=== PATIENT | female | born 1960 | race Caucasian/White ===

== ENCOUNTER → 2016-09-16 | Outpatient (CLI) | payer BC, OTHER ==
[~2016-09-16] MED LIST: ALPR0.5T7 PO; ALPR1TAB2 PO; ALPR1TAB7 PO; ASP325TEC PO; ASPI-587 PO; ASPI-875 PO; ASPI-983 PO; BUDE10.22 IH; BUDE6HFA IH; CETI10TA17 PO; CHLO500T4 PO; CLCX100C PO; CLOP75TA28 PO; CYCL10TA9 PO; CYCL5TAB PO; DICL50TA4 PO; ENAL2.5T PO; FLUO40CA PO; FLUT16SP22 NSEACH; GABA-488 PO; GABA600T2 PO; GABA800T2 PO; HYDR-3454 PO; HYDR-3729 PO; LISI-556 PO; LISI10TA2 PO; LISI5TAB PO; LORA10TA7 PO; METO-333 PO; METO25TA PO; METO25TA2 PO; MGX400T PO; MIRT15TA6 PO; MIRT45TA5 PO; MONT10TA24 PO; NITR1OIN TP; POTA10CA43 PO; POTA10TA36 PO; RT-ALBUINH IH; SILV20CR14 EXT; SIMV10TA3 PO; SIMV40TA4 PO; SMV10T PO; TIOT4MIS2 INH; TRAZ150T42 PO
--- NOTE | 2016-09-17 08:40 | ECHOCARDIOGRAPHY REPORT ---
PROCEDURE PHYSICIAN: RUDI PINEDA DATE OF PROCEDURE: 09/16/2016 TWO DIMENSIONAL ECHOCARDIOGRAM REPORT PRIMARY PHYSICIAN: BENNETT Bender OTHER PHYSICIAN: REFERRING PHYSICIAN: ORDERING PHYSICIAN: Armida Rosas APRN INDICATION FOR THE PROCEDURE: History of ischemic cardiomyopathy. MEASUREMENTS DERIVED VALUES LV DIAMETER (LAX) NORMALS NORMALS Diastolic 5.2 (3.6-5.2) Eject. Fract. (60%+/-6%) Systolic (2.3-3.9) Diastolic Vol. % Shortening (0.22-0.42) Systolic Vol. Aortic Root 2.7 IVS THICKNESS Diastolic 1 (0.6-1.1) LVPW THICKNESS Diastolic 1.1 (0.6-1.1) LA DIAMETER Systolic 3.8 (2.1-3.7) DESCRIPTION: Global left ventricular systolic function appears mildly impaired. There appears to be distal, septal and apical hypokinesis. Aortic, mitral and tricuspid valve leaflets show good leaflet excursion. Left ventricular ejection fraction is 45 to 50%. There is no significant pericardial effusion. Doppler imaging shows mild tricuspid regurgitation. There is trivial pulmonic regurgitation. Aortic valve appears to be trileaflet. There is mild to moderate sclerosis and calcification of the aortic valve leaflets. Doppler imaging shows moderate mitral regurgitation. Pulmonary artery systolic pressure is estimated to be approximately 50 mmHg. CONCLUSION: 1. Mild impairment of global left ventricular systolic function with an ejection fraction of approximately 45 to 50%. 2. Moderate mitral regurgitation. 3. Mild tricuspid regurgitation. 4. Aortic valve sclerosis with a peak pressure gradient across the aortic valve of approximately 24 mmHg and valve area of approximately 1.5 cm sq, indicating mild aortic stenosis. Job ID: [id number] Dictated Date: 09/16/2016 15:41:58 Publication Manager Date: 09/17/2016 08:33:51 / lyndsey
== END ==
LOC: CARD 10:39
PROVIDERS: ATTEND Nurse Practitioner Family
DX: I65.23 Occlusion and stenosis of bilateral carotid arteries (principal); E78.4 Other hyperlipidemia; I25.10 Atherosclerotic heart disease of native coronary artery without angina pectoris; R06.09 Other forms of dyspnea; Z86.79 Personal history of other diseases of the circulatory system
CPT/HCPCS: 93306

== ENCOUNTER 2016-11-25 18:27 | Observation (INO) | payer BC, MEDICARE ==
[~2016-11-25] VITALS: Ht 152.4 cm; Wt 76.7 kg
[~2016-11-25 18:27] MED LIST changes: -ALPR0.5T7 PO; -ASPI-983 PO; -CETI10TA17 PO; -CHLO500T4 PO; -CLOP75TA28 PO; -CYCL5TAB PO; -DICL50TA4 PO; -FLUT16SP22 NSEACH; -GABA800T2 PO; -MIRT45TA5 PO; -MONT10TA24 PO; -RT-ALBUINH IH; -SILV20CR14 EXT; -SIMV40TA4 PO
[2016-11-25] MEDS ORDERED: methylPREDNISolone 125 MG (Solu-MEDROL) VIAL IVP ONE (18:45)
[2016-11-25 18:58] LABS: BASOPHILS % (AUTO) 1 % (0-10); EOSINOPHILS # (AUTO) 0.2 10^3/uL (0.0-0.3); EOSINOPHILS % (AUTO) 2 % (0-10); LYMPHOCYTES # (AUTO) 1.8 X 10^3 (1.0-4.0); LYMPHOCYTES % (AUTO) 23 % (12-44); MEAN CORPUSCULAR HEMOGLOBIN 32 PG (25-34); MEAN CORPUSCULAR HGB CONC 34 G/DL (32-36); MEAN CORPUSCULAR VOLUME 96 FL (80-99); MEAN PLATELET VOLUME 9.5 FL (7.4-10.4); MONOCYTES # (AUTO) 0.6 X 10^3 (0.0-1.0); MONOCYTES % (AUTO) 8 % (0-12); NEUTROPHILS # (AUTO) 5.1 X 10^3 (1.8-7.8); NEUTROPHILS % (AUTO) 66 % (42-75); PLATELET COUNT 220 10^3/uL (130-400); RED BLOOD COUNT 4.05 10^6/uL (4.35-5.85); RED CELL DISTRIBUTION WIDTH 13.3 % (10.0-14.5); WHITE BLOOD COUNT 7.7 10^3/uL (4.3-11.0)
[2016-11-25] MEDS ORDERED: fentaNYL INJECTION 100 MCG/2 ML AMP IVP STA (19:01)
[2016-11-25 19:08] LABS: INR 1.1 (0.8-1.4); PROTHROMBIN TIME PATIENT 14.3 SEC (12.2-14.7)
[2016-11-25 19:18] LABS: ALANINE AMINOTRANSFERASE 8 U/L (0-55); ALBUMIN 3.9 G/DL (3.2-4.5); ANION GAP 9 MMOL/L (5-14); ASPARTATE AMINO TRANSFERASE 13 U/L (5-34); BILIRUBIN,TOTAL 0.5 MG/DL (0.1-1.0); BLOOD UREA NITROGEN 3 MG/DL (7-18); BUN/CREATININE RATIO 4; CALCIUM 8.8 MG/DL (8.5-10.1); CARBON DIOXIDE 31 MMOL/L (21-32); CHLORIDE 97 MMOL/L (98-107); CREATININE SERUM 0.84 MG/DL (0.60-1.30); GFR ESTIMATED > 60; GLUCOSE 141 MG/DL (70-105); SODIUM 137 MMOL/L (135-145); TOTAL PROTEIN 6.6 G/DL (6.4-8.2)
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
[2016-11-25] MEDS: SILVER SULFADIAZINE 50 GM CREAM TOP SCH ×2 (20:03→21:15)
[2016-11-25 20:24] VITALS: BP 145/72
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
[2016-11-25 21:00] VITALS: BP 145/89
[2016-11-25] MEDS ORDERED: ALPR1TAB2 PO (21:11)
[2016-11-25] MEDS ORDERED: MIRT45TA5 PO (21:11)
[2016-11-25] MEDS ORDERED: traZODone 150 MG (DESYREL) TABLET PO PRN (21:15)
[2016-11-25] MEDS ORDERED: CYCLOBENZAPRINE 10 MG (FLEXERIL) TAB PO PRN (21:15)
[2016-11-25 22:00] VITALS: BP 152/87
[2016-11-25] MEDS ORDERED: RT-ALBUTEROL/IPRATROPIUM 3 ML (DUONEB) VIAL INH PRN (22:00)
[2016-11-25] MEDS ORDERED: TRIM/SULFAMETH 160/800 (SEPTRA DS) TAB PO ONE (22:25)
[2016-11-25] MEDS: RT-ALBUTEROL/IPRATROPIUM 3 ML (DUONEB) VIAL INH SCH (22:37)
[2016-11-25] MEDS: fentaNYL INJECTION 100 MCG/2 ML AMP IV PRN (22:40)
[2016-11-25 23:00] VITALS: BP 130/69
[2016-11-26] VITALS (12 sets, daily range): BP systolic 109–147; BP diastolic 59–89
[2016-11-26] MEDS ORDERED: KCL 20 MEQ TAB (K-DUR) PO ONE (00:09)
[2016-11-26] MEDS: methylPREDNISolone 125 MG (Solu-MEDROL) VIAL IV SCH ×3 (00:14→11:06)
[2016-11-26] MEDS ORDERED: KCL 20 MEQ POWDER FOR ORAL SOLUTION PO ONE (00:30)
[2016-11-26 00:32] LABS: ABG BASE EXCESS 5.5 MMOL/L (-2.5-2.5); ABG HCO3 31 MMOL/L (23-27); ABG OXYGEN SATURATION 100 % (94-100); ABG PCO2 60 MMHG (35-45); ABG PO2 188 MMHG (79-93); ALLENS TEST YES-POS; PATIENT TEMP 98.7
[2016-11-26 00:34] LABS: ABG PH 7.33 (7.37-7.43)
[2016-11-26] MEDS: RT-ALBUTEROL/IPRATROPIUM 3 ML (DUONEB) VIAL INH SCH ×6 (02:15→22:32)
[2016-11-26] MEDS: fentaNYL INJECTION 100 MCG/2 ML AMP IV PRN ×3 (03:42→20:00)
[2016-11-26 04:07] LABS: BASOPHILS % (AUTO) 0 % (0-10); EOSINOPHILS % (AUTO) 0 % (0-10); LYMPHOCYTES # (AUTO) 0.4 X 10^3 (1.0-4.0); LYMPHOCYTES % (AUTO) 7 % (12-44); MEAN CORPUSCULAR HEMOGLOBIN 32 PG (25-34); MEAN CORPUSCULAR HGB CONC 33 G/DL (32-36); MEAN CORPUSCULAR VOLUME 95 FL (80-99); MEAN PLATELET VOLUME 9.9 FL (7.4-10.4); MONOCYTES # (AUTO) 0.1 X 10^3 (0.0-1.0); MONOCYTES % (AUTO) 1 % (0-12); NEUTROPHILS # (AUTO) 5.6 X 10^3 (1.8-7.8); NEUTROPHILS % (AUTO) 91 % (42-75); PLATELET COUNT 198 10^3/uL (130-400); RED BLOOD COUNT 4.31 10^6/uL (4.35-5.85); RED CELL DISTRIBUTION WIDTH 13.3 % (10.0-14.5); WHITE BLOOD COUNT 6.2 10^3/uL (4.3-11.0)
[2016-11-26 04:29] LABS: ABG BASE EXCESS 5.3 MMOL/L (-2.5-2.5); ABG HCO3 31 MMOL/L (23-27); ABG OXYGEN SATURATION 94 % (94-100); ABG PCO2 57 MMHG (35-45); ABG PH 7.35 (7.37-7.43); ABG PO2 73 MMHG (79-93); ABG TCO2 32.4 MMOL/L (21.0-31.0)
[2016-11-26 04:30] LABS: ALLENS TEST YES-POS; PATIENT TEMP 98.4
[2016-11-26 04:41] LABS: ANION GAP 13 MMOL/L (5-14); BLOOD UREA NITROGEN 5 MG/DL (7-18); BUN/CREATININE RATIO 6; CALCIUM 8.8 MG/DL (8.5-10.1); CARBON DIOXIDE 27 MMOL/L (21-32); CHLORIDE 101 MMOL/L (98-107); CREATININE SERUM 0.81 MG/DL (0.60-1.30); GFR ESTIMATED > 60; GLUCOSE 243 MG/DL (70-105); MAGNESIUM 1.9 MG/DL (1.8-2.4); PHOSPHORUS 3.4 MG/DL (2.3-4.7); SODIUM 141 MMOL/L (135-145)
[2016-11-26 05:06] LABS: BAND NEUTROPHILS 0 %; EOSINOPHILS % (MANUAL) 0 %; LYMPHOCYTES % (MANUAL) 15 %; NEUTROPHILS % (MANUAL) 85 %
[2016-11-26] MEDS ORDERED: MAGNESIUM 1 GM/100 ML IVPB 100 ML IV SCH (06:00)
[2016-11-26] MEDS ORDERED: POTASSIUM CL 10MEQ/50ML IVPB 50 ML IV SCH (06:00)
[2016-11-26] MEDS ORDERED: KCL 20 MEQ TAB (K-DUR) PO SCH (06:00)
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
[2016-11-26] MEDS: TRIM/SULFAMETH 160/800 (SEPTRA DS) TAB PO SCH ×2 (07:36→16:51)
[2016-11-26] MEDS: lisINopril 10 MG (PRINIVIL) TAB PO SCH (07:36)
[2016-11-26] MEDS: GABAPENTIN 600 MG (NEURONTIN) TAB PO SCH ×4 (07:36→20:00)
[2016-11-26] MEDS: SILVER SULFADIAZINE 50 GM CREAM EXT SCH ×2 (07:36→20:01)
[2016-11-26] MEDS: ASPIRIN E.C. 325 MG (ECOTRIN) TABLET PO SCH (07:36)
[2016-11-26] MEDS: ALPRAZolam 1 MG (XANAX) TAB PO SCH ×2 (07:36→20:01)
[2016-11-26] MEDS ORDERED: RT-ADVAIR HFA 115/21 MCG PER PUFF IH SCH (08:00)
--- NOTE | 2016-11-26 08:02 | Diagnostic Imaging Report ---
Portable erect AP chest at 457 hours. INDICATION: COPD. FINDINGS: The heart size is within normal limits and stable when compared to 11/25/16. The lungs are clear. There is still no evidence for failure, pneumonia or pleural effusion. The mediastinum is not widened. The osseous structures are intact. As noted on the prior exam, the distal tip of the left clavicle has been surgically resected. The vascular mesh stent overlying the left supraclavicular region seen previously is also again evident and no different. IMPRESSION: Stable chest. There has been no adverse change since the prior exam. Dictated by: Dictated on workstation # [id number]
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
[2016-11-26] MEDS ORDERED: RT-SYMBICORT 160/4.5 MCG INHALER PER PUFF IH SCH (09:00)
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
[2016-11-26] MEDS ORDERED: CYCL5TAB PO (10:49)
[2016-11-26] MEDS ORDERED: CHLO500T4 PO (10:49)
[2016-11-26] MEDS ORDERED: GABA800T2 PO (10:49)
[2016-11-26] MEDS ORDERED: CETI10TA17 PO (10:49)
[2016-11-26] MEDS ORDERED: SIMV40TA4 PO (10:49)
[2016-11-26] MEDS ORDERED: CLOP75TA28 PO (10:49)
[2016-11-26] MEDS ORDERED: ASPI-983 PO (10:49)
[2016-11-26] MEDS ORDERED: DICL50TA4 PO (10:49)
[2016-11-26] MEDS ORDERED: MONT10TA24 PO (10:49)
[2016-11-26] MEDS ORDERED: FLUT16SP22 NSEACH (10:49)
[2016-11-26] MEDS ORDERED: ALPR0.5T7 PO (10:49)
[2016-11-26] MEDS ORDERED: METO-333 PO (10:49)
[2016-11-26] MEDS ORDERED: RT-ALBUINH IH (10:49)
[2016-11-26] MEDS: CELECOXIB 100 MG (CeleBREX) CAP PO SCH ×2 (11:06→20:00)
[2016-11-26] MEDS: RT-ADVAIR HFA 115/21 MCG PER PUFF IH SCH ×2 (11:13→19:07)
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
[2016-11-26] MEDS ORDERED: LORATADINE (CLARITIN) 10 MG TAB PO SCH (21:00)
[2016-11-26] MEDS ORDERED: NON-FORMULARY MEDICATION 1 EA EA (Mirtazapine 45 MG) PO SCH (21:00)
[2016-11-26] MEDS ORDERED: MIRTAZAPINE 15 MG (REMERON) TAB PO SCH (21:00)
[2016-11-26] MEDS ORDERED: SIMvastatin 10 MG (ZOCOR) TAB PO SCH (21:00)
[2016-11-27 00:05] VITALS: BP 107/59
[2016-11-27] MEDS: RT-ALBUTEROL/IPRATROPIUM 3 ML (DUONEB) VIAL INH SCH ×3 (02:10→10:30)
[2016-11-27 05:02] LABS: BASOPHILS % (AUTO) 0 % (0-10); EOSINOPHILS % (AUTO) 0 % (0-10); LYMPHOCYTES # (AUTO) 0.8 X 10^3 (1.0-4.0); LYMPHOCYTES % (AUTO) 5 % (12-44); MEAN CORPUSCULAR HEMOGLOBIN 32 PG (25-34); MEAN CORPUSCULAR HGB CONC 33 G/DL (32-36); MEAN CORPUSCULAR VOLUME 96 FL (80-99); MEAN PLATELET VOLUME 9.8 FL (7.4-10.4); MONOCYTES # (AUTO) 0.7 X 10^3 (0.0-1.0); MONOCYTES % (AUTO) 4 % (0-12); NEUTROPHILS # (AUTO) 13.9 X 10^3 (1.8-7.8); NEUTROPHILS % (AUTO) 90 % (42-75); PLATELET COUNT 223 10^3/uL (130-400); RED BLOOD COUNT 4.14 10^6/uL (4.35-5.85); RED CELL DISTRIBUTION WIDTH 13.6 % (10.0-14.5); WHITE BLOOD COUNT 15.4 10^3/uL (4.3-11.0)
[2016-11-27 05:24] LABS: ANION GAP 9 MMOL/L (5-14); BLOOD UREA NITROGEN 7 MG/DL (7-18); BUN/CREATININE RATIO 9; CALCIUM 9.1 MG/DL (8.5-10.1); CARBON DIOXIDE 31 MMOL/L (21-32); CHLORIDE 104 MMOL/L (98-107); CREATININE SERUM 0.79 MG/DL (0.60-1.30); GFR ESTIMATED > 60; GLUCOSE 182 MG/DL (70-105); PHOSPHORUS 3.3 MG/DL (2.3-4.7); POTASSIUM 4.6 MMOL/L (3.6-5.0); SODIUM 144 MMOL/L (135-145)
[2016-11-27] MEDS: TRIM/SULFAMETH 160/800 (SEPTRA DS) TAB PO SCH (06:10)
[2016-11-27] MEDS: RT-ADVAIR HFA 115/21 MCG PER PUFF IH SCH (06:12)
[2016-11-27 07:30] VITALS: BP 122/61
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
[2016-11-27] MEDS: lisINopril 10 MG (PRINIVIL) TAB PO SCH (08:07)
[2016-11-27] MEDS: ASPIRIN E.C. 325 MG (ECOTRIN) TABLET PO SCH (08:07)
[2016-11-27] MEDS: CELECOXIB 100 MG (CeleBREX) CAP PO SCH (08:07)
[2016-11-27] MEDS: GABAPENTIN 600 MG (NEURONTIN) TAB PO SCH (08:07)
[2016-11-27] MEDS: ALPRAZolam 1 MG (XANAX) TAB PO SCH (08:09)
[2016-11-27] MEDS: SILVER SULFADIAZINE 50 GM CREAM EXT SCH (08:11)
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
[2016-11-27] MEDS ORDERED: SILV20CR14 EXT (10:23)
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
[2016-11-27 11:06] VITALS: BP 122/61
--- OUTSIDE RECORDS SUMMARY | 2016-12-28 15:11 | XMS REPORT ---
Author Author EN LOPEZ [employer] Address Unknown Phone Unavailable Care Team Providers Care Circular Head Saw Operator Name Role Phone EN LOPEZ CP Unavailable Allergies, Adverse Reactions, Alerts Substance Reaction Event Type Hydrocodone-acetaminophen 7.5-325 Mg Tablet Smokes THC, & discharged from past provider for violating narcotic contract. Non Drug Allergy Benzodiazepines Smokes THC, & discharged from past provider for violating narcotic contract. Non Drug Allergy Hydrocodone Smokes THC, & discharged from past provider for violating narcotic contract. Non Drug Allergy Morphine 15 Mg Tablet Smokes THC, & discharged from past provider for violating narcotic contract. Non Drug Allergy Xanax 1 Mg Tablet Failed UDS for THC Non Drug Allergy Problems Problem Type Condition ICD-9 Code Onset Dates Condition Status Problem Insomnia, unspecified 780.52 Active Problem Unspecified myalgia and myositis 729.1 Active Problem Rheumatoid arthritis 714.0 Active Problem Diabetes mellitus without mention of complication, type II or unspecified type, not stated as uncontrolled 250.00 Active Problem Allergic rhinitis, cause unspecified 477.9 Active Problem Coronary atherosclerosis of unspecified type of vessel, [place] or graft 414.00 Active Problem Encounter for long-term (current) use of other medications V58.69 Active Problem Routine general medical examination at health care facility V70.0 Active Problem Essential hypertension, benign 401.1 Active Problem Nondependent cannabis abuse, 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.20 Active Assessment Nicotine dependence 305.1 Active Assessment Muscle spasm 728.85 Active Problem Cough 786.2 Active Problem Hypopotassemia 276.8 Active Medications Medication Code System Code Instructions Start Date End Date Status Dosage Baclofen [facility] [address]-33 5 mg Orally Three times a day Apr 27, 2015 Jul 26, 2015 1 tablet with food or milk Aspirin EC [facility] [address]-28 325 MG Orally Once a day 1 tablet Loratadine [facility] [address]-00 10 mg May 05, 2014 take 1 tablet by Oral route 1 time per day take at hs Enalapril Maleate [facility] [address]-66 2.5 mg May 05, 2014 take 1 tablet (2.5 mg) by oral route 2 times per day Metoprolol Tartrate [facility] [address]-40 25 mg February 23, 2014 take 0.5 tablet by Oral route 2 times per day Mirtazapine [facility] [address]-77 15 MG Orally Once a day 1 tablet before bedtime in the evening Simvastatin [facility] [address]-75 10 mg February 23, 2014 1 tablet by Oral route 1 time per day Celebrex [facility] [address]-26 200 MG Orally Once a day December 27, 2014 1 capsule Nicoderm CQ [facility] [address]-86 14 MG/24HR Transdermal Once a day Apr 27, 2015 Jun 26, 2015 1 patch to skin trazodone [facility] [address]-55 150 mg May 05, 2014 take 1 tablet by Oral route 1 time per day after meals Symbicort [facility] [address]-96 160-4.5 mcg/actuation Oct 05, 2014 inhale 2 puffs by inhalation route 2 times per day in the morning and evening Gabapentin [facility] [address]-92 600 mg May 05, 2014 1 Tablet by Oral route 4 times per day PRN for back/hip/leg pain Lisinopril [facility] [address]-39 5 mg February 23, 2014 1 tablet by Oral route 1 time per day Spiriva HandiHaler [facility] [address]-83 18 MCG Inhalation Once a day 1 capsule Alprazolam [facility] [address]-01 0.25 mg May 05, 2014 take 1 tablet ( 0.25 mg) by oral route 3 times per day Ultram [facility] [address]-20 50 MG Orally every 6 hrs January 01, 2015 1 tablet as needed Procedures Procedure Coding System Code Date Office Visit, Est Pt., Level 3 CPT-4 88189 Apr 27, 2015 Vital Signs Date/Time: Apr 27, 2015 Temperature 97.4 F Weight 182.0 lbs Height 60 in BMI 35.54 Index Blood Pressure Diastolic 70 mmHg Blood Pressure Systolic 130 mmHg Cardiac Monitoring Heart Rate 96 bpm Results No Known Results Summary Purpose eClinicalWorks Submission
--- OUTSIDE RECORDS SUMMARY | 2016-12-28 15:11 | XMS REPORT ---
Author Author EN LOPEZ [facility] e[employer] Address Unknown Phone Unavailable Care Team Providers Care Accounting Specialist Name Role Phone EN LOPEZ CP Unavailable Allergies No Known Allergies Problems Problem Type Condition ICD-9 Code Onset Dates Condition Status Problem Insomnia, unspecified 780.52 Active Problem Unspecified myalgia and myositis 729.1 Active Problem Rheumatoid arthritis 714.0 Active Problem Cough 786.2 Active Problem Hypopotassemia 276.8 Active Problem Diabetes mellitus without mention of complication, type II or unspecified type, not stated as uncontrolled 250.00 Active Problem Allergic rhinitis, cause unspecified 477.9 Active Problem Coronary atherosclerosis of unspecified type of vessel, [place] or graft 414.00 Active Problem Encounter for long-term (current) use of other medications V58.69 Active Problem Routine general medical examination at health care facility V70.0 Active Problem Essential hypertension, benign 401.1 Active Problem Nondependent cannabis abuse, 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.20 Active Medications No Known Medications Results No Known Results Summary Purpose eClinicalWorks Submission
--- OUTSIDE RECORDS SUMMARY | 2016-12-28 15:11 | XMS REPORT ---
Author Author EN LOPEZ [employer] Address Unknown Phone Unavailable Care Team Providers Care Ssis Architect Name Role Phone EN LOPEZ CP Unavailable Allergies, Adverse Reactions, Alerts Substance Reaction Event Type Benzodiazepines Smokes THC, & discharged from past provider for violating narcotic contract. Non Drug Allergy Hydrocodone Smokes THC, & discharged from past provider for violating narcotic contract. Non Drug Allergy Hydrocodone-acetaminophen 7.5-325 Mg Tablet Smokes THC, & discharged from past provider for violating narcotic contract. Non Drug Allergy Morphine 15 Mg Tablet Smokes THC, & discharged from past provider for violating narcotic contract. Non Drug Allergy Xanax 1 Mg Tablet Failed UDS for THC Non Drug Allergy Problems Problem Type Condition Code Onset Dates Condition Status Problem Insomnia, unspecified 780.52 Active Problem Unspecified myalgia and myositis 729.1 Active Problem Rheumatoid arthritis 714.0 Active Problem Diabetes mellitus without mention of complication, type II or unspecified type, not stated as uncontrolled 250.00 Active Problem Allergic rhinitis, cause unspecified 477.9 Active Problem Coronary atherosclerosis of unspecified type of vessel, [place] or graft 414.00 Active Problem Encounter for long-term (current) use of other medications V58.69 Active Problem Routine general medical examination at health care facility V70.0 Active Problem Essential hypertension, benign 401.1 Active Problem Nondependent cannabis abuse, 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.20 Active Assessment Muscle spasms of both lower extremities M62.838 Active Problem Cough 786.2 Active Problem Hypopotassemia 276.8 Active Medications Medication Code System Code Instructions Start Date End Date Status Dosage Enalapril Maleate [facility] [address]-36 2.5 mg May 05, 2014 take 1 tablet (2.5 mg) by oral route 2 times per day Aspirin EC [facility] [address]-92 325 MG Orally Once a day 1 tablet Lisinopril [facility] [address]-55 5 mg February 23, 2014 1 tablet by Oral route 1 time per day trazodone [facility] [address]-19 150 mg May 05, 2014 take 1 tablet by Oral route 1 time per day after meals Celebrex [facility] [address]-24 200 MG Orally Once a day December 27, 2014 1 capsule Spiriva HandiHaler [facility] [address]-33 18 MCG Inhalation Once a day 1 capsule Mirtazapine [facility] [address]-08 15 MG Orally Once a day 1 tablet before bedtime in the evening Loratadine [facility] [address]-05 10 mg May 05, 2014 take 1 tablet by Oral route 1 time per day take at hs Symbicort [facility] [address]-39 160-4.5 mcg/actuation Oct 05, 2014 inhale 2 puffs by inhalation route 2 times per day in the morning and evening Simvastatin [facility] [address]-14 10 mg February 23, 2014 1 tablet by Oral route 1 time per day Gabapentin [facility] [address]-94 600 mg May 05, 2014 1 Tablet by Oral route 4 times per day PRN for back/hip/leg pain Ultram [facility] [address]-89 50 MG Orally every 6 hrs January 01, 2015 1 tablet as needed Metoprolol Tartrate [facility] [address]-90 25 mg February 23, 2014 take 0.5 tablet by Oral route 2 times per day Procedures Procedure Coding System Code Date Office Visit, Est Pt., Level 3 CPT-4 78090 Jun 27, 2015 Vital Signs Date/Time: Jun 27, 2015 Temperature 98.0 F Weight 179.0 lbs Height 60 in BMI 34.95 Index Blood Pressure Diastolic 76 mmHg Blood Pressure Systolic 122 mmHg Cardiac Monitoring Heart Rate 96 bpm Results No Known Results Summary Purpose eClinicalWorks Submission
--- OUTSIDE RECORDS SUMMARY | 2016-12-28 15:11 | XMS REPORT ---
Author Author EN LOPEZ [facility] eClinicalWorks Address Unknown Phone Unavailable Care Team Providers Care Deputy Sheriff Custody Name Role Phone EN LOPEZ CP Unavailable Allergies No Known Allergies Problems Problem Type Condition Code Onset Dates [...] Coronary atherosclerosis of unspecified type of vessel, [place] or graft 414.00 Active Problem Encounter for long-term (current) use of other medications V58.69 Active Problem Routine general medical examination at health care facility V70.0 Active Problem Essential hypertension, benign 401.1 Active Problem Nondependent cannabis abuse, 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.20 Active Medications Medication Code System Code Instructions Start Date End Date Status Dosage Permethrin [facility] [address]-98 5 % Externally Once a day Aug 02, 2015 as directed Results No Known Results Summary Purpose eClinicalWorks Submission
--- OUTSIDE RECORDS SUMMARY | 2016-12-28 15:11 | XMS REPORT ---
Author Author DANIEL CONNOLLY [facility] eClinicalWorks Address Unknown Phone Unavailable Care Team Providers Care Lap Hand Tool Name Role Phone DANIEL CONNOLLY CP Unavailable Allergies, Adverse Reactions, Alerts Substance [...] for violating narcotic contract. Non Drug Allergy Problems Problem Type Condition Code Onset Dates Condition Status Problem Nondependent cannabis abuse, 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.20 Active Problem Allergic rhinitis, cause unspecified 477.9 Active Problem Essential hypertension, benign 401.1 Active Problem Essential hypertension, hypertension with unspecified goal I10 Active Problem Arthritis M19.90 Active Problem Coronary artery disease involving [place] coronary artery of [place] heart without angina pectoris I25.10 Active Problem Coronary atherosclerosis of unspecified type of vessel, [place] or graft 414.00 Active Problem Diabetes mellitus without mention of complication, type II or unspecified type, not stated as uncontrolled 250.00 Active Problem Chronic obstructive pulmonary disease, unspecified COPD type J44.9 Active Problem Diet-controlled diabetes mellitus E11.9 Active Assessment Chronic obstructive pulmonary disease, unspecified COPD type J44.9 Active Problem Cough 786.2 Active Assessment Essential hypertension, hypertension with unspecified goal I10 Active Assessment Arthritis M19.90 Active Problem Rheumatoid arthritis 714.0 Active Problem Unspecified myalgia and myositis 729.1 Active Problem Hypopotassemia 276.8 Active Problem Routine general medical examination at health care facility V70.0 Active Problem Insomnia, unspecified 780.52 Active Problem Encounter for long-term (current) use of other medications V58.69 Active Medications Medication Code System Code Instructions Start Date End Date Status Dosage Spiriva HandiHaler [facility] [address]-38 18 MCG Inhalation Once a day 1 capsule Albuterol Sulfate HFA [facility] [address]-69 108 (90 Base) MCG/ACT Inhalation 4 times a day December 26, 2015 2 puffs as needed ProAir HFA [facility] [id number] 108 (90 Base) MCG/ACT INHALE TWO (2) PUFFS BY MOUTH FOUR (4) TIMES DAILY NEEDED. Celecoxib [facility] [address]-40 200 MG Orally Once a day [address] [facility] [address]-38 10 MG Orally Once a day 1 tablet in the evening Parafon Forte DSC [facility] [address]-22 500 MG Orally Three times a day Mar [address] [facility] [address]-66 160-4.5 mcg/actuation Oct 05, 2014 inhale 2 puffs by inhalation route 2 times per day in the morning and evening Aspirin EC [facility] [address]-48 325 MG Orally Once a day [address] [facility] [address]-49 75 MG Orally Once a day 1 tablet Flonase Allergy Relief [facility] [address]-12 50 MCG/ACT Nasally Once a day 1 spray in each nostril Gabapentin [facility] [address]-39 800 MG Orally 4 times a day May 05, 2014 1 Tablet by Oral route 4 times per day PRN for back/hip/leg pain Xanax [facility] [address]-31 1 MG Orally Twice a day 1 tablet Metoprolol Tartrate [facility] 92407712184 25 MG 1 tablet with food Twice a day Orally Oxygen ND 0 ... 3L Simvastatin [facility] [address]-71 40 MG Orally Once a day February 23, 2014 1 tablet by Oral route 1 time per day Celebrex [facility] [address]-42 200 mg Orally Once a day Apr 02, 2016 1 capsule Procedures Procedure Coding System Code Date Office Visit, Est Pt., Level 3 CPT-4 30936 Apr 02, 2016 Vital Signs Date/Time: Apr 02, 2016 Cardiac Monitoring Heart Rate 92 bpm Weight 176.4 lbs Height 60 in BMI 34.45 Index Blood Pressure Diastolic 64 mmHg Blood Pressure Systolic 118 mmHg Results No Known Results Summary Purpose eClinicalWorks Submission
--- OUTSIDE RECORDS SUMMARY | 2016-12-28 15:12 | XMS REPORT ---
Author Author DANIEL CONNOLLY [facility] eClinicalWorks Address Unknown Phone Unavailable Care Team Providers Care Hide Selector Name Role Phone DANIEL CONNOLLY CP Unavailable [...] Condition Code Onset Dates Condition Status Problem Essential hypertension, benign 401.1 Active Problem Diabetes mellitus without mention of complication, type II or unspecified type, not stated as uncontrolled 250.00 Active Problem Allergic rhinitis, cause unspecified 477.9 Active Problem Coronary artery disease involving [place] coronary artery of [place] heart without angina pectoris I25.10 Active Assessment Coronary artery disease involving [place] coronary artery of [place] heart without angina pectoris I25.10 Active Problem Essential hypertension, hypertension with unspecified goal I10 Active Assessment Low back pain M54.5 Active Assessment Encounter for immunization Z23 Active Problem Low back pain M54.5 Active Problem Diet-controlled diabetes mellitus E11.9 Active Problem Coronary atherosclerosis of unspecified type of vessel, [place] or graft 414.00 Active Problem Arthritis M19.90 Active Problem Chronic obstructive pulmonary disease, unspecified COPD type J44.9 Active Problem Cough 786.2 Active Problem Hypopotassemia 276.8 Active Assessment Ganglion cyst of foot M67.479 Active Assessment Toe infection L08.9 Active Problem Unspecified myalgia and myositis 729.1 Active Problem Routine general medical examination at health care facility V70.0 Active Problem Insomnia, unspecified 780.52 Active Problem Encounter for long-term (current) use of other medications V58.69 Active Problem Rheumatoid arthritis 714.0 Active Problem Nondependent cannabis abuse, 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.20 Active Medications Medication Code System Code Instructions Start Date End Date Status Dosage Aspirin EC [facility] [address]-70 325 MG Orally Once a day 1 tablet Metoprolol Tartrate [facility] 56233348241 25 MG 1 tablet with food Twice a day Orally Loratadine [facility] [address]-29 10 mg May 05, 2014 take 1 tablet by Oral route 1 time per day take at hs Xanax [facility] [address]-72 1 MG Orally Twice a day 1 tablet Mirtazapine [facility] [address]-60 15 MG Orally Once a day 1 tablet before bedtime in the evening HydrOXYzine HCl [facility] [address]-91 25 MG Orally 2 times a day 1 tablet as needed Singulair [facility] [address]-13 10 MG Orally Once a day 1 tablet in the evening Simvastatin [facility] [address]-44 40 MG Orally Once a day February 23, 2014 1 tablet by Oral route 1 time per day Plavix [facility] [address]-79 75 MG Orally Once a day 1 tablet Symbicort [facility] [address]-69 160-4.5 mcg/actuation Oct 05, 2014 inhale 2 puffs by inhalation route 2 times per day in the morning and evening Nystatin [facility] [address]-23 667640 UNIT/GM Externally 3 times a day December 26, 2015 1 application to affected area Albuterol Sulfate HFA [facility] [address]-54 108 (90 Base) MCG/ACT Inhalation 4 times a day December 26, 2015 2 puffs as needed Oxygen ND 0 ... 3L Diclofenac Potassium [facility] [address]-75 50 mg Orally Twice a day May 27, 2016 1 tablet Flonase Allergy Relief [facility] [address]-29 50 MCG/ACT Nasally Once a day 1 spray in each nostril Cephalexin [facility] [address]-43 500 MG Orally Twice a day May 27, 2016May 1 capsule Spiriva HandiHaler [facility] [address]-99 18 MCG Inhalation Once a day 1 capsule trazodone [facility] [address]-13 150 mg May 05, 2014 take 1 tablet by Oral route 1 time per day after meals Gabapentin [facility] [address]-49 800 MG Orally 4 times a day May 05, 2014 1 Tablet by Oral route 4 times per day PRN for back/hip/leg pain Carmeloexta [facility] [address]-00 20-10 MG Orally every 12 hrs 1 capsule Procedures Procedure Coding System Code Date FLUARIX QUAD P-FREE 3 AND UP .50 2015 CPT-4 97302 May 27, 2016 [id number] (PNEUMOVAX) CPT-4 52318 May 27, 2016 Office Visit, Est Pt., Level 3 CPT-4 43172 May 27, 2016 IMMUNIZATION ADMIN, EACH ADD (please include units) CPT-4 42104 May 27, 2016 SINGLE IMMUNIZATION ADMIN CPT-4 90671 May 27, 2016 Vital Signs Date/Time: May 27, 2016 Cardiac Monitoring Heart Rate 81 bpm Weight 179 lbs Height 60 in BMI 34.95 Index Blood Pressure Diastolic 78 mmHg Blood Pressure Systolic 120 mmHg Results No Known Results Immunizations Vaccine Administration Date FLUARIX QUAD P-FREE 3 AND UP .50 2015May 27, 2016 [email or web address] (PNEUMOVAX) May 27, 2016 Summary Purpose eClinicalWorks Submission
--- OUTSIDE RECORDS SUMMARY | 2016-12-28 15:13 | XMS REPORT | Continuity of Care Document ---
Author Author [facility] Address Unknown Phone Unavailable Allergies Active Description Code Type Severity Reaction Onset Reported/Identified Relationship to Patient Clinical Status Yes hydrocodone-acetaminophen 7.5-325 mg tablet Drug Allergy N/A N/A 12/27/2012 Yes morphine 15 mg tablet Drug Allergy N/A N/A 12/27/2012 Yes Benzodiazepines Drug Allergy N/A N/A 12/27/2012 Yes Hydrocodone Drug Allergy N/A N/A 12/27/2012 Yes No Known Drug Allergies [id number] Drug Allergy Unknown N/ A 02/08/2014 Yes Xanax 1 mg tablet Drug Allergy N/A N/A 05/05/2014 Medications Problems Date Dx Coded Attending Type Code Diagnosis Diagnosed By 05/18/2008 300.00 ANXIETY 05/18/2008 414.01 CAD 05/18/2008 796.2 ELEVATED BLOOD PRESSURE READING WITHOUT DIAGNOSIS OF HYPERTENSION 05/18/2008 ARNIE YOO MD 300.00 ANXIETY 05/18/2008 ARNIE YOO MD 414.01 CAD 05/18/2008 ARNIE YOO MD 796.2 ELEVATED BLOOD PRESSURE READING WITHOUT DIAGNOSIS OF HYPERTENSION 05/18/2008 RUBY BRENNAN KATIE K 300.00 ANXIETY 05/18/2008 LYLA BELTRAN DOA K 414.01 CAD 05/18/2008 LYLA BELTRAN DOA K 796.2 ELEVATED BLOOD PRESSURE READING WITHOUT DIAGNOSIS OF HYPERTENSION 05/18/2008 RUBY BRENNAN KATIE K 300.00 ANXIETY 05/18/2008 BELTRAN DO AKTIE K 414.01 CAD 05/18/2008 RUBY BRENNAN KATIE K 796.2 ELEVATED BLOOD PRESSURE READING WITHOUT DIAGNOSIS OF HYPERTENSION 05/18/2008 RUBY BRENNAN KATIE K 300.00 ANXIETY 05/18/2008 RUBY BRENNAN KATIE K 414.01 CAD 05/18/2008 BELTRAN DO KATIE K 796.2 ELEVATED BLOOD PRESSURE READING WITHOUT DIAGNOSIS OF HYPERTENSION 12/27/2012 250.00 DIABETES MELLITUS WITHOUT MENTION OF COMPLICATION TYPE II OR UNSPECIFIED TYPE NOT STATED UNCONTROLLED 12/27/2012 305.20 NONDEPENDENT CANNABIS ABUSE UNSPECIFIED USE 12/27/2012 401.1 HYPERTENSION, BENIGN ESSENTIAL 12/27/2012 414.00 CORONARY ATHEROSCLEROSIS OF UNSPECIFIED TYPE OF VESSEL [place] OR GRAFT 12/27/2012 477.9 RHINITIS 12/27/2012 714.0 RHEUMATOID ARTHRITIS 12/27/2012 729.1 MYALGIA AND MYOSITIS UNSPECIFIED 12/27/2012 780.52 INSOMNIA UNSPECIFIED 12/27/2012 V58.69 LONG-TERM (CURRENT) USE OF OTHER MEDICATIONS 12/27/2012 V70.0 ROUTINE GENERAL MEDICAL EXAMINATION AT A HEALTH CARE FACILITY 12/27/2012 ARNIE YOO MD 250.00 DIABETES MELLITUS WITHOUT MENTION OF COMPLICATION TYPE II OR UNSPECIFIED TYPE NOT STATED UNCONTROLLED 12/27/2012 ARNIE YOO MD 305.20 NONDEPENDENT CANNABIS ABUSE UNSPECIFIED USE 12/27/2012 ARNIE YOO MD 401.1 HYPERTENSION, BENIGN ESSENTIAL 12/27/2012 ARNIE YOO MD 414.00 CORONARY ATHEROSCLEROSIS OF UNSPECIFIED TYPE OF VESSEL [place] OR GRAFT 12/27/2012 ARNIE YOO MD 477.9 RHINITIS 12/27/2012 ARNIE YOO MD 714.0 RHEUMATOID ARTHRITIS 12/27/2012 ARNIE YOO MD 729.1 MYALGIA AND MYOSITIS UNSPECIFIED 12/27/2012 ARNIE YOO MD 780.52 INSOMNIA UNSPECIFIED 12/27/2012 ARNIE YOO MD V58.69 LONG-TERM (CURRENT) USE OF OTHER MEDICATIONS 12/27/2012 ARNIE YOO MD V70.0 ROUTINE GENERAL MEDICAL EXAMINATION AT A HEALTH CARE FACILITY 12/27/2012 KATIE BELTRAN DO 250.00 DIABETES MELLITUS WITHOUT MENTION OF COMPLICATION TYPE II OR UNSPECIFIED TYPE NOT STATED UNCONTROLLED 12/27/2012 KATIE BELTRAN DO 305.20 NONDEPENDENT CANNABIS ABUSE UNSPECIFIED USE 12/27/2012 KATIE BELTRAN DO 401.1 HYPERTENSION, BENIGN ESSENTIAL 12/27/2012 LYLA BELTRAN DOA K 414.00 CORONARY ATHEROSCLEROSIS OF UNSPECIFIED TYPE OF VESSEL [place] OR GRAFT 12/27/2012 KATIE BELTRAN DO K 477.9 RHINITIS 12/27/2012 LYLA BELTRAN DOA Vaishali 714.0 RHEUMATOID ARTHRITIS 12/27/2012 KATIE BELTRAN DO 729.1 MYALGIA AND MYOSITIS UNSPECIFIED 12/27/2012 BELTRAN DO, KATIE K 780.52 INSOMNIA UNSPECIFIED 12/27/2012 BELTRAN DO, KATIE K V58.69 LONG-TERM (CURRENT) USE OF OTHER MEDICATIONS 12/27/2012 BELTRAN DO, KATIE K V70.0 ROUTINE GENERAL MEDICAL EXAMINATION AT A HEALTH CARE FACILITY 12/27/2012 BELTRAN DO, KATIE K 250.00 DIABETES MELLITUS WITHOUT MENTION OF COMPLICATION TYPE II OR UNSPECIFIED TYPE NOT STATED UNCONTROLLED 12/27/2012 BELTRAN DO KATIE K 305.20 NONDEPENDENT CANNABIS ABUSE UNSPECIFIED USE 12/27/2012 BELTRAN DO KATIE K 401.1 HYPERTENSION, BENIGN ESSENTIAL 12/27/2012 BELTRAN DO, KATIE K 414.00 CORONARY ATHEROSCLEROSIS OF UNSPECIFIED TYPE OF VESSEL [place] OR GRAFT 12/27/2012 BELTRAN DO KATIE K 477.9 RHINITIS 12/27/2012 BELTRAN DO KATIE K 714.0 RHEUMATOID ARTHRITIS 12/27/2012 BELTRAN DO KATIE K 729.1 MYALGIA AND MYOSITIS UNSPECIFIED 12/27/2012 BELTRAN DO KATIE K 780.52 INSOMNIA UNSPECIFIED 12/27/2012 BELTRAN DO, KATIE K V58.69 LONG-TERM (CURRENT) USE OF OTHER MEDICATIONS 12/27/2012 BELTRAN DO KATIE K V70.0 ROUTINE GENERAL MEDICAL EXAMINATION AT A HEALTH CARE FACILITY 12/27/2012 BELTRAN DO KATIE K 250.00 DIABETES MELLITUS WITHOUT MENTION OF COMPLICATION TYPE II OR UNSPECIFIED TYPE NOT STATED UNCONTROLLED 12/27/2012 BELTRAN DO KATIE K 305.20 NONDEPENDENT CANNABIS ABUSE UNSPECIFIED USE 12/27/2012 RUBY DO KATIE K 401.1 HYPERTENSION, BENIGN ESSENTIAL 12/27/2012 BELTRAN DO, KATIE K 414.00 CORONARY ATHEROSCLEROSIS OF UNSPECIFIED TYPE OF VESSEL [place] OR GRAFT 12/27/2012 BELTRAN DO KATIE K 477.9 RHINITIS 12/27/2012 BELTRAN DO, KATIE K 714.0 RHEUMATOID ARTHRITIS 12/27/2012 BELTRAN DO KATIE K 729.1 MYALGIA AND MYOSITIS UNSPECIFIED 12/27/2012 BELTRAN DO, KATIE K 780.52 INSOMNIA UNSPECIFIED 12/27/2012 BELTRAN DO, KATIE K V58.69 LONG-TERM (CURRENT) USE OF OTHER MEDICATIONS 12/27/2012 BELTRAN DO KATIE K V70.0 ROUTINE GENERAL MEDICAL EXAMINATION AT A HEALTH CARE FACILITY 02/10/2014 MIRIAM WILSON FACC, RUDI GATESP CCDS Ot 250.00 DIAB KYLE WO COMPL, TYPE II OR UNSPEC TY 02/10/2014 MIRIAM WILSON FACC, RUDI FACP CCDS Ot 300.00 ANXIETY STATE NOS 02/10/2014 MIRIAM WILSON FACC, RUDI FACP CCDS Ot 305.1 TOBACCO USE DISORDER 02/10/2014 MIRIAM WILSON FACC, RUDI FACP CCDS Ot 414.01 CORONARY ATHEROSCLEROSIS OF [place] CORON 02/10/2014 MIRIAM WILSON FACC, RUDI FACP CCDS Ot 414.4 CORONARY ATHEROSCLEROSIS DUE TO CALCIFIE 02/10/2014 MIRIAM WILSON FACC, RUDI FACP CCDS Ot 414.8 CHR ISCHEMIC HRT DIS NEC 02/10/2014 MIRIAM WILSON FACC, RUDI FACP CCDS Ot 724.5 BACKACHE NOS 02/10/2014 MIRIAM WILSON FACC, RUDI FACP CCDS Ot V15.81 HX OF PAST NONCOMPLIANCE 02/10/2014 MIRIAM WILSON FACC, RUDI FACP CCDS Ot V45.82 PERCUTANEOUS TRANSLUM CORON ANGIOPLASTY 02/10/2014 MIRIAM WILSON FACC, RUDI FACP CCDS Ot V58.69 OTH MED,LT,CURRENT USE 04/21/2014 RUBY BRENNAN KATIE K Ot 250.00 DIAB KYLE WO COMPL, TYPE II OR UNSPEC TY 04/21/2014 RUBY BRENNAN KATIE K Ot 272.4 HYPERLIPIDEMIA NEC/NOS 04/21/2014 LYLA BELTRAN DOA K Ot 275.2 DIS MAGNESIUM METABOLISM 04/21/2014 LYLA BELTRAN DOA K Ot 276.8 HYPOPOTASSEMIA 04/21/2014 LYLA BELTRAN DOA K Ot 300.00 ANXIETY STATE NOS 04/21/2014 RUBY BRENNAN KATIE K Ot 300.4 DYSTHYMIC DISORDER 04/21/2014 RUBY BRENNAN KATIE K Ot 305.1 TOBACCO USE DISORDER 04/21/2014 RUBY BRENNAN KATIE K Ot 305.20 CANNABIS ABUSE-UNSPEC 04/21/2014 RUBY BRENNAN KATIE K Ot 401.9 HYPERTENSION NOS 04/21/2014 RUBY BRENNAN KATIE K Ot 414.01 CORONARY ATHEROSCLEROSIS OF [place] CORON 04/21/2014 RUBY BRENNAN KATIE K Ot 414.8 CHR ISCHEMIC HRT DIS NEC 04/21/2014 LYLA BELTRAN DOA K Ot 428.0 CONGESTIVE HEART FAILURE NOS 04/21/2014 LYLA BELTRAN DOA K Ot 458.9 HYPOTENSION NOS 04/21/2014 LYLA BELTRAN DOA K Ot 780.2 SYNCOPE AND COLLAPSE 04/21/2014 LYLA BELTRAN DOA K Ot V15.81 HX OF PAST NONCOMPLIANCE 05/05/2014 LYLA BELTRAN DOA K 276.8 HYPOPOTASSEMIA 05/05/2014 BELTRAN LYLA BRENNANA K 786.2 COUGH 05/05/2014 BELTRAN LYLA BRENNANA K 276.8 HYPOPOTASSEMIA 05/05/2014 BELTRAN LYLA BRENNANA K 786.2 COUGH 05/05/2014 BELTRAN LYLA BRENNANA K 276.8 HYPOPOTASSEMIA 05/05/2014 BELTRAN LYLA BRENNANA K 786.2 COUGH 05/25/2014 MIRIAM WILSON FACC, ALI FACP CCDS Ot 250.00 DIAB KYLE WO COMPL, TYPE II OR UNSPEC TY 05/25/2014 MIRIAM WILSON FACC, RUDI FACP CCDS Ot 272.4 HYPERLIPIDEMIA NEC/NOS 05/25/2014 MIRIAM WILSON FACC, RUDI FACP CCDS Ot 300.00 ANXIETY STATE NOS 05/25/2014 MIRIAM WILSON FACC, ALI FACP CCDS Ot 305.1 TOBACCO USE DISORDER 05/25/2014 MIRIAM WILSON FACC, ALI FACP CCDS Ot 305.20 CANNABIS ABUSE-UNSPEC 05/25/2014 MIRIAM WILSON FACC, ALI FACP CCDS Ot 414.01 CORONARY ATHEROSCLEROSIS OF [place] CORON 05/25/2014 MIRIAM WILSON FACC, RUDI FACP CCDS Ot 433.10 CAROTID ARTERY OCCLUSION W O CEREBRAL IN 05/25/2014 MIRIAM WILSON FACC, RUDI FACP CCDS Ot 433.30 MULT BILTRAL ARTERY OCCLUSION WO CEREBRA 05/25/2014 MIRIAM WILSON FACC, ALI FACP CCDS Ot 458.9 HYPOTENSION NOS 05/25/2014 MIRIAM WILSON FACC, ALI FACP CCDS Ot 799.02 HYPOXEMIA 05/25/2014 MIRIAM WILSON FACC, ALI FACP CCDS Ot V45.82 PERCUTANEOUS TRANSLUM CORON ANGIOPLASTY 06/02/2014 LIDIA DAILY MD Ot 250.00 DIAB KYLE WO COMPL, TYPE II OR UNSPEC TY 06/02/2014 LIDIA DAILY MD Ot 272.4 HYPERLIPIDEMIA NEC/NOS 06/02/2014 LIDIA DAILY MD Ot 278.00 OBESITY, NOS 06/02/2014 KILLIAN WILSON, LIDIA Cohen Ot 296.80 BIPOLAR DISORDER, UNSPECIFIED 06/02/2014 KILLIAN WILSON, LIDIA Cohen Ot 305.1 TOBACCO USE DISORDER 06/02/2014 KILLIAN WILSON, LIDIA Cohen Ot 414.01 CORONARY ATHEROSCLEROSIS OF [place] CORON 06/02/2014 LIDIA DAILY MD Ot 428.0 CONGESTIVE HEART FAILURE NOS 06/02/2014 KILLIAN WILSON, LIDIA Cohen Ot 428.41 ACUTE SYSTOLIC/DIASTOLIC HRT FAILURE 06/02/2014 LIDIA DAILY MD Ot 433.10 CAROTID ARTERY OCCLUSION W O CEREBRAL IN 06/02/2014 LIDIA DAILY MD Ot 443.9 PERIPH VASCULAR DIS NOS 06/02/2014 KILLIAN WILSON, LIDIA Cohen Ot 496 CHR AIRWAY OBSTRUCT NEC 06/02/2014 LIDIA DAILY MD Ot 785.6 ENLARGEMENT LYMPH NODES 06/02/2014 LIDIA DAILY MD Ot 799.02 HYPOXEMIA 06/02/2014 KILLIAN WILSON, LIDIA Cohen Ot V85.32 BODY MASS INDEX 32.0-32.9, ADULT 08/14/2014 KANE OLIVERA DO Ot 305.1 08/14/2014 KANE OLIVERA DO Ot 496 08/14/2014 KANE OLIVERA DO Ot 785.6 09/12/2014 KAREN LEON LICENSING OFFICER Ot 275.2 09/12/2014 KAREN LEON LICENSING OFFICER Ot 276.8 09/12/2014 KILLIAN WILSON, LIDIA S Ot 433.10 09/12/2014 KILLIAN WILSON, LIDIA S Ot V72.63 09/12/2014 KILLIAN WILSON, LIDIA S Ot V74.8 09/12/2014 KILLIAN WILSON, LIDIA S Ot 433.10 09/12/2014 KILLIAN WILSON, LIDIA S Ot 780.4 09/12/2014 MIRIAM WILSON FACC, RUDI [place] CCDS Ot 414.9 09/12/2014 KANE OLIVERA DO Ot 305.1 09/12/2014 KANE OLIVERA DO Ot 496 09/12/2014 KANE OLIVERA DO Ot 785.6 10/03/2014 KANE OLIVERA DO Ot 305.1 10/03/2014 KANE OLIVERA DO Ot 496 10/03/2014 KANE OLIVERA DO M Ot 553.3 10/03/2014 JOSELIN BRENNAN KANE Jakob Ot 785.6 11/02/2014 Ot 250.00 DIAB KYLE WO COMPL, TYPE II OR UNSPEC TY 11/02/2014 Ot 272.4 HYPERLIPIDEMIA NEC/NOS 11/02/2014 Ot 300.00 ANXIETY STATE NOS 11/02/2014 Ot 305.1 TOBACCO USE DISORDER 11/02/2014 Ot 401.9 HYPERTENSION NOS 11/02/2014 Ot 414.01 CORONARY ATHEROSCLEROSIS OF [place] CORON 11/02/2014 Ot 433.10 CAROTID ARTERY OCCLUSION W O CEREBRAL IN 11/02/2014 Ot 496 CHR AIRWAY OBSTRUCT NEC 11/02/2014 Ot V45.82 PERCUTANEOUS TRANSLUM CORON ANGIOPLASTY 11/16/2014 Ot 433.10 11/16/2014 Ot V72.63 11/16/2014 Ot V74.8 04/02/2015 KAREN LEON LICENSING OFFICER Ot 275.2 04/02/2015 KAREN LEON LICENSING OFFICER Ot 276.8 04/02/2015 KILLIAN WILSON, LIDIA S Ot 433.10 04/02/2015 KILLIAN WILSON, LIDIA S Ot V72.63 04/02/2015 KILLIAN WILSON, LIDIA S Ot V74.8 04/02/2015 KILLIAN WILSON, LIDIA S Ot 433.10 04/02/2015 KILLIAN WILSON, LIDIA S Ot 780.4 04/02/2015 MIRIAM WILSON FAC, RUDI [facility] CCDS Ot 414.9 04/02/2015 KANE OLIVERA DO Ot 305.1 04/02/2015 KANE OLIVERA DO Ot 496 04/02/2015 KANE OLIVERA DO Ot 785.6 04/02/2015 JOSELIN BRENNAN KANE M Ot 305.1 04/02/2015 KANE OLIVERA DO M Ot 496 04/02/2015 KANE OLIVERA DO Ot 553.3 04/02/2015 KANE OLIVERA DO Ot 785.6 04/02/2015 Ot 433.10 04/02/2015 Ot V72.63 04/02/2015 Ot V74.8 04/06/2015 KANE OLIVERA DO Ot 278.00 04/06/2015 KANE OLIVERA DO Ot 300.01 04/06/2015 KANE OLIVERA DO Ot 305.1 04/06/2015 JOSELIN KANE BRENNAN Ot 496 04/06/2015 JOSELIN KANE BRENNAN Ot 785.6 04/06/2015 JOSELIN KANE BRENNAN Ot V85.34 04/20/2015 JOSELIN KANE BRENNAN Ot 278.00 04/20/2015 JOSELIN KANE BRENNAN Ot 300.01 04/20/2015 JOSELIN KNAE Robert Ot 305.1 04/20/2015 JOSELIN BRENNAN KANE Robert Ot 496 04/20/2015 JOSELIN KANE BRENNAN Ot 785.6 04/20/2015 JOSELIN KANE BRENNAN Ot V85.34 04/22/2015 JEROME WILSON, DHAVAL Cohen Ot 724.8 OTHER BACK SYMPTOMS 12/10/2015 KAREN LEON LICENSING OFFICER Ot 275.2 DIS MAGNESIUM METABOLISM 12/10/2015 KAREN LEON LICENSING OFFICER Ot 276.8 HYPOPOTASSEMIA 12/10/2015 KILLIAN WILSON, LIDIA Cohen Ot 433.10 CAROTID ARTERY OCCLUSION W O CEREBRAL IN 12/10/2015 LIDIA DAILY MD Ot V72.63 PRE-PROCEDURAL LABORATORY EXAMINATION 12/10/2015 LIDIA DAILY MD Ot V74.8 SCREEN-BACTERIAL DIS NEC 12/10/2015 LIDIA DAILY MD Ot 433.10 CAROTID ARTERY OCCLUSION W O CEREBRAL IN 12/10/2015 LIDIA DAILY MD Ot 780.4 DIZZINESS AND GIDDINESS 12/10/2015 MIRIAM WILSON FACC, RUDI [place] CCDS Ot 414.9 CHR ISCHEMIC HRT DIS NOS 12/10/2015 KANE OLIVERA DO Ot 305.1 TOBACCO USE DISORDER 12/10/2015 KANE OLIVERA DO Ot 496 CHR AIRWAY OBSTRUCT NEC 12/10/2015 KANE OLIVERA DO Ot 785.6 ENLARGEMENT LYMPH NODES 12/10/2015 KANE OLIVERA DO Ot 305.1 TOBACCO USE DISORDER 12/10/2015 KANE OLIVERA DO Ot 496 CHR AIRWAY OBSTRUCT NEC 12/10/2015 KANE OLIVERA DO Ot 553.3 DIAPHRAGMATIC HERNIA 12/10/2015 KANE OLIVERA DO Ot 785.6 ENLARGEMENT LYMPH NODES 12/10/2015 KANE OLIVERA DO Ot 278.00 OBESITY, NOS 12/10/2015 KANE OLIVERA DO Ot 300.01 PANIC DISORDER WITHOUT AGORAPHOBIA 12/10/2015 KANE OLIVERA DO Ot 305.1 TOBACCO USE DISORDER 12/10/2015 KANE OLIVERA DO Ot 496 CHR AIRWAY OBSTRUCT NEC 12/10/2015 KANE OLIVERA DO Ot 785.6 ENLARGEMENT LYMPH NODES 12/10/2015 KANE OLIVERA DO Ot V85.34 BODY MASS INDEX 34.0-34.9, ADULT 12/10/2015 Ot 433.10 CAROTID ARTERY OCCLUSION W O CEREBRAL IN 12/10/2015 Ot V72.63 PRE-PROCEDURAL LABORATORY EXAMINATION 12/10/2015 Ot V74.8 SCREEN-BACTERIAL DIS NEC 12/11/2015 MIRIAM WILSON FACC, RUDI FACP CCDS Ot E78.4 OTHER HYPERLIPIDEMIA 12/11/2015 MIRIAM WILSON FACC, ALI FACP CCDS Ot I10 ESSENTIAL (PRIMARY) HYPERTENSION 12/11/2015 MIRIAM WILSON FACC, ALI FACP CCDS Ot I25.10 ATHSCL HEART DISEASE OF [place] CORONARY 12/11/2015 MIRIAM WILSON FACC, ALI FACP CCDS Ot I65.23 OCCLUSION AND STENOSIS OF BILATERAL [place] 12/11/2015 MIRIAM WILSON FACC, RUDI FACP CCDS Ot Z72.0 TOBACCO USE 12/26/2015 MIRIAM WILSON FACC, ALI FACP CCDS Ot E78.4 OTHER HYPERLIPIDEMIA 12/26/2015 MIRIAM WILSON FACC, ALI FACP CCDS Ot I10 ESSENTIAL (PRIMARY) HYPERTENSION 12/26/2015 MIRIAM WILSON FACC, RUDI FACP CCDS Ot I25.10 ATHSCL HEART DISEASE OF [place] CORONARY 12/26/2015 MIRIAM WILSON FACC, ALI FACP CCDS Ot I65.23 OCCLUSION AND STENOSIS OF BILATERAL [place] 12/26/2015 MIRIAM WILSON FACC, RUDI FACP CCDS Ot Z72.0 TOBACCO USE 01/28/2016 KAREN LEON LICENSING OFFICER Ot 275.2 DIS MAGNESIUM METABOLISM 01/28/2016 KAREN LEON LICENSING OFFICER Ot 276.8 HYPOPOTASSEMIA 01/28/2016 LIDIA DAILY MD Ot 433.10 CAROTID ARTERY OCCLUSION W O CEREBRAL IN 01/28/2016 LIDIA DAILY MD Ot V72.63 PRE-PROCEDURAL LABORATORY EXAMINATION 01/28/2016 KILLIAN WILSON, LIDIA Cohen Ot V74.8 SCREEN-BACTERIAL DIS NEC 01/28/2016 LIDIA DAILY MD Ot 433.10 CAROTID ARTERY OCCLUSION W O CEREBRAL IN 01/28/2016 LIDIA DAILY MD Ot 780.4 DIZZINESS AND GIDDINESS 01/28/2016 MIRIAM WILSON FACC, RUDI FACP CCDS Ot 414.9 CHR ISCHEMIC HRT DIS NOS 01/28/2016 KANE OLIVERA DO Ot 305.1 TOBACCO USE DISORDER 01/28/2016 KANE OLIVERA DO Ot 496 CHR AIRWAY OBSTRUCT NEC 01/28/2016 KANE OLIVERA DO Ot 785.6 ENLARGEMENT LYMPH NODES 01/28/2016 KANE OLIVERA DO Ot 305.1 TOBACCO USE DISORDER 01/28/2016 KANE OLIVERA DO Ot 496 CHR AIRWAY OBSTRUCT NEC 01/28/2016 KANE OLIVERA DO Ot 553.3 DIAPHRAGMATIC HERNIA 01/28/2016 KANE OLIVERA DO Ot 785.6 ENLARGEMENT LYMPH NODES 01/28/2016 KANE OLIVERA DO Ot 278.00 OBESITY, NOS 01/28/2016 KANE OLIVERA DO Ot 300.01 PANIC DISORDER WITHOUT AGORAPHOBIA 01/28/2016 KANE OLIVERA DO Ot 305.1 TOBACCO USE DISORDER 01/28/2016 KANE OLIVERA DO Ot 496 CHR AIRWAY OBSTRUCT NEC 01/28/2016 KANE OLIVERA DO Ot 785.6 ENLARGEMENT LYMPH NODES 01/28/2016 KANE OLIVERA DO Ot V85.34 BODY MASS INDEX 34.0-34.9, ADULT 01/28/2016 Ot 433.10 CAROTID ARTERY OCCLUSION W O CEREBRAL IN 01/28/2016 Ot V72.63 PRE-PROCEDURAL LABORATORY EXAMINATION 01/28/2016 Ot V74.8 SCREEN-BACTERIAL DIS NEC 01/28/2016 MIRIAM WILSON FACC, RUDI FACP CCDS Ot E78.4 OTHER HYPERLIPIDEMIA 01/28/2016 MIRIAM WILSON FACC, RUDI FACP CCDS Ot I10 ESSENTIAL (PRIMARY) HYPERTENSION 01/28/2016 MIRIAM WILSON FACC, RUDI FACP CCDS Ot I25.10 ATHSCL HEART DISEASE OF [place] CORONARY 01/28/2016 MIRIAM WILSON FACC, RUDI FACP CCDS Ot I65.23 OCCLUSION AND STENOSIS OF [place] 01/28/2016 MIRIAM WILSON FAC, ALI FACP CCDS Ot Z72.0 TOBACCO USE 01/31/2016 MIRIAM WILSON FAC, ALI FACP CCDS Ot E78.4 OTHER HYPERLIPIDEMIA 01/31/2016 MIRIAM WILSON FAC, ALI FACP CCDS Ot I10 ESSENTIAL (PRIMARY) HYPERTENSION 01/31/2016 MIRIAM WILSON FAC, ALI FACP CCDS Ot I25.10 ATHSCL HEART DISEASE OF [place] CORONARY 01/31/2016 MIRIAM WILSON [facility], ALI FACP CCDS Ot I65.23 OCCLUSION AND STENOSIS OF [place] 01/31/2016 MIRIAM WILSON [facility], ALI FACP CCDS Ot J43.8 OTHER EMPHYSEMA 01/31/2016 MIRIAM WILSON [facility], ALI FACP CCDS Ot Z72.0 TOBACCO USE 02/15/2016 MIRIAM WILSON [facility], ALI FACP CCDS Ot E78.4 OTHER HYPERLIPIDEMIA 02/15/2016 [facility]I FACP CCDS Ot I10 ESSENTIAL (PRIMARY) HYPERTENSION 02/15/2016 MIRIAM WILSON [facility], ALI FACP CCDS Ot I25.10 ATHSCL HEART DISEASE OF [place] CORONARY 02/15/2016 MIRIAM WILSON [facility], ALI FACP CCDS Ot I65.23 OCCLUSION AND STENOSIS OF [place] 02/15/2016 MIRIAM WILSON [facility], ALI FACP CCDS Ot J43.8 OTHER EMPHYSEMA 02/15/2016 MIRIAM WILSON [facility], ALI FACP CCDS Ot Z72.0 TOBACCO USE 04/25/2016 KAREN LEON LICENSING OFFICER Ot 275.2 DIS MAGNESIUM METABOLISM 04/25/2016 KAREN LEON LICENSING OFFICER Ot 276.8 HYPOPOTASSEMIA 04/25/2016 LIDIA DAILY MD Ot 433.10 CAROTID ARTERY OCCLUSION W O CEREBRAL IN 04/25/2016 LIDIA DAILY MD Ot V72.63 PRE-PROCEDURAL LABORATORY EXAMINATION 04/25/2016 LIDIA DAILY MD Ot V74.8 SCREEN-BACTERIAL DIS NEC 04/25/2016 LIDIA DAILY MD Ot 433.10 CAROTID ARTERY OCCLUSION W O CEREBRAL IN 04/25/2016 LIDIA DAILY MD Ot 780.4 DIZZINESS AND GIDDINESS 04/25/2016 MIRIAM WILSON FACC, ALI FACP CCDS Ot 414.9 CHR ISCHEMIC HRT DIS NOS 04/25/2016 JOSELIN BRENNAN KANE M Ot 305.1 TOBACCO USE DISORDER 04/25/2016 KANE OLIVERA DO Ot 496 CHR AIRWAY OBSTRUCT NEC 04/25/2016 JOSELIN BRENNAN KANE Jakob Ot 785.6 ENLARGEMENT LYMPH NODES 04/25/2016 KANE OLIVERA DO Ot 305.1 TOBACCO USE DISORDER 04/25/2016 KANE OLIVERA DO Ot 496 CHR AIRWAY OBSTRUCT NEC 04/25/2016 KANE OLIVERA DO Ot 553.3 DIAPHRAGMATIC HERNIA 04/25/2016 KANE OLIVERA DO Ot 785.6 ENLARGEMENT LYMPH NODES 04/25/2016 KANE OLIVERA DO Ot 278.00 OBESITY, NOS 04/25/2016 KANE OLIVERA DO Ot 300.01 PANIC DISORDER WITHOUT AGORAPHOBIA 04/25/2016 KANE OLIVERA DO Ot 305.1 TOBACCO USE DISORDER 04/25/2016 KANE OLIVERA DO Ot 496 CHR AIRWAY OBSTRUCT NEC 04/25/2016 KANE OLIVERA DO Ot 785.6 ENLARGEMENT LYMPH NODES 04/25/2016 KANE OLIVERA DO Ot V85.34 BODY MASS INDEX 34.0-34.9, ADULT 04/25/2016 Ot 433.10 CAROTID ARTERY OCCLUSION W O CEREBRAL IN 04/25/2016 Ot V72.63 PRE-PROCEDURAL LABORATORY EXAMINATION 04/25/2016 Ot V74.8 SCREEN-BACTERIAL DIS NEC 04/25/2016 MIRIAM WILSON FACC, RUDI FACP CCDS Ot E78.4 OTHER HYPERLIPIDEMIA 04/25/2016 MIRIAM WILSON FACC, RUDI FACP CCDS Ot I10 ESSENTIAL (PRIMARY) HYPERTENSION 04/25/2016 MIRIAM WILSON FACC, RUDI FACP CCDS Ot I25.10 ATHSCL HEART DISEASE OF [place] CORONARY 04/25/2016 MIRIAM WILSON FACC, RUDI FACP CCDS Ot I65.23 OCCLUSION AND STENOSIS OF BILATERAL [place] 04/25/2016 MIRIAM WILSON FACC, RUDI FACP CCDS Ot Z72.0 TOBACCO USE 04/25/2016 MIRIAM WILSON FACC, RUDI FACP CCDS Ot E78.4 OTHER HYPERLIPIDEMIA 04/25/2016 MIRIAM WILSON FACC, RUDI FACP CCDS Ot I10 ESSENTIAL (PRIMARY) HYPERTENSION 04/25/2016 MIRIAM WILSON FACC, [facility] CCDS Ot I25.10 ATHSCL HEART DISEASE OF [place] CORONARY 04/25/2016 MIRIAM WILSON FACC, [facility] CCDS Ot I65.23 OCCLUSION AND STENOSIS OF [place] 04/25/2016 MIRIAM WILSON FACC, [facility] CCDS Ot J43.8 OTHER EMPHYSEMA 04/25/2016 MIRIAM GATES, [facility] CCDS Ot Z72.0 TOBACCO USE 05/01/2016 VIVEKISABELA ANN GROUP CONTROLLER Ot J30.9 ALLERGIC RHINITIS, UNSPECIFIED 05/01/2016 VIVEKAPRILISABELA Meseret GROUP CONTROLLER Ot J44.9 CHRONIC OBSTRUCTIVE PULMONARY DISEASE , U 05/01/2016 VIVEKISABELA GROUP CONTROLLER Ot Z72.0 TOBACCO USE 05/08/2016 VIVEKISABELA GROUP CONTROLLER Ot J30.9 ALLERGIC RHINITIS, UNSPECIFIED 05/08/2016 VIVEKISABELA GROUP CONTROLLER Ot J44.9 CHRONIC OBSTRUCTIVE PULMONARY DISEASE , U 05/08/2016 VIVEKISABELA ANN GROUP CONTROLLER Ot Z72.0 TOBACCO USE 09/11/2016 KAREN LEON LICENSING OFFICER Ot 275.2 DIS MAGNESIUM METABOLISM 09/11/2016 KAREN LEON LICENSING OFFICER Ot 276.8 HYPOPOTASSEMIA 09/11/2016 LIDIA DAILY MD Ot 433.10 CAROTID ARTERY OCCLUSION W O CEREBRAL IN 09/11/2016 LIDIA DAILY MD Ot V72.63 PRE-PROCEDURAL LABORATORY EXAMINATION 09/11/2016 LIDIA DAILY MD Ot V74.8 SCREEN-BACTERIAL DIS NEC 09/11/2016 LIDIA DAILY MD Ot 433.10 CAROTID ARTERY OCCLUSION W O CEREBRAL IN 09/11/2016 LIDIA DAILY MD Ot 780.4 DIZZINESS AND GIDDINESS 09/11/2016 MIRIAM WILSON [facility], [facility] CCDS Ot 414.9 CHR ISCHEMIC HRT DIS NOS 09/11/2016 KANE OLIVERA DO Ot 305.1 TOBACCO USE DISORDER 09/11/2016 KANE OLIVERA DO Ot 496 CHR AIRWAY OBSTRUCT NEC 09/11/2016 KANE OLIVERA DO Ot 785.6 ENLARGEMENT LYMPH NODES 09/11/2016 KANE OLIVERA DO Ot 305.1 TOBACCO USE DISORDER 09/11/2016 KANE OLIVERA DO Ot 496 CHR AIRWAY OBSTRUCT NEC 09/11/2016 KANE OLIVERA DO Ot 553.3 DIAPHRAGMATIC HERNIA 09/11/2016 KANE OLIVERA DO Ot 785.6 ENLARGEMENT LYMPH NODES 09/11/2016 KANE OLIVERA DO Ot 278.00 OBESITY, NOS 09/11/2016 KANE OLIVERA DO Ot 300.01 PANIC DISORDER WITHOUT AGORAPHOBIA 09/11/2016 KANE OLIVERA DO Ot 305.1 TOBACCO USE DISORDER 09/11/2016 KANE OLIVERA DO Ot 496 CHR AIRWAY OBSTRUCT NEC 09/11/2016 KANE OLIVERA DO Ot 785.6 ENLARGEMENT LYMPH NODES 09/11/2016 KANE OLIVERA DO Ot V85.34 BODY MASS INDEX 34.0-34.9, ADULT 09/11/2016 Ot 433.10 CAROTID ARTERY OCCLUSION W O CEREBRAL IN 09/11/2016 Ot V72.63 PRE-PROCEDURAL LABORATORY EXAMINATION 09/11/2016 Ot V74.8 SCREEN-BACTERIAL DIS NEC 09/11/2016 ISABELA DOYLE APRN Ot J30.9 ALLERGIC RHINITIS, UNSPECIFIED 09/11/2016 ISABELA DOYLE APRN Ot J44.9 CHRONIC OBSTRUCTIVE PULMONARY DISEASE , U 09/11/2016 ISABELA DOYLE APRN Ot Z72.0 TOBACCO USE 09/11/2016 MIRIAM WILSON FACC, RUDI FACP CCDS Ot E78.4 OTHER HYPERLIPIDEMIA 09/11/2016 MIRIAM WILSON FACC, RUDI FACP CCDS Ot I10 ESSENTIAL (PRIMARY) HYPERTENSION 09/11/2016 MIRIAM WILSON FACC, RUDI FACP CCDS Ot I25.10 ATHSCL HEART DISEASE OF [place] CORONARY 09/11/2016 MIRIAM WILSON FACC, RUDI FACP CCDS Ot I65.23 OCCLUSION AND STENOSIS OF [place] 09/11/2016 MIRIAM WILSON FACC, RUDI FACP CCDS Ot Z72.0 TOBACCO USE 09/11/2016 MIRIAM WILSON FACC, RUDI FACP CCDS Ot E78.4 OTHER HYPERLIPIDEMIA 09/11/2016 MIRIAM WILSON FACC, RUDI FACP CCDS Ot I10 ESSENTIAL (PRIMARY) HYPERTENSION 09/11/2016 MIRIAM WILSON FACC, RUDI FACP CCDS Ot I25.10 ATHSCL HEART DISEASE OF [place] CORONARY 09/11/2016 MIRIAM WILSON FACC, RUDI FACP CCDS Ot I65.23 OCCLUSION AND STENOSIS OF [place] 09/11/2016 MIRIAM WILSON [facility], [facility] CCDS Ot J43.8 OTHER EMPHYSEMA 09/11/2016 MIRIAM WILSON FACC, [facility] CCDS Ot Z72.0 TOBACCO USE 09/16/2016 LEONKAREN LICENSING OFFICER Ot 275.2 DIS MAGNESIUM METABOLISM 09/16/2016 KAREN LEON LICENSING OFFICER Ot 276.8 HYPOPOTASSEMIA 09/16/2016 LIDIA DAILY MD Ot 433.10 CAROTID ARTERY OCCLUSION W O CEREBRAL IN 09/16/2016 LIDIA DAILY MD Ot V72.63 PRE-PROCEDURAL LABORATORY EXAMINATION 09/16/2016 LIDIA DAILY MD Ot V74.8 SCREEN-BACTERIAL DIS NEC 09/16/2016 LIDIA DAILY MD Ot 433.10 CAROTID ARTERY OCCLUSION W O CEREBRAL IN 09/16/2016 LIDIA DAILY MD Ot 780.4 DIZZINESS AND GIDDINESS 09/16/2016 MIRIAM GATES, [facility] CCDS Ot 414.9 CHR ISCHEMIC HRT DIS NOS 09/16/2016 KANE OLIVERA DO Ot 305.1 TOBACCO USE DISORDER 09/16/2016 KANE OLIVERA DO Ot 496 CHR AIRWAY OBSTRUCT NEC 09/16/2016 KANE OLIVERA DO Ot 785.6 ENLARGEMENT LYMPH NODES 09/16/2016 KANE OLIVERA DO Ot 305.1 TOBACCO USE DISORDER 09/16/2016 KANE OLIVERA DO Ot 496 CHR AIRWAY OBSTRUCT NEC 09/16/2016 KANE OLIVERA DO Ot 553.3 DIAPHRAGMATIC HERNIA 09/16/2016 KANE OLIVERA DO Ot 785.6 ENLARGEMENT LYMPH NODES 09/16/2016 KANE OLIVERA DO Ot 278.00 OBESITY, NOS 09/16/2016 KANE OLIVERA DO Ot 300.01 PANIC DISORDER WITHOUT AGORAPHOBIA 09/16/2016 KANE OLIVERA DO Ot 305.1 TOBACCO USE DISORDER 09/16/2016 KANE OLIVERA DO Ot 496 CHR AIRWAY OBSTRUCT NEC 09/16/2016 KANE OLIVERA DO Ot 785.6 ENLARGEMENT LYMPH NODES 09/16/2016 KANE OLIVERA DO Ot V85.34 BODY MASS INDEX 34.0-34.9, ADULT 09/16/2016 Ot 433.10 CAROTID ARTERY OCCLUSION W O CEREBRAL IN 09/16/2016 Ot V72.63 PRE-PROCEDURAL LABORATORY EXAMINATION 09/16/2016 Ot V74.8 SCREEN-BACTERIAL DIS NEC 09/16/2016 ISABELA DOYLE APRN Ot J30.9 ALLERGIC RHINITIS, UNSPECIFIED 09/16/2016 ISABELA DOYLE APRN Ot J44.9 CHRONIC OBSTRUCTIVE PULMONARY DISEASE , U 09/16/2016 ISABELA DOYLE APRN Ot Z72.0 TOBACCO USE 09/16/2016 MIRIAM WILSON FACC, ALI FACP CCDS Ot E78.4 OTHER HYPERLIPIDEMIA 09/16/2016 MIRIAM WILSON FACC, ALI FACP CCDS Ot I10 ESSENTIAL (PRIMARY) HYPERTENSION 09/16/2016 MIRIAM WILSON FACC, ALI FACP CCDS Ot I25.10 ATHSCL HEART DISEASE OF [place] CORONARY 09/16/2016 MIRIAM WILSON F[place], ALI FACP CCDS Ot I65.23 OCCLUSION AND STENOSIS OF [place] 09/16/2016 MIRIAM WILSON [facility], ALI FACP CCDS Ot Z72.0 TOBACCO USE 09/16/2016 MIRIAM WILSON [facility], ALI FACP CCDS Ot E78.4 OTHER HYPERLIPIDEMIA 09/16/2016 MIRIAM WILSON FACA[place], ALI FACP CCDS Ot I10 ESSENTIAL (PRIMARY) HYPERTENSION 09/16/2016 MIRIAM WILSNO [facility], ALI FACP CCDS Ot I25.10 ATHSCL HEART DISEASE OF [place] CORONARY 09/16/2016 MIRIAM WILSON [facility], ALI FACP CCDS Ot I65.23 OCCLUSION AND STENOSIS OF [place] 09/16/2016 MIRIAM WILSON FACC, ALI FACP CCDS Ot J43.8 OTHER EMPHYSEMA 09/16/2016 MIRIAM WILSON [facility], ALI FACP CCDS Ot Z72.0 TOBACCO USE 09/16/2016 KANE OLIVERA DO Ot 305.1 TOBACCO USE DISORDER 09/16/2016 KANE OLIVERA DO Ot 496 CHR AIRWAY OBSTRUCT NEC 09/16/2016 KANE OLIVERA DO Ot 553.3 DIAPHRAGMATIC HERNIA 09/16/2016 KANE OLIVERA DO Ot 785.6 ENLARGEMENT LYMPH NODES 09/17/2016 REEMA ESPINAL LICENSING OFFICER Ot E78.4 OTHER HYPERLIPIDEMIA 09/17/2016 BAIMA, REEMA L LICENSING OFFICER Ot I25.10 ATHSCL HEART DISEASE OF [place] CORONARY 09/17/2016 BAIMA, REEMA L LICENSING OFFICER Ot I65.23 OCCLUSION AND STENOSIS OF [place] 09/17/2016 BAIMA REEMA L LICENSING OFFICER Ot R06.09 OTHER FORMS OF DYSPNEA 09/17/2016 JULIMA REEMA L LICENSING OFFICER Ot Z86.79 PERSONAL HISTORY OF OTHER DISEASES OF 09/17/2016 BAIMA, REEMA L LICENSING OFFICER Ot E78.4 OTHER HYPERLIPIDEMIA 09/17/2016 BAIMA, REEMA L LICENSING OFFICER Ot I25.10 ATHSCL HEART DISEASE OF [place] CORONARY 09/17/2016 BAIMA, REEMA L LICENSING OFFICER Ot I65.23 OCCLUSION AND STENOSIS OF [place] 09/17/2016 BAIMA, REEMA L LICENSING OFFICER Ot R06.09 OTHER FORMS OF DYSPNEA 09/17/2016 BAIMA REEMA L LICENSING OFFICER Ot Z86.79 PERSONAL HISTORY OF OTHER DISEASES OF 09/17/2016 BAIMA, REEMA L LICENSING OFFICER Ot E78.4 OTHER HYPERLIPIDEMIA 09/17/2016 BAIMA, REEMA L LICENSING OFFICER Ot I25.10 ATHSCL HEART DISEASE OF [place] CORONARY 09/17/2016 BAIMA, REEMA L LICENSING OFFICER Ot I65.23 OCCLUSION AND STENOSIS OF [place] 09/17/2016 BAIMA, REEMA L LICENSING OFFICER Ot R06.09 OTHER FORMS OF DYSPNEA 09/17/2016 BAIMA REEMA L LICENSING OFFICER Ot Z86.79 PERSONAL HISTORY OF OTHER DISEASES OF 09/17/2016 BAIMA REEMA L LICENSING OFFICER Ot E78.4 OTHER HYPERLIPIDEMIA 09/17/2016 BAIMA REEMA L LICENSING OFFICER Ot I25.10 ATHSCL HEART DISEASE OF [place] CORONARY 09/17/2016 BAIMA REEMA L LICENSING OFFICER Ot I65.23 OCCLUSION AND STENOSIS OF [place] 09/17/2016 BAIMA, REEMA L LICENSING OFFICER Ot R06.09 OTHER FORMS OF DYSPNEA 09/17/2016 BAIMA REEMA L LICENSING OFFICER Ot Z86.79 PERSONAL HISTORY OF OTHER DISEASES OF 09/24/2016 JULIMA REEMA L LICENSING OFFICER Ot E78.4 OTHER HYPERLIPIDEMIA 09/24/2016 BAIMA, REEMA L LICENSING OFFICER Ot I25.10 ATHSCL HEART DISEASE OF [place] CORONARY 09/24/2016 BAIMA, REEMA L LICENSING OFFICER Ot I65.23 OCCLUSION AND STENOSIS OF [place] 09/24/2016 JULIREEMA SANCHES LICENSING OFFICER Ot R06.09 OTHER FORMS OF DYSPNEA 09/24/2016 TEDDYREEMA LICENSING OFFICER Ot Z86.79 PERSONAL HISTORY OF OTHER DISEASES OF 09/29/2016 KANE OLIVERA DO Ot 305.1 TOBACCO USE DISORDER 09/29/2016 KANE OLIVERA DO Ot 496 CHR AIRWAY OBSTRUCT NEC 09/29/2016 KANE OLIVERA DO M Ot 553.3 DIAPHRAGMATIC HERNIA 09/29/2016 KANE OLIVERA DO M Ot 785.6 ENLARGEMENT LYMPH NODES 09/29/2016 TEDDY REEMA Diony LICENSING OFFICER Ot E78.4 OTHER HYPERLIPIDEMIA 09/29/2016 TEDDY REEMA Diony LICENSING OFFICER Ot I25.10 ATHSCL HEART DISEASE OF [place] CORONARY 09/29/2016 TEDDY REEMA L LICENSING OFFICER Ot I65.23 OCCLUSION AND STENOSIS OF [place] 09/29/2016 REEMA ESPINAL LICENSING OFFICER Ot R06.09 OTHER FORMS OF DYSPNEA 09/29/2016 REEMA ESPINAL LICENSING OFFICER Ot Z86.79 PERSONAL HISTORY OF OTHER DISEASES OF 09/29/2016 KANE OLIVERA DO Ot 305.1 TOBACCO USE DISORDER 09/29/2016 KANE OLIVERA DO Ot 496 CHR AIRWAY OBSTRUCT NEC 09/29/2016 KANE OLIVERA DO Ot 553.3 DIAPHRAGMATIC HERNIA 09/29/2016 KANE OLIVERA DO M Ot 785.6 ENLARGEMENT LYMPH NODES 11/27/2016 SARAH GARCIA DO Ot F17.210 NICOTINE DEPENDENCE, CIGARETTES, UNCOMPL 11/27/2016 SARAH GARCIA DO Ot F41.0 PANIC DISORDER WITHOUT AGORAPHOBIA 11/27/2016 SARAH GARCIA DO Ot J44.9 CHRONIC OBSTRUCTIVE PULMONARY DISEASE, U 11/27/2016 SARAH GARCIA DO Ot T20.22XA BURN OF SECOND DEGREE OF LIP(S), INITIAL 11/27/2016 SARAH GARCIA DO Ot T20.24XA BURN OF SECOND DEGREE OF NOSE (SEPTUM), 11/27/2016 SARAH GARCIA DO Ot X04.XXXA EXPOSURE TO IGNITION OF HIGHLY FLAMMABLE 11/27/2016 SARAH GARCIA DO Ot Z99.81 DEPENDENCE ON SUPPLEMENTAL OXYGEN Procedures Code Description [place] [address] ROUTINE VENIPUNCTURE 12/27/2012 51051 CBC 12/27/2012 02926 CMP 12/27/2012 08162 LIPID PANEL 12/27 2448541 GFR CALC (RESULT ONLY) 12/27/2012 63888 TSH 12/27/2012 00.40 PROCEDURE ON SINGLE VESSEL 05/31/2014 38.12 HEAD NECK ENDARTER NEC 05/31/2014 26511 A1C (IN-HOUSE) 00.40 PROCEDURE ON SINGLE VESSEL 11/01/2014 38.12 HEAD NECK ENDARTER NEC 11/01/2014 Results Test Result Range Complete blood count (CBC) with automated white blood cell (WBC) differential - 11/25/16 18:50 Blood leukocytes automated count (number/volume) 7.7 10*3/ uL 4.3-11.0 Blood erythrocytes automated count (number/volume) 4.05 10*6 /uL 4.35-5.85 Venous blood hemoglobin measurement (mass/volume) 13.0 g/dL 11.5-16.0 Blood hematocrit (volume fraction) 39 % 35-52 Automated erythrocyte mean corpuscular volume 96 [foz_us] 80-99 Automated erythrocyte mean corpuscular hemoglobin (mass per erythrocyte) 32 pg 25-34 Automated erythrocyte mean corpuscular hemoglobin concentration measurement ( mass/volume) 34 g/dL 32-36 Automated erythrocyte distribution width ratio 13.3 % 10.0-14.5 Automated blood platelet count (count/volume) 220 10*3/uL 130-400 Automated blood platelet mean volume measurement 9.5 [foz_us ] 7.4-10.4 Automated blood neutrophils/100 leukocytes 66 % 42-75 Automated blood lymphocytes/100 leukocytes 23 % 12-44 Blood monocytes/100 leukocytes 8 % 0-12 Automated blood eosinophils/100 leukocytes 2 % 0-10 Automated blood basophils/100 leukocytes 1 % 0-10 Blood neutrophils automated count (number/volume) 5.1 10*3 1.8-7.8 Blood lymphocytes automated count (number/volume) 1.8 10*3 1.0-4.0 Blood monocytes automated count (number/volume) 0.6 10*3 0.0-1.0 Automated eosinophil count 0.2 10*3/uL 0.0-0.3 Automated blood basophil count (count/volume) 0.0 10*3/uL 0.0-0.1 PT panel in platelet poor plasma by coagulation assay - 11/25/16 18:50 Prothrombin time (PT) in platelet poor plasma by coagulation assay 14.3 s 12.2-14.7 INR in platelet poor plasma or blood by coagulation assay 1.1 0.8-1.4 Activated partial thromboplastin time (aPTT) in platelet poor plasma bycoagulation assay - 11/25/16 18:50 Activated partial thromboplastin time (aPTT) in platelet poor plasma bycoagulation assay 32 s 24-35 Comprehensive metabolic panel - 11/25/16 18:50 Serum or plasma sodium measurement (moles/volume) 137 mmol/ L 135-145 Serum or plasma potassium measurement (moles/volume) 3.0 mmol/L 3.6-5.0 Serum or plasma chloride measurement (moles/volume) 97 mmol/ L 98-107 Carbon dioxide 31 mmol/L 21-32 Serum or plasma anion gap determination (moles/volume) 9 mmol/L 5-14 Serum or plasma urea nitrogen measurement (mass/volume) 3 mg /dL 7-18 Serum or plasma creatinine measurement (mass/volume) 0.84 mg /dL 0.60-1.30 Serum or plasma urea nitrogen/creatinine mass ratio 4 NRG Serum or plasma creatinine measurement with calculation of estimated glomerular filtration rate > NRG Serum or plasma glucose measurement (mass/volume) 141 mg/dL 70-105 Serum or plasma calcium measurement (mass/volume) 8.8 mg/dL 8.5-10.1 Serum or plasma total bilirubin measurement (mass/volume) 0.5 mg/dL 0.1-1.0 Serum or plasma alkaline phosphatase measurement (enzymatic activity/volume) 57 U/L 40-136 Serum or plasma aspartate aminotransferase measurement (enzymatic activity/ volume) 13 U/L 5-34 Serum or plasma alanine aminotransferase measurement (enzymatic activity/volume ) 8 U/L 0-55 Serum or plasma protein measurement (mass/volume) 6.6 g/dL 6.4-8.2 Serum or plasma albumin measurement (mass/volume) 3.9 g/dL 3.2-4.5 Methicillin resistant Staphylococcus aureus (MRSA) screening culture - 20:00 Methicillin resistant Staphylococcus aureus (MRSA) screening culture NEG NRG Arterial blood gas measurement - 11/26/16 00:20 Blood pCO2 60 mm[Hg] 35-45 Blood pO2 188 mm[Hg] 79-93 Arterial blood bicarbonate measurement (moles/volume) 31 mmol/L 23-27 Arterial blood base excess by calculation 5.5 mmol/L -2.5-2.5 Arterial blood oxygen saturation measurement 100 % 94-100 * Inhaled oxygen flow rate 15L NRG Arterial blood pH measurement with patient temperature correction 7.33 7.37-7.43 Arterial blood carbon dioxide, total measurement (moles/volume) 33.0 mmol/L 21.0-31.0 Body site L RAD NRG Assessment of wrist artery patency prior to arterial puncture YES-POS NRG Setting of ventilation mode NO NRG Measurement of body temperature 98.7 NRG Complete blood count (CBC) with automated white blood cell (WBC) differential - 11/26/16 03:25 Blood leukocytes automated count (number/volume) 6.2 10*3/ uL 4.3-11.0 Blood erythrocytes automated count (number/volume) 4.31 10*6 /uL 4.35-5.85 Venous blood hemoglobin measurement (mass/volume) 13.6 g/dL 11.5-16.0 Blood hematocrit (volume fraction) 41 % 35-52 Automated erythrocyte mean corpuscular volume 95 [foz_us] 80-99 Automated erythrocyte mean corpuscular hemoglobin (mass per erythrocyte) 32 pg 25-34 Automated erythrocyte mean corpuscular hemoglobin concentration measurement ( mass/volume) 33 g/dL 32-36 Automated erythrocyte distribution width ratio 13.3 % 10.0-14.5 Automated blood platelet count (count/volume) 198 10*3/uL 130-400 Automated blood platelet mean volume measurement 9.9 [foz_us ] 7.4-10.4 Automated blood neutrophils/100 leukocytes 91 % 42-75 Automated blood lymphocytes/100 leukocytes 7 % 12-44 Blood monocytes/100 leukocytes 1 % 0-12 Automated blood eosinophils/100 leukocytes 0 % 0-10 Automated blood basophils/100 leukocytes 0 % 0-10 Blood neutrophils automated count (number/volume) 5.6 10*3 1.8-7.8 Blood lymphocytes automated count (number/volume) 0.4 10*3 1.0-4.0 Blood monocytes automated count (number/volume) 0.1 10*3 0.0-1.0 Automated eosinophil count 0.0 10*3/uL 0.0-0.3 Automated blood basophil count (count/volume) 0.0 10*3/uL 0.0-0.1 Whole blood basic metabolic panel - 11/26/16 03:25 Serum or plasma sodium measurement (moles/volume) 141 mmol/ L 135-145 Serum or plasma potassium measurement (moles/volume) 4.0 mmol/L 3.6-5.0 Serum or plasma chloride measurement (moles/volume) 101 mmol /L 98-107 Carbon dioxide 27 mmol/L 21-32 Serum or plasma anion gap determination (moles/volume) 13 mmol/L 5-14 Serum or plasma urea nitrogen measurement (mass/volume) 5 mg /dL 7-18 Serum or plasma creatinine measurement (mass/volume) 0.81 mg /dL 0.60-1.30 Serum or plasma urea nitrogen/creatinine mass ratio 6 NRG Serum or plasma creatinine measurement with calculation of estimated glomerular filtration rate > NRG Serum or plasma glucose measurement (mass/volume) 243 mg/dL 70-105 Serum or plasma calcium measurement (mass/volume) 8.8 mg/dL 8.5-10.1 Serum or plasma phosphate measurement (mass/volume) - 11/26/16 03:25 Serum or plasma phosphate measurement (mass/volume) 3.4 mg/ dL 2.3-4.7 Magnesium - 11/26/16 03:25 Magnesium 1.9 mg/dL 1.8-2.4 Blood manual differential performed detection - 11/26/16 03:25 Blood monocytes/100 leukocytes 0 % NRG Manual blood segmented neutrophils/100 leukocytes 85 % NRG Blood band neutrophils/100 leukocytes 0 % NRG Manual blood lymphocytes/100 leukocytes 15 % NRG Manual eosinophils/100 leukocytes in nose 0 % NRG Blood erythrocyte morphology finding identification NORMAL NRG Arterial blood gas measurement - 11/26/16 04:20 Blood pCO2 57 mm[Hg] 35-45 Blood pO2 73 mm[Hg] 79-93 Arterial blood bicarbonate measurement (moles/volume) 31 mmol/L 23-27 Arterial blood base excess by calculation 5.3 mmol/L -2.5-2.5 Arterial blood oxygen saturation measurement 94 % 94-100 * Inhaled oxygen flow rate 10L NRG Arterial blood pH measurement with patient temperature correction 7.35 7.37-7.43 Arterial blood carbon dioxide, total measurement (moles/volume) 32.4 mmol/L 21.0-31.0 Body site R RAD NRG Assessment of wrist artery patency prior to arterial puncture YES-POS NRG Setting of ventilation mode NO NRG Measurement of body temperature 98.4 NRG Complete blood count (CBC) with automated white blood cell (WBC) differential - 11/27/16 04:40 Blood leukocytes automated count (number/volume) 15.4 10*3/ uL 4.3-11.0 Blood erythrocytes automated count (number/volume) 4.14 10*6 /uL 4.35-5.85 Venous blood hemoglobin measurement (mass/volume) 13.2 g/dL 11.5-16.0 Blood hematocrit (volume fraction) 40 % 35-52 Automated erythrocyte mean corpuscular volume 96 [foz_us] 80-99 Automated erythrocyte mean corpuscular hemoglobin (mass per erythrocyte) 32 pg 25-34 Automated erythrocyte mean corpuscular hemoglobin concentration measurement ( mass/volume) 33 g/dL 32-36 Automated erythrocyte distribution width ratio 13.6 % 10.0-14.5 Automated blood platelet count (count/volume) 223 10*3/uL 130-400 Automated blood platelet mean volume measurement 9.8 [foz_us ] 7.4-10.4 Automated blood neutrophils/100 leukocytes 90 % 42-75 Automated blood lymphocytes/100 leukocytes 5 % 12-44 Blood monocytes/100 leukocytes 4 % 0-12 Automated blood eosinophils/100 leukocytes 0 % 0-10 Automated blood basophils/100 leukocytes 0 % 0-10 Blood neutrophils automated count (number/volume) 13.9 10*3 1.8-7.8 Blood lymphocytes automated count (number/volume) 0.8 10*3 1.0-4.0 Blood monocytes automated count (number/volume) 0.7 10*3 0.0-1.0 Automated eosinophil count 0.0 10*3/uL 0.0-0.3 Automated blood basophil count (count/volume) 0.0 10*3/uL 0.0-0.1 Whole blood basic metabolic panel - 11/27/16 04:40 Serum or plasma sodium measurement (moles/volume) 144 mmol/ L 135-145 Serum or plasma potassium measurement (moles/volume) 4.6 mmol/L 3.6-5.0 Serum or plasma chloride measurement (moles/volume) 104 mmol /L 98-107 Carbon dioxide 31 mmol/L 21-32 Serum or plasma anion gap determination (moles/volume) 9 mmol/L 5-14 Serum or plasma urea nitrogen measurement (mass/volume) 7 mg /dL 7-18 Serum or plasma creatinine measurement (mass/volume) 0.79 mg /dL 0.60-1.30 Serum or plasma urea nitrogen/creatinine mass ratio 9 NRG Serum or plasma creatinine measurement with calculation of estimated glomerular filtration rate > NRG Serum or plasma glucose measurement (mass/volume) 182 mg/dL 70-105 Serum or plasma calcium measurement (mass/volume) 9.1 mg/dL 8.5-10.1 Serum or plasma phosphate measurement (mass/volume) - 11/27/16 04:40 Serum or plasma phosphate measurement (mass/volume) 3.3 mg/ dL 2.3-4.7 Magnesium - 11/27/16 04:40 Magnesium 2.0 mg/dL 1.8-2.4 Encounters ACCT No. Visit Date/Time Discharge Status Pt. Type Provider Facility Loc./Unit Complaint [id number] 10/05/2014 08:14:00 10/05/2014 23: 59:59 [facility] Outpatient KATIE BELTRAN DO [id number] 05/15/2014 12:58:00 05/15/2014 23: 59:59 [facility] Outpatient KATIE BELTRAN DO [id number] 05/05/2014 14:47:00 05/05/2014 23: 59:59 [facility] Outpatient KATIE BELTRAN DO [id number] 03/13/2014 16:07:00 03/13/2014 23: 59:59 [facility] Outpatient ARNIE YOO MD [id number] 12/27/2012 11:00:00 Document Registration
--- OUTSIDE RECORDS SUMMARY | 2016-12-28 15:13 | XMS REPORT ---
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
--- OUTSIDE RECORDS SUMMARY | 2016-12-28 15:13 | XMS REPORT ---
Author RISHI Olivia [facility] eClinicalWorks Address Unknown Phone Unavailable Care Team Providers Care Heating Element Winder Name Role Phone RISHI HART CP Unavailable Allergies No Known Allergies Problems Problem Type Condition Code Onset Dates Condition Status Problem Essential hypertension, benign 401.1 Active Problem Diabetes mellitus without mention of complication, type II or unspecified type, not stated as uncontrolled 250.00 Active Problem Allergic rhinitis, cause unspecified 477.9 Active Problem Coronary artery disease involving [place] coronary artery of [place] heart without angina pectoris I25.10 Active Problem Essential hypertension, hypertension with unspecified goal I10 Active Problem Low back pain M54.5 Active Problem Diet-controlled diabetes mellitus E11.9 Active Problem Coronary atherosclerosis of unspecified type of vessel, [place] or graft 414.00 Active Problem Arthritis M19.90 Active Problem Chronic obstructive pulmonary disease, unspecified COPD type J44.9 Active Problem Cough 786.2 Active Problem Hypopotassemia 276.8 Active Assessment Ganglion cyst of foot M67.479 Active Problem Unspecified myalgia and myositis 729.1 Active Problem Routine general medical examination at health care facility V70.0 Active Problem Insomnia, unspecified 780.52 Active Problem Encounter for long-term (current) use of other medications V58.69 Active Problem Rheumatoid arthritis 714.0 Active Problem Nondependent cannabis abuse, 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
--- OUTSIDE RECORDS SUMMARY | 2016-12-28 15:13 | XMS REPORT ---
Author Author EN LOPEZ [facility] eClinicalWorks Address Unknown Phone Unavailable Care Team Providers Care Oil Filters Inspector Name Role Phone EN LOPEZ CP Unavailable [...] Coronary atherosclerosis of unspecified type of vessel, [place] or graft 414.00 Active Problem Encounter for long-term (current) use of other medications V58.69 Active Problem Routine general medical examination at health care facility V70.0 Active Problem Essential hypertension, benign 401.1 Active Problem Nondependent cannabis abuse, 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.20 Active Medications Medication Code System Code Instructions Start Date End Date Status Dosage Celebrex [facility] [address]-41 200 MG Orally Once a day December 27, 2014 1 capsule Results No Known Results Summary Purpose eClinicalWorks Submission
--- OUTSIDE RECORDS SUMMARY | 2016-12-28 15:20 | XMS REPORT | Continuity of Care Document ---
Author Author [facility] Address Unknown Phone Unavailable Allergies Active Description Code Type Severity Reaction Onset Reported/Identified Relationship to Patient Clinical Status Yes hydrocodone-acetaminophen 7.5-325 mg tablet Drug Allergy N/A N/A 12/27/2012 Yes morphine 15 mg tablet Drug Allergy N/A N/A 12/27/2012 Yes Benzodiazepines Drug Allergy N/A N/A 12/27/2012 Yes Hydrocodone Drug Allergy N/A N/A 12/27/2012 Yes No Known Drug Allergies [id number] Drug Allergy Unknown N/ A 02/08/2014 Yes [...] PRESSURE READING WITHOUT DIAGNOSIS OF HYPERTENSION 05/18/2008 RUYB BRENNAN KATIE K 300.00 ANXIETY 05/18/2008 BELTRAN DO KATIE K 414.01 CAD 05/18/2008 RUBY BRENNAN KATIE [...] CORONARY ATHEROSCLEROSIS OF UNSPECIFIED TYPE OF VESSEL [place] OR [place] 12/27/2012 477.9 RHINITIS 12/27/2012 714.0 [...] CORONARY ATHEROSCLEROSIS OF UNSPECIFIED TYPE OF VESSEL [place] OR [place] 12/27/2012 ARNIE YOO MD 477.9 [...] CORONARY ATHEROSCLEROSIS OF UNSPECIFIED TYPE OF VESSEL [place] OR [place] 12/27/2012 KATIE BELTRAN DO K [...] CORONARY ATHEROSCLEROSIS OF UNSPECIFIED TYPE OF VESSEL [place] OR GRAFT 12/27/2012 BELTRAN DO KATIE K [...] CORONARY ATHEROSCLEROSIS OF UNSPECIFIED TYPE OF VESSEL [place] OR [place]RAFT 12/27/2012 BELTRAN DO KATIE K [...] FACP CCDS Ot 414.01 CORONARY ATHEROSCLEROSIS OF [place] CORON 02/10/2014 MIRIAM WILSON FACC, RUDI FACP [...] 300.00 ANXIETY STATE NOS 04/21/2014 RUBY BRENNAN KAITE K Ot 300.4 DYSTHYMIC DISORDER 04/21/2014 RUBY BRENNAN KATIE K Ot 305.1 TOBACCO USE DISORDER 04/21/2014 RUBY BRENNAN KATIE K Ot 305.20 CANNABIS ABUSE-UNSPEC 04/21/2014 RUBY BRENNAN KATIE K Ot 401.9 HYPERTENSION NOS 04/21/2014 RUBY BRENNAN KATIE K Ot 414.01 CORONARY ATHEROSCLEROSIS OF [place] CORON 04/21/2014 RUBY BRENNAN KATIE K Ot [...] FACP CCDS Ot 414.01 CORONARY ATHEROSCLEROSIS OF [place] CORON 05/25/2014 MIRIAM WILSON FACC, RUDI FACP [...] LIDIA Cohen Ot 414.01 CORONARY ATHEROSCLEROSIS OF [place] CORON 06/02/2014 LIDIA DAILY MD Ot 428.0 [...] OLIVERA DO Ot 785.6 09/12/2014 KAREN LEON RUG HOOKER Ot 275.2 09/12/2014 KAREN LEON RUG HOOKER Ot 276.8 09/12/2014 KILLIAN WILSON, LIDIA S [...] NOS 11/02/2014 Ot 414.01 CORONARY ATHEROSCLEROSIS OF [place] CORON 11/02/2014 Ot 433.10 CAROTID ARTERY OCCLUSION W O CEREBRAL IN 11/02/2014 Ot 496 CHR AIRWAY OBSTRUCT NEC 11/02/2014 Ot V45.82 PERCUTANEOUS TRANSLUM CORON ANGIOPLASTY 11/16/2014 Ot 433.10 11/16/2014 Ot V72.63 11/16/2014 Ot V74.8 04/02/2015 KAREN LEON RUG HOOKER Ot 275.2 04/02/2015 KAREN LEON RUG HOOKER Ot 276.8 04/02/2015 KILLIAN WILSON, LIDIA S Ot 433.10 04/02/2015 KILLIAN WILSON, LIDIA S Ot V72.63 04/02/2015 KILLIAN WILSON, LIDIA S Ot V74.8 04/02/2015 KILLIAN WILSON, LIDIA S Ot 433.10 04/02/2015 KILLIAN WILSON, LIDIA S Ot 780.4 04/02/2015 MIRIAM WILSON FAC, RUDI [facility] CCDS Ot 414.9 04/02/2015 KANE OLIVERA DO [...] JOSELIN KANE BRENNAN Ot 300.01 04/20/2015 JOSELIN KANE Robert Ot 305.1 04/20/2015 JOSELIN BRENNAN KANE Robert Ot 496 04/20/2015 JOSELIN KANE BRENNAN Ot 785.6 04/20/2015 JOSELIN KANE BRENNAN Ot V85.34 04/22/2015 JEROME WILSON, DHAVAL Cohen Ot 724.8 OTHER BACK SYMPTOMS 12/10/2015 KAREN LEON RUG HOOKER Ot 275.2 DIS MAGNESIUM METABOLISM 12/10/2015 KAREN LEON RUG HOOKER Ot 276.8 HYPOPOTASSEMIA 12/10/2015 KILLIAN WILSON, LIDIA [...] CCDS Ot I25.10 ATHSCL HEART DISEASE OF [place] CORONARY 12/11/2015 MIRIAM WILSON FACC, ALI FACP CCDS Ot I65.23 OCCLUSION AND STENOSIS OF BILATERAL [place] 12/11/2015 MIRIAM WILSON FACC, RUDI FACP CCDS Ot Z72.0 TOBACCO USE 12/26/2015 MIRIAM WILSON FACC, ALI FACP CCDS Ot E78.4 OTHER HYPERLIPIDEMIA 12/26/2015 MIRIAM WILSON FACC, ALI FACP CCDS Ot I10 ESSENTIAL (PRIMARY) HYPERTENSION 12/26/2015 MIRIAM WILSON FACC, RUDI FACP CCDS Ot I25.10 ATHSCL HEART DISEASE OF [place] CORONARY 12/26/2015 MIRIAM WILSON FACC, ALI FACP CCDS Ot I65.23 OCCLUSION AND STENOSIS OF [place] 12/26/2015 MIRIAM WILSON FACC, RUDI FACP CCDS Ot Z72.0 TOBACCO USE 01/28/2016 KAREN LEON RUG HOOKER Ot 275.2 DIS MAGNESIUM METABOLISM 01/28/2016 KAREN LEON RUG HOOKER Ot 276.8 HYPOPOTASSEMIA 01/28/2016 LIDIA DAILY MD [...] CCDS Ot I25.10 ATHSCL HEART DISEASE OF [place] CORONARY 01/28/2016 MIRIAM WILSON FACC, RUDI FACP CCDS Ot I65.23 OCCLUSION AND STENOSIS OF [place] 01/28/2016 MIRIAM WILSON FAC, ALI FACP CCDS Ot Z72.0 TOBACCO USE 01/31/2016 MIRIAM WILSON FAC, ALI FACP CCDS Ot E78.4 OTHER HYPERLIPIDEMIA 01/31/2016 MIRIAM WILSON FAC, ALI FACP CCDS Ot I10 ESSENTIAL (PRIMARY) HYPERTENSION 01/31/2016 MIRIAM WILSON FAC, ALI FACP CCDS Ot I25.10 ATHSCL HEART DISEASE OF [place] CORONARY 01/31/2016 MIRIAM WILSON [facility], ALI FACP CCDS Ot I65.23 OCCLUSION AND STENOSIS OF [place] 01/31/2016 MIRIAM WILSON [facility], ALI FACP CCDS Ot J43.8 OTHER EMPHYSEMA 01/31/2016 MIRIAM WILSON [facility], ALI FACP CCDS Ot Z72.0 TOBACCO USE 02/15/2016 MIRIAM WILSON [facility], ALI FACP CCDS Ot E78.4 OTHER HYPERLIPIDEMIA 02/15/2016 [facility], ALI FACP CCDS Ot I10 ESSENTIAL (PRIMARY) HYPERTENSION 02/15/2016 MIRIAM WILSON [facility], ALI FACP CCDS Ot I25.10 ATHSCL HEART DISEASE OF [place] CORONARY 02/15/2016 MIRIAM WILSON [facility], ALI FACP CCDS Ot I65.23 OCCLUSION AND STENOSIS OF [place] 02/15/2016 MIRIAM WILSON [facility], ALI FACP CCDS Ot J43.8 OTHER EMPHYSEMA 02/15/2016 MIRIAM WILSON [facility], ALI FACP CCDS Ot Z72.0 TOBACCO USE 04/25/2016 KAREN LEON RUG HOOKER Ot 275.2 DIS MAGNESIUM METABOLISM 04/25/2016 KAREN LEON RUG HOOKER Ot 276.8 HYPOPOTASSEMIA 04/25/2016 LIDIA DAILY MD [...] CCDS Ot I25.10 ATHSCL HEART DISEASE OF [place] CORONARY 04/25/2016 MIRIAM WILSON FACC, RUDI FACP CCDS Ot I65.23 OCCLUSION AND STENOSIS OF [place] 04/25/2016 MIRIAM WILSON FACC, RUDI FACP CCDS Ot Z72.0 TOBACCO USE 04/25/2016 MIRIAM WILSON FACC, RUDI FACP CCDS Ot E78.4 OTHER HYPERLIPIDEMIA 04/25/2016 MIRIAM WILSON FACC, RUDI FACP CCDS Ot I10 ESSENTIAL (PRIMARY) HYPERTENSION 04/25/2016 MIRIAM WILSON FACC, [facility] CCDS Ot I25.10 ATHSCL HEART DISEASE OF [place] CORONARY 04/25/2016 MIRIAM WILSON FACC, [facility] CCDS Ot I65.23 OCCLUSION AND STENOSIS OF [place] 04/25/2016 MIRIAM WILSON FACC, [facility] CCDS Ot J43.8 OTHER EMPHYSEMA 04/25/2016 MIRIAM GATES, [facility] CCDS Ot Z72.0 TOBACCO USE 05/01/2016 VIVEKISABELA ANN [employer] ASSEMBLER Ot J30.9 ALLERGIC RHINITIS, UNSPECIFIED 05/01/2016 VIVEKAPRILISABELA Meseret [employer] ASSEMBLER Ot J44.9 CHRONIC OBSTRUCTIVE PULMONARY DISEASE , U 05/01/2016 VIVEKISABELA [employer] Ot Z72.0 TOBACCO USE 05/08/2016 VIVEKISABELA [employer] AS[employer]ER Ot J30.9 ALLERGIC RHINITIS, UNSPECIFIED 05/08/2016 VIVEKISABELA [employer] ASSEMBLER Ot J44.9 CHRONIC OBSTRUCTIVE PULMONARY DISEASE , U 05/08/2016 VIVEKISABELA ANN [employer] AS[employer]ER Ot Z72.0 TOBACCO USE 09/11/2016 KAREN LEON RUG HOOKER Ot 275.2 DIS MAGNESIUM METABOLISM 09/11/2016 KAREN LEON RUG HOOKER Ot 276.8 HYPOPOTASSEMIA 09/11/2016 LIDIA DAILY MD Ot 433.10 CAROTID ARTERY OCCLUSION W O CEREBRAL IN 09/11/2016 LIDIA DAILY MD Ot V72.63 PRE-PROCEDURAL LABORATORY EXAMINATION 09/11/2016 LIDIA DAILY MD Ot V74.8 SCREEN-BACTERIAL DIS NEC 09/11/2016 LIDIA DAILY MD Ot 433.10 CAROTID ARTERY OCCLUSION W O CEREBRAL IN 09/11/2016 LIDIA DAILY MD Ot 780.4 DIZZINESS AND GIDDINESS 09/11/2016 MIRIAM WILSON [facility], [facility] CCDS Ot 414.9 CHR ISCHEMIC HRT DIS [...] 300.01 PANIC DISORDER WITHOUT AGORAPHOBIA 09/11/2016 KANE OLIVEAR DO Ot 305.1 TOBACCO USE DISORDER 09/11/2016 [...] CCDS Ot I25.10 ATHSCL HEART DISEASE OF [place] CORONARY 09/11/2016 MIRIAM WILSON FACC, RUDI FACP CCDS Ot I65.23 OCCLUSION AND STENOSIS OF [place] 09/11/2016 MIRIAM WILSON FACC, RUDI FACP CCDS Ot Z72.0 TOBACCO USE 09/11/2016 MIRIAM WILSON FACC, RUDI FACP CCDS Ot E78.4 OTHER HYPERLIPIDEMIA 09/11/2016 MIRIAM WILSON FACC, RUDI FACP CCDS Ot I10 ESSENTIAL (PRIMARY) HYPERTENSION 09/11/2016 MIRIAM WILSON FACC, RUDI FACP CCDS Ot I25.10 ATHSCL HEART DISEASE OF [place] CORONARY 09/11/2016 MIRIAM WILSON FACC, RUDI FACP CCDS Ot I65.23 OCCLUSION AND STENOSIS OF [place] 09/11/2016 MIRIAM WILSON [facility], RUDI [facility] CCDS Ot J43.8 OTHER EMPHYSEMA 09/11/2016 MIRIAM WILSON FACC, RUDI [facility] CCDS Ot Z72.0 TOBACCO USE 09/16/2016 LEONKAREN RUG HOOKER Ot 275.2 DIS MAGNESIUM METABOLISM 09/16/2016 KAREN LEON RUG HOOKER Ot 276.8 HYPOPOTASSEMIA 09/16/2016 LIDIA DAILY MD Ot 433.10 CAROTID ARTERY OCCLUSION W O CEREBRAL IN 09/16/2016 LIDIA DAILY MD Ot V72.63 PRE-PROCEDURAL LABORATORY EXAMINATION 09/16/2016 LIDIA DAILY MD Ot V74.8 SCREEN-BACTERIAL DIS NEC 09/16/2016 LIDIA DAILY MD Ot 433.10 CAROTID ARTERY OCCLUSION W O CEREBRAL IN 09/16/2016 LIDIA DAILY MD Ot 780.4 DIZZINESS AND GIDDINESS 09/16/2016 MIRIAM GATES, RUDI [facility] CCDS Ot 414.9 CHR ISCHEMIC HRT DIS [...] CCDS Ot I25.10 ATHSCL HEART DISEASE OF [place] CORONARY 09/16/2016 MIRIAM WILSON [facility], ALI FACP CCDS Ot I65.23 OCCLUSION AND STENOSIS OF [place] 09/16/2016 MIRIAM WILSON [facility], ALI FACP CCDS Ot Z72.0 TOBACCO USE 09/16/2016 MIRIAM WILSON [facility], ALI FACP CCDS Ot E78.4 OTHER HYPERLIPIDEMIA 09/16/2016 MIRIAM WILSON [facility], ALI FACP CCDS Ot I10 ESSENTIAL (PRIMARY) HYPERTENSION 09/16/2016 MIRIAM WILSON [facility], ALI FACP CCDS Ot I25.10 ATHSCL HEART DISEASE OF [place] CORONARY 09/16/2016 MIRIAM WILSON [facility], ALI FACP CCDS Ot I65.23 OCCLUSION AND STENOSIS OF [place] 09/16/2016 MIRIAM WILSON FACC, ALI FACP CCDS Ot J43.8 OTHER EMPHYSEMA 09/16/2016 MIRIAM WILSON [facility], ALI FACP CCDS Ot Z72.0 TOBACCO USE 09/16/2016 KANE OLIVERA DO Ot 305.1 TOBACCO USE DISORDER 09/16/2016 KANE OLIVERA DO Ot 496 CHR AIRWAY OBSTRUCT NEC 09/16/2016 KANE OLIVERA DO Ot 553.3 DIAPHRAGMATIC HERNIA 09/16/2016 KANE OLIVERA DO Ot 785.6 ENLARGEMENT LYMPH NODES 09/17/2016 REEMA ESPINAL RUG HOOKER Ot E78.4 OTHER HYPERLIPIDEMIA 09/17/2016 BAIMA, REEMA L RUG HOOKER Ot I25.10 ATHSCL HEART DISEASE OF [place] CORONARY 09/17/2016 BAIMA, REEMA L RUG HOOKER Ot I65.23 OCCLUSION AND STENOSIS OF [place] 09/17/2016 BAIMA REEMA L RUG HOOKER Ot R06.09 OTHER FORMS OF DYSPNEA 09/17/2016 JULIMA REEMA L RUG HOOKER Ot Z86.79 PERSONAL HISTORY OF OTHER DISEASES OF 09/17/2016 BAIMA, REEMA L RUG HOOKER Ot E78.4 OTHER HYPERLIPIDEMIA 09/17/2016 BAIMA, REEMA L RUG HOOKER Ot I25.10 ATHSCL HEART DISEASE OF [place] CORONARY 09/17/2016 BAIMA, REEMA L RUG HOOKER Ot I65.23 OCCLUSION AND STENOSIS OF [place] 09/17/2016 BAIMA, REEMA L RUG HOOKER Ot R06.09 OTHER FORMS OF DYSPNEA 09/17/2016 BAIMA REEMA L RUG HOOKER Ot Z86.79 PERSONAL HISTORY OF OTHER DISEASES OF 09/17/2016 BAIMA, REEMA L RUG HOOKER Ot E78.4 OTHER HYPERLIPIDEMIA 09/17/2016 BAIMA, REEMA L RUG HOOKER Ot I25.10 ATHSCL HEART DISEASE OF [place] CORONARY 09/17/2016 BAIMA, REEMA L RUG HOOKER Ot I65.23 OCCLUSION AND STENOSIS OF [place] 09/17/2016 BAIMA, REEMA L RUG HOOKER Ot R06.09 OTHER FORMS OF DYSPNEA 09/17/2016 BAIMA REEMA L RUG HOOKER Ot Z86.79 PERSONAL HISTORY OF OTHER DISEASES OF 09/17/2016 BAIMA REEMA L RUG HOOKER Ot E78.4 OTHER HYPERLIPIDEMIA 09/17/2016 BAIMA EREMA L RUG HOOKER Ot I25.10 ATHSCL HEART DISEASE OF [place] CORONARY 09/17/2016 BAIMA REEMA L RUG HOOKER Ot I65.23 OCCLUSION AND STENOSIS OF [place] 09/17/2016 BAIMA, REEMA L RUG HOOKER Ot R06.09 OTHER FORMS OF DYSPNEA 09/17/2016 BAIMA REEMA L RUG HOOKER Ot Z86.79 PERSONAL HISTORY OF OTHER DISEASES OF 09/24/2016 JULIMA REEMA L RUG HOOKER Ot E78.4 OTHER HYPERLIPIDEMIA 09/24/2016 BAIMA, REEMA L RUG HOOKER Ot I25.10 ATHSCL HEART DISEASE OF [place] CORONARY 09/24/2016 BAIMA, REEMA L RUG HOOKER Ot I65.23 OCCLUSION AND STENOSIS OF [place] 09/24/2016 JULIREEMA SANCHES RUG HOOKER Ot R06.09 OTHER FORMS OF DYSPNEA 09/24/2016 TEDDYREEMA RUG HOOKER Ot Z86.79 PERSONAL HISTORY OF OTHER DISEASES OF 09/29/2016 KANE OLIVERA DO Ot 305.1 TOBACCO USE DISORDER 09/29/2016 KANE OLIVERA DO Ot 496 CHR AIRWAY OBSTRUCT NEC 09/29/2016 KANE OLIVERA DO M Ot 553.3 DIAPHRAGMATIC HERNIA 09/29/2016 KANE OLIVERA DO M Ot 785.6 ENLARGEMENT LYMPH NODES 09/29/2016 TEDDY REEMA Diony RUG HOOKER Ot E78.4 OTHER HYPERLIPIDEMIA 09/29/2016 TEDDY REEMA Diony RUG HOOKER Ot I25.10 ATHSCL HEART DISEASE OF [place] CORONARY 09/29/2016 TEDDY REEMA L RUG HOOKER Ot I65.23 OCCLUSION AND STENOSIS OF [place] 09/29/2016 REEMA ESPINAL RUG HOOKER Ot R06.09 OTHER FORMS OF DYSPNEA 09/29/2016 REEMA ESPINAL RUG HOOKER Ot Z86.79 PERSONAL HISTORY OF OTHER DISEASES [...] Procedures Code Description [place] [address] ROUTINE VENIPUNCTURE 12/27/2012 94204 CBC 12/27/2012 10308 CMP 12/27/2012 73808 LIPID PANEL 12/27 [id number] GFR CALC (RESULT ONLY) 12/27/2012 34796 TSH 12/27/2012 00.40 PROCEDURE ON SINGLE VESSEL 05/31/2014 38.12 HEAD NECK ENDARTER NEC 05/31/2014 87384 A1C (IN-HOUSE) 00.40 PROCEDURE ON SINGLE VESSEL [...] Status Pt. Type Provider Facility Loc./Unit Complaint [id number] 10/05/2014 08:14:00 10/05/2014 23: 59:59 [facility] Outpatient KATIE BELTRAN DO [id number] 05/15/2014 12:58:00 05/15/2014 23: 59:59 [facility] Outpatient KATIE BELTRAN DO [id number] 05/05/2014 14:47:00 05/05/2014 23: 59:59 [facility] Outpatient KATIE BELTRAN DO [id number] 03/13/2014 16:07:00 03/13/2014 23: 59:59 [facility] Outpatient ARNIE YOO MD [id number] 12/27/2012 11:00:00 Document Registration
== END 2016-11-27 10:24 | disposition home or self-care (01) ==
LOC: EDUNIT# 18:27 → ER 18:28 → ICU 18:50 → UNDOADMOB 18:50 → ICU 20:15 → 4TH 11-26 09:55 → UNDODISOB 11-27 11:10
PROVIDERS: ADMIT Internal Medicine; ATTEND Internal Medicine
DX: T20.24XA Burn of second degree of nose (septum), initial encounter (principal); T20.22XA Burn of second degree of lip(s), initial encounter; J44.9 Chronic obstructive pulmonary disease, unspecified; F17.210 Nicotine dependence, cigarettes, uncomplicated; F41.0 Panic disorder [episodic paroxysmal anxiety]; X04.XXXA Exposure to ignition of highly flammable material, initial encounter; Z99.81 Dependence on supplemental oxygen
CPT/HCPCS: 36415; 71010; 71020; 80048; 80053; 82805; 83735; 84100; 85007; 85025; 85027; 85610; 85730; 87081; 94640; 94760; 96374; 96375; G0378

== ENCOUNTER 2017-02-03 18:13 | Emergency (ER) | payer MEDICARE, MEDICAID ==
[~2017-02-03] VITALS: Ht 152.4 cm; Wt 79.8 kg
[~2017-02-03 18:13] MED LIST changes: +ALPR0.5T7 PO; +ASPI-983 PO; +CETI10TA17 PO; +CHLO500T4 PO; +CLOP75TA28 PO; +CYCL5TAB PO; +DICL50TA4 PO; +FLUT16SP22 NSEACH; +GABA800T2 PO; +MIRT45TA5 PO; +MONT10TA24 PO; +RT-ALBUINH IH; +SILV20CR14 EXT; +SIMV40TA4 PO
[2017-02-03] MEDS ORDERED: RT-ALBUTEROL/IPRATROPIUM 3 ML (DUONEB) VIAL ONE (18:23)
[2017-02-03] MEDS ORDERED: methylPREDNISolone 125 MG (Solu-MEDROL) VIAL IV STA (18:24)
[2017-02-03] MEDS ORDERED: RT-ALBUTEROL/IPRATROPIUM 3 ML (DUONEB) VIAL INH ONE (18:30)
[2017-02-03 18:31] LABS: BASOPHILS # (AUTO) 0.1 10^3/uL (0.0-0.1); BASOPHILS % (AUTO) 1 % (0-10); EOSINOPHILS # (AUTO) 0.2 10^3/uL (0.0-0.3); EOSINOPHILS % (AUTO) 3 % (0-10); LYMPHOCYTES # (AUTO) 1.8 X 10^3 (1.0-4.0); LYMPHOCYTES % (AUTO) 24 % (12-44); MEAN CORPUSCULAR HEMOGLOBIN 32 PG (25-34); MEAN CORPUSCULAR HGB CONC 32 G/DL (32-36); MEAN CORPUSCULAR VOLUME 99 FL (80-99); MEAN PLATELET VOLUME 9.4 FL (7.4-10.4); MONOCYTES # (AUTO) 0.6 X 10^3 (0.0-1.0); MONOCYTES % (AUTO) 8 % (0-12); NEUTROPHILS # (AUTO) 4.7 X 10^3 (1.8-7.8); NEUTROPHILS % (AUTO) 65 % (42-75); PLATELET COUNT 210 10^3/uL (130-400); RED BLOOD COUNT 4.11 10^6/uL (4.35-5.85); RED CELL DISTRIBUTION WIDTH 12.8 % (10.0-14.5); WHITE BLOOD COUNT 7.3 10^3/uL (4.3-11.0)
[2017-02-03 18:37] LABS: PROTHROMBIN TIME PATIENT 13.3 SEC (12.2-14.7)
[2017-02-03 18:46] LABS: ALANINE AMINOTRANSFERASE 14 U/L (0-55); ALBUMIN 3.7 GM/DL (3.2-4.5); ANION GAP 9 MMOL/L (5-14); ASPARTATE AMINO TRANSFERASE 15 U/L (5-34); BILIRUBIN,TOTAL 0.7 MG/DL (0.1-1.0); BLOOD UREA NITROGEN 7 MG/DL (7-18); BUN/CREATININE RATIO 8 (0-20); CALCIUM 9.4 MG/DL (8.5-10.1); CARBON DIOXIDE 37 MMOL/L (21-32); CHLORIDE 97 MMOL/L (98-107); GFR ESTIMATED > 60; GLUCOSE 132 MG/DL (70-105); POTASSIUM 3.5 MMOL/L (3.6-5.0); SODIUM 143 MMOL/L (135-145); TOTAL PROTEIN 6.1 GM/DL (6.4-8.2)
--- NOTE | 2017-02-03 18:59 | Diagnostic Imaging Report ---
INDICATION: Shortness of breath. COMPARISON: 11/26/2016. FINDINGS: Upright portable view of the chest is obtained. Heart size is upper limits of normal. There is no pulmonary vascular congestion. There is no pneumothorax or pleural fluid suspected. There is some increasing streaky atelectasis in the lateral right midlung. There is very subtle patchy increase in density over the lung bases bilaterally, concerning for developing infiltrate or edema. The upper lungs remain aerated. No pleural fluid is suspected. IMPRESSION: 1. There is subtle increasing density over the lung bases bilaterally, possibly related to developing edema or pneumonia. There is also some increasing atelectasis in the right midlung. 2. Cardiomegaly without evidence of failure is stable. Dictated by: Dictated on workstation # [id number]
--- NOTE | 2017-02-03 19:04 | ED Respiratory ---
General Chief Complaint: Respiratory Problems Stated Complaint: SOB Nursing Triage Note: TO ED PER EMS HAS BEEN SOA WHEN WALKING ACROSS FLOOR. SA02 REPORTED IN 80'S ON EMS ARRIVAL SA02 AT 88% IMPROVED WITH DUONEB Source: patient, EMS Exam Limitations: no limitations History of Present Illness Time seen by provider: 18:13 Initial Comments 56-year-old female patient presents to the emergency department complaints of shortness of air. Patient states her oxygen was ranging in the 70s and low 80s when at home after she takes her oxygen off to play with her grandkids and to smoke. Patient is supposed to wear O2 at all times. Uses 5 L of O2 at home. Timing/Duration: getting worse, other (onset 2-3 days) Prior Episodes/Possible Cause: chronic episodes Modifying Factors: Worse With Activity, Worse With Coughing, Improves With Other (improvement with duoneb in route to the ED.) Allergies and Home Medications Allergies Coded Allergies: No Known Drug Allergies (Unverified , 02/08/14) Home Medications Albuterol Sulfate 1 Puff Puff, 2 PUFF IH QID PRN for SHORTNESS OF BREATH, ( Reported) 1 PUFF = 90 MCG Alprazolam 0.5 Mg Tablet, 0.25-0.5 MG PO BID PRN for ANXIETY, (Reported) Aspirin 81 Mg Tablet.dr, 81 MG PO DAILY, (Reported) Budesonide/Formoterol Fumarate 1 Inhaler Aero, 2 PUFF IH BID, (Reported) LAST FILLED 09/09/16 #1 INHALER Cetirizine HCl 10 Mg Tablet, 10 MG PO DAILY, (Reported) Chlorzoxazone 500 Mg Tablet, 500 MG PO TID, (Reported) Clopidogrel Bisulfate 75 Mg Tablet, 75 MG PO DAILY, (Reported) Cyclobenzaprine HCl 5 Mg Tablet, 5 MG PO TID PRN for MUSCLE SPASMS, (Reported) Diclofenac Potassium 50 Mg Tablet, 50 MG PO BID, (Reported) Fluticasone Propionate 16 Gm [place].susp, 1 SPRAY NSEACH DAILY, (Reported) Gabapentin 800 Mg Tablet, 800 MG PO QID, (Reported) Metoprolol Tartrate 25 Mg Tablet, 25 MG PO BID, (Reported) Mirtazapine 45 Mg Tablet, 45 MG PO HS, (Reported) Montelukast Sodium 10 Mg Tablet, 10 MG PO HS, (Reported) Silver Sulfadiazine 20 Gm Cream..g., 0 GM EXT BID for 7 Days Prescribed by: SARAH GARCIA on 11/27/16 1023 Simvastatin 40 Mg Tablet, 40 MG PO HS, (Reported) Tiotropium [place] 4 Gm Mist.inhal, 1 CAP INH BID, (Reported) LAST FILLED 07/25/16 #1 INHALER Trazodone Hcl 150 Mg Tablet, 150 MG PO HS PRN for SLEEP, (Reported) Constitutional: No chills, No dizziness, No fever, No malaise EENTM: no symptoms reported Respiratory: cough, dyspnea on exertion, phlegm (clear whitish sputum), short of breath, wheezing Cardiovascular: No chest pain, No edema, No palpitations Gastrointestinal: No abdominal pain, No constipation, No diarrhea, No nausea, No vomiting Genitourinary: no symptoms reported Musculoskeletal: no symptoms reported Skin: no symptoms reported Psychiatric/Neurological: No Symptoms Reported All Other Systems Reviewed Negative Unless Noted: Yes (Negative excepted noted.) Past Dmfpoaa-Fatrfu-Hxlixu Hx Patient Social History Alcohol Use: Denies Use Recreational Drug Use: No Smoking Status: Current Everyday Smoker Type Used: Cigarettes 2nd Hand Smoke Exposure: No Recent Foreign Travel: No Contact w/Someone Who Travel: No Recent Infectious Disease Expo: No Recent Hopitalizations: No Immunizations Up To Date Tetanus Booster (TDap): Unknown Date of Pneumonia Vaccine: Jan 22, 2013 Date of Influenza Vaccine: May 20, 2014 Seasonal Allergies Seasonal Allergies: Yes Surgeries HX Surgeries: Yes Surgeries: Cardiac, Section, Coronary Stent, Orthopedic, Vascular Surgery Respiratory Hx Respiratory Disorders: Yes Respiratory Disorders: COPD Cardiovascular Hx Cardiac Disorders: Yes Cardiac Disorders: Coronary Artery Disease, Heart Attack, High Cholesterol, Hypertension Neurological Hx Neurological Disorders: No Reproductive System Hx Reproductive Disorders: No Female Reproductive Disorders: Denies [employer] History: Menopausal Genitourinary Hx Genitourinary Disorders: No Gastrointestinal Hx Gastrointestinal Disorders: No Musculoskeletal Hx Musculoskeletal Disorders: Yes (carpal tunnel. ) Musculoskeletal Disorders: Arthritis Endocrine Hx Endocrine Disorders: Yes Endocrine Disorders: Diabetes, Non-Insulin dep HEENT HX ENT Disorders: No Cancer Hx Cancer: No Psychosocial Hx Psychiatric Problems: Yes (PANIC ATTACKS) Behavioral Health Disorders: Anxiety, PTSD, Bipolar Integumentary HX Skin/Integumentary Disorder: Yes Skin/Integumentary Disorders: Psoriasis Blood Transfusions Hx Blood Disorders: No Adverse Reaction to a Blood Tr: No Reviewed Nursing Assessment Reviewed/Agree w Nursing PMH: Yes Family Medical History Significant Family History: No Pertinent Family Hx Family Medial History: Cancer 19 MOTHER Family history: Breast disease 19 MOTHER Family history: Cardiovascular disease 19 FATHER, G8 BROTHER, Family history: Hypertension G8 SISTER Headache 19 FATHER, 19 MOTHER G8 BROTHER, G8 SISTER G8 SISTER History of - respiratory disease 19 FATHER, G8 BROTHER, Hypercholesterolemia G8 BROTHER, Myocardial infarction G8 BROTHER, Physical Exam Vital Signs Vital Sign - Last 12Hours 02/03/17 02/03/17 02/03/17 18:13 18:20 18:37 Temp 97.6 Pulse 86 Resp 18 B/P (MAP) 158/89 Pulse Ox 90 O2 Delivery Nasal Cannula O2 Flow Rate 4.00 Capillary Refill : Less Than 3 Seconds General Appearance: WD/WN, no apparent distress HEENT: PERRL/EOMI, pharynx normal Neck: supple, normal inspection Respiratory: decreased breath sounds ((bilat bases)), crackles, wheezing, expiration Cardiovascular: normal peripheral pulses, regular rate, rhythm, no murmur Gastrointestinal: normal bowel sounds, non tender, soft, no organomegaly, No distended Extremities: no calf tenderness, normal capillary refill, pedal edema (1+ pedal edema bilateral.) Neurologic/Psychiatric: alert, normal mood/affect, oriented x 3 Skin: normal color, warm/dry Progress/Results/Core Measures Results/Orders Lab Results Laboratory Tests Test 02/03/17 18:21 Range/Units White Blood Count 7.3 4.3-11.0 10^3/uL Red Blood Count 4.11 L 4.35-5.85 10^6/uL Hemoglobin 13.1 11.5-16.0 G/DL Hematocrit 41 35-52 % Mean Corpuscular Volume 99 80-99 FL Mean Corpuscular Hemoglobin 32 25-34 PG Mean Corpuscular Hemoglobin Concent 32 32-36 G/DL Red Cell Distribution Width 12.8 10.0-14.5 % Platelet Count 210 130-400 10^3/uL Mean Platelet Volume 9.4 7.4-10.4 FL Neutrophils (%) (Auto) 65 42-75 % Lymphocytes (%) (Auto) 24 12-44 % Monocytes (%) (Auto) 8 0-12 % Eosinophils (%) (Auto) 3 0-10 % Basophils (%) (Auto) 1 0-10 % Neutrophils # (Auto) 4.7 1.8-7.8 X 10^3 Lymphocytes # (Auto) 1.8 1.0-4.0 X 10^3 Monocytes # (Auto) 0.6 0.0-1.0 X 10^3 Eosinophils # (Auto) 0.2 0.0-0.3 10^3/uL Basophils # (Auto) 0.1 0.0-0.1 10^3/uL Prothrombin Time 13.3 12.2-14.7 SEC INR Comment 1.0 0.8-1.4 Activated Partial Thromboplast Time 31 24-35 SEC D-Dimer 0.58 H 0.00-0.49 UG/ML Sodium Level 143 135-145 MMOL/L Potassium Level 3.5 L 3.6-5.0 MMOL/L Chloride Level 97 L 98-107 MMOL/L Carbon Dioxide Level 37 H 21-32 MMOL/L Anion Gap 9 5-14 MMOL/L Blood Urea Nitrogen 7 7-18 MG/DL Creatinine 0.90 0.60-1.30 MG/DL Estimat Glomerular Filtration Rate > 60 BUN/Creatinine Ratio 8 0-20 Glucose Level 132 H 70-105 MG/DL Calcium Level 9.4 8.5-10.1 MG/DL Total Bilirubin 0.7 0.1-1.0 MG/DL Aspartate Amino Transf (AST/SGOT) 15 5-34 U/L Alanine Aminotransferase (ALT/SGPT) 14 0-55 U/L Alkaline Phosphatase 63 40-136 U/L Troponin I < 0.30 <0.30 NG/ML B-Type Natriuretic Peptide 406.8 H <100.0 PG/ML Total Protein 6.1 L 6.4-8.2 GM/DL Albumin 3.7 3.2-4.5 GM/DL TSH [facility] Testing 1.85 0.35-4.94 UIU/ML My Orders Orders - KENNEDI CORREA Saline Lock/Iv-Start (02/03/17 18:24) Ekg Tracing (02/03/17 18:24) O2 (02/03/17 18:24) Monitor-Rhythm Ecg Trace Only (02/03/17 18:24) BNP (02/03/17 18:24) Cbc With Automated Diff (02/03/17 18:24) Comprehensive Metabolic Panel (02/03/17 18:24) Protime With Inr (02/03/17 18:24) Partial Thromboplastin Time (02/03/17 18:24) Thyroid Analyzer (02/03/17 18:24) Troponin I (02/03/17 18:24) Chest 1 View, Ap/Pa Only (02/03/17 18:24) Albuterol/Ipra Inhalation Soln (Duoneb I (02/03/17 18:30) Svn Sm Volume Nebulizer Rt-Rfs (02/03/17 18:24) Methylprednisolone Sod Succ (Solu-Medrol (02/03/17 18:24) Albuterol/Ipra Inhalation Soln (Duoneb I (02/03/17 18:23) Fibrin Degradation Products (02/03/17 18:49) Rx-Doxycycline Tablet (Rx-Vibramycin Tab (02/03/17 20:08) Prednisone Tablet (Deltasone Tablet) (02/03/17 20:15) Rx-Ondansetron Po (Rx-Zofran Po) (02/03/17 20:08) Furosemide Tablet (Lasix Tablet) (02/03/17 20:15) Medications Given in ED Current Medications Medications Dose Ordered Sig/Lesli Route Start Time Stop Time Status Last Admin Dose Admin Albuterol/ Ipratropium 3 ml ONCE ONCE INH 02/03/17 18:30 02/03/17 18:31 DC 02/03/17 18:36 3 ML Albuterol/ Ipratropium 3 ml STK-MED ONCE .ROUTE 02/03/17 18:23 02/03/17 18:28 DC 02/03/17 18:33 3 ML Vital Signs/I&O Vital Sign - Last 12Hours 02/03/17 02/03/17 02/03/17 02/03/17 18:13 18:20 18:37 18:38 Temp 97.6 Pulse 86 Resp 18 B/P (MAP) 158/89 Pulse Ox 90 90 O2 Delivery Nasal Cannula Nasal Cannula Nasal Cannula O2 Flow Rate 4.00 5.00 5.00 Blood Pressure Mean: 112 Diagnostic Imaging Diagonstic Imaging: Xray Plain Films/CT/US/NM/MRI: chest Reviewed: Reviewed by Me (radiology report reviewed by me.) Departure Impression Impression: Primary Impression: COPD exacerbation Disposition: HOME, SELF-CARE Condition: Improved Departure-Patient Inst. Decision time for Depature: 20:18 Referrals: DANIEL THOMAS (PCP/Family) Primary Care Physician Patient Instructions: Chronic Bronchitis (DC) Add. Discharge Instructions: All discharge instructions reviewed with patient and/or family. Voiced understanding. Medications as instructed. Continue usual home medications. Follow-up with Anastacio Thomas is an outpatient in the next 1-2 days. Call for appointment time. Wear oxygen at all times. Return to the emergency department for worsened shortness of air, fever, vomiting, chest pain, abdominal pain, or any other concerns. Scripts Nebulizer (Compact Compressor Nebulizer) 1 Each Each 1 EACH MC Q4H Y for SHORTNESS OF BREATH, #1 0 Refills Prov: KENNEDI CORREA 02/03/17 Potassium Chloride (Potassium Chloride) 20 Meq Tablet.er 20 MEQ PO DAILY, #3 TAB 0 Refills Prov: KENNEDI CORREA 02/03/17 Furosemide (Lasix) 40 Mg Tablet 40 MG PO DAILY, #3 TAB 0 Refills Prov: KENNEDI CORREA 02/03/17 Doxycycline Hyclate (Doxycycline Hyclate) 100 Mg Capsule 100 MG PO BID, #14 CAP 0 Refills Prov: KENNEDI CORREA 02/03/17 Albuterol Sulfate (Albuterol Sulfate) 2.5 Mg/3 Ml Vial.neb 2.5 MG IH Q4H Y for SHORTNESS OF BREATH, #28 EA 0 Refills Prov: KENNEDI CORREA 02/03/17 Prednisone (Prednisone) 20 Mg Tab 40 MG PO DAILY, #8 TAB 0 Refills Prov: KENNEDI CORREA 02/03/17 KENNEDI CORREA Feb 03, 2017 19:04
[2017-02-03 19:06] LABS: TROPONIN I < 0.30 NG/ML (<0.30)
[2017-02-03] MEDS ORDERED: RX-ONDANSETRON 4 MG ODT (ZOFRAN) PPK #4 PO STA (20:08)
[2017-02-03] MEDS ORDERED: RX-DOXYCYCLINE 100 MG (VIBRAMYCIN) TAB PPK#2 PO STA (20:08)
[2017-02-03] MEDS ORDERED: predniSONE 20 MG TAB PO ONE (20:15)
[2017-02-03] MEDS ORDERED: FUROSEMIDE 20 MG (LASIX) TAB PO ONE (20:15)
[2017-02-03] MEDS ORDERED: POTA-51 PO (20:22)
[2017-02-03] MEDS ORDERED: PRD20T PO (20:22)
[2017-02-03] MEDS ORDERED: DOXY100C2 PO (20:22)
[2017-02-03] MEDS ORDERED: ALBU2.5V4 IH (20:22)
[2017-02-03] MEDS ORDERED: FURO-124 PO (20:22)
[2017-02-03] MEDS ORDERED: NEBU1KIT3 MC (20:22)
[2017-02-03 20:34] VITALS: BP 167/91
== END 2017-02-03 20:33 | disposition home or self-care (01) ==
LOC: EDUNIT# 18:13 → ER 18:17
DX: J44.1 Chronic obstructive pulmonary disease with (acute) exacerbation (principal); I25.10 Atherosclerotic heart disease of native coronary artery without angina pectoris; I10 Essential (primary) hypertension; E78.00 Pure hypercholesterolemia, unspecified; E11.9 Type 2 diabetes mellitus without complications; F17.210 Nicotine dependence, cigarettes, uncomplicated; Z79.82 Long term (current) use of aspirin; Z95.5 Presence of coronary angioplasty implant and graft
CPT/HCPCS: 36415; 71010; 80053; 83880; 84443; 84484; 85025; 85379; 85610; 85730; 93005; 93041; 94640

== ENCOUNTER → 2017-05-05 | Outpatient (CLI) | payer MEDICARE, MEDICAID ==
[~2017-05-05] MED LIST changes: +ALBU2.5V4 IH; +DOXY100C2 PO; +FURO-124 PO; +NEBU1KIT3 MC; +POTA-51 PO; +PRD20T PO; +REGADENOSON 0.4 MG/5 ML SYR (LEXISCAN) IV ONE
[2017-05-05] MEDS: CATHETER FLUSH 10 ML SYR IV PRN ×2 (08:44→09:44)
[2017-05-05 09:41] VITALS: BP 134/73
[2017-05-05 09:46] LABS: BASOPHILS # (AUTO) 0.1 10^3/uL (0.0-0.1); BASOPHILS % (AUTO) 1 % (0-10); EOSINOPHILS # (AUTO) 0.2 10^3/uL (0.0-0.3); EOSINOPHILS % (AUTO) 3 % (0-10); LYMPHOCYTES # (AUTO) 1.3 X 10^3 (1.0-4.0); LYMPHOCYTES % (AUTO) 18 % (12-44); MEAN CORPUSCULAR HEMOGLOBIN 32 PG (25-34); MEAN CORPUSCULAR HGB CONC 34 G/DL (32-36); MEAN CORPUSCULAR VOLUME 93 FL (80-99); MEAN PLATELET VOLUME 9.2 FL (7.4-10.4); MONOCYTES # (AUTO) 0.7 X 10^3 (0.0-1.0); MONOCYTES % (AUTO) 9 % (0-12); NEUTROPHILS # (AUTO) 5.1 X 10^3 (1.8-7.8); NEUTROPHILS % (AUTO) 69 % (42-75); PLATELET COUNT 238 10^3/uL (130-400); RED BLOOD COUNT 4.62 10^6/uL (4.35-5.85); RED CELL DISTRIBUTION WIDTH 12.6 % (10.0-14.5); WHITE BLOOD COUNT 7.4 10^3/uL (4.3-11.0)
[2017-05-05 10:03] LABS: ALANINE AMINOTRANSFERASE 9 U/L (0-55); ANION GAP 10 MMOL/L (5-14); ASPARTATE AMINO TRANSFERASE 12 U/L (5-34); BILIRUBIN,TOTAL 0.5 MG/DL (0.1-1.0); BLOOD UREA NITROGEN 7 MG/DL (7-18); BUN/CREATININE RATIO 7; CALCIUM 8.4 MG/DL (8.5-10.1); CARBON DIOXIDE 28 MMOL/L (21-32); CHLORIDE 93 MMOL/L (98-107); CHOLESTEROL 131 MG/DL (< 200); CREATININE SERUM 0.94 MG/DL (0.60-1.30); DIRECT LDL 83 MG/DL (1-129); GFR ESTIMATED > 60; GLUCOSE 111 MG/DL (70-105); MAGNESIUM 1.4 MG/DL (1.8-2.4); POTASSIUM 3.7 MMOL/L (3.6-5.0); SODIUM 131 MMOL/L (135-145); TOTAL PROTEIN 6.9 GM/DL (6.4-8.2); TRIGLYCERIDES 102 MG/DL (<150); VLDL CHOLESTEROL 20 MG/DL (5-40)
[2017-05-05 10:22] LABS: THYROID STIMULATING HORMONE 0.92 UIU/ML (0.35-4.94)
[2017-05-05 10:26] LABS: ERYTHROCYTE SEDIMENTATION RATE 4 MM/HR (0-30)
== END ==
LOC: CARD 08:19
PROVIDERS: ATTEND Internal Medicine Cardiovascular Disease
DX: I65.23 Occlusion and stenosis of bilateral carotid arteries (principal); E78.4 Other hyperlipidemia; I25.10 Atherosclerotic heart disease of native coronary artery without angina pectoris; R06.02 Shortness of breath; J43.8 Other emphysema; I10 Essential (primary) hypertension; Z72.0 Tobacco use
CPT/HCPCS: 36415; 78452; 80053; 80061; 83735; 83880; 84443; 85025; 85652; 93017

== ENCOUNTER 2017-05-19 08:08 | Day surgery (SDC) | payer MEDICARE, MEDICAID ==
[2017-05-19] VITALS (7 sets, daily range): BP systolic 117–148; BP diastolic 55–79
[~2017-05-19] VITALS: Ht 152.4 cm; Wt 80.4 kg
[~2017-05-19 08:08] MED LIST changes: +HEParin (CATH LAB) 2,000 ML IV ONE; +NS IV 1000 ML 1,000 ML ONE; -REGADENOSON 0.4 MG/5 ML SYR (LEXISCAN) IV ONE
[2017-05-19] MEDS: NS IV 1000 ML 1,000 ML IV SCH ×2 (08:42→19:03)
[2017-05-19 08:45] LABS: MEAN PLATELET VOLUME 9.2 FL (7.4-10.4); RED BLOOD COUNT 4.37 10^6/uL (4.35-5.85); RED CELL DISTRIBUTION WIDTH 13.5 % (10.0-14.5); WHITE BLOOD COUNT 9.7 10^3/uL (4.3-11.0)
[2017-05-19 09:03] LABS: INR 0.9 (0.8-1.4); PROTHROMBIN TIME PATIENT 12.7 SEC (12.2-14.7)
[2017-05-19 09:05] LABS: ALANINE AMINOTRANSFERASE 7 U/L (0-55); ALBUMIN 4.1 GM/DL (3.2-4.5); ANION GAP 11 MMOL/L (5-14); ASPARTATE AMINO TRANSFERASE 7 U/L (5-34); BILIRUBIN,TOTAL 0.6 MG/DL (0.1-1.0); BLOOD UREA NITROGEN 6 MG/DL (7-18); BUN/CREATININE RATIO 7; CALCIUM 9.2 MG/DL (8.5-10.1); CARBON DIOXIDE 29 MMOL/L (21-32); CHLORIDE 102 MMOL/L (98-107); CHOLESTEROL 134 MG/DL (< 200); CREATININE SERUM 0.85 MG/DL (0.60-1.30); DIRECT LDL 83 MG/DL (1-129); GFR ESTIMATED > 60; GLUCOSE 131 MG/DL (70-105); POTASSIUM 3.8 MMOL/L (3.6-5.0); SODIUM 142 MMOL/L (135-145); TOTAL PROTEIN 7.1 GM/DL (6.4-8.2); TRIGLYCERIDES 116 MG/DL (<150); VLDL CHOLESTEROL 23 MG/DL (5-40)
[2017-05-19] MEDS ORDERED: BENZ100C23 PO (09:16)
[2017-05-19] MEDS ORDERED: MIDAZOLAM 5 MG/5 ML (VERSED) VIAL ONE (12:12)
[2017-05-19] MEDS ORDERED: diphenhydrAMINE 50 MG/ML INJ (BENADRYL) ONE (12:12)
[2017-05-19] MEDS ORDERED: fentaNYL INJECTION 100 MCG/2 ML AMP ONE (12:12)
[2017-05-19] MEDS ORDERED: HEParin 1000 UNIT/ML (10ML VIAL) FOR BOLUS ONE (13:06)
[2017-05-19] MEDS ORDERED: EPTIFIBATIDE BOLUS 20 ML IV ONE (13:07)
[2017-05-19] MEDS ORDERED: NITROGLYCERIN DRIP 25 MG/D5W 250 ML IV ONE (13:22)
[2017-05-19] MEDS ORDERED: CLOPIDOGREL 300 MG (PLAVIX) TABLET PO ONE (13:36)
[2017-05-19] MEDS ORDERED: ASPIRIN 81 MG CHEW (CHILDREN'S ASA) ONE (13:36)
[2017-05-19] MEDS ORDERED: NS IV 1000 ML 1,000 ML IV SCH (13:45)
[2017-05-19] MEDS ORDERED: PATIENT MAY USE OWN MEDS, ALL PO SCH (13:45)
[2017-05-19] MEDS ORDERED: lisINopril 5 MG (PRINIVIL) TABLET PO ONE (14:00)
[2017-05-19] MEDS ORDERED: BENZONATATE 100 MG (TESSALON) CAPSULE PO PRN (14:00)
[2017-05-19] MEDS ORDERED: traZODone 150 MG (DESYREL) TABLET PO PRN (14:00)
[2017-05-19] MEDS ORDERED: RT-ALBUTEROL SULF 2.5 MG/3 ML PRE-MIX VIAL IH PRN ×2 (14:00)
[2017-05-19] MEDS ORDERED: ACETAMINOPHEN 325 MG TABLET/CAPLET (TYLENOL) PO PRN (14:00)
[2017-05-19] MEDS: ALPRAZolam 0.5 MG (XANAX) TAB PO PRN (19:03)
[2017-05-19] MEDS: GABAPENTIN 400 MG (NEURONTIN) CAP PO SCH (19:03)
[2017-05-19] MEDS ORDERED: MIRTAZAPINE 15 MG (REMERON) TAB PO SCH (21:00)
[2017-05-19] MEDS ORDERED: CYCLOBENZAPRINE 10 MG (FLEXERIL) TAB PO PRN (21:00)
[2017-05-19] MEDS ORDERED: MONTELUKAST 10 MG (SINGULAIR) TAB PO SCH (21:00)
[2017-05-19] MEDS ORDERED: SIMvastatin 40 MG (ZOCOR) TAB PO SCH (21:00)
[2017-05-19] MEDS: meTOprolol TARTRATE 25 MG (LOPRESSOR) TABLET PO SCH (21:03)
[2017-05-19] MEDS: RT-ADVAIR HFA 115/21 MCG PER PUFF IH SCH (22:30)
[2017-05-20] VITALS: BP 148/82
[2017-05-20] MEDS: GABAPENTIN 400 MG (NEURONTIN) CAP PO SCH ×2 (00:01→08:04)
[2017-05-20 04:00] VITALS: BP 114/65
[2017-05-20] MEDS: NS IV 1000 ML 1,000 ML IV SCH (04:45)
[2017-05-20 06:06] LABS: MEAN PLATELET VOLUME 9.6 FL (7.4-10.4); RED BLOOD COUNT 4.16 10^6/uL (4.35-5.85); RED CELL DISTRIBUTION WIDTH 13.6 % (10.0-14.5); WHITE BLOOD COUNT 6.8 10^3/uL (4.3-11.0)
[2017-05-20 06:23] LABS: ANION GAP 9 MMOL/L (5-14); BLOOD UREA NITROGEN 5 MG/DL (7-18); BUN/CREATININE RATIO 6; CALCIUM 8.4 MG/DL (8.5-10.1); CARBON DIOXIDE 28 MMOL/L (21-32); CHLORIDE 105 MMOL/L (98-107); CREATININE SERUM 0.83 MG/DL (0.60-1.30); GFR ESTIMATED > 60; GLUCOSE 152 MG/DL (70-105); SODIUM 142 MMOL/L (135-145)
[2017-05-20 08:00] VITALS: BP 147/86
[2017-05-20] MEDS: ALPRAZolam 0.5 MG (XANAX) TAB PO PRN (08:04)
[2017-05-20] MEDS: meTOprolol TARTRATE 25 MG (LOPRESSOR) TABLET PO SCH (08:04)
[2017-05-20] MEDS ORDERED: LORATADINE (CLARITIN) 10 MG TAB PO SCH (09:00)
[2017-05-20] MEDS ORDERED: lisINopril 5 MG (PRINIVIL) TABLET PO SCH (09:00)
[2017-05-20] MEDS ORDERED: ASPIRIN 81 MG CHEW (CHILDREN'S ASA) PO SCH (09:00)
[2017-05-20] MEDS ORDERED: CLOPIDOGREL 75 MG (PLAVIX) TABLET PO SCH (09:00)
[2017-05-20] MEDS ORDERED: FLUTICASONE NASAL SPRAY (FLONASE) 16 GM BTL NS SCH (09:00)
[2017-05-20] MEDS: RT-ADVAIR HFA 115/21 MCG PER PUFF IH SCH (09:08)
[2017-05-20 10:00] VITALS: BP 138/88
[2017-05-20 10:30] VITALS: BP 144/86
== END 2017-05-20 10:30 | disposition home or self-care (01) ==
LOC: CATH 08:08 → ICU 14:25 → CATH 05-20 10:30
PROVIDERS: ATTEND Internal Medicine Cardiovascular Disease
DX: R07.89 Other chest pain (principal); I25.10 Atherosclerotic heart disease of native coronary artery without angina pectoris; T82.855A Stenosis of coronary artery stent, initial encounter; I25.84 Coronary atherosclerosis due to calcified coronary lesion; E11.9 Type 2 diabetes mellitus without complications; E66.9 Obesity, unspecified; J44.9 Chronic obstructive pulmonary disease, unspecified; E78.5 Hyperlipidemia, unspecified; I65.23 Occlusion and stenosis of bilateral carotid arteries; F41.9 Anxiety disorder, unspecified; Z72.0 Tobacco use; Z79.899 Other long term (current) drug therapy; Z68.34 Body mass index [BMI] 34.0-34.9, adult
CPT/HCPCS: 36415; 80048; 80053; 80061; 85027; 85610; 85730; 87081; 92920; 93005; 93458; 94640

== ENCOUNTER → 2017-11-02 | Outpatient (CLI) | payer MEDICARE, MEDICAID ==
[~2017-11-02] MED LIST changes: +BENZ-36 PO; -HEParin (CATH LAB) 2,000 ML IV ONE; -NS IV 1000 ML 1,000 ML ONE; +RT-ALBUTEROL SULF 2.5 MG/3 ML PRE-MIX VIAL INH ONE; +RT-ALBUTEROL SULF 2.5 MG/3 ML PRE-MIX VIAL ONE
== END ==
LOC: RT 11:02
PROVIDERS: ATTEND Nurse Practitioner Family
DX: R91.8 Other nonspecific abnormal finding of lung field (principal); R06.02 Shortness of breath; J44.9 Chronic obstructive pulmonary disease, unspecified; R09.02 Hypoxemia; Z72.0 Tobacco use
CPT/HCPCS: 94060; 94726; 94729

== ENCOUNTER → 2017-11-10 | Outpatient (CLI) | payer MEDICARE, MEDICAID ==
[~2017-11-10] MED LIST changes: -RT-ALBUTEROL SULF 2.5 MG/3 ML PRE-MIX VIAL INH ONE; -RT-ALBUTEROL SULF 2.5 MG/3 ML PRE-MIX VIAL ONE
[2017-11-10 10:03] LABS: BASOPHILS # (AUTO) 0.1 10^3/uL (0.0-0.1); BASOPHILS % (AUTO) 1 % (0-10); EOSINOPHILS # (AUTO) 0.2 10^3/uL (0.0-0.3); EOSINOPHILS % (AUTO) 3 % (0-10); HEMATOCRIT 46 % (35-52); HEMOGLOBIN 14.6 G/DL (11.5-16.0); LYMPHOCYTES # (AUTO) 1.1 X 10^3 (1.0-4.0); LYMPHOCYTES % (AUTO) 14 % (12-44); MEAN CORPUSCULAR HEMOGLOBIN 33 PG (25-34); MEAN CORPUSCULAR HGB CONC 32 G/DL (32-36); MEAN CORPUSCULAR VOLUME 103 FL (80-99); MEAN PLATELET VOLUME 9.1 FL (7.4-10.4); MONOCYTES # (AUTO) 0.7 X 10^3 (0.0-1.0); MONOCYTES % (AUTO) 9 % (0-12); NEUTROPHILS # (AUTO) 5.8 X 10^3 (1.8-7.8); NEUTROPHILS % (AUTO) 74 % (42-75); PLATELET COUNT 200 10^3/uL (130-400); RED BLOOD COUNT 4.44 10^6/uL (4.35-5.85); RED CELL DISTRIBUTION WIDTH 14.6 % (10.0-14.5); WHITE BLOOD COUNT 7.9 10^3/uL (4.3-11.0)
[2017-11-10 10:21] LABS: ALANINE AMINOTRANSFERASE < 6 U/L (0-55); ALBUMIN 3.8 GM/DL (3.2-4.5); ALKALINE PHOSPHATASE 63 U/L (40-136); BILIRUBIN,TOTAL 0.8 MG/DL (0.1-1.0); BUN/CREATININE RATIO 6; CALCIUM 8.5 MG/DL (8.5-10.1); CARBON DIOXIDE 35 MMOL/L (21-32); CHLORIDE 96 MMOL/L (98-107); CREATININE SERUM 1.08 MG/DL (0.60-1.30); GFR ESTIMATED 53; GLUCOSE 148 MG/DL (70-105); POTASSIUM 3.5 MMOL/L (3.6-5.0); SODIUM 142 MMOL/L (135-145); TOTAL PROTEIN 6.7 GM/DL (6.4-8.2)
== END ==
LOC: LAB 09:46
PROVIDERS: ATTEND Nurse Practitioner Family
DX: R60.9 Edema, unspecified (principal)
CPT/HCPCS: 36415; 80053; 83880; 85025

== ENCOUNTER → 2017-12-03 | Outpatient (CLI) | payer MEDICAID, MEDICARE | LOC: CARD 09:40 | PROVIDERS: ATTEND Nurse Practitioner Family | DX: J90 Pleural effusion, not elsewhere classified (principal); R60.9 Edema, unspecified | CPT/HCPCS: 93306 ==

== ENCOUNTER → 2018-03-31 | Outpatient (CLI) | payer MEDICAID, MEDICARE ==
[~2018-03-31] MED LIST changes: +BUDE10.2 IH; +CLON0.252 PO; +IOHEXOL 350 MG/ML 150 ML (OMNIPAQUE 350) VIAL IV ONE; +NS 250 ML (IVPB) BAG IV ONE; +PRAZ2CAP2 PO; +TRAZ150T72 PO
[2018-03-31 09:45] LABS: BUN/CREATININE RATIO 5; CREATININE SERUM 0.91 MG/DL (0.60-1.30); GFR ESTIMATED > 60
--- NOTE | 2018-03-31 10:27 | Diagnostic Imaging Report ---
PROCEDURE: CT angiography of the chest with contrast. TECHNIQUE: Multiple contiguous axial images were obtained through the chest after uneventful bolus administration of intravenous contrast. Reconstructed CTA MIP acquisitions were also performed. INDICATION: COPD and lung nodules with shortness breath and cough. Comparison is made with prior CT chest from 11/02/2017. Evaluation of the pulmonary arterial system is without evidence of thromboembolism. No filling defects are seen within central, lobar and segmental branches. The thoracic aorta is normal caliber. No dissection is seen. No pericardial fluid is identified. The previously noted small bilateral pleural effusions have nearly completely resolved. No axillary lymphadenopathy is seen. There continue to be enlarged lymph nodes in the mediastinum. Prevascular lymph node measures approximately 1.2 cm short axis. Right paratracheal node is 1.6 compared to 1.5 cm. There appear to be prominent lymph nodes in the yoav bilaterally. Parenchymal evaluation does show centrilobular emphysematous change. There are some linear opacities in the right upper lobe similar to prior exam consistent with subsegmental atelectasis or scarring. There has been improved aeration of the lower lobes bilaterally with partial clearing of bibasilar infiltrates or atelectasis. There is minimal atelectasis in the lingula. The upper abdomen is unremarkable. IMPRESSION: 1. No evidence of pulmonary embolism or thoracic aortic dissection. 2. Continued mediastinal and hilar lymphadenopathy, indeterminate between reactive versus neoplastic or lymphomatous. Again PET/CT may be useful for further evaluation. 3. There has been some overall improved aeration of both lungs when compared with prior CT from 11/02/2017. There is some minimal residual infiltrate/atelectasis, as described. Dictated by: Dictated on workstation # [id number]
== END ==
LOC: RAD 09:08
PROVIDERS: ATTEND Nurse Practitioner Family
DX: R59.0 Localized enlarged lymph nodes (principal); J43.8 Other emphysema; R91.8 Other nonspecific abnormal finding of lung field; J30.9 Allergic rhinitis, unspecified; F17.200 Nicotine dependence, unspecified, uncomplicated
CPT/HCPCS: 36415; 71275; 82565; 84520

== ENCOUNTER → 2018-04-06 | Outpatient (CLI) | payer MEDICARE ==
[~2018-04-06] MED LIST changes: -IOHEXOL 350 MG/ML 150 ML (OMNIPAQUE 350) VIAL IV ONE; -NS 250 ML (IVPB) BAG IV ONE
--- NOTE | 2018-04-06 15:40 | Diagnostic Imaging Report ---
INDICATION: Abnormal CT scan of the chest with mediastinal lymphadenopathy. The study is performed for further evaluation. Serum blood glucose level at the time of injection was 127 mg/dL. Patient was administered 13.3 mCi [id number] intravenously in the left forearm and PET imaging from the top of the skull through the mid thighs was performed. Noncontrast CT was also performed for attenuation correction and anatomic correlation. No prior PET studies available for comparison. Comparison is made with recent CT chest from 03/31/2018. Symmetric activity throughout the brain is identified. No abnormal hypermetabolism in the neck is identified. There is physiologic uptake within the strap musculature of the neck bilaterally. Imaging through the chest is without evidence of abnormal hypermetabolism. Specifically, no hypermetabolism within the areas of mediastinal and hilar lymphadenopathy is identified. No pulmonary parenchymal hypermetabolism is detected. No abnormal hypermetabolism within the abdomen or pelvis is seen. Normal physiologic activity within the GI and tracts is seen. IMPRESSION: Unremarkable PET CT study. No suspicious foci of hypermetabolism are identified. Specifically, no abnormal hypermetabolism within the enlarged mediastinal and hilar lymph nodes seen on prior CT is identified. Dictated by: Dictated on workstation # [id number]
== END ==
LOC: RAD 10:58
PROVIDERS: ATTEND Nurse Practitioner Family
DX: R59.0 Localized enlarged lymph nodes (principal); R91.8 Other nonspecific abnormal finding of lung field; J44.9 Chronic obstructive pulmonary disease, unspecified

== ENCOUNTER 2018-04-07 06:27 | Outpatient (CLI) | payer MEDICARE ==
[~2018-04-07] VITALS: Ht 152.4 cm; Wt 76.8 kg
[~2018-04-07 06:27] MED LIST changes: -BUDE10.2 IH; -CLON0.252 PO; -PRAZ2CAP2 PO; -TRAZ150T72 PO
[2018-04-07] MEDS ORDERED: CLON0.252 PO (14:49)
[2018-04-07] MEDS ORDERED: PRAZ2CAP2 PO (14:49)
[2018-04-07] MEDS ORDERED: TRAZ150T72 PO (14:49)
[2018-04-07] MEDS ORDERED: BUDE10.2 IH (14:49)
== END 2018-04-07 14:55 | disposition home or self-care (01) ==
LOC: PREOP 06:27
PROVIDERS: ATTEND Internal Medicine Critical Care Medicine
DX: Z01.818 Encounter for other preprocedural examination (principal)

== ENCOUNTER → 2018-07-27 | Outpatient (CLI) | payer MEDICARE, MEDICAID ==
[~2018-07-27] MED LIST changes: +BUDE10.2 IH; +CLON0.252 PO; -MIRT45TA5 PO; +MIRT45TA75 PO; +PRAZ2CAP2 PO; +TRAZ150T72 PO
--- NOTE | 2018-07-27 14:51 | Diagnostic Imaging Report ---
PROCEDURE: CT chest without contrast. TECHNIQUE: Multiple contiguous axial images were obtained through the chest without the use of intravenous contrast. INDICATION: Shortness of breath and hypoxemia. COMPARISON: Correlation is made with prior CT chest from 03/31/2018. FINDINGS: No axillary lymphadenopathy is seen. Mediastinal lymphadenopathy appears similar to prior CT. Patient appears to have left common carotid artery stent. There are coronary arterial calcifications. The heart is enlarged. Small amount of pericardial fluid has developed since prior CT. There is trace right pleural fluid. There is some dependent subsegmental atelectasis in the bilateral lower lobes. There appears to be a generalized interstitial nodular appearance to bilateral upper and lower lobes which appears to be increased since prior CT. Upper abdomen is unremarkable. IMPRESSION: Stable mediastinal lymphadenopathy. There has been some increase in pericardial fluid since prior CT. There has also been some increase in generalized interstitial nodular opacities throughout both lungs, likely on an infectious/inflammatory basis. No other significant abnormality is seen. Dictated by: Dictated on workstation # [id number]
== END ==
LOC: RAD 08:53
PROVIDERS: ATTEND Nurse Practitioner Family
DX: J44.9 Chronic obstructive pulmonary disease, unspecified (principal); R91.8 Other nonspecific abnormal finding of lung field; R59.0 Localized enlarged lymph nodes; Z72.0 Tobacco use
CPT/HCPCS: 71250

== ENCOUNTER 2018-08-31 08:00 | Day surgery (SDC) | payer MEDICARE, MEDICAID ==
[~2018-08-31] VITALS: Ht 152.4 cm; Wt 74.8 kg
[2018-08-31] MEDS ORDERED: LIDOCAINE 1% INJ 20 ML 20 ML VIAL ONE (08:04)
[2018-08-31] MEDS ORDERED: LIDOCAINE 1% INJ 20 ML 20 ML VIAL INJ ONE (08:15)
[2018-08-31 08:16] VITALS: BP 107/60
[2018-08-31 08:51] LABS: MEAN PLATELET VOLUME 8.9 FL (7.4-10.4); RED BLOOD COUNT 3.91 10^6/uL (4.35-5.85); RED CELL DISTRIBUTION WIDTH 15.7 % (10.0-14.5); WHITE BLOOD COUNT 5.4 10^3/uL (4.3-11.0)
--- OUTSIDE RECORDS SUMMARY | 2018-08-31 08:59 | XMS REPORT ---
Author Author DANIEL CONNOLLY [facility] Address [address] [place] [address] Care Team Providers Care Surgery Specialist Name Role Phone DANIEL CONNOLLY Unavailable PROBLEMS ALLERGIES No Known Allergies ENCOUNTERS IMMUNIZATIONS No Known Immunizations SOCIAL HISTORY No smoking Hx information available REASON FOR VISIT PLAN OF CARE VITAL SIGNS MEDICATIONS RESULTS No Results PROCEDURES INSTRUCTIONS MEDICATIONS ADMINISTERED No Known Medications MEDICAL (GENERAL) HISTORY
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
--- OUTSIDE RECORDS SUMMARY | 2018-08-31 09:09 | XMS REPORT | Continuity of Care Document ---
Author Author [facility] Address Unknown Phone Unavailable Allergies Active Description Code Type Severity Reaction Onset Reported/Identified Relationship to Patient Clinical Status Yes hydrocodone-acetaminophen 7.5-325 mg tablet Drug Allergy N/A N/A 2012 Yes morphine 15 mg tablet Drug Allergy N/A N/A 12/27/2012 Yes Benzodiazepines Drug Allergy N/A N/A 12/27/2012 Yes Hydrocodone Drug Allergy N/A N/A 12/27/2012 Yes Xanax 1 mg tablet Drug Allergy N/A N/A 05/05/2014 Yes No Known Drug Allergies [id number] Drug Allergy Unknown N/A 04/07/2018 Medications There is no data. Problems Date Dx Coded Attending Type Code Diagnosis Diagnosed By 05/18/2008 300.00 ANXIETY 05/18/2008 414.01 CAD 05/18/2008 796.2 ELEVATED BLOOD PRESSURE READING WITHOUT DIAGNOSIS OF HYPERTENSION 05/18/2008 ANRIE YOO MD 300.00 ANXIETY 05/18/2008 ARNIE YOO MD 414.01 CAD 05/18/2008 ARNIE YOO MD 796.2 ELEVATED BLOOD PRESSURE READING WITHOUT DIAGNOSIS OF HYPERTENSION 05/18/2008 KATIE BELTRAN DO K 300.00 ANXIETY 05/18/2008 KATIE BELTRAN DO K 414.01 CAD 05/18/2008 KATIE BELTRAN DO 796.2 ELEVATED BLOOD PRESSURE READING WITHOUT DIAGNOSIS OF HYPERTENSION 05/18/2008 LYLA BELTRAN DOA K 300.00 ANXIETY 05/18/2008 LYLA BELTRAN DOA K 414.01 CAD 05/18/2008 LYLA BELTRAN DOA K 796.2 ELEVATED BLOOD PRESSURE READING WITHOUT DIAGNOSIS OF HYPERTENSION 05/18/2008 RUBY BRENNNA KATIE K 300.00 ANXIETY 05/18/2008 RUBY BRENNAN KATIE K 414.01 CAD 05/18/2008 LYLA BELTRAN DOA K 796.2 ELEVATED BLOOD PRESSURE READING WITHOUT DIAGNOSIS OF HYPERTENSION 12/27/2012 250.00 DIABETES MELLITUS WITHOUT MENTION OF COMPLICATION TYPE II OR UNSPECIFIED TYPE NOT STATED UNCONTROLLED 12/27/2012 305.20 NONDEPENDENT CANNABIS ABUSE UNSPECIFIED USE 12/27/2012 401.1 HYPERTENSION, BENIGN ESSENTIAL 12/27/2012 414.00 CORONARY ATHEROSCLEROSIS OF UNSPECIFIED TYPE OF VESSEL [place] OR GRAFT 12/27/2012 477.9 RHINITIS 12/27/2012 714.0 RHEUMATOID ARTHRITIS 12/27/2012 729.1 MYALGIA AND MYOSITIS UNSPECIFIED 12/27/2012 780.52 INSOMNIA UNSPECIFIED 12/27/2012 V58.69 LONG-TERM ( CURRENT) USE OF OTHER MEDICATIONS 12/27/2012 V70.0 ROUTINE [...] CORONARY ATHEROSCLEROSIS OF UNSPECIFIED TYPE OF VESSEL [place] OR GRAFT 12/27/2012 ARNIE YOO MD 477.9 [...] BELTRAN DO 401.1 HYPERTENSION, BENIGN ESSENTIAL 12/27/2012 KATIE BELTRAN DO 414.00 CORONARY ATHEROSCLEROSIS OF UNSPECIFIED TYPE OF VESSEL [place] OR GRAFT 12/27/2012 KATIE BELTRAN DO 477.9 RHINITIS 12/27/2012 KATIE BELTRAN DO 714.0 RHEUMATOID ARTHRITIS 12/27/2012 BELTRAN DO, KATIE K 729.1 MYALGIA AND MYOSITIS UNSPECIFIED [...] CORONARY ATHEROSCLEROSIS OF UNSPECIFIED TYPE OF VESSEL [place] OR GRAFT 12/27/2012 BELTRAN DO KATIE K 477.9 RHINITIS 12/27/2012 BELTRAN DO KATIE K 714.0 RHEUMATOID ARTHRITIS 12/27/2012 BELTRAN DO KATIE K 729.1 MYALGIA AND MYOSITIS UNSPECIFIED 12/27/2012 BELTRAN DO KATIE K 780.52 INSOMNIA UNSPECIFIED 12/27/2012 BELTRAN DO KATIE K V58.69 LONG-TERM (CURRENT) USE OF [...] CORONARY ATHEROSCLEROSIS OF UNSPECIFIED TYPE OF VESSEL [place] OR GRAFT 12/27/2012 BELTRAN DO KATIE K 477.9 RHINITIS 12/27/2012 BELTRAN DO KATIE K 714.0 RHEUMATOID ARTHRITIS 12/27/2012 BELTRAN DO KATIE K 729.1 MYALGIA AND MYOSITIS UNSPECIFIED 12/27/2012 BELTRAN DO KATIE K 780.52 INSOMNIA UNSPECIFIED 12/27/2012 BELTRAN DO KATIE K V58.69 LONG-TERM (CURRENT) USE OF OTHER MEDICATIONS 12/27/2012 LYLA BELTRAN DOA Vaishali V70.0 ROUTINE GENERAL MEDICAL EXAMINATION AT A HEALTH CARE FACILITY 02/10/2014 MIRIAM WILSON FACC, RUDI [place] CCDS Ot 250.00 DIAB KYLE WO COMPL, TYPE II OR UNSPEC TY 02/10/2014 MIRIAM WILSON FACC, RUDI FACP CCDS Ot 300.00 ANXIETY STATE NOS 02/10/2014 MIRIAM WILSON FACC, RUDI FACP CCDS Ot 305.1 TOBACCO USE DISORDER 02/10/2014 MIRIAM WILSON FACC, RUDI FACP CCDS Ot 414.01 CORONARY ATHEROSCLEROSIS OF [place] CORON 02/10/2014 MIRIAM WILSON FACC, RUDI FACP [...] KATIE K Ot 272.4 HYPERLIPIDEMIA NEC/NOS 04/21/2014 RUBY BRENNAN KATIE K Ot 275.2 DIS MAGNESIUM METABOLISM 04/21/2014 [...] KATIE K Ot 414.01 CORONARY ATHEROSCLEROSIS OF [place] CORON 04/21/2014 RUBY BRENNAN KATIE K Ot 414.8 CHR ISCHEMIC HRT DIS NEC 04/21/2014 RUBY BRENNAN KATIE K Ot 428.0 CONGESTIVE HEART FAILURE NOS 04/21/2014 LYLA BELTRAN DOA K Ot 458.9 HYPOTENSION NOS 04/21/2014 LYLA BELTRAN DOA K Ot 780.2 SYNCOPE AND COLLAPSE 04/21/2014 LYLA BELTRAN DOA K Ot V15.81 HX OF PAST NONCOMPLIANCE 05/05/2014 LYLA BELTRAN DOA K 276.8 HYPOPOTASSEMIA 05/05/2014 BELTRAN LYLA BRENNANA K 786.2 COUGH 05/05/2014 BELTRAN DO, KATIE K 276.8 HYPOPOTASSEMIA 05/05/2014 BELTRAN DO, KATIE K 786.2 COUGH 05/05/2014 BELTRAN LYLA BRENNANA K 276.8 HYPOPOTASSEMIA 05/05/2014 BELTRAN LYLA BRENNANA K 786.2 COUGH 05/25/2014 MIRIAM WILSON FACC, RUDI FACP CCDS Ot 250.00 DIAB KYLE WO COMPL, TYPE II OR UNSPEC TY 05/25/2014 MIRIAM WILSON FACC, ALI FACP CCDS Ot 272.4 HYPERLIPIDEMIA NEC/NOS 05/25/2014 MIRIAM WILSON FACC, ALI FACP CCDS Ot 300.00 ANXIETY STATE NOS 05/25/2014 MIRIAM WILSON FACC, ALI FACP CCDS Ot 305.1 TOBACCO USE DISORDER 05/25/2014 MIRIAM WILSON FACC, ALI FACP CCDS Ot 305.20 CANNABIS ABUSE-UNSPEC 05/25/2014 MIRIAM WILSON FACC, ALI FACP CCDS Ot 414.01 CORONARY ATHEROSCLEROSIS OF [place] CORON 05/25/2014 MIRIAM WILSON FACC, RUDI FACP CCDS Ot 433.10 CAROTID ARTERY OCCLUSION W O CEREBRAL IN 05/25/2014 MIRIAM WILSON FACC, ALI FACP CCDS Ot 433.30 MULT BILTRAL ARTERY [...] LIDIA Cohen Ot 414.01 CORONARY ATHEROSCLEROSIS OF [place] CORON 06/02/2014 KILLIAN WILSON, LIDIA Cohen Ot 428.0 CONGESTIVE HEART FAILURE NOS 06/02/2014 KILLIAN WILSON, LIDIA Cohen Ot 428.41 ACUTE SYSTOLIC/DIASTOLIC HRT FAILURE 06/02/2014 LIDIA DAILY MD Ot 433.10 CAROTID ARTERY OCCLUSION W O CEREBRAL IN 06/02/2014 LIDIA DAILY MD Ot 443.9 PERIPH VASCULAR DIS NOS 06/02/2014 KILLIAN WILSON, LIDIA Cohen Ot 496 CHR AIRWAY OBSTRUCT NEC 06/02/2014 KILLIAN WILSON, LIDIA Cohen Ot 785.6 ENLARGEMENT LYMPH NODES 06/02/2014 KILLIAN WILSON, LIDIA Cohen Ot 799.02 HYPOXEMIA 06/02/2014 KILLIAN WILSON, LIDIA Cohen Ot V85.32 BODY MASS INDEX 32.0-32.9, ADULT 08/14/2014 KANE OLIVERA DO Ot 305.1 08/14/2014 KANE OLIVERA DO Ot 496 08/14/2014 KANE OLIVERA DO Ot 785.6 09/12/2014 KAREN LEON RANCH COOK Ot 275.2 09/12/2014 KAREN LEON RANCH COOK Ot 276.8 09/12/2014 KILLIAN WILSON, LIDIA Cohen Ot 433.10 09/12/2014 KILLIAN WILSON, LIDIA Cohen Ot V72.63 09/12/2014 KILLIAN WILSON, LIDIA S Ot V74.8 09/12/2014 KILLIAN WILSON, LIDIA Cohen Ot 433.10 09/12/2014 KILLIAN WILSON, LIDIA Cohen Ot 780.4 09/12/2014 MIRIAM WILSON FACC, RUDI EVERETT CCDS Ot 414.9 09/12/2014 KANE OLIVERA DO Ot 305.1 09/12/2014 KANE OLIVERA DO Ot 496 09/12/2014 KANE OLIVERA DO Ot 785.6 10/03/2014 KANE OLIVERA DO Ot 305.1 10/03/2014 KANE OLIVERA DO Ot 496 10/03/2014 JOSELIN KANE BRENNAN Ot 553.3 10/03/2014 JOSELIN KANE BRENNAN Ot 785.6 11/02/2014 Ot 250.00 DIAB KYLE WO COMPL, TYPE II OR UNSPEC TY 11/02/2014 Ot 272.4 HYPERLIPIDEMIA NEC/NOS 11/02/2014 Ot 300.00 ANXIETY STATE NOS 11/02/2014 Ot 305.1 TOBACCO USE DISORDER 11/02/2014 Ot 401.9 HYPERTENSION NOS 11/02/2014 Ot 414.01 CORONARY ATHEROSCLEROSIS OF [place] CORON 11/02/2014 Ot 433.10 CAROTID ARTERY OCCLUSION W O CEREBRAL IN 11/02/2014 Ot 496 CHR AIRWAY OBSTRUCT NEC 11/02/2014 Ot V45.82 PERCUTANEOUS TRANSLUM CORON ANGIOPLASTY 11/16/2014 Ot 433.10 11/16/2014 Ot V72.63 11/16/2014 Ot V74.8 04/02/2015 KAREN LEON RANCH COOK Ot 275.2 04/02/2015 KAREN LEON RANCH COOK Ot 276.8 04/02/2015 KILLIAN WILSON, LIDIA S Ot 433.10 04/02/2015 KILLIAN WILSON, LIDIA S Ot V72.63 04/02/2015 KILLIAN WILSON, LIDIA S Ot V74.8 04/02/2015 KILLIAN WILSON, LIDIA S Ot 433.10 04/02/2015 KILLIAN WILSON, LIDIA S Ot 780.4 04/02/2015 MIRIAM WILSON FAC, RUDI [facility] CCDS Ot 414.9 04/02/2015 JOSELIN BRENNANKANE Ot 305.1 04/02/2015 JOSELIN BRENNAN KANE Robert Ot 496 04/02/2015 JOSELIN BRENNAN KANE Robert Ot 785.6 04/02/2015 JOSELIN BRENNAN KANE Robert Ot 305.1 04/02/2015 JOSELIN BRENNANKANE Ot 496 04/02/2015 JOSELIN BRENNAN KANE Robert Ot 553.3 04/02/2015 JOSELIN BRENNAN KANE Robert Ot 785.6 04/02/2015 Ot 433.10 04/02/2015 Ot V72.63 04/02/2015 Ot V74.8 04/06/2015 DANICA OLIVERA DOCORAZON Robert Ot 278.00 04/06/2015 JOSELIN BRENNAN KANE Robert Ot 300.01 04/06/2015 JOSELIN KANE BRENNAN Ot 305.1 04/06/2015 JOSELIN KANE BRENNAN Ot 496 04/06/2015 JOSELIN KANE BRENNAN Ot 785.6 04/06/2015 JOSELIN KANE BRENNAN Ot V85.34 04/20/2015 JOSELIN KANE BRENNAN Ot 278.00 04/20/2015 JOSELIN KANE BRENNAN Ot 300.01 04/20/2015 JOSELIN KANE BRENNAN Ot 305.1 04/20/2015 JOSELIN BRENNANKANE Ot 496 04/20/2015 JOSELIN KANE BRENNAN Ot 785.6 04/20/2015 JOSELIN KANE Robert Ot V85.34 04/22/2015 JEROME WILSON, DHAVAL Cohen Ot 724.8 OTHER BACK SYMPTOMS 12/10/2015 KAREN LEON RANCH COOK Ot 275.2 DIS MAGNESIUM METABOLISM 12/10/2015 KAREN LEON RANCH COOK Ot 276.8 HYPOPOTASSEMIA 12/10/2015 KILLIAN WILSON, LIDIA Cohen Ot 433.10 CAROTID ARTERY OCCLUSION W O CEREBRAL IN 12/10/2015 LIDIA DAILY MD Ot V72.63 PRE-PROCEDURAL LABORATORY EXAMINATION 12/10/2015 LIDIA DAILY MD Ot V74.8 SCREEN-BACTERIAL DIS NEC 12/10/2015 LIDIA DAILY MD Ot 433.10 CAROTID ARTERY OCCLUSION W O CEREBRAL IN 12/10/2015 KILLIAN WILSON, LIDIA Cohen Ot 780.4 DIZZINESS AND GIDDINESS 12/10/2015 MIRIAM [...] W O CEREBRAL IN 12/10/2015 Ot V72.63 PRE- PROCEDURAL LABORATORY EXAMINATION 12/10/2015 Ot V74.8 SCREEN- BACTERIAL DIS NEC 12/11/2015 MIRIAM WILSON FACC, RUDI FACP CCDS Ot E78.4 OTHER HYPERLIPIDEMIA 12/11/2015 MIRIAM WILSON FACC, ALI FACP CCDS Ot I10 ESSENTIAL (PRIMARY) HYPERTENSION 12/11/2015 MIRIAM WILSON FACC, ALI FACP CCDS Ot I25.10 ATHSCL HEART DISEASE OF [place] CORONARY 12/11/2015 MIRIAM WILSON FACC, ALI FACP CCDS Ot I65.23 OCCLUSION AND STENOSIS OF BILATERAL CHUN 12/11/2015 MIRIAM WILSON FACC, ALI FACP CCDS Ot Z72.0 TOBACCO USE 12/26/2015 MIRIAM WILSON FACC, ALI FACP CCDS Ot E78.4 OTHER HYPERLIPIDEMIA 12/26/2015 MIRIAM WILSON FACC, ALI FACP CCDS Ot I10 ESSENTIAL (PRIMARY) HYPERTENSION 12/26/2015 MIRIAM WILSON FACC, ALI FACP CCDS Ot I25.10 ATHSCL HEART DISEASE OF [place] CORONARY 12/26/2015 MIRIAM WILSON FACC, ALI FACP CCDS Ot I65.23 OCCLUSION AND STENOSIS OF BILATERAL [place] 12/26/2015 MIRIAM WILSON FACC, RUDI FACP CCDS Ot Z72.0 TOBACCO USE 01/28/2016 KAREN LEON RANCH COOK Ot 275.2 DIS MAGNESIUM METABOLISM 01/28/2016 KAREN LEON RANCH COOK Ot 276.8 HYPOPOTASSEMIA 01/28/2016 LIDIA DAILY MD Ot 433.10 CAROTID ARTERY OCCLUSION W O CEREBRAL IN 01/28/2016 LIDIA DAIYL MD Ot V72.63 PRE-PROCEDURAL LABORATORY EXAMINATION 01/28/2016 KILLIAN WILSON, LIDIA Cohen Ot V74.8 SCREEN-BACTERIAL DIS NEC 01/28/2016 KILLIAN WILSON, LIDIA Cohen Ot 433.10 CAROTID ARTERY OCCLUSION W O CEREBRAL IN 01/28/2016 KILLIAN WILSON, LIDIA Cohen Ot 780.4 DIZZINESS AND GIDDINESS 01/28/2016 MIRIAM [...] W O CEREBRAL IN 01/28/2016 Ot V72.63 PRE- PROCEDURAL LABORATORY EXAMINATION 01/28/2016 Ot V74.8 SCREEN- BACTERIAL DIS NEC 01/28/2016 MIRIAM WILSON FACC, RUDI FACP CCDS Ot E78.4 OTHER HYPERLIPIDEMIA 01/28/2016 MIRIAM WILSON FACC, RUDI FACP CCDS Ot I10 ESSENTIAL (PRIMARY) HYPERTENSION 01/28/2016 MIRIAM WILSON FACC, RUDI FACP CCDS Ot I25.10 ATHSCL HEART DISEASE OF [place] CORONARY 01/28/2016 MIRIAM WILSON FACC, ALI FACP CCDS Ot I65.23 OCCLUSION AND STENOSIS OF BILATERAL [place] 01/28/2016 MIRIAM WILSON FACC, ALI FACP CCDS Ot Z72.0 TOBACCO USE 01/31/2016 MIRIAM WILSON FACC, ALI FACP CCDS Ot E78.4 OTHER HYPERLIPIDEMIA 01/31/2016 MIRIAM WILSON FACC, ALI FACP CCDS Ot I10 ESSENTIAL (PRIMARY) HYPERTENSION 01/31/2016 MIRIAM WILSON FACC, ALI FACP CCDS Ot I25.10 ATHSCL HEART DISEASE OF [place] CORONARY 01/31/2016 MIRIAM GATES, ALI FACP CCDS Ot I65.23 OCCLUSION AND STENOSIS OF BILATERAL [place] 01/31/2016 MIRIAM WILSON FACC, ALI FACP CCDS Ot J43.8 OTHER EMPHYSEMA 01/31/2016 MIRIAM WILSON FACC, ALI FACP CCDS Ot Z72.0 TOBACCO USE 02/15/2016 MIRIAM WILSON FACC, ALI FACP CCDS Ot E78.4 OTHER HYPERLIPIDEMIA 02/15/2016 MIRIAM WILSON FACC, ALI FACP CCDS Ot I10 ESSENTIAL (PRIMARY) HYPERTENSION 02/15/2016 MIRIAM GATES, ALI FACP CCDS Ot I25.10 ATHSCL HEART DISEASE OF [place] CORONARY 02/15/2016 MIRIAM WILSON FACC, ALI FACP CCDS Ot I65.23 OCCLUSION AND STENOSIS OF [place] 02/15/2016 MIRIAM WILSON FACC, ALI FACP CCDS Ot J43.8 OTHER EMPHYSEMA 02/15/2016 MIRIAM WILSON FACC, ALI FACP CCDS Ot Z72.0 TOBACCO USE 04/25/2016 KAREN LEON RANCH COOK Ot 275.2 DIS MAGNESIUM METABOLISM 04/25/2016 KAREN LEON RANCH COOK Ot 276.8 HYPOPOTASSEMIA 04/25/2016 LIDIA DAILY MD [...] 414.9 CHR ISCHEMIC HRT DIS NOS 04/25/2016 KANE OLIVERA DO Ot 305.1 TOBACCO [...] W O CEREBRAL IN 04/25/2016 Ot V72.63 PRE- PROCEDURAL LABORATORY EXAMINATION 04/25/2016 Ot V74.8 SCREEN- BACTERIAL DIS NEC 04/25/2016 MIRIAM WILSON FACC, RUDI GATESP CCDS Ot E78.4 OTHER HYPERLIPIDEMIA 04/25/2016 MIRIAM WILSON FACC, RUDI FACP CCDS Ot I10 ESSENTIAL (PRIMARY) HYPERTENSION 04/25/2016 MIRIAM WILSON FACC, RUDI GATESP CCDS Ot I25.10 ATHSCL HEART DISEASE OF [place] CORONARY 04/25/2016 MIRIAM WILSON FACC, RUDI FACP CCDS Ot I65.23 OCCLUSION AND STENOSIS OF BILATERAL [place] 04/25/2016 MIRIAM WILSON FACC, RUDI FACP CCDS Ot Z72.0 TOBACCO USE 04/25/2016 MIRIAM WILSON FACC, RUDI FACP CCDS Ot E78.4 OTHER HYPERLIPIDEMIA 04/25/2016 MIRIAM WILSON FACC, RUDI FACP CCDS Ot I10 ESSENTIAL (PRIMARY) HYPERTENSION 04/25/2016 MIRIAM WILSON [facility], RUDI [facility] CCDS Ot I25.10 ATHSCL HEART DISEASE OF [place] CORONARY 04/25/2016 MIRIAM WILSON FACC, [facility] CCDS Ot I65.23 OCCLUSION AND STENOSIS OF BILATERAL [place] 04/25/2016 MIRIAM WILSON FACC, [facility] CCDS Ot J43.8 OTHER EMPHYSEMA 04/25/2016 MIRIAM WILSON [facility], [facility] CCDS Ot Z72.0 TOBACCO USE 05/01/2016 VIVEKISABELA ANN ORTHODONTIC TECHNICIAN ASSISTANT Ot J30.9 ALLERGIC RHINITIS, UNSPECIFIED 05/01/2016 VIVEKISABELA ORTHODONTIC TECHNICIAN ASSISTANT Ot J44.9 CHRONIC OBSTRUCTIVE PULMONARY DISEASE, U 05/01/2016 VIVEKISABELA ANN ORTHODONTIC TECHNICIAN ASSISTANT Ot Z72.0 TOBACCO USE 05/08/2016 VIVEKISABELA ORTHODONTIC TECHNICIAN ASSISTANT Ot J30.9 ALLERGIC RHINITIS, UNSPECIFIED 05/08/2016 VIVEKISABELA ANN ORTHODONTIC TECHNICIAN ASSISTANT Ot J44.9 CHRONIC OBSTRUCTIVE PULMONARY DISEASE, U 05/08/2016 VIVEKISABELA ANN ORTHODONTIC TECHNICIAN ASSISTANT Ot Z72.0 TOBACCO USE 09/11/2016 KAREN LEON RANCH COOK Ot 275.2 DIS MAGNESIUM METABOLISM 09/11/2016 KAREN LEON RANCH COOK Ot 276.8 HYPOPOTASSEMIA 09/11/2016 LIDIA DAILY MD Ot 433.10 CAROTID ARTERY OCCLUSION W O CEREBRAL IN 09/11/2016 LIDIA DAILY MD Ot V72.63 PRE-PROCEDURAL LABORATORY EXAMINATION 09/11/2016 LIDIA DAILY MD Ot V74.8 SCREEN-BACTERIAL DIS NEC 09/11/2016 LIDIA DAILY MD Ot 433.10 CAROTID ARTERY OCCLUSION W O CEREBRAL IN 09/11/2016 LIDIA DAILY MD Ot 780.4 DIZZINESS AND GIDDINESS 09/11/2016 MIRIAM WILSON [facility] FAC CCDS Ot 414.9 CHR ISCHEMIC HRT DIS [...] W O CEREBRAL IN 09/11/2016 Ot V72.63 PRE- PROCEDURAL LABORATORY EXAMINATION 09/11/2016 Ot V74.8 SCREEN- BACTERIAL DIS NEC 09/11/2016 ISABELA DOYLE APRN Ot J30.9 ALLERGIC RHINITIS, UNSPECIFIED 09/11/2016 ISABELA DOYLE APRN Ot J44.9 CHRONIC OBSTRUCTIVE PULMONARY DISEASE, U 09/11/2016 ISABELA DOYLE APRN Ot Z72.0 TOBACCO USE 09/11/2016 MIRIAM WILSON FACC, RUDI FACP CCDS Ot E78.4 OTHER HYPERLIPIDEMIA 09/11/2016 MIRIAM WILSON FACC, RUDI FACP CCDS Ot I10 ESSENTIAL (PRIMARY) HYPERTENSION 09/11/2016 MIRIAM WILSON FACC, RUDI FACP CCDS Ot I25.10 ATHSCL HEART DISEASE OF [place] CORONARY 09/11/2016 MIRIAM WILSON FACC, RUDI FACP CCDS Ot I65.23 OCCLUSION AND STENOSIS OF BILATERAL [place]UN 09/11/2016 MIRIAM WILSON FACC, RUDI FACP CCDS Ot Z72.0 TOBACCO USE 09/11/2016 MIRIAM WILSON FACC, RUDI FACP CCDS Ot E78.4 OTHER HYPERLIPIDEMIA 09/11/2016 MIRIAM WILSON FACC, RUDI FACP CCDS Ot I10 ESSENTIAL (PRIMARY) HYPERTENSION 09/11/2016 MIRIAM WILSON FACC, RUDI FACP CCDS Ot I25.10 ATHSCL HEART DISEASE OF [place] CORONARY 09/11/2016 MIRIAM WILSON FACC, RUDI [facility] CCDS Ot I65.23 OCCLUSION AND STENOSIS OF BILATERAL CHUN 09/11/2016 MIRIAM WILSON [facility], RUDI [facility] CCDS Ot J43.8 OTHER EMPHYSEMA 09/11/2016 MIRIAM WILSON [facility], [facility] CCDS Ot Z72.0 TOBACCO USE 09/16/2016 LEONKAREN RANCH COOK Ot 275.2 DIS MAGNESIUM METABOLISM 09/16/2016 KAREN LEON RANCH COOK Ot 276.8 HYPOPOTASSEMIA 09/16/2016 KILLIAN WILSON, LIDIA Cohen Ot 433.10 CAROTID ARTERY OCCLUSION W O CEREBRAL IN 09/16/2016 LIDIA DAILY MD Ot V72.63 PRE-PROCEDURAL LABORATORY EXAMINATION 09/16/2016 LIDIA DAILY MD Ot V74.8 SCREEN-BACTERIAL DIS NEC 09/16/2016 LIDIA DAILY MD Ot 433.10 CAROTID ARTERY OCCLUSION W O CEREBRAL IN 09/16/2016 LIDIA DAILY MD Ot 780.4 DIZZINESS AND GIDDINESS 09/16/2016 MIRIAM WILSON [facility], RUDI [facility] CCDS Ot 414.9 CHR ISCHEMIC HRT DIS [...] W O CEREBRAL IN 09/16/2016 Ot V72.63 PRE- PROCEDURAL LABORATORY EXAMINATION 09/16/2016 Ot V74.8 SCREEN- BACTERIAL DIS NEC 09/16/2016 ISABELA DOYLE APRN Ot J30.9 ALLERGIC RHINITIS, UNSPECIFIED 09/16/2016 ISABELA DOYLE APRN Ot J44.9 CHRONIC OBSTRUCTIVE PULMONARY DISEASE, U 09/16/2016 ISABELA DOYLE APRN Ot Z72.0 TOBACCO USE 09/16/2016 MIRIAM WILSON FACC, ALI FACP CCDS Ot E78.4 OTHER HYPERLIPIDEMIA 09/16/2016 MIRIAM WILSON FACC, ALI FACP CCDS Ot I10 ESSENTIAL (PRIMARY) HYPERTENSION 09/16/2016 MIRIAM WILSON FACC, ALI FACP CCDS Ot I25.10 ATHSCL HEART DISEASE OF [place] CORONARY 09/16/2016 MIRIAM WILSON FACC, ALI FACP CCDS Ot I65.23 OCCLUSION AND STENOSIS OF BILATERAL CHUN 09/16/2016 MIRIAM GATESC, ALI FACP CCDS Ot Z72.0 TOBACCO USE 09/16/2016 MIRIAM GATESC, ALI FACP CCDS Ot E78.4 OTHER HYPERLIPIDEMIA 09/16/2016 MIRIAM WILSON FACC, ALI FACP CCDS Ot I10 ESSENTIAL (PRIMARY) HYPERTENSION 09/16/2016 MIRIAM WILSON FACC, ALI FACP CCDS Ot I25.10 ATHSCL HEART DISEASE OF [place] CORONARY 09/16/2016 MIRIAM WILSON FACC, ALI FACP CCDS Ot I65.23 OCCLUSION AND STENOSIS OF BILATERAL [place]UN 09/16/2016 MIRIAM WILSON FACC, ALI FACP CCDS Ot J43.8 OTHER EMPHYSEMA 09/16/2016 MIRIAM WILSON FACC, ALI FACP CCDS Ot Z72.0 TOBACCO USE 09/16/2016 KANE OLIVERA DO Ot 305.1 TOBACCO USE DISORDER 09/16/2016 KANE OLIVERA DO Ot 496 CHR AIRWAY OBSTRUCT NEC 09/16/2016 KANE OLIVERA DO Ot 553.3 DIAPHRAGMATIC HERNIA 09/16/2016 KANE OLIVERA DO Ot 785.6 ENLARGEMENT LYMPH NODES 09/17/2016 REEMA ESPINAL RANCH COOK Ot E78.4 OTHER HYPERLIPIDEMIA 09/17/2016 BAIMA, REEMA L RANCH COOK Ot I25.10 ATHSCL HEART DISEASE OF [place] CORONARY 09/17/2016 BAIMA, REEMA L RANCH COOK Ot I65.23 OCCLUSION AND STENOSIS OF BILATERAL CHUN 09/17/2016 BAIMA, REEMA L RANCH COOK Ot R06.09 OTHER FORMS OF DYSPNEA 09/17/2016 BAIMA, REEMA L RANCH COOK Ot Z86.79 PERSONAL HISTORY OF OTHER DISEASES OF 09/17/2016 BAIMA, REEMA L RANCH COOK Ot E78.4 OTHER HYPERLIPIDEMIA 09/17/2016 BAIMA, REEMA L RANCH COOK Ot I25.10 ATHSCL HEART DISEASE OF [place] CORONARY 09/17/2016 BAIMA, REEMA L RANCH COOK Ot I65.23 OCCLUSION AND STENOSIS OF BILATERAL CHUN 09/17/2016 BAIMA, REEMA L RANCH COOK Ot R06.09 OTHER FORMS OF DYSPNEA 09/17/2016 BAIMA, REEMA L RANCH COOK Ot Z86.79 PERSONAL HISTORY OF OTHER DISEASES OF 09/17/2016 BAIMA, REEMA L RANCH COOK Ot E78.4 OTHER HYPERLIPIDEMIA 09/17/2016 BAIMA, REEMA L RANCH COOK Ot I25.10 ATHSCL HEART DISEASE OF [place] CORONARY 09/17/2016 BAIMA, REEMA L RANCH COOK Ot I65.23 OCCLUSION AND STENOSIS OF [place] 09/17/2016 BAIMA, REEMA L RANCH COOK Ot R06.09 OTHER FORMS OF DYSPNEA 09/17/2016 BAIMA REEMA L RANCH COOK Ot Z86.79 PERSONAL HISTORY OF OTHER DISEASES OF 09/17/2016 BAIMA, REEMA L RANCH COOK Ot E78.4 OTHER HYPERLIPIDEMIA 09/17/2016 BAIMA, REEMA L RANCH COOK Ot I25.10 ATHSCL HEART DISEASE OF [place] CORONARY 09/17/2016 BAIMA, REEMA L RANCH COOK Ot I65.23 OCCLUSION AND STENOSIS OF [place] 09/17/2016 BAIMA, REEMA L RANCH COOK Ot R06.09 OTHER FORMS OF DYSPNEA 09/17/2016 BAIMA, REEMA L RANCH COOK Ot Z86.79 PERSONAL HISTORY OF OTHER DISEASES OF 09/24/2016 BAIMA, REEMA L RANCH COOK Ot E78.4 OTHER HYPERLIPIDEMIA 09/24/2016 BAIMA, REEMA L RANCH COOK Ot I25.10 ATHSCL HEART DISEASE OF [place] CORONARY 09/24/2016 BAIMA, REEMA L RANCH COOK Ot I65.23 OCCLUSION AND STENOSIS OF [place] 09/24/2016 TEDDY REEMA Vora RANCH COOK Ot R06.09 OTHER FORMS OF DYSPNEA 09/24/2016 TEDDY REEMA Diony RANCH COOK Ot Z86.79 PERSONAL HISTORY OF OTHER DISEASES OF 09/29/2016 KANE OLIVERA DO Ot 305.1 TOBACCO USE DISORDER 09/29/2016 KANE OLIVERA DO Ot 496 CHR AIRWAY OBSTRUCT NEC 09/29/2016 KANE OLIVERA DO Ot 553.3 DIAPHRAGMATIC HERNIA 09/29/2016 KANE OLIVERA DO Ot 785.6 ENLARGEMENT LYMPH NODES 09/29/2016 TEDDY REEMA Diony RANCH COOK Ot E78.4 OTHER HYPERLIPIDEMIA 09/29/2016 REEMA ESPINAL RANCH COOK Ot I25.10 ATHSCL HEART DISEASE OF [place] CORONARY 09/29/2016 REEMA ESPINAL RANCH COOK Ot I65.23 OCCLUSION AND STENOSIS OF [place] 09/29/2016 REEMA ESPINAL RANCH COOK Ot R06.09 OTHER FORMS OF DYSPNEA 09/29/2016 REEMA ESPINAL RANCH COOK Ot Z86.79 PERSONAL HISTORY OF OTHER DISEASES [...] DO Ot Z99.81 DEPENDENCE ON SUPPLEMENTAL OXYGEN 02/03/2017 KENNEDI LE Ot E11.9 TYPE 2 DIABETES MELLITUS WITHOUT COMPLIC 02/03/2017 KENNEDI LE Ot E78.00 PURE HYPERCHOLESTEROLEMIA, UNSPECIFIED 02/03/2017 KENNEDI LE Ot F17.210 NICOTINE DEPENDENCE, CIGARETTES, UNCOMPL 02/03/2017 KENNEDI LE Ot I10 ESSENTIAL (PRIMARY) HYPERTENSION 02/03/2017 KENNEDI LE Ot I25.10 ATHSCL HEART DISEASE OF [place] CORONARY 02/03/2017 KENNEDI LE Ot J44.1 CHRONIC OBSTRUCTIVE PULMONARY DISEASE W 02/03/2017 KENNEDI LE Ot R06.02 SHORTNESS OF BREATH 02/03/2017 KENNEDI LE Ot 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 02/03/2017 KENNEDI LE Ot Z95.5 PRESENCE OF CORONARY ANGIOPLASTY IMPLANT 02/05/2017 KENNEDI LE Ot E11.9 TYPE 2 DIABETES MELLITUS WITHOUT COMPLIC 02/05/2017 KENNEDI LE Ot E78.00 PURE HYPERCHOLESTEROLEMIA, UNSPECIFIED 02/05/2017 KENNEDI LE Ot F17.210 NICOTINE DEPENDENCE, CIGARETTES, UNCOMPL 02/05/2017 KENNEDI LE Ot I10 ESSENTIAL (PRIMARY) HYPERTENSION 02/05/2017 KENNEDI LE Ot I25.10 ATHSCL HEART DISEASE OF [place] CORONARY 02/05/2017 KENNEDI LE Ot J44.1 CHRONIC OBSTRUCTIVE PULMONARY DISEASE W 02/05/2017 KENNEDI LE Ot R06.02 SHORTNESS OF BREATH 02/05/2017 KENNEDI LE Ot Z79.82 MCFP (CURRENT) USE OF ASPIRIN 02/05/2017 KENNEDI LE Ot Z95.5 PRESENCE OF CORONARY ANGIOPLASTY IMPLANT 03/04/2017 REEMA ESPINAL L RANCH COOK Ot E78.4 OTHER HYPERLIPIDEMIA 03/04/2017 BAIVERÓNICA REEMA L RANCH COOK Ot I25.10 ATHSCL HEART DISEASE OF [place] CORONARY 03/04/2017 BAIVERÓNICA REEMA L RANCH COOK Ot I65.23 OCCLUSION AND STENOSIS OF [place] 03/04/2017 BAIMA REEMA L RANCH COOK Ot R06.09 OTHER FORMS OF DYSPNEA 03/04/2017 REEMA ESPINAL RANCH COOK Ot Z86.79 PERSONAL HISTORY OF OTHER DISEASES OF TH 05/06/2017 MIRIAM WILSON FACC, ALI FACP CCDS Ot E78.4 OTHER HYPERLIPIDEMIA 05/06/2017 MIRIAM WILSON FACC, ALI FACP CCDS Ot I10 ESSENTIAL (PRIMARY) HYPERTENSION 05/06/2017 MIRIAM WILSON FACC, ALI FACP CCDS Ot I25.10 ATHSCL HEART DISEASE OF [place] CORONARY 05/06/2017 MIRIAM WILSON FACC, ALI FACP CCDS Ot I65.23 OCCLUSION AND STENOSIS OF [place] 05/06/2017 MIRIAM WILSON FACC, ALI FACP CCDS Ot J43.8 OTHER EMPHYSEMA 05/06/2017 MIRIAM WILSON FACC, ALI FACP CCDS Ot R06.02 SHORTNESS OF BREATH 05/06/2017 MIRIAM WILSON FACC, ALI FACP CCDS Ot Z72.0 TOBACCO USE 05/20/2017 MIRIAM WILSON FACC, ALI FACP CCDS Ot E11.9 TYPE 2 DIABETES MELLITUS WITHOUT COMPLIC 05/20/2017 MIRIAM WILSON FACC, ALI FACP CCDS Ot E66.9 OBESITY, UNSPECIFIED 05/20/2017 MIRIAM WILSON FACC, ALI FACP CCDS Ot E78.5 HYPERLIPIDEMIA, UNSPECIFIED 05/20/2017 MIRIAM WILSON FACC, ALI FACP CCDS Ot F41.9 ANXIETY DISORDER, UNSPECIFIED 05/20/2017 MIRIAM WILSON FACC, ALI FACP CCDS Ot I25.10 ATHSCL HEART DISEASE OF [place] CORONARY 05/20/2017 MIRIAM WILSON FACC, ALI FACP CCDS Ot I25.84 CORONARY ATHEROSCLEROSIS DUE TO [place] 05/20/2017 MIRIAM WILSON FACC, ALI FACP CCDS Ot I65.23 OCCLUSION AND STENOSIS OF [place] 05/20/2017 MIRIAM WILSON FACC, ALI FACP CCDS Ot J44.9 CHRONIC OBSTRUCTIVE PULMONARY DISEASE, U 05/20/2017 MIRIAM WILSON FACC, ALI FACP CCDS Ot R07.89 OTHER CHEST PAIN 05/20/2017 MIRIAM WILSON FACC, ALI FACP CCDS Ot T82.855A STENOSIS OF CORONARY ARTERY STENT, INITI 05/20/2017 MIRIAM WILSON FACC, ALI FACP CCDS Ot Z68.34 BODY MASS INDEX (BMI) 34.0-34.9, ADULT 05/20/2017 MIRIAM WILSON FACC, ALI FACP CCDS Ot Z72.0 TOBACCO USE 05/20/2017 MIRIAM WILSON FACC, ALI FACP CCDS Ot 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 05/26/2017 MIRIAM WILSON FACC, ALI FACP CCDS Ot E78.4 OTHER HYPERLIPIDEMIA 05/26/2017 MIRIAM WILSON FACC, ALI FACP CCDS Ot I10 ESSENTIAL (PRIMARY) HYPERTENSION 05/26/2017 MIRIAM WILSON FACC, ALI FACP CCDS Ot I25.10 ATHSCL HEART DISEASE OF [place] CORONARY 05/26/2017 MIRIAM WILSON FACC, ALI FACP CCDS Ot I65.23 OCCLUSION AND STENOSIS OF BILATERAL [place]UN 05/26/2017 MIRIAM WILSON FACC, ALI FACP CCDS Ot J43.8 OTHER EMPHYSEMA 05/26/2017 MIRIAM WILSON FACC, ALI FACP CCDS Ot R06.02 SHORTNESS OF BREATH 05/26/2017 MIRIAM WILSON FACC, ALI FACP CCDS Ot Z72.0 TOBACCO USE 05/27/2017 MIRIAM WILSON FACC, ALI FACP CCDS Ot E11.9 TYPE 2 DIABETES MELLITUS WITHOUT COMPLIC 05/27/2017 MIRIAM WILSON FACC, ALI FACP CCDS Ot E66.9 OBESITY, UNSPECIFIED 05/27/2017 MIRIAM WILSON FACC, ALI FACP CCDS Ot E78.5 HYPERLIPIDEMIA, UNSPECIFIED 05/27/2017 MIRIAM WILSON FACC, ALI FACP CCDS Ot F41.9 ANXIETY DISORDER, UNSPECIFIED 05/27/2017 MIRIAM WILSON FACC, ALI FACP CCDS Ot I25.10 ATHSCL HEART DISEASE OF [place] CORONARY 05/27/2017 MIRIAM WILSON FACC, ALI FACP CCDS Ot I25.84 CORONARY ATHEROSCLEROSIS DUE TO CALCIFIE 05/27/2017 MIRIAM WILSON FACC, ALI FACP CCDS Ot I65.23 OCCLUSION AND STENOSIS OF BILATERAL [place] 05/27/2017 MIRIAM WILSON FACC, ALI FACP CCDS Ot J44.9 CHRONIC OBSTRUCTIVE PULMONARY DISEASE, U 05/27/2017 MIRIAM WILSON FACC, ALI FACP CCDS Ot R07.89 OTHER CHEST PAIN 05/27/2017 MIRIAM WILSON FACC, ALI FACP CCDS Ot T82.855A STENOSIS OF CORONARY ARTERY STENT, INITI 05/27/2017 MIRIAM WILSON FACC, ALI FACP CCDS Ot Z68.34 BODY MASS INDEX (BMI) 34.0-34.9, ADULT 05/27/2017 MIRIAM WILSON FACC, ALI FACP CCDS Ot Z72.0 TOBACCO USE 05/27/2017 MIRIAM WILSON FACC, ALI FACP CCDS Ot Z79.899 OTHER [facility] (CURRENT) DRUG THERAPY 06/03/2017 MIRIAM WILSON FACC, ALI FACP CCDS Ot E78.4 OTHER HYPERLIPIDEMIA 06/03/2017 MIRIAM WILSON FACC, ALI FACP CCDS Ot I10 ESSENTIAL (PRIMARY) HYPERTENSION 06/03/2017 MIRIAM WILSON FACC, ALI FACP CCDS Ot I25.10 ATHSCL HEART DISEASE OF [place] CORONARY 06/03/2017 MIRIAM WILSON FACC, ALI FACP CCDS Ot I65.23 OCCLUSION AND STENOSIS OF BILATERAL [place] 06/03/2017 MIRIAM WILSON FACC, ALI FACP CCDS Ot J43.8 OTHER EMPHYSEMA 06/03/2017 MIRIAM WILSON FACC, ALI FACP CCDS Ot R06.02 SHORTNESS OF BREATH 06/03/2017 MIRIAM WILSON FACC, ALI FACP CCDS Ot Z72.0 TOBACCO USE 06/03/2017 MIRIAM WILSON FACC, ALI FACP CCDS Ot E11.9 TYPE 2 DIABETES MELLITUS WITHOUT COMPLIC 06/03/2017 MIRIAM WILSON FACC, ALI FACP CCDS Ot E66.9 OBESITY, UNSPECIFIED 06/03/2017 MIRIAM WILSON FACC, ALI FACP CCDS Ot E78.5 HYPERLIPIDEMIA, UNSPECIFIED 06/03/2017 MIRIAM WILSON FACC, ALI FACP CCDS Ot F41.9 ANXIETY DISORDER, UNSPECIFIED 06/03/2017 MIRIAM WILSON FACC, ALI FACP CCDS Ot I25.10 ATHSCL HEART DISEASE OF [place] CORONARY 06/03/2017 MIRIAM WILSON FACC, ALI FACP CCDS Ot I25.84 CORONARY ATHEROSCLEROSIS DUE TO CALCIFIE 06/03/2017 MIRIAM WILSON FACC, ALI FACP CCDS Ot I65.23 OCCLUSION AND STENOSIS OF BILATERAL [place]UN 06/03/2017 MIRIAM WILSON FACC, ALI FACP CCDS Ot J44.9 CHRONIC OBSTRUCTIVE PULMONARY DISEASE, U 06/03/2017 MIRIAM WILSON FACC, ALI FACP CCDS Ot R07.89 OTHER CHEST PAIN 06/03/2017 MIRIAM WILSON FACC, RUDI GATESP CCDS Ot T82.855A STENOSIS OF CORONARY ARTERY STENT, INITI 06/03/2017 MIRIAM WILSON FACC, RUDI FACP CCDS Ot Z68.34 BODY MASS INDEX (BMI) 34.0-34.9, ADULT 06/03/2017 MIRIAM WILSON FACC, RUDI GATESP CCDS Ot Z72.0 TOBACCO USE 06/03/2017 MIRIAM WILSON FACC, RUDI FACP CCDS Ot Z79.899 OTHER [facility] (CURRENT) DRUG THERAPY 07/15/2017 TEDDY REEMA L RANCH COOK Ot E78.4 OTHER HYPERLIPIDEMIA 07/15/2017 JULIMA, REEMA L RANCH COOK Ot I25.10 ATHSCL HEART DISEASE OF [place] CORONARY 07/15/2017 BAIMA REEMA L RANCH COOK Ot I65.23 OCCLUSION AND STENOSIS OF BILATERAL [place] 07/15/2017 BAIMA, REEMA L RANCH COOK Ot R06.09 OTHER FORMS OF DYSPNEA 07/15/2017 JULIMA REEMA L RANCH COOK Ot Z86.79 PERSONAL HISTORY OF OTHER DISEASES OF TH 07/23/2017 JULIMA REEMA L RANCH COOK Ot E78.4 OTHER HYPERLIPIDEMIA 07/23/2017 BAIMA, REEMA L RANCH COOK Ot I25.10 ATHSCL HEART DISEASE OF [place] CORONARY 07/23/2017 BAIMA REEMA L RANCH COOK Ot I65.23 OCCLUSION AND STENOSIS OF BILATERAL [place] 07/23/2017 BAIMA REEMA L RANCH COOK Ot R06.09 OTHER FORMS OF DYSPNEA 07/23/2017 JULIMA REEMA L RANCH COOK Ot Z86.79 PERSONAL HISTORY OF OTHER DISEASES OF 11/03/2017 ISABELA DOYLE ORTHODONTIC TECHNICIAN ASSISTANT Ot J44.9 CHRONIC OBSTRUCTIVE PULMONARY DISEASE, U 11/03/2017 ISABELA DOYLE APRN Ot R06.02 SHORTNESS OF BREATH 11/03/2017 ISABELA DOYLE APRN Ot R09.02 HYPOXEMIA 11/03/2017 ISABELA DOYLE ORTHODONTIC TECHNICIAN ASSISTANT Ot R91.8 OTHER NONSPECIFIC ABNORMAL FINDING OF BET[place] 11/03/2017 ISABELA DOYLE ORTHODONTIC TECHNICIAN ASSISTANT Ot Z72.0 TOBACCO USE 11/03/2017 ISABELA DOYLE ORTHODONTIC TECHNICIAN ASSISTANT Ot J44.9 CHRONIC OBSTRUCTIVE PULMONARY DISEASE, U 11/03/2017 VIVEK, ISABELA E ORTHODONTIC TECHNICIAN ASSISTANT Ot R06.02 SHORTNESS OF BREATH 11/03/2017 VIVEKAPRILISABELA Meseret ORTHODONTIC TECHNICIAN ASSISTANT Ot R09.02 HYPOXEMIA 11/03/2017 VIVEKAPRILISABELA Meseret ORTHODONTIC TECHNICIAN ASSISTANT Ot R91.8 OTHER NONSPECIFIC ABNORMAL FINDING OF BET[place] 11/03/2017 VIVEKAPRIL ANNINE Meseret ORTHODONTIC TECHNICIAN ASSISTANT Ot Z72.0 TOBACCO USE 11/11/2017 ISABELA DOYLE ORTHODONTIC TECHNICIAN ASSISTANT Ot R60.9 EDEMA, UNSPECIFIED 11/24/2017 APRIL DOYLEINE Meseret ORTHODONTIC TECHNICIAN ASSISTANT Ot J44.9 CHRONIC OBSTRUCTIVE PULMONARY DISEASE, U 11/24/2017 ISABELA DOYLE ORTHODONTIC TECHNICIAN ASSISTANT Ot R06.02 SHORTNESS OF BREATH 11/24/2017 ISABELA DOYLE ORTHODONTIC TECHNICIAN ASSISTANT Ot R09.02 HYPOXEMIA 11/24/2017 ISABELA DOYLE ORTHODONTIC TECHNICIAN ASSISTANT Ot R91.8 OTHER NONSPECIFIC ABNORMAL FINDING OF BET[place] 11/24/2017 ISABELA DOYLE ORTHODONTIC TECHNICIAN ASSISTANT Ot Z72.0 TOBACCO USE 12/03/2017 REEMA ESPINAL RANCH COOK Ot E78.4 OTHER HYPERLIPIDEMIA 12/03/2017 REEMA ESPINAL L RANCH COOK Ot I25.10 ATHSCL HEART DISEASE OF [place] CORONARY 12/03/2017 REEMA ESPINAL L RANCH COOK Ot I65.23 OCCLUSION AND STENOSIS OF BILATERAL [place] 12/03/2017 REEMA ESPINAL RANCH COOK Ot R06.09 OTHER FORMS OF DYSPNEA 12/03/2017 REEMA ESPINAL L RANCH COOK Ot Z86.79 PERSONAL HISTORY OF OTHER DISEASES OF TH 12/03/2017 MIRIAM WILSON FACC, ALI FACP CCDS Ot E78.4 OTHER HYPERLIPIDEMIA 12/03/2017 MIRIAM WILSON FACC, ALI FACP CCDS Ot I10 ESSENTIAL (PRIMARY) HYPERTENSION 12/03/2017 MIRIAM WILSON FACC, ALI FACP CCDS Ot I25.10 ATHSCL HEART DISEASE OF [place] CORONARY 12/03/2017 MIRIAM WILSON FACC, ALI FACP CCDS Ot I65.23 OCCLUSION AND STENOSIS OF BILATERAL [place] 12/03/2017 MIRIAM WILSON FACC, ALI FACP CCDS Ot J43.8 OTHER EMPHYSEMA 12/03/2017 MIRIAM WILSON FACC, ALI FACP CCDS Ot R06.02 SHORTNESS OF BREATH 12/03/2017 MIRIAM WILSON FACC, ALI FACP CCDS Ot Z72.0 TOBACCO USE 12/03/2017 ISABELA DOYLE APRN Ot J44.9 CHRONIC OBSTRUCTIVE PULMONARY DISEASE, U 12/03/2017 ISABELA DOYLE APRN Ot R06.02 SHORTNESS OF BREATH 12/03/2017 ISABELA DOYLE APRN Ot R09.02 HYPOXEMIA 12/03/2017 ISABELA DOYLE ORTHODONTIC TECHNICIAN ASSISTANT Ot R91.8 OTHER NONSPECIFIC ABNORMAL FINDING OF BET[place] 12/03/2017 ISABELA DOYLE APRN Ot Z72.0 TOBACCO USE 12/03/2017 ISABELA DOYLE ORTHODONTIC TECHNICIAN ASSISTANT Ot R60.9 EDEMA, UNSPECIFIED 12/04/2017 ISABELA DOYLE ORTHODONTIC TECHNICIAN ASSISTANT Ot J90 PLEURAL EFFUSION, NOT ELSEWHERE CLASSIFI 12/04/2017 ISABELA DOYLE ORTHODONTIC TECHNICIAN ASSISTANT Ot R60.9 EDEMA, UNSPECIFIED 12/04/2017 VIVEKISABELA ANN ORTHODONTIC TECHNICIAN ASSISTANT Ot J90 PLEURAL EFFUSION, NOT ELSEWHERE CLASSIFI 12/04/2017 ISABELA DOYLE ORTHODONTIC TECHNICIAN ASSISTANT Ot R60.9 EDEMA, UNSPECIFIED 12/23/2017 ISABELA DOYLE ORTHODONTIC TECHNICIAN ASSISTANT Ot J90 PLEURAL EFFUSION, NOT ELSEWHERE CLASSIFI 12/23/2017 ISABELA DOYLE ORTHODONTIC TECHNICIAN ASSISTANT Ot R60.9 EDEMA, UNSPECIFIED 04/07/2018 Ot Z01.818 ENCOUNTER FOR OTHER PREPROCEDURAL EXAMIN 04/13/2018 Ot Z01.818 ENCOUNTER FOR OTHER PREPROCEDURAL EXAMIN 04/14/2018 KANE OLIVERA DO Ot E78.5 HYPERLIPIDEMIA, UNSPECIFIED 04/14/2018 KANE OLIVERA DO Ot F17.200 NICOTINE DEPENDENCE, UNSPECIFIED, UNCOMP 04/14/2018 KANE OLIVERA DO Ot F31.9 BIPOLAR DISORDER, UNSPECIFIED 04/14/2018 KANE OLIVERA DO Ot F41.9 ANXIETY DISORDER, UNSPECIFIED 04/14/2018 KANE OLIVERA DO Ot F43.10 POST-TRAUMATIC STRESS DISORDER, UNSPECIF 04/14/2018 KANE OLIVERA DO Ot G47.10 HYPERSOMNIA, UNSPECIFIED 04/14/2018 KANE OLIVERA DO Ot I10 ESSENTIAL (PRIMARY) HYPERTENSION 04/14/2018 KANE OLIVERA DO Ot I25.10 ATHSCL HEART DISEASE OF [place] CORONARY 04/14/2018 KANE OLIVERA DO Ot J30.9 ALLERGIC RHINITIS, UNSPECIFIED 04/14/2018 KANE OLIVERA DO, Ot J44.9 CHRONIC OBSTRUCTIVE PULMONARY DISEASE, U 04/14/2018 KANE LOIVERA DO Ot R09.02 HYPOXEMIA 04/14/2018 KANE OLIVERA DO Ot R59.0 LOCALIZED ENLARGED LYMPH NODES 04/14/2018 KANE OLIVERA DO Ot R91.8 OTHER NONSPECIFIC ABNORMAL FINDING OF BET[place] 04/14/2018 KANE OLIVERA DO Ot 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 04/14/2018 KANE OLIVERA DO Ot 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 04/14/2018 KANE OLIVERA DO Ot Z99.81 DEPENDENCE ON SUPPLEMENTAL OXYGEN 04/16/2018 KANE OLIVERA DO Ot E78.5 HYPERLIPIDEMIA, UNSPECIFIED 04/16/2018 KANE OLIVERA DO Ot F17.200 NICOTINE DEPENDENCE, UNSPECIFIED, UNCOMP 04/16/2018 KANE OLIVERA DO Ot F31.9 BIPOLAR DISORDER, UNSPECIFIED 04/16/2018 KANE OLIVERA DO Ot F41.9 ANXIETY DISORDER, UNSPECIFIED 04/16/2018 KANE OLIVERA DO Ot F43.10 POST-TRAUMATIC STRESS DISORDER, UNSPECIF 04/16/2018 KANE OLIVERA DO Ot G47.10 HYPERSOMNIA, UNSPECIFIED 04/16/2018 KANE OLIVERA DO Ot I10 ESSENTIAL (PRIMARY) HYPERTENSION 04/16/2018 KANE OLIVERA DO Ot I25.10 ATHSCL HEART DISEASE OF [place] CORONARY 04/16/2018 KANE OLIVERA DO, Ot J30.9 ALLERGIC RHINITIS, UNSPECIFIED 04/16/2018 KANE OLIVERA DO, Ot J44.9 CHRONIC OBSTRUCTIVE PULMONARY DISEASE, U 04/16/2018 KANE OLIVERA DO Ot R09.02 HYPOXEMIA 04/16/2018 KANE OLIVERA DO Ot R59.0 LOCALIZED ENLARGED LYMPH NODES 04/16/2018 KANE OLIVERA DO Ot R91.8 OTHER NONSPECIFIC ABNORMAL FINDING OF BET[place] 04/16/2018 KANE OLIVERA DO Ot Z79.82 [facility] (CURRENT) USE OF ASPIRIN 04/16/2018 KANE OLIVERA DO Ot Z79.899 OTHER [facility] (CURRENT) DRUG THERAPY 04/16/2018 KANE OLIVERA DO Ot Z99.81 DEPENDENCE ON SUPPLEMENTAL OXYGEN 04/20/2018 KANE OLIVERA DO Ot E78.5 HYPERLIPIDEMIA, UNSPECIFIED 04/20/2018 KANE OLIVERA DO Ot F17.200 NICOTINE DEPENDENCE, UNSPECIFIED, UNCOMP 04/20/2018 KANE OLIVERA DO Ot F31.9 BIPOLAR DISORDER, UNSPECIFIED 04/20/2018 KANE OLIVERA DO Ot F41.9 ANXIETY DISORDER, UNSPECIFIED 04/20/2018 KANE OLIVERA DO Ot F43.10 POST-TRAUMATIC STRESS DISORDER, UNSPECIF 04/20/2018 KANE OLIVERA DO Ot G47.10 HYPERSOMNIA, UNSPECIFIED 04/20/2018 KANE OLIVERA DO Ot I10 ESSENTIAL (PRIMARY) HYPERTENSION 04/20/2018 KANE OLIVERA DO Ot I25.10 ATHSCL HEART DISEASE OF [place] CORONARY 04/20/2018 KANE OLIVERA DO Ot J30.9 ALLERGIC RHINITIS, UNSPECIFIED 04/20/2018 KANE OLIVERA DO Ot J44.9 CHRONIC OBSTRUCTIVE PULMONARY DISEASE, U 04/20/2018 KANE OLIVERA DO Ot R09.02 HYPOXEMIA 04/20/2018 KANE OLIVERA DO Ot R59.0 LOCALIZED ENLARGED LYMPH NODES 04/20/2018 KANE OLIVERA DO Ot R91.8 OTHER NONSPECIFIC ABNORMAL FINDING OF BET[place] 04/20/2018 KANE OLIVERA DO Ot Z79.82 [facility] (CURRENT) USE OF ASPIRIN 04/20/2018 KANE OLIVERA DO Ot 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 04/20/2018 KANE OLIVERA DO Ot Z99.81 DEPENDENCE ON SUPPLEMENTAL OXYGEN 04/20/2018 ISABELA DOYLE APRN Ot F17.200 NICOTINE DEPENDENCE, UNSPECIFIED, UNCOMP 04/20/2018 ISABELA DOYLE APRN Ot J30.9 ALLERGIC RHINITIS, UNSPECIFIED 04/20/2018 ISABELA DOYLE ORTHODONTIC TECHNICIAN ASSISTANT Ot J43.8 OTHER EMPHYSEMA 04/20/2018 ISABELA DOYLE ORTHODONTIC TECHNICIAN ASSISTANT Ot R59.0 LOCALIZED ENLARGED LYMPH NODES 04/20/2018 ISABELA DOYLE ORTHODONTIC TECHNICIAN ASSISTANT Ot R91.8 OTHER NONSPECIFIC ABNORMAL FINDING OF BETTY 05/13/2018 Ot J44.9 CHRONIC OBSTRUCTIVE PULMONARY DISEASE, U 05/13/2018 Ot R59.0 LOCALIZED ENLARGED LYMPH NODES 05/13/2018 Ot R91.8 OTHER NONSPECIFIC ABNORMAL FINDING OF BET[place] 06/10/2018 ISABELA DOYLE ORTHODONTIC TECHNICIAN ASSISTANT Ot J90 PLEURAL EFFUSION, NOT ELSEWHERE CLASSIFI 06/10/2018 ISABELA DOYLE ORTHODONTIC TECHNICIAN ASSISTANT Ot R60.9 EDEMA, UNSPECIFIED 06/10/2018 TEDDY REEMA L RANCH COOK Ot E78.4 OTHER HYPERLIPIDEMIA 06/10/2018 BAIMA, REEMA L RANCH COOK Ot I25.10 ATHSCL HEART DISEASE OF [place] CORONARY 06/10/2018 BAIMA REEMA L RANCH COOK Ot I65.23 OCCLUSION AND STENOSIS OF BILATERAL [place] 06/10/2018 BAIMA REEMA L RANCH COOK Ot R06.09 OTHER FORMS OF DYSPNEA 06/10/2018 BAIMA REEMA L RANCH COOK Ot Z86.79 PERSONAL HISTORY OF OTHER DISEASES OF TH 06/10/2018 MIRIAM WILSON FACC, ALI FACP CCDS Ot E78.4 OTHER HYPERLIPIDEMIA 06/10/2018 MIRIAM WILSNO FACC, ALI FACP CCDS Ot I10 ESSENTIAL (PRIMARY) HYPERTENSION 06/10/2018 MIRIAM WILSON FACC, ALI FACP CCDS Ot I25.10 ATHSCL HEART DISEASE OF [place] CORONARY 06/10/2018 MIRIAM WILSON FACC, ALI FACP CCDS Ot I65.23 OCCLUSION AND STENOSIS OF BILATERAL [place] 06/10/2018 MIRIAM WILSON FACC, ALI FACP CCDS Ot J43.8 OTHER EMPHYSEMA 06/10/2018 MIRIAM WILSON FACC, ALI FACP CCDS Ot R06.02 SHORTNESS OF BREATH 06/10/2018 MIRIAM WILSON FACC, ALI FACP CCDS Ot Z72.0 TOBACCO USE 06/10/2018 ISABELA DOYLE ORTHODONTIC TECHNICIAN ASSISTANT Ot J44.9 CHRONIC OBSTRUCTIVE PULMONARY DISEASE, U 06/10/2018 ISABELA DOYLE ORTHODONTIC TECHNICIAN ASSISTANT Ot R06.02 SHORTNESS OF BREATH 06/10/2018 ISABELA DOYLE ORTHODONTIC TECHNICIAN ASSISTANT Ot R09.02 HYPOXEMIA 06/10/2018 ISABELA DOYLE ORTHODONTIC TECHNICIAN ASSISTANT Ot R91.8 OTHER NONSPECIFIC ABNORMAL FINDING OF BETTY 06/10/2018 ISABELA DOYLE ORTHODONTIC TECHNICIAN ASSISTANT Ot Z72.0 TOBACCO USE 06/10/2018 ISABELA DOYLE ORTHODONTIC TECHNICIAN ASSISTANT Ot R60.9 EDEMA, UNSPECIFIED 06/10/2018 APRIL DOYLEINE Meseret ORTHODONTIC TECHNICIAN ASSISTANT Ot J90 PLEURAL EFFUSION, NOT ELSEWHERE CLASSIFI 06/10/2018 APRIL DOYLEINE Meseret ORTHODONTIC TECHNICIAN ASSISTANT Ot R60.9 EDEMA, UNSPECIFIED 06/10/2018 APRIL DOYLEINE E ORTHODONTIC TECHNICIAN ASSISTANT Ot F17.200 NICOTINE DEPENDENCE, UNSPECIFIED, UNCOMP 06/10/2018 ISABELA DOYLE ORTHODONTIC TECHNICIAN ASSISTANT Ot J30.9 ALLERGIC RHINITIS, UNSPECIFIED 06/10/2018 APRIL DOYLEINE Meseret ORTHODONTIC TECHNICIAN ASSISTANT Ot J43.8 OTHER EMPHYSEMA 06/10/2018 APRIL DOYLEINE Meseret ORTHODONTIC TECHNICIAN ASSISTANT Ot R59.0 LOCALIZED ENLARGED LYMPH NODES 06/10/2018 ISABELA DOYLE ORTHODONTIC TECHNICIAN ASSISTANT Ot R91.8 OTHER NONSPECIFIC ABNORMAL FINDING OF BETTY 06/10/2018 Ot J44.9 CHRONIC OBSTRUCTIVE PULMONARY DISEASE, U 06/10/2018 Ot R59.0 LOCALIZED ENLARGED LYMPH NODES 06/10/2018 Ot R91.8 OTHER NONSPECIFIC ABNORMAL FINDING OF BETTY 07/06/2018 ISABELA DOYLE ORTHODONTIC TECHNICIAN ASSISTANT Ot J44.9 CHRONIC OBSTRUCTIVE PULMONARY DISEASE, U 07/06/2018 ISABELA DOYLE ORTHODONTIC TECHNICIAN ASSISTANT Ot R06.02 SHORTNESS OF BREATH 07/06/2018 ISABELA DOYLE ORTHODONTIC TECHNICIAN ASSISTANT Ot R09.02 HYPOXEMIA 07/06/2018 APRIL DOYLEINE Meseret ORTHODONTIC TECHNICIAN ASSISTANT Ot R91.8 OTHER NONSPECIFIC ABNORMAL FINDING OF BETTY 07/06/2018 ISABELA DOYLE ORTHODONTIC TECHNICIAN ASSISTANT Ot Z72.0 TOBACCO USE 07/07/2018 ISABELA DOYLE ORTHODONTIC TECHNICIAN ASSISTANT Ot J44.9 CHRONIC OBSTRUCTIVE PULMONARY DISEASE, U 07/07/2018 ISABELA DOYLE ORTHODONTIC TECHNICIAN ASSISTANT Ot R06.02 SHORTNESS OF BREATH 07/07/2018 APRIL DOYLEINE E ORTHODONTIC TECHNICIAN ASSISTANT Ot R09.02 HYPOXEMIA 07/07/2018 APRIL DOYLEINE Meseret ORTHODONTIC TECHNICIAN ASSISTANT Ot R91.8 OTHER NONSPECIFIC ABNORMAL FINDING OF BETTY 07/07/2018 APRIL DOYLEINE Meseret ORTHODONTIC TECHNICIAN ASSISTANT Ot Z72.0 TOBACCO USE 07/08/2018 APRIL DOYLEINE Meseret ORTHODONTIC TECHNICIAN ASSISTANT Ot F17.200 NICOTINE DEPENDENCE, UNSPECIFIED, UNCOMP 07/08/2018 APRIL DOYLEINE Meseret ORTHODONTIC TECHNICIAN ASSISTANT Ot J30.9 ALLERGIC RHINITIS, UNSPECIFIED 07/08/2018 APRIL DOYLEINE Meseret ORTHODONTIC TECHNICIAN ASSISTANT Ot J43.8 OTHER EMPHYSEMA 07/08/2018 APRIL DOYLEINE Meseret ORTHODONTIC TECHNICIAN ASSISTANT Ot R59.0 LOCALIZED ENLARGED LYMPH NODES 07/08/2018 VIVEKAPRIL ANNINE Meseret ORTHODONTIC TECHNICIAN ASSISTANT Ot R91.8 OTHER NONSPECIFIC ABNORMAL FINDING OF BETTY 07/08/2018 Ot J44.9 CHRONIC OBSTRUCTIVE PULMONARY DISEASE, U 07/08/2018 Ot R59.0 LOCALIZED ENLARGED LYMPH NODES 07/08/2018 Ot R91.8 OTHER NONSPECIFIC ABNORMAL FINDING OF BETTY 07/28/2018 VIVEK, ISABELA Meseret ORTHODONTIC TECHNICIAN ASSISTANT Ot J44.9 CHRONIC OBSTRUCTIVE PULMONARY DISEASE, U 07/28/2018 VIVEKAPRIL ANNINE Meseret ORTHODONTIC TECHNICIAN ASSISTANT Ot R59.0 LOCALIZED ENLARGED LYMPH NODES 07/28/2018 VIVEK, ISABELA Meseret ORTHODONTIC TECHNICIAN ASSISTANT Ot R91.8 OTHER NONSPECIFIC ABNORMAL FINDING OF BETTY 07/28/2018 VIVEK, ISABELA Meseret ORTHODONTIC TECHNICIAN ASSISTANT Ot Z72.0 TOBACCO USE 08/21/2018 VIVEK ISABELA Carl ORTHODONTIC TECHNICIAN ASSISTANT Ot J44.9 CHRONIC OBSTRUCTIVE PULMONARY DISEASE, U 08/21/2018 VIVEK ISABELA Meseret ORTHODONTIC TECHNICIAN ASSISTANT Ot R59.0 LOCALIZED ENLARGED LYMPH NODES 08/21/2018 VIVEK ISABELA Carl ORTHODONTIC TECHNICIAN ASSISTANT Ot R91.8 OTHER NONSPECIFIC ABNORMAL FINDING OF BETTY 08/21/2018 APRIL DOYLEINE Meseret ORTHODONTIC TECHNICIAN ASSISTANT Ot Z72.0 TOBACCO USE Procedures Code [place] [address] ROUTINE VENIPUNCTURE 12/27/2012 58725 CBC 12/27/2012 27014 CMP 12/27/2012 65758 LIPID PANEL 12/27/2012 [id number] GFR CALC (RESULT ONLY) 12/27/2012 77771 TSH 12/27/2012 00.40 PROCEDURE ON SINGLE VESSEL 05/31/2014 38.12 HEAD NECK ENDARTER NEC 05/31/2014 17252 A1C (IN-HOUSE) 10/05/2014 00.40 PROCEDURE ON SINGLE VESSEL 11/01/2014 38.12 HEAD NECK ENDARTER NEC 11/01/2014 Results Test Result Range Complete blood count (CBC) with automated white blood cell (WBC) differential - 11/25/16 18:50 Blood leukocytes automated count (number/volume) 7.7 10*3/uL 4.3-11.0 Blood erythrocytes automated count (number/volume) 4.05 10*6/uL 4.35-5.85 Venous blood hemoglobin measurement (mass/volume) 13.0 [...] Automated blood platelet mean volume measurement 9.5 [foz_us] 7.4-10.4 Automated blood neutrophils/100 leukocytes 66 % [...] Serum or plasma sodium measurement (moles/volume) 137 mmol/L 135-145 Serum or plasma potassium measurement (moles/volume) 3.0 mmol/L 3.6-5.0 Serum or plasma chloride measurement (moles/volume) 97 mmol/L 98-107 Carbon dioxide 31 mmol/L 21-32 Serum or plasma anion gap determination (moles/volume) 9 mmol/L 5-14 Serum or plasma urea nitrogen measurement (mass/volume) 3 mg/dL 7-18 Serum or plasma creatinine measurement (mass/volume) 0.84 mg/dL 0.60-1.30 Serum or plasma urea nitrogen/creatinine mass [...] blood base excess by calculation 5.5 mmol/L -2.5 -2.5 Arterial blood oxygen saturation measurement 100 % 94- 100 * Inhaled oxygen flow rate 15L NRG Arterial blood pH measurement with patient temperature correction 7.33 7.37-7.43 Arterial blood carbon dioxide, total measurement (moles/volume) 33.0 mmol/L 21.0-31.0 Body site L RAD NRG Assessment of wrist artery patency prior to arterial puncture YES- POS NRG Setting of ventilation mode NO NRG Measurement of body temperature 98.7 NRG Complete blood count (CBC) with automated white blood cell (WBC) differential - 11/26/16 03:25 Blood leukocytes automated count (number/volume) 6.2 10*3/uL 4.3-11.0 Blood erythrocytes automated count (number/volume) 4.31 10*6/uL 4.35-5.85 Venous blood hemoglobin measurement (mass/volume) 13.6 [...] Automated blood platelet mean volume measurement 9.9 [foz_us] 7.4-10.4 Automated blood neutrophils/100 leukocytes 91 % [...] Serum or plasma sodium measurement (moles/volume) 141 mmol/L 135-145 Serum or plasma potassium measurement (moles/volume) 4.0 mmol/L 3.6-5.0 Serum or plasma chloride measurement (moles/volume) 101 mmol/L 98-107 Carbon dioxide 27 mmol/L 21-32 Serum or plasma anion gap determination (moles/volume) 13 mmol/L 5-14 Serum or plasma urea nitrogen measurement (mass/volume) 5 mg/dL 7-18 Serum or plasma creatinine measurement (mass/volume) 0.81 mg/dL 0.60-1.30 Serum or plasma urea nitrogen/creatinine mass ratio 6 NRG Serum or plasma creatinine measurement with calculation of estimated glomerular filtration rate > NRG Serum or plasma glucose measurement (mass/volume) 243 mg/dL 70-105 Serum or plasma calcium measurement (mass/volume) 8.8 mg/dL 8.5-10.1 Serum or plasma phosphate measurement (mass/volume) - 11/26/16 03:25 Serum or plasma phosphate measurement (mass/volume) 3.4 mg/dL 2.3-4.7 Magnesium - 11/26/16 03:25 Magnesium 1.9 [...] blood base excess by calculation 5.3 mmol/L -2.5 -2.5 Arterial blood oxygen saturation measurement 94 % 94-100 * Inhaled oxygen flow rate 10L NRG Arterial blood pH measurement with patient temperature correction 7.35 7.37-7.43 Arterial blood carbon dioxide, total measurement (moles/volume) 32.4 mmol/L 21.0-31.0 Body site R RAD NRG Assessment of wrist artery patency prior to arterial puncture YES- POS NRG Setting of ventilation mode NO NRG Measurement of body temperature 98.4 NRG Complete blood count (CBC) with automated white blood cell (WBC) differential - 11/27/16 04:40 Blood leukocytes automated count (number/volume) 15.4 10*3/uL 4.3-11.0 Blood erythrocytes automated count (number/volume) 4.14 10*6/uL 4.35-5.85 Venous blood hemoglobin measurement (mass/volume) 13.2 [...] Automated blood platelet mean volume measurement 9.8 [foz_us] 7.4-10.4 Automated blood neutrophils/100 leukocytes 90 % [...] Serum or plasma sodium measurement (moles/volume) 144 mmol/L 135-145 Serum or plasma potassium measurement (moles/volume) 4.6 mmol/L 3.6-5.0 Serum or plasma chloride measurement (moles/volume) 104 mmol/L 98-107 Carbon dioxide 31 mmol/L 21-32 Serum or plasma anion gap determination (moles/volume) 9 mmol/L 5-14 Serum or plasma urea nitrogen measurement (mass/volume) 7 mg/dL 7-18 Serum or plasma creatinine measurement (mass/volume) 0.79 mg/dL 0.60-1.30 Serum or plasma urea nitrogen/creatinine mass ratio 9 NRG Serum or plasma creatinine measurement with calculation of estimated glomerular filtration rate > NRG Serum or plasma glucose measurement (mass/volume) 182 mg/dL 70-105 Serum or plasma calcium measurement (mass/volume) 9.1 mg/dL 8.5-10.1 Serum or plasma phosphate measurement (mass/volume) - 11/27/16 04:40 Serum or plasma phosphate measurement (mass/volume) 3.3 mg/dL 2.3-4.7 Magnesium - 11/27/16 04:40 Magnesium 2.0 mg/dL 1.8-2.4 Complete blood count (CBC) with automated white blood cell (WBC) differential - 02/03/17 18:21 Blood leukocytes automated count (number/volume) 7.3 10*3/uL 4.3-11.0 Blood erythrocytes automated count (number/volume) 4.11 10*6/uL 4.35-5.85 Venous blood hemoglobin measurement (mass/volume) 13.1 g/dL 11.5-16.0 Blood hematocrit (volume fraction) 41 % 35-52 Automated erythrocyte mean corpuscular volume 99 [foz_us] 80-99 Automated erythrocyte mean corpuscular hemoglobin (mass per erythrocyte) 32 pg 25-34 Automated erythrocyte mean corpuscular hemoglobin concentration measurement ( mass/volume) 32 g/dL 32-36 Automated erythrocyte distribution width ratio 12.8 % 10.0-14.5 Automated blood platelet count (count/volume) 210 10*3/uL 130-400 Automated blood platelet mean volume measurement 9.4 [foz_us] 7.4-10.4 Automated blood neutrophils/100 leukocytes 65 % 42-75 Automated blood lymphocytes/100 leukocytes 24 % 12-44 Blood monocytes/100 leukocytes 8 % 0-12 Automated blood eosinophils/100 leukocytes 3 % 0-10 Automated blood basophils/100 leukocytes 1 % 0-10 Blood neutrophils automated count (number/volume) 4.7 10*3 1.8-7.8 Blood lymphocytes automated count (number/volume) 1.8 10*3 1.0-4.0 Blood monocytes automated count (number/volume) 0.6 10*3 0.0-1.0 Automated eosinophil count 0.2 10*3/uL 0.0-0.3 Automated blood basophil count (count/volume) 0.1 10*3/uL 0.0-0.1 PT panel in platelet poor plasma by coagulation assay - 02/03/17 18:21 Prothrombin time (PT) in platelet poor plasma by coagulation assay 13.3 s 12.2-14.7 INR in platelet poor plasma or blood by coagulation assay 1.0 0.8-1.4 Activated partial thromboplastin time (aPTT) in platelet poor plasma bycoagulation assay - 02/03/17 18:21 Activated partial thromboplastin time (aPTT) in platelet poor plasma bycoagulation assay 31 s 24-35 Comprehensive metabolic panel - 02/03/17 18:21 Serum or plasma sodium measurement (moles/volume) 143 mmol/L 135-145 Serum or plasma potassium measurement (moles/volume) 3.5 mmol/L 3.6-5.0 Serum or plasma chloride measurement (moles/volume) 97 mmol/L 98-107 Carbon dioxide 37 mmol/L 21-32 Serum or plasma anion gap determination (moles/volume) 9 mmol/L 5-14 Serum or plasma urea nitrogen measurement (mass/volume) 7 mg/dL 7-18 Serum or plasma creatinine measurement (mass/volume) 0.90 mg/dL 0.60-1.30 Serum or plasma urea nitrogen/creatinine mass ratio 8 0- 20 Serum or plasma creatinine measurement with calculation of estimated glomerular filtration rate > NRG Serum or plasma glucose measurement (mass/volume) 132 mg/dL 70-105 Serum or plasma calcium measurement (mass/volume) 9.4 mg/dL 8.5-10.1 Serum or plasma total bilirubin measurement (mass/volume) 0.7 mg/dL 0.1-1.0 Serum or plasma alkaline phosphatase measurement (enzymatic activity/volume) 63 U/L 40-136 Serum or plasma aspartate aminotransferase measurement (enzymatic activity/ volume) 15 U/L 5-34 Serum or plasma alanine aminotransferase measurement (enzymatic activity/volume ) 14 U/L 0-55 Serum or plasma protein measurement (mass/volume) 6.1 g/dL 6.4-8.2 Serum or plasma albumin measurement (mass/volume) 3.7 g/dL 3.2-4.5 Serum or plasma lithium measurement (moles/volume) - 02/03/17 18:21 BNP level 406.8 pg/mL <100.0 Fibrin D-dimer FEU measurement in platelet poor plasma (mass/volume) - 18:21 Fibrin D-dimer FEU measurement in platelet poor plasma (mass/volume) 0.58 ug/mL 0.00-0.49 Serum or plasma troponin i.cardiac measurement (mass/volume) - 02/03/17 18:21 Serum or plasma troponin i.cardiac measurement (mass/volume) < ng/ mL <0.30 Serum or plasma thyrotropin measurement by detection limit <=0.05 miu/l (units/ volume) - 02/03/17 18:21 Serum or plasma thyrotropin measurement by detection limit <=0.05 miu/l (units/ volume) 1.85 u[iU]/mL 0.35-4.94 Automated blood complete blood count (hemogram) panel - 05/19/17 08:35 Blood leukocytes automated count (number/volume) 9.7 10*3/uL 4.3-11.0 Blood erythrocytes automated count (number/volume) 4.37 10*6/uL 4.35-5.85 Venous blood hemoglobin measurement (mass/volume) 14.0 g/dL 11.5-16.0 Blood hematocrit (volume fraction) 43 % 35-52 Automated erythrocyte mean corpuscular volume 98 [foz_us] 80-99 Automated erythrocyte mean corpuscular hemoglobin (mass per erythrocyte) 32 pg 25-34 Automated erythrocyte mean corpuscular hemoglobin concentration measurement ( mass/volume) 33 g/dL 32-36 Automated erythrocyte distribution width ratio 13.5 % 10.0-14.5 Automated blood platelet count (count/volume) 252 10*3/uL 130-400 Automated blood platelet mean volume measurement 9.2 [foz_us] 7.4-10.4 Comprehensive metabolic panel - 05/19/17 08:35 Serum or plasma sodium measurement (moles/volume) 142 mmol/L 135-145 Serum or plasma potassium measurement (moles/volume) 3.8 mmol/L 3.6-5.0 Serum or plasma chloride measurement (moles/volume) 102 mmol/L 98-107 Carbon dioxide 29 mmol/L 21-32 Serum or plasma anion gap determination (moles/volume) 11 mmol/L 5-14 Serum or plasma urea nitrogen measurement (mass/volume) 6 mg/dL 7-18 Serum or plasma creatinine measurement (mass/volume) 0.85 mg/dL 0.60-1.30 Serum or plasma urea nitrogen/creatinine mass ratio 7 NRG Serum or plasma creatinine measurement with calculation of estimated glomerular filtration rate > NRG Serum or plasma glucose measurement (mass/volume) 131 mg/dL 70-105 Serum or plasma calcium measurement (mass/volume) 9.2 mg/dL 8.5-10.1 Serum or plasma total bilirubin measurement (mass/volume) 0.6 mg/dL 0.1-1.0 Serum or plasma alkaline phosphatase measurement (enzymatic activity/volume) 60 U/L 40-136 Serum or plasma aspartate aminotransferase measurement (enzymatic activity/ volume) 7 U/L 5-34 Serum or plasma alanine aminotransferase measurement (enzymatic activity/volume ) 7 U/L 0-55 Serum or plasma protein measurement (mass/volume) 7.1 g/dL 6.4-8.2 Serum or plasma albumin measurement (mass/volume) 4.1 g/dL 3.2-4.5 Lipid 1996 panel - 05/19/17 08:35 Serum or plasma triglyceride measurement (mass/volume) 116 mg/dL <150 Serum or plasma cholesterol measurement (mass/volume) 134 mg/dL < 200 Serum or plasma cholesterol in HDL measurement (mass/volume) 34 mg/ dL 40-60 Cholesterol in LDL [mass/volume] in serum or plasma by direct assay 83 mg/dL 1-129 Serum or plasma cholesterol in VLDL measurement (mass/volume) 23 mg/ dL 5-40 PT panel in platelet poor plasma by coagulation assay - 05/19/17 08:35 Prothrombin time (PT) in platelet poor plasma by coagulation assay 12.7 s 12.2-14.7 INR in platelet poor plasma or blood by coagulation assay 0.9 0.8-1.4 Activated partial thromboplastin time (aPTT) in platelet poor plasma bycoagulation assay - 05/19/17 08:35 Activated partial thromboplastin time (aPTT) in platelet poor plasma bycoagulation assay 31 s 24-35 Methicillin resistant Staphylococcus aureus (MRSA) screening culture - 08:35 Methicillin resistant Staphylococcus aureus (MRSA) screening culture [facility] Automated blood complete blood count (hemogram) panel - 05/20/17 05:28 Blood leukocytes automated count (number/volume) 6.8 10*3/uL 4.3-11.0 Blood erythrocytes automated count (number/volume) 4.16 10*6/uL 4.35-5.85 Venous blood hemoglobin measurement (mass/volume) 13.3 g/dL 11.5-16.0 Blood hematocrit (volume fraction) 42 % 35-52 Automated erythrocyte mean corpuscular volume 100 [foz_us] 80-99 Automated erythrocyte mean corpuscular hemoglobin (mass per erythrocyte) 32 pg 25-34 Automated erythrocyte mean corpuscular hemoglobin concentration measurement ( mass/volume) 32 g/dL 32-36 Automated erythrocyte distribution width ratio 13.6 % 10.0-14.5 Automated blood platelet count (count/volume) 210 10*3/uL 130-400 Automated blood platelet mean volume measurement 9.6 [foz_us] 7.4-10.4 Whole blood basic metabolic panel - 05/20/17 05:28 Serum or plasma sodium measurement (moles/volume) 142 mmol/L 135-145 Serum or plasma potassium measurement (moles/volume) 4.0 mmol/L 3.6-5.0 Serum or plasma chloride measurement (moles/volume) 105 mmol/L 98-107 Carbon dioxide 28 mmol/L 21-32 Serum or plasma anion gap determination (moles/volume) 9 mmol/L 5-14 Serum or plasma urea nitrogen measurement (mass/volume) 5 mg/dL 7-18 Serum or plasma creatinine measurement (mass/volume) 0.83 mg/dL 0.60-1.30 Serum or plasma urea nitrogen/creatinine mass ratio 6 NRG Serum or plasma creatinine measurement with calculation of estimated glomerular filtration rate > NRG Serum or plasma glucose measurement (mass/volume) 152 mg/dL 70-105 Serum or plasma calcium measurement (mass/volume) 8.4 mg/dL 8.5-10.1 THYROID ANALYZER - 06/29/17 10:50 TSH 2.10 mIU/L NRG Sputum Gram stain - 04/14/18 08:21 Sputum Gram stain NO BACTERIA SEEN NRG Bacteria identification in bronchial specimen by aerobe culture - 04/14/18 08: 21 Bacteria identification in bronchial specimen by aerobe culture NORMAL NRG C FUNGUS SPUTUM FLUID TISSUE - 04/14/18 08:21 C FUNGUS SPUTUM FLUID TISSUE NG NRG Mycobacterium species detection by organism specific culture - 04/14/18 08:21 QUANTITY OF GROWTH . NRG Mycobacterium species detection by organism specific culture SEE COMMEN NRG Sputum Gram stain - 04/14/18 08:22 Sputum Gram stain NO BACTERIA SEEN NRG Bacteria identification in bronchial specimen by aerobe culture - 04/14/18 08: 22 QUANTITY OF GROWTH . NRG Bacteria identification in bronchial specimen by aerobe culture SEE COMMEN NRG C FUNGUS SPUTUM FLUID TISSUE - 04/14/18 08:22 C FUNGUS SPUTUM FLUID TISSUE NG NRG Mycobacterium species detection by organism specific culture - 04/14/18 08:22 Sputum Gram stain - 04/14/18 08:23 Sputum Gram stain NO BACTERIA SEEN NRG Bacteria identification in bronchial specimen by aerobe culture - 04/14/18 08: 23 Bacteria identification in bronchial specimen by aerobe culture NG NRG C FUNGUS SPUTUM FLUID TISSUE - 04/14/18 08:23 C FUNGUS SPUTUM FLUID TISSUE NG NRG Encounters ACCT No. Visit Date/Time Discharge Status Pt. Type Provider Facility Loc./Unit Complaint [id number] 10/05/2014 08:14:00 10/05/2014 23:59:59 CLS Outpatient BELTRAN LYLA BRENNANA Vaishali [id number] 05/15/2014 12:58:00 05/15/2014 23:59:59 CLS Outpatient KATIE BELTRAN DO [id number] 05/05/2014 14:47:00 05/05/2014 23:59:59 CLS Outpatient KATIE BELTRAN DO [id number] 03/13/2014 16:07:00 03/13/2014 23:59:59 CLS Outpatient NAILA WILSON, ARNIE [id number] 12/27/2012 11:00:00 Document Registration [id number] 04/22/2015 08:52:17 ACT Document Registration [id number] 08/02/2018 10:00:00 08/02/2018 23:59:59 CLS Outpatient DANIEL CONNOLLY APRN [facility] [id number] 06/29/2017 10:00:00 Document Registration [id number] 07/27/2018 16:52:00 07/27/2018 23:59:59 CLS Preadmit KANE OLIVERA DO [facility] RAD SOB,TOBACCO USE [id number] 07/27/2018 16:50:00 07/27/2018 23:59:59 CLS Preadmit ISABELA DOYLE APRN [facility] RAD SOB,TOBACCO USE [id number] 07/27/2018 08:53:00 07/27/2018 23:59:59 CLS Outpatient ISABELA DOYLE APRN [facility] RAD SOB,HYPOZEMIA REQUIRING SUPPLEMENTAL OXYGEN [id number] 04/14/2018 06:50:00 04/14/2018 23:59:59 CLS Outpatient KANE OLIVERA DO [facility] ENDO ABNORMAL CT SCAN/ MEDIASTINAL LYMPHADENOPATHY/COPD [id number] 02/16/2018 09:45:00 02/16/2018 23:59:59 CLS Outpatient ISABELA DOYLE APRN [facility] RAD ABNORMAL CT SCAN OF LUNG, COPD, HYPOXEMIA [id number] 12/03/2017 09:40:00 12/03/2017 23:59:59 CLS Outpatient ISABELA DOYLE ORTHODONTIC TECHNICIAN ASSISTANT [facility] CARD J90 PLEURAL EFFUSION [id number] 11/10/2017 09:46:00 11/10/2017 23:59:59 CLS Outpatient ISABELA DOYLE E ORTHODONTIC TECHNICIAN ASSISTANT [facility] LAB R60.9 [id number] 11/02/2017 11:02:00 11/02/2017 23:59:59 CLS Outpatient ISABELA DOYLE E ORTHODONTIC TECHNICIAN ASSISTANT [facility] RT J43.8 COPD [id number] 10/09/2017 11:31:00 10/09/2017 23:59:59 CLS Preadmit ISABELA DOYLE E ORTHODONTIC TECHNICIAN ASSISTANT [facility] RAD R91.8 LUNG NODULES [id number] 05/19/2017 08:08:00 05/20/2017 10:30:00 DIS Outpatient MIRIAM WILSON FACC, ALI FACP CCDS [facility] CATH CAD,ANGINA [id number] 05/05/2017 08:19:00 05/05/2017 23:59:59 CLS Outpatient MIRIAM WILSON FACC, RUDI GATESP CCDS [facility] CARD SOB R06.02, CAD I25.10 [id number] 04/28/2017 13:45:00 04/28/2017 23:59:59 CLS Preadmit KANE OLIVERA DO [facility] RAD COPD [id number] 03/06/2017 13:00:00 03/06/2017 23:59:59 CLS Preadmit APRIL DOYLEINE E ORTHODONTIC TECHNICIAN ASSISTANT [facility] RT COPD J43.8 [id number] 02/03/2017 18:17:00 02/03/2017 20:33:00 DIS Emergency KENNEDI LE [facility] ER SOB [id number] 11/25/2016 18:50:00 11/27/2016 11:10:00 DIS Inpatient SARAH GARCIA DO [facility] 4TH 2ND DEGREE LEE TO BILATERAL NARES AND FACE,SMOKE [id number] 09/16/2016 10:39:00 09/16/2016 23:59:59 CLS Outpatient REEMA ESPINAL [facility] CARD HX OF ISCHEMIC CARDIOMYOPATHY,DENNEY,CAD,HLD [id number] 04/25/2016 10:05:00 04/25/2016 23:59:59 CLS Outpatient ISABELA DOYLE APRN [facility] RAD COPD [id number] 01/29/2016 11:55:00 01/29/2016 23:59:59 CLS Outpatient MIRIAM WILSON FACC, RUDI GATESP CCDS [facility] RAD COPD,CAD,HLD [id number] 12/10/2015 09:02:00 12/10/2015 23:59:59 CLS Outpatient MIRIAM WILSON FACC, RUDI EVERETT CCDS [facility] LAB CAD, HLD, TOBACCO USER,CAROTID ARTERIAL DISEASE [id number] 04/22/2015 08:51:00 04/22/2015 10:12:00 DIS Emergency DHAVAL CANO MD [facility] ER LEG SPASMS,VOMITING [id number] 04/02/2015 12:10:00 04/02/2015 23:59:59 CLS Outpatient KANE OLIVERA DO [facility] RAD COPD [id number] 12/05/2014 20:00:00 12/05/2014 23:59:59 CLS Preadmit KANE OLIVERA DO [facility] SLEEP SNORING,CHOKING, GASPING [id number] 09/12/2014 08:27:00 09/12/2014 23:59:59 CLS Outpatient KANE OLIVERA DO [facility] RAD COPD, [id number] 07/26/2014 09:49:00 07/26/2014 23:59:59 CLS Outpatient KANE OLIVERA DO [facility] RT MEDIAL STINAL LYMPHADENOPATHY, COPD [id number] 05/31/2014 06:30:00 06/02/2014 13:00:00 DIS Inpatient LIDIA DAILY MD [facility] SURGICAL STENOSIS [id number] 05/29/2014 09:31:00 05/29/2014 23:59:59 CLS Outpatient LIDIA DAILY MD [facility] PREOP STENOSIS [id number] 05/26/2014 14:47:00 05/26/2014 23:59:59 CLS Outpatient MIRIAM WILSON FACC, RUDI EVERETT CCDS [facility] LAB CHR ISC HRT DIS NOS [id number] 05/26/2014 14:44:00 05/26/2014 23:59:59 CLS Outpatient LIDIA DAILY MD [facility] RAD CAROTID STENOSIS [id number] 05/25/2014 01:24:00 05/25/2014 09:43:00 DIS Inpatient MIRIAM WILSON FACC, RUDI EVERETT CCDS [facility] CSD EPISODIC LOW BLOOD PRESSURE [id number] 05/08/2014 09:10:00 05/08/2014 23:59:59 CLS Outpatient KAREN LEON [facility] LAB HYPOTASSEMIA,DIS MAGNESIUM METABOLISM [id number] 04/20/2014 19:05:00 04/21/2014 17:00:00 DIS Inpatient KATIE BELTRAN DO K [facility] 4TH SYNCOPE,DEHYDRATION [id number] 02/08/2014 01:50:00 02/10/2014 09:21:00 DIS Outpatient RUDI PINEDA MD, FACC, FACP CCDS [facility] CATH CP [id number] 06/10/2018 12:06:00 Document Registration [id number] 04/07/2018 06:27:00 Document Registration [id number] 04/06/2018 10:58:00 Document Registration [id number] 11/01/2014 06:00:00 Document Registration [id number] 10/31/2014 12:15:00 Document Registration
[2018-08-31 09:15] LABS: BILIRUBIN,TOTAL 0.7 MG/DL (0.1-1.0); CALCIUM 8.9 MG/DL (8.5-10.1); CREATININE SERUM 1.36 MG/DL (0.60-1.30); POTASSIUM 4.1 MMOL/L (3.6-5.0); TOTAL PROTEIN 6.7 GM/DL (6.4-8.2)
--- NOTE | 2018-08-31 10:40 | Cardiac Procedure Note-CS/ASA ---
Pre-Procedure Note Pre-Op Procedure Note H&P Reviewed The H&P was reviewed, patient examined and no changes noted. Date H&P Reviewed: Aug 31, 2018 Time H&P Reviewed: 10:00 Conscious Sedation Pre-Proced Time 10:00 ASA Score 3 For ASA 3 and 4: Consider anesthesia and medical clearance. Also, for patients with a history of failed moderate sedation consider anesthesia. Airway Lungs Heart ASA score ASA 1: a normal healthy patient ASA 2: a patient with a mild systemic disease (mid diabetes, controlled hypertension, obesity ASA 3: a patient with a severe systemic disease that limits activity (angina , COPD, prior Myocardial infarction) ASA 4: a patient with an incapacitating disease that is a constant threat to life (CHF, renal failure) ASA 5: a moribund patient not expected to survive 24 hrs. (ruptured aneurysm) ASA 6: a declared brain patient whose organs are being harvested. For emergent operations, add the letter E after the classification Mallampati Classification Grade 2 Sedation Plan Analgesia, Amnesia, Plan communicated to team members, Discussed options with patient/fam, Discussed risks with patient/fam The patient is an appropriate candidate to undergo the planned procedure, sedation, and anesthesia. The patient immediately re-assessed prior to indication. RUDI PINEDA MD FACP FAC CCDS Aug 31, 2018 10:40
[2018-08-31 11:23] LABS: MAGNESIUM 1.6 MG/DL (1.8-2.4)
--- NOTE | 2018-08-31 18:35 | OPERATIVE REPORT ---
DATE OF SERVICE: 08/31/2018 PREOPERATIVE DIAGNOSIS: Syncope. POSTOPERATIVE DIAGNOSIS: Syncope. PROCEDURE: Implantable loop recorder implantation. INDICATION: The patient is a 58-year-old lady, who has been experiencing syncope that is relatively infrequent. Implantable loop recorder implantation was carried out after having obtained an informed consent. DESCRIPTION OF THE PROCEDURE: [facility]. The left prepectoral area was prepared and draped in the usual sterile fashion. Lidocaine 1% was used for local anesthesia. The tools provided with the [employer] implantable loop recorder were used to make a small incision just to the left of the sternum anterior to the fourth intercostal space and a subcutaneous pocket into which the device was placed. This is Ups[employer] Reveal LINQ with serial #[id number]. The incision was closed with Dermabond and Steri-Strips. She tolerated the procedure well. Job ID: [id number] DocumentID: [id number] Dictated Date: 08/31/2018 11:06:31 Junior Automation Engineer Date: 08/31/2018 18:34:23 Dictated By: RUDI PINEDA MD, MA, FACP, FACC,
== END 2018-08-31 10:54 | disposition home or self-care (01) ==
LOC: CATH 08:00
PROVIDERS: ATTEND Internal Medicine Cardiovascular Disease
DX: R55 Syncope and collapse (principal); I25.10 Atherosclerotic heart disease of native coronary artery without angina pectoris; E78.5 Hyperlipidemia, unspecified; I10 Essential (primary) hypertension; I08.3 Combined rheumatic disorders of mitral, aortic and tricuspid valves; E11.9 Type 2 diabetes mellitus without complications; J44.9 Chronic obstructive pulmonary disease, unspecified; F17.210 Nicotine dependence, cigarettes, uncomplicated; R06.09 Other forms of dyspnea; E66.9 Obesity, unspecified; Z68.32 Body mass index [BMI] 32.0-32.9, adult; Z95.5 Presence of coronary angioplasty implant and graft; Z79.82 Long term (current) use of aspirin; Z79.899 Other long term (current) drug therapy
CPT/HCPCS: 33285; 36415; 80053; 80061; 83735; 83880; 84443; 85027; 85652

== ENCOUNTER → 2018-09-07 | Outpatient (CLI) | payer MEDICARE, MEDICAID ==
[~2018-09-07] VITALS: Ht 152.4 cm; Wt 74.8 kg
[~2018-09-07] MED LIST changes: +CATHETER FLUSH 10 ML SYR IV PRN; +REGADENOSON 0.4 MG/5 ML SYR (LEXISCAN) IV ONE
[2018-09-07 13:05] VITALS: BP 117/80
[2018-09-07 13:07] VITALS: BP 131/83
[2018-09-07 13:32] LABS: BASOPHILS # (AUTO) 0.1 10^3/uL (0.0-0.1); BASOPHILS % (AUTO) 1 % (0-10); EOSINOPHILS # (AUTO) 0.1 10^3/uL (0.0-0.3); EOSINOPHILS % (AUTO) 1 % (0-10); HEMATOCRIT 39 % (35-52); HEMOGLOBIN 12.7 G/DL (11.5-16.0); LYMPHOCYTES # (AUTO) 0.8 X 10^3 (1.0-4.0); LYMPHOCYTES % (AUTO) 10 % (12-44); MEAN CORPUSCULAR HEMOGLOBIN 31 PG (25-34); MEAN CORPUSCULAR HGB CONC 33 G/DL (32-36); MEAN CORPUSCULAR VOLUME 94 FL (80-99); MEAN PLATELET VOLUME 8.9 FL (7.4-10.4); MONOCYTES # (AUTO) 0.6 X 10^3 (0.0-1.0); MONOCYTES % (AUTO) 8 % (0-12); NEUTROPHILS # (AUTO) 6.1 X 10^3 (1.8-7.8); NEUTROPHILS % (AUTO) 80 % (42-75); PLATELET COUNT 292 10^3/uL (130-400); RED BLOOD COUNT 4.16 10^6/uL (4.35-5.85); RED CELL DISTRIBUTION WIDTH 14.9 % (10.0-14.5); WHITE BLOOD COUNT 7.6 10^3/uL (4.3-11.0)
[2018-09-07 13:48] LABS: MAGNESIUM 1.6 MG/DL (1.8-2.4)
[2018-09-07 13:52] LABS: ERYTHROCYTE SEDIMENTATION RATE 12 MM/HR (0-30)
--- NOTE | 2018-09-08 13:39 | STRESS TEST ---
DATE OF SERVICE: 09/07/2018 RESTING AND POST REGADENOSON TECHNETIUM-99M TETROFOSMIN SPECT CT IMAGING ORDERING PHYSICIAN: Dr. Burnett. PRIMARY CARE PHYSICIAN: BENNETT Bender CLINICAL DIAGNOSIS: Syncope. Baseline images were carried out after injection of 10.45 mCi of technetium-99m Tetrofosmin. This was followed by 0.4 mm of regadenoson and 29.7 mCi of technetium-99m Tetrofosmin for stress imaging. The electrocardiogram showed sinus rhythm with nonspecific ST and T-wave abnormality. The electrocardiogram did not change significantly with the regadenoson infusion. Isolated premature ventricular contractions were seen. The patient noted shortness of breath after regadenoson infusion, which resolved in a few minutes. Review of images at rest and following stress indicates an inferior perfusion defect that is predominantly fixed. Gated images show inferior wall hypokinesis to akinesis. Left ventricular ejection fraction is calculated to be 40%. Left ventricular end diastolic volume is 48 mL. CONCLUSIONS: 1. This study is indicative of inferior wall myocardial infarction with minimal kenny-infarct ischemia. 2. Inferior hypokinesis to akinesis. 3. Left ventricular ejection fraction is calculated to be 40%. Job ID: [id number] DocumentID: [id number] Dictated Date: 09/08/2018 13:07:42 Residential Concierge Date: 09/08/2018 13:38:30 Dictated By: RUDI BURNETT MD, MA, FACP, FACC,
== END ==
LOC: CARD 11:06
PROVIDERS: ATTEND Internal Medicine Cardiovascular Disease
DX: R55 Syncope and collapse (principal); I25.10 Atherosclerotic heart disease of native coronary artery without angina pectoris; I65.29 Occlusion and stenosis of unspecified carotid artery; J43.8 Other emphysema; E78.5 Hyperlipidemia, unspecified; I10 Essential (primary) hypertension; Z72.0 Tobacco use
CPT/HCPCS: 36415; 78452; 83735; 83880; 84443; 85025; 85652; 93017

== ENCOUNTER 2018-09-09 11:34 | Inpatient (IN) | payer MEDICARE, MEDICAID ==
[2018-09-09] VITALS (8 sets, daily range): BP systolic 90–118; BP diastolic 52–74
[~2018-09-09] VITALS: Ht 152.4 cm; Wt 77.1 kg
[~2018-09-09 11:34] MED LIST changes: -CATHETER FLUSH 10 ML SYR IV PRN; +GABA800T10 PO; -GABA800T2 PO; -REGADENOSON 0.4 MG/5 ML SYR (LEXISCAN) IV ONE
[2018-09-09] MEDS ORDERED: NS IV 1000 ML 0 ML ONE (12:03)
[2018-09-09] MEDS ORDERED: RT-ALBUTEROL/IPRATROPIUM 3 ML (DUONEB) VIAL ONE (12:04)
--- NOTE | 2018-09-09 12:05 | NUR ---
PULSE OX INCREASED TO 89% ON OXYMASK. RT AND DR IN ROOM.
[2018-09-09 12:26] LABS: ABG BASE EXCESS 5.6 MMOL/L (-2.5-2.5); ABG OXYGEN SATURATION 95 % (94-100); ABG PCO2 49 MMHG (35-45); ABG PH 7.41 (7.37-7.43); ABG PO2 73 MMHG (79-93); ABG TCO2 31.7 MMOL/L (21.0-31.0)
[2018-09-09 12:27] LABS: ALLENS TEST YES-POS; INSPIRED O2 15; PATIENT TEMP 98; VENTILATOR NO
[2018-09-09 12:28] LABS: BASOPHILS % (AUTO) 0 % (0-10); EOSINOPHILS % (AUTO) 0 % (0-10); HEMATOCRIT 43 % (35-52); HEMOGLOBIN 13.8 G/DL (11.5-16.0); LYMPHOCYTES # (AUTO) 0.4 X 10^3 (1.0-4.0); LYMPHOCYTES % (AUTO) 5 % (12-44); MEAN CORPUSCULAR HEMOGLOBIN 30 PG (25-34); MEAN CORPUSCULAR HGB CONC 32 G/DL (32-36); MEAN CORPUSCULAR VOLUME 93 FL (80-99); MEAN PLATELET VOLUME 9.2 FL (7.4-10.4); MONOCYTES # (AUTO) 0.7 X 10^3 (0.0-1.0); MONOCYTES % (AUTO) 9 % (0-12); NEUTROPHILS % (AUTO) 86 % (42-75); PLATELET COUNT 276 10^3/uL (130-400); RED BLOOD COUNT 4.56 10^6/uL (4.35-5.85); RED CELL DISTRIBUTION WIDTH 15.2 % (10.0-14.5); WHITE BLOOD COUNT 8.2 10^3/uL (4.3-11.0)
[2018-09-09 12:30] LABS: INR 1.3 (0.8-1.4); PROTHROMBIN TIME PATIENT 16.2 SEC (12.2-14.7)
--- NOTE | 2018-09-09 12:37 | ED Respiratory ---
General Chief Complaint: Respiratory Problems Stated Complaint: LOW BP Nursing Triage Note: ARRIVED VIA WC TO ROOM 06. FAMILY FOUND PT ON THE FLOOR TODAY WITHOUT HER OXYGEN. PT DOES NOT REMEMBER FALLING. COMPLAINS OF RIGHT HIP PAIN. BRUISING OVER RIGHT EYE ET FAMILY STATES THAT IS FROM A PREVIOUS FALL. RECENT HEART MONITOR PLACED BY DR TYE RIVAS A WEEK AGO PER FAMILY. Source: patient Exam Limitations: no limitations History of Present Illness Date Seen by Provider: Sep 09, 2018 Time Seen by Provider: 12:07 Initial Comments Here with report of increasing shortness of breath and weakness. She had a fall today. She also had a fall 2 days ago. She does report that she's been suffering from diarrhea for the past couple of days and shortness of breath worsening since yesterday. Does have history of COPD that can become quite exacerbated times. She reports that her home breathing treatments haven't been helping. Does report increased cough. Smokes about 10 cigarettes a day. Fell 2 days ago and did hit her head. She has not had CT scan of her head. She is on Plavix. Fall today caused her to land on her right hip. She complains of right hip pain. There does appear to be some shortening of the right leg. Arrives via family. Hypoxic on arrival. Does report that she's had some episodes of floaters or palpitations. She does have a vent monitor placed by Dr. Burnett. That was apparently interrogated and does show some ectopy or events but she did not know further information related to that. Timing/Duration: getting worse, changing over time, other (2-3 days) Severity: moderate, severe Prior Episodes/Possible Cause: frequent episodes Modifying Factors: Worse With Activity; Improves With Albuterol Nebulizer; Worse With Coughing; Improves With Oxygen, Improves With Rest Associated Symptoms: cough; No fever/chills, No muscle aches; shortness of breath, wheezing Allergies and Home Medications Allergies Coded Allergies: No Known Drug Allergies (Unverified , 04/07/18) Home Medications Albuterol Sulfate 1 Puff Puff, 2 PUFF IH QID PRN for SHORTNESS OF BREATH, ( Reported) 1 PUFF = 90 MCG Albuterol Sulfate 2.5 Mg/3 Ml Vial.neb, 2.5 MG IH Q4H PRN for SHORTNESS OF BREATH Prescribed by: KENNEDI CORREA on 02/03/172021 Aspirin 81 Mg Tablet.dr, 81 MG PO DAILY, (Reported) Benzonatate 100 Mg Capsule, 100 MG PO TID PRN for COUGH, (Reported) Budesonide/Formoterol Fumarate 10.2 Gm Hfa.aer.ad, 2 PUFF IH BID, (Reported) Cetirizine HCl 10 Mg Tablet, 10 MG PO DAILY, (Reported) Clonazepam 0.25 Mg Tab.rapdis, 0.25 MG PO BID PRN for ANXIETY, (Reported) Clopidogrel Bisulfate 75 Mg Tablet, 75 MG PO DAILY, (Reported) Cyclobenzaprine HCl 5 Mg Tablet, 5 MG PO TID PRN for MUSCLE SPASMS, (Reported) Diclofenac Potassium 50 Mg Tablet, 50 MG PO TID, (Reported) Fluticasone Propionate 16 Gm Treece.susp, 1 SPRAY NSEACH DAILY, (Reported) Gabapentin 800 Mg Tablet, 800 MG PO QID, (Reported) Mirtazapine 45 Mg Tablet, 45 MG PO HS, (Reported) Montelukast Sodium 10 Mg Tablet, 10 MG PO HS, (Reported) Prazosin HCl 2 Mg Capsule, 2 MG PO HS, (Reported) Simvastatin 40 Mg Tablet, 40 MG PO HS, (Reported) Trazodone HCl 150 Mg Tablet, 150 MG PO HS PRN for INSOMNIA, (Reported) Patient Home Medication List Home Medication List Reviewed: Yes Review of Systems Review of Systems Constitutional: see HPI; No chills, No fever EENTM: nose congestion; No throat pain Respiratory: cough, dyspnea on exertion, short of breath, wheezing Cardiovascular: No chest pain, No edema Gastrointestinal: No abdominal pain; diarrhea; No nausea, No vomiting Genitourinary: no symptoms reported : No Musculoskeletal: joint pain, muscle pain Skin: No change in color, No lesions Psychiatric/Neurological: Denies Headache; Weakness All Other Systems Reviewed Negative Unless Noted: Yes Past Qhpkyfl-Rlndvm-Uyzhzb Hx Past Med/Social Hx: Reviewed Nursing Past Med/Soc Hx Patient Social History Alcohol Use: Denies Use Recreational Drug Use: Yes Drug of Choice: POT Smoking Status: Current Everyday Smoker Type Used: Cigarettes 2nd Hand Smoke Exposure: Yes Recent Foreign Travel: No Contact w/Someone Who Travel: No Recent Infectious Disease Expo: No Recent Hopitalizations: No Immunizations Up To Date Tetanus Booster (TDap): Unknown Date of Pneumonia Vaccine: Jan 22, 2013 Date of Influenza Vaccine: Jun 08, 2017 Seasonal Allergies Seasonal Allergies: Yes Past Medical History Surgeries: Yes (CAROTID, BILAT CARPAL TUNNEL, L RCR, CATARACT) Cardiac, Section, Coronary Stent, Orthopedic, Vascular Surgery Respiratory: Yes (O2 6L) COPD Currently Using CPAP: No Currently Using BIPAP: No Cardiac: Yes Coronary Artery Disease, Heart Attack, High Cholesterol Neurological: No Reproductive Disorders: No Female Reproductive Disorders: Denies 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 ) Arthritis Endocrine: No Diabetes, Non-Insulin dep Loss of Vision: Bilateral Hearing Impairment: Denies Cancer: No Psychosocial: Yes (PANIC ATTACKS) Anxiety, PTSD, Bipolar Integumentary: Yes Psoriasis Blood Disorders: No Adverse Reaction/Blood Tranf: No (N/A) Family Medical History Reviewed Nursing Family Hx Cancer 19 MOTHER Family history: Breast disease 19 MOTHER Family history: Cardiovascular disease 19 FATHER, G8 BROTHER, Family history: Hypertension G8 SISTER Headache 19 FATHER, 19 MOTHER G8 BROTHER, G8 SISTER G8 SISTER History of - respiratory disease 19 FATHER, G8 BROTHER, Hypercholesterolemia G8 BROTHER, Myocardial infarction G8 BROTHER, No Pertinent Family Hx Physical Exam Vital Signs - First Documented 09/09/18 13:13 FiO2 85 Capillary Refill : Less Than 3 Seconds Height: 5'0.00" Weight: 170lbs. 0.0oz. [id number]; 32.2 BMI Method:Estimated General Appearance: WD/WN, mild distress (respiratory) HEENT: PERRL/EOMI, pharynx normal Neck: full range of motion, supple Respiratory: lungs clear, respiratory distress, crackles, wheezing, expiration Cardiovascular: regular rate, rhythm, no murmur Gastrointestinal: non tender, soft Extremities: non-tender, normal inspection Neurologic/Psychiatric: alert, oriented x 3 Skin: normal color, warm/dry Focused Exam Lactate Level 09/09/18 12:05: Lactic Acid Level 2.12*H 09/09/18 13:45: Lactic Acid Level 0.99 Lactic Acid Level Laboratory Tests Test 09/09/18 12:05 09/09/18 13:45 Lactic Acid Level 2.12 MMOL/L (0.50-2.00) *H 0.99 MMOL/L (0.50-2.00) Progress/Results/Core Measures Suspected Sepsis Recent Fever Within 48 Hours: No Infection Criteria Present: Suspected New Infection New/Unexplained Altered Menta: No Sepsis Screen: Possible Sepsis Risk SIRS Temperature:98.0 Pulse: 114 Respiratory Rate: 22 Laboratory Tests 09/09/18 12:05: White Blood Count 8.2 Blood Pressure 95 /65 Mean: 75 09/09/18 12:05: Lactic Acid Level 2.12*H 09/09/18 13:45: Lactic Acid Level 0.99 Laboratory Tests 09/09/18 12:05: Creatinine 2.20H, INR Comment 1.3, Platelet Count 276, Total Bilirubin 1.0 Results/Orders Lab Results Laboratory Tests Test 09/09/18 12:05 09/09/18 12:20 09/09/18 13:45 09/09/18 13:55 Range/Units White Blood Count 8.2 4.3-11.0 10^3/uL Red Blood Count 4.56 4.35-5.85 10^6/uL Hemoglobin 13.8 11.5-16.0 G/DL Hematocrit 43 35-52 % Mean Corpuscular Volume 93 80-99 FL Mean Corpuscular Hemoglobin 30 25-34 PG Mean Corpuscular Hemoglobin Concent 32 32-36 G/DL Red Cell Distribution Width 15.2 H 10.0-14.5 % Platelet Count 276 130-400 10^3/uL Mean Platelet Volume 9.2 7.4-10.4 FL Neutrophils (%) (Auto) 86 H 42-75 % Lymphocytes (%) (Auto) 5 L 12-44 % Monocytes (%) (Auto) 9 0-12 % Eosinophils (%) (Auto) 0 0-10 % Basophils (%) (Auto) 0 0-10 % Neutrophils # (Auto) 7.0 1.8-7.8 X 10^3 Lymphocytes # (Auto) 0.4 L 1.0-4.0 X 10^3 Monocytes # (Auto) 0.7 0.0-1.0 X 10^3 Eosinophils # (Auto) 0.0 0.0-0.3 10^3/uL Basophils # (Auto) 0.0 0.0-0.1 10^3/uL Neutrophils % (Manual) 84 % Lymphocytes % (Manual) 4 % Monocytes % (Manual) 7 % Eosinophils % (Manual) 0 % Basophils % (Manual) 0 % Band Neutrophils 3 % Reactive Lymphocytes 2 % Blood Morphology Comment NORMAL Prothrombin Time 16.2 H 12.2-14.7 SEC INR Comment 1.3 0.8-1.4 Activated Partial Thromboplast Time 34 24-35 SEC Sodium Level 132 L 135-145 MMOL/L Potassium Level 4.6 3.6-5.0 MMOL/L Chloride Level 88 L 98-107 MMOL/L Carbon Dioxide Level 29 21-32 MMOL/L Anion Gap 15 H 5-14 MMOL/L Blood Urea Nitrogen 30 H 7-18 MG/DL Creatinine 2.20 H 0.60-1.30 MG/DL Estimat Glomerular Filtration Rate 23 BUN/Creatinine Ratio 14 Glucose Level 139 H 70-105 MG/DL Lactic Acid Level 2.12 *H 0.99 0.50-2.00 MMOL/L Calcium Level 9.5 8.5-10.1 MG/DL Corrected Calcium 9.3 8.5-10.1 MG/DL Total Bilirubin 1.0 0.1-1.0 MG/DL Aspartate Amino Transf (AST/SGOT) 29 5-34 U/L Alanine Aminotransferase (ALT/SGPT) 9 0-55 U/L Alkaline Phosphatase 67 40-136 U/L Total Protein 7.9 6.4-8.2 GM/DL Albumin 4.3 3.2-4.5 GM/DL Blood Gas Puncture Site RR Blood Gas Patient Temperature 98 Arterial Blood pH 7.41 7.37-7.43 Arterial Blood Partial Pressure CO2 49 H 35-45 MMHG Arterial Blood Partial Pressure O2 73 L 79-93 MMHG Arterial Blood HCO3 30 H 23-27 MMOL/L Arterial Blood Total CO2 31.7 H 21.0-31.0 MMOL/L Arterial Blood Oxygen Saturation 95 94-100 % Arterial Blood Base Excess 5.6 H -2.5-2.5 MMOL/L Stephan Test YES-POS Blood Gas Ventilator Setting NO Blood Gas Inspired Oxygen 15 Urine Color YELLOW Urine Clarity VERY CLOUDY H Urine pH 5 5-9 Urine Specific [place] 1.025 H 1.016-1.022 Urine Protein 2+ H NEGATIVE Urine Glucose (UA) NEGATIVE NEGATIVE Urine Ketones NEGATIVE NEGATIVE Urine Nitrite NEGATIVE NEGATIVE Urine Bilirubin NEGATIVE NEGATIVE Urine Urobilinogen NORMAL NORMAL MG/DL Urine Leukocyte Esterase 1+ H NEGATIVE Urine RBC (Auto) 2+ H NEGATIVE Urine RBC 0-2 /HPF Urine WBC RARE /HPF Urine Squamous Epithelial Cells 2-5 /HPF Urine Crystals NONE /LPF Urine Amorphous Sediment FEW HILARY URATES H /LPF Urine Bacteria NEGATIVE /HPF Urine Casts PRESENT /LPF Urine Hyaline Casts 2-5 H /LPF Urine Mucus NEGATIVE /LPF Urine Culture Indicated CULTURE PENDING My Orders Orders - JIMENA CANTU MD Ns Iv 1000 Ml (Sodium Chloride 0.9%) (09/09/18 12:03) Albuterol/Ipra Inhalation Soln (Duoneb I (09/09/18 12:04) Cbc With Automated Diff (09/09/18 12:10) Comprehensive Metabolic Panel (09/09/18 12:10) Blood Culture (09/09/18 12:10) Sputum Culture (09/09/18 12:10) Urinalysis (09/09/18 12:10) Urine Culture (09/09/18 12:10) Protime With Inr (09/09/18 12:10) Partial Thromboplastin Time (09/09/18 12:10) Chest 1 View, Ap/Pa Only (09/09/18 12:10) Saline Lock/Iv-Start (09/09/18 12:10) Saline Lock/Iv-Start (09/09/18 12:10) Ekg Tracing (09/09/18 12:10) Vital Signs Adult Sepsis Patie Q15M (09/09/18 12:10) O2 (09/09/18 12:10) Remove Rings In Anticipation O (09/09/18 12:10) Lactic Acid Analyzer (09/09/18 12:10) Pelvis With Right Hip 2-3views (09/09/18 12:10) Ct Head Wo (09/09/18 12:10) Arterial Blood Gas (09/09/18 12:14) Arterial Blood Gas (09/09/18 12:21) Manual Differential (09/09/18 12:05) Ns Iv 1000 Ml (Sodium Chloride 0.9%) (09/09/18 12:54) Fentanyl Injection (Sublimaze Injection (09/09/18 14:30) Methylprednisolone Sod Succ (Solu-Medrol (09/09/18 14:29) Medications Given in ED Current Medications Medications Dose Ordered Sig/Lesli Route Start Time Stop Time Status Last Admin Dose Admin Albuterol/ Ipratropium 3 ml STK-MED ONCE .ROUTE 09/09/18 12:04 09/09/18 12:08 DC 09/09/18 12:26 3 ML Fentanyl Citrate 75 mcg ONCE PRN IVP 09/09/18 14:30 09/09/18 17:08 DC 09/09/18 14:24 75 MCG Sodium Chloride 0 ml @ ud STK-MED ONCE .ROUTE 09/09/18 12:03 09/09/18 12:08 DC 09/09/18 12:08 1,000 MLS/HR Vital Signs/I&O 09/09/18 09/09/18 09/09/18 09/09/18 11:50 11:50 12:26 13:13 Temp 98.0 Pulse 114 Resp 22 B/P (MAP) 95/65 (75) Pulse Ox 72 72 91 O2 Delivery Nasal Cannula Nasal Cannula OxyMask Vapotherm O2 Flow Rate 4.00 4.00 15.00 20.00 FiO2 85 Capillary Refill : Less Than 3 Seconds Blood Pressure Mean: 75 Progress Note : Progress Note Seen and evaluated. IV, labs, chest x-ray, hip and pelvis x-ray (right), EKG, DuoNeb ordered we will get ABG. Patient placed on Vapotherm due to respiratory difficulty. This did significantly help her symptoms. CT the head was ordered due to fall and patient is on Plavix. Monitor patient. 1350: Right hip is fractured. Patient is improving somewhat with Vapotherm. We will give Solu- Medrol 125 mg IV. Zamora catheter to be placed. UA pending. 1430: UA does not show any urinary tract infection. Overall no infective symptoms noted. 1402: I did discuss the case with Dr. Ontiveros. Patient will be admitted to medicine on and he will see patient in consult. 1429: I did discuss the case with Dr. Mnaning and she is requesting consult from Dr. Rosen and Dr. Burnett. 1436: I did discuss the case with Dr. Rosen and he accepts patient in consult. 1438: I did discuss the case with Dr. Ontiveros again. He believes this may be a long- term abnormality and not acute fracture and is requesting CT which is been ordered. 1240 discuss the case with Dr. Burnett and he will see the patient in consult. 1535: Patient does not have acute hip fracture and Dr. Bird notified. We will continue admission for treatment of her COPD exacerbation and her palpitation symptoms. Dr. Ontiveros was notified and does not need to see patient. Patient was notified. Admit, inpatient status. Patient and family agree with plan. Patient continues on Vapotherm and is currently comfortable with O2 sat 95 percent on 100 percent via Vapotherm. ECG Initial ECG Impression Date: Sep 09, 2018 Initial ECG Impression Time: 12:14 Initial ECG Rate: 109 Initial ECG Rhythm: S.Tach Comment Sinus tachycardia with left atrial normality. Rightward axis. Similar to previous of 05/19/17. No evidence of ST elevation MT. Interpreted by me. Diagnostic Imaging Diagonstic Imaging: CT Plain Films/CT/US/NM/MRI: head Comments [facility] [place], [place] NAME: FAN EATON [facility] REC#: [id number] PT STATUS: REG ER : 1960 PHYSICIAN: JIMENA CANTU MD ADMIT DATE: 09/09/18/ER Draft Date of Exam:09/09/18 CT HEAD WO PROCEDURE: CT head without contrast. TECHNIQUE: Multiple contiguous axial images were obtained through the brain without the use of intravenous contrast. INDICATION: Fall. COMPARISON: Comparison is made with prior head CT from 05/26/2014. FINDINGS: The ventricles and sulci are within normal limits. No sulcal effacement is seen. There is no midline shift. No acute intra-axial or extra-axial hemorrhage is detected. Cisterns are patent. Visualized paranasal sinuses demonstrate some mucosal thickening of bilateral maxillary sinuses. IMPRESSION: No acute intracranial process is detected. Dictated on workstation # [id number] Dict: 09/09/18 1254 Trans: 09/09/18 1257 [id number] Interpreted by: MERT PRESSLEY MD Electronically signed by: Diagonstic Imaging: Xray Plain Films/CT/US/NM/MRI: chest Comments [facility] [place] [place] NAME: FAN EATON [facility] REC#: [id number] PT STATUS: REG ER : 1960 PHYSICIAN: JIMENA CANTU MD ADMIT DATE: 09/09/18/ER Draft Date of Exam:09/09/18 CHEST 1 VIEW, AP/PA ONLY INDICATION: Fall. TIME OF EXAM: 01:04 p.m. Comparison is made with prior chest from 04/14/2018. Heart is enlarged. The lungs appear to be clear. No infiltrate or effusion is seen. There is no pneumothorax. There is a stent overlying the medial aspect of the left lower neck. IMPRESSION: Cardiomegaly. No acute feature is detected. Dictated on workstation # [id number] Dict: 09/09/18 1253 Trans: 09/09/18 1257 [facility] [id number] Interpreted by: MERT PRESSLEY MD Electronically signed by: Diagonstic Imaging: Xray Plain Films/CT/US/NM/MRI: pelvis, hip Comments [facility] [place] [place] NAME: FAN EATON [facility] REC#: [id number] PT STATUS: REG ER : 1960 PHYSICIAN: JIMENA CANTU MD ADMIT DATE: 09/09/18/ER Draft Date of Exam:09/09/18 PELVIS WITH RIGHT HIP 2-3VIEWS INDICATION: Fall and right hip pain. TIME OF EXAM: 01:06 p.m. An AP view of pelvis and two views of the right hip were obtained. Femoral acetabular alignment is normal. There appears to be foreshortening of the right femoral neck, suggestive of a fracture. Left femoral neck is intact. Rami are unremarkable. SI joints and symphysis are not widened. IMPRESSION: There appears to be some foreshortening of the right femoral neck suspicious for fracture. No dislocation is seen. CT of the right hip may be useful for further evaluation if clinically indicated. Dictated on workstation # [id number] Dict: 09/09/18 1255 Trans: 09/09/18 1301 [id number] Interpreted by: MERT PRESSLEY MD Electronically signed by: Reviewed: Reviewed by Me Diagonstic Imaging: CT Plain Films/CT/US/NM/MRI: other Comments [facility] [place] NAME: FAN EATON [facility] REC#: [id number] PT STATUS: REG ER : 1960 PHYSICIAN: JIMENA CANTU MD ADMIT DATE: 09/09/18/ER Draft Date of Exam:09/09/18 CT EXTREMITY LOWER RIGHT WO PROCEDURE: CT right lower extremity without contrast. TECHNIQUE: Axially acquired CT was obtained through the right lower extremity without intravenous contrast. Coronal and sagittal reformations were also performed. INDICATION: Right hip pain and followup right hip x-ray. COMPARISON: Correlation is made with right hip radiograph from earlier same day. FINDINGS: Femoroacetabular alignment is normal. There appear to be some dysplastic changes to the right hip, likely accounting for the radiographic abnormality. There appears to be poor coverage of the femoral head by the acetabulum, consistent with some acetabular dysplasia. There is some slight foreshortening of the femoral neck. There are some degenerative changes identified at the femoral head neck junction. Femoral head and neck are intact. Intertrochanteric region is intact. No acute fracture lines are seen. The right-sided superior and inferior pubic rami appear to be intact. IMPRESSION: Right hip dysplasia. No acute hip fracture is detected. Dictated on workstation # [id number] Dict: 09/09/18 1513 Trans: 09/09/18 1521 [id number] Interpreted by: MERT PRESSLEY MD Electronically signed by: Departure Communication (Admissions) Time/Spoke to Admitting Phy: 14:02 Time/Spoke to Consulting Phy: 14:36 Impression Primary Impression: COPD with exacerbation Additional Impressions: Heart palpitations Near syncope Disposition: ADMITTED INPATIENT Condition: Stable Admissions Decision to Admit Reason: Admit from ER (General) Decision to Admit/Date: Sep 09, 2018 Time/Decision to Admit Time: 14:02 Departure-Patient Inst. Referrals: NO,LOCAL PHYSICIAN (PCP) Primary Care Physician DANIEL CONNOLLYNP (Family) Primary Care Physician JIMENA CANTU MD Sep 09, 2018 12:37
--- NOTE | 2018-09-09 12:39 | NUR ---
RT STATES SHE IS SWITCHING PT TO VAPOTHERM.
[2018-09-09 12:41] LABS: ALBUMIN 4.3 GM/DL (3.2-4.5); CALCIUM 9.5 MG/DL (8.5-10.1); CREATININE SERUM 2.2 MG/DL (0.60-1.30); POTASSIUM 4.6 MMOL/L (3.6-5.0); TOTAL PROTEIN 7.9 GM/DL (6.4-8.2)
[2018-09-09 12:44] LABS: BAND NEUTROPHILS 3 %; BASOPHILS % (MANUAL) 0 %; EOSINOPHILS % (MANUAL) 0 %; LYMPHOCYTES % (MANUAL) 4 %; MONOCYTES % (MANUAL) 7 %; NEUTROPHILS % (MANUAL) 84 %
[2018-09-09 12:45] LABS: RBC MORPH NORMAL; REACTIVE LYMPHOCYTES 2 %
[2018-09-09] MEDS ORDERED: NS IV 1000 ML 1,000 ML ONE (12:54)
--- NOTE | 2018-09-09 12:57 | Diagnostic Imaging Report ---
PROCEDURE: CT head without contrast. TECHNIQUE: Multiple contiguous axial images were obtained through the brain without the use of intravenous contrast. INDICATION: Fall. COMPARISON: Comparison is made with prior head CT from 05/26/2014. FINDINGS: The ventricles and sulci are within normal limits. No sulcal effacement is seen. There is no midline shift. No acute intra-axial or extra-axial hemorrhage is detected. Cisterns are patent. Visualized paranasal sinuses demonstrate some mucosal thickening of bilateral maxillary sinuses. IMPRESSION: No acute intracranial process is detected. Dictated by: Dictated on workstation # [id number]
--- NOTE | 2018-09-09 12:58 | Diagnostic Imaging Report ---
INDICATION: Fall. TIME OF EXAM: 01:04 p.m. Comparison is made with prior chest from 04/14/2018. Heart is enlarged. The lungs appear to be clear. No infiltrate or effusion is seen. There is no pneumothorax. There is a stent overlying the medial aspect of the left lower neck. IMPRESSION: Cardiomegaly. No acute feature is detected. Dictated by: Dictated on workstation # [id number]
--- NOTE | 2018-09-09 13:00 | NUR ---
PT BACK FROM CT ET PT PLACED ON VAPOTHERM.
--- NOTE | 2018-09-09 13:01 | Diagnostic Imaging Report ---
INDICATION: Fall and right hip pain. TIME OF EXAM: 01:06 p.m. An AP view of pelvis and two views of the right hip were obtained. Femoral acetabular alignment is normal. There appears to be foreshortening of the right femoral neck, suggestive of a fracture. Left femoral neck is intact. Rami are unremarkable. SI joints and symphysis are not widened. IMPRESSION: There appears to be some foreshortening of the right femoral neck suspicious for fracture. No dislocation is seen. CT of the right hip may be useful for further evaluation if clinically indicated. Dictated by: Dictated on workstation # [id number]
[2018-09-09 14:09] LABS: BILIRUBIN,URINE NEGATIVE (NEGATIVE); CLARITY,URINE VERY CLOUDY; COLOR,URINE YELLOW; GLUCOSE, URINE (UA) NEGATIVE (NEGATIVE); KETONES,URINE NEGATIVE (NEGATIVE); LEUKOCYTE ESTERASE ,URINE 1+ (NEGATIVE); NITRITE,URINE NEGATIVE (NEGATIVE); PH,URINE 5 (5-9); PROTEIN,URINE 2+ (NEGATIVE); UROBILINOGEN,URINE NORMAL (NORMAL)
[2018-09-09 14:17] LABS: AMORPHOUS SEDIMENT,UR FEW AMOR URATES /LPF; BACTERIA,URINE NEGATIVE /HPF; RBC,URINE 0-2 /HPF; WBC,URINE RARE /HPF
[2018-09-09] MEDS ORDERED: methylPREDNISolone 125 MG (Solu-MEDROL) VIAL IV STA (14:29)
[2018-09-09] MEDS ORDERED: fentaNYL INJECTION 100 MCG/2 ML AMP IVP PRN (14:30)
--- NOTE | 2018-09-09 15:21 | Diagnostic Imaging Report ---
PROCEDURE: CT right lower extremity without contrast. TECHNIQUE: Axially acquired CT was obtained through the right lower extremity without intravenous contrast. Coronal and sagittal reformations were also performed. INDICATION: Right hip pain and followup right hip x-ray. COMPARISON: Correlation is made with right hip radiograph from earlier same day. FINDINGS: Femoroacetabular alignment is normal. There appear to be some dysplastic changes to the right hip, likely accounting for the radiographic abnormality. There appears to be poor coverage of the femoral head by the acetabulum, consistent with some acetabular dysplasia. There is some slight foreshortening of the femoral neck. There are some degenerative changes identified at the femoral head neck junction. Femoral head and neck are intact. Intertrochanteric region is intact. No acute fracture lines are seen. The right-sided superior and inferior pubic rami appear to be intact. IMPRESSION: Right hip dysplasia. No acute hip fracture is detected. Dictated by: Dictated on workstation # [id number]
--- NOTE | 2018-09-09 15:31 | NUR ---
PT RESTING WITH EYES CLOSED.
--- NOTE | 2018-09-09 15:32 | Consultation-Cardiology ---
HPI-Cardiology Cardiology Consultation: Date of Consultation 09/09/18 Time Seen by a Provider: 15:35 Date of Admission 09-09-18 Attending Physician Admitting Physician Linda,Local Physician Consulting Physician Silvia Burnett MD HPI: Chief Complaint: Syncope Ms. Eaton is a 58 year old female who has been seen in the ED. Her son-in-law is with her. She is a poor historian. Family member states she has been having frequent diarrhea at home for the last several days, and not drinking much fluids. He reports she had an episode this morning of diarrhea while in bed. She ambulated to the bathroom with her oxygen on with assistance and then back to bed. He reports later in the morning they went to check on her and she was found on the floor without her oxygen on "passed out". He reports her oxygen sats were low. He states they put her oxygen back on and she came to. They then brought her to the ED. She is reporting c/o right hip pain. Her family member reports she did stop the metoprolol yesterday as instructed at her appointment time. He reports she has been falling frequently at home. He and his Lori (pts daughter) are her care givers. She is currently not reporting any CP or palpitations. She reports prod cough for the last several days. She reports worsening dyspnea over the last several days. Review of Systems-Cardiology Review of Systems Constitutional: No chills, No fever; malaise Eyes: No vision change Ears/Nose/Throat: No epistaxis, No recent hearing loss Respiratory: As described under HPI Cardiovascular: As described under HPI Gastrointestinal: diarrhea Genitourinary: No dysuria, No hematuria : No Musculoskeletal: joint pain (chronic) Skin: No rash, No skin related problems, No ulcerations Psychiatric/Neurological: syncope; No seizure Hematologic: No bleeding abnormalities All Other Systems Reviewed Negative Unless Noted: Yes VXM-Amuhow-Ndwzun Hx Patient Social History Alcohol Use: Denies Use Recreational Drug Use: Yes Drug of Choice: POT Smoking Status: Current Everyday Smoker Type Used: Cigarettes 2nd Hand Smoke Exposure: Yes Recent Foreign Travel: No Recent Infectious Disease Expo: No Immunizations Up To Date Tetanus Booster (TDap): Unknown Date of Pneumonia Vaccine: Jan 22, 2013 Date of Influenza Vaccine: Jun 08, 2017 Past Medical History PMH As described under Assessment. Family Medical History Family Medical History: She reports her father and a brother had CAD. Family History: Cancer 19 MOTHER Family history: Breast disease 19 MOTHER Family history: Cardiovascular disease 19 FATHER, G8 BROTHER, Family history: Hypertension G8 SISTER Headache 19 FATHER, 19 MOTHER G8 BROTHER, G8 SISTER G8 SISTER History of - respiratory disease 19 FATHER, G8 BROTHER, Hypercholesterolemia G8 BROTHER, Myocardial infarction G8 BROTHER, Allergies and Home Medications Allergies Coded Allergies: No Known Drug Allergies (Unverified , 04/07/18) Home Medications Albuterol Sulfate 1 Puff Puff, 2 PUFF IH QID PRN for SHORTNESS OF BREATH, ( Reported) 1 PUFF = 90 MCG Albuterol Sulfate 2.5 Mg/3 Ml Vial.neb, 2.5 MG IH Q4H PRN for SHORTNESS OF BREATH Prescribed by: EKNNEDI CORREA on 02/03/172021 Aspirin 81 Mg Tablet.dr, 81 MG PO DAILY, (Reported) Benzonatate 100 Mg Capsule, 100 MG PO TID PRN for COUGH, (Reported) Budesonide/Formoterol Fumarate 10.2 Gm Hfa.aer.ad, 2 PUFF IH BID, (Reported) Cetirizine HCl 10 Mg Tablet, 10 MG PO DAILY, (Reported) Clonazepam 0.25 Mg Tab.rapdis, 0.25 MG PO BID PRN for ANXIETY, (Reported) Clopidogrel Bisulfate 75 Mg Tablet, 75 MG PO DAILY, (Reported) Cyclobenzaprine HCl 5 Mg Tablet, 5 MG PO TID PRN for MUSCLE SPASMS, (Reported) Diclofenac Potassium 50 Mg Tablet, 50 MG PO TID, (Reported) Fluticasone Propionate 16 Gm [place].susp, 1 SPRAY NSEACH DAILY, (Reported) Gabapentin 800 Mg Tablet, 800 MG PO QID, (Reported) Mirtazapine 45 Mg Tablet, 45 MG PO HS, (Reported) Montelukast Sodium 10 Mg Tablet, 10 MG PO HS, (Reported) Prazosin HCl 2 Mg Capsule, 2 MG PO HS, (Reported) Simvastatin 40 Mg Tablet, 40 MG PO HS, (Reported) Trazodone HCl 150 Mg Tablet, 150 MG PO HS PRN for INSOMNIA, (Reported) Physical Exam-Cardiology Physical Exam Vital Signs/I&O 09/09/18 09/09/18 09/09/18 09/09/18 20:00 20:00 21:00 22:00 Temp 98.7 Pulse 96 103 92 Resp 12 10 20 B/P (MAP) 90/52 (65) 110/65 (80) 118/70 (86) Pulse Ox 93 91 93 97 O2 Delivery Vapotherm Vapotherm Vapotherm Vapotherm O2 Flow Rate 20.00 80.00 80.00 80.00 20.00 20.00 20.00 FiO2 80 09/09/18 09/09/18 09/10/18 09/10/18 22:08 23:00 00:00 00:00 Temp 98.0 Pulse 97 Resp 20 B/P (MAP) 100/57 (71) Pulse Ox 93 90 93 O2 Delivery Vapotherm Vapotherm Vapotherm O2 Flow Rate 20.00 80.00 16.00 20.00 FiO2 80 70 09/10/18 09/10/18 09/10/18 09/10/18 00:00 00:30 01:00 01:00 Pulse 93 93 96 96 Resp 16 21 16 B/P (MAP) 110/60 (77) 108/60 (76) 120/73 (89) Pulse Ox 95 90 93 O2 Delivery Vapotherm Vapotherm Vapotherm O2 Flow Rate 80.00 70.00 70.00 20.00 16.00 16.00 09/10/18 09/10/18 09/10/18 09/10/18 01:34 02:00 03:00 04:00 Temp 98.9 Pulse 96 98 Resp 20 8 B/P (MAP) 109/68 (82) 129/94 (106) Pulse Ox 93 94 96 O2 Delivery Vapotherm Vapotherm Vapotherm O2 Flow Rate 17.00 70.00 70.00 16.00 16.00 FiO2 70 09/10/18 09/10/18 09/10/18 09/10/18 04:00 04:00 05:00 05:55 Pulse 94 97 Resp 21 19 B/P (MAP) 118/65 (82) 122/69 (86) Pulse Ox 93 93 92 93 O2 Delivery Vapotherm Vapotherm Vapotherm Vapotherm O2 Flow Rate 70.00 15.00 70.00 15.00 16.00 16.00 FiO2 65 65 09/10/18 06:00 Pulse 94 Resp 10 B/P (MAP) 120/71 (87) Pulse Ox 91 O2 Delivery Vapotherm O2 Flow Rate 70.00 16.00 09/10/18 00:00 Intake Total 1400 ml Output Total 250 ml Balance 1150 ml Capillary Refill : Less Than 3 Seconds Constitutional: AAO x 3, other (poor historian) HEENT: PERRL, hearing is well preserved Neck: carotid bruit Respiratory: rhonchi (scattered), other (coarse lower lobes bilat) Cardiovascular: regular rate-rhythm; No JVD; S1 and S2 Gastrointestinal: No soft; round, audible bowel sounds Rectal: deferred Extremities: no lower extremity edema bilateral Neurologic/Psychiatric: other (moves all extremities; did not manipulate right leg, visibly shorter than left leg) Skin: No rash, No ulcerations Data Review Labs Laboratory Tests 09/09/18 12:05: White Blood Count 8.2, Red Blood Count 4.56, Hemoglobin 13.8, Hematocrit 43, Mean Corpuscular Volume 93, Mean Corpuscular Hemoglobin 30, Mean Corpuscular Hemoglobin Concent 32, Red Cell Distribution Width 15.2H, Platelet Count 276, Mean Platelet Volume 9.2, Neutrophils (%) (Auto) 86H, Lymphocytes (%) (Auto) 5L , Monocytes (%) (Auto) 9, Eosinophils (%) (Auto) 0, Basophils (%) (Auto) 0, Neutrophils # (Auto) 7.0, Lymphocytes # (Auto) 0.4L, Monocytes # (Auto) 0.7, Eosinophils # (Auto) 0.0, Basophils # (Auto) 0.0, Neutrophils % (Manual) 84, Lymphocytes % (Manual) 4, Monocytes % (Manual) 7, Eosinophils % (Manual) 0, Basophils % (Manual) 0, Band Neutrophils 3, Reactive Lymphocytes 2, Blood Morphology Comment NORMAL, Prothrombin Time 16.2H, INR Comment 1.3, Activated Partial Thromboplast Time 34, Sodium Level 132L, Potassium Level 4.6, Chloride Level 88L, Carbon Dioxide Level 29, Anion Gap 15H, Blood Urea Nitrogen 30H, Creatinine 2.20H, Estimat Glomerular Filtration Rate 23, BUN/Creatinine Ratio 14 , Glucose Level 139H, Lactic Acid Level 2.12*H, Calcium Level 9.5, Corrected Calcium 9.3, Total Bilirubin 1.0, Aspartate Amino Transf (AST/SGOT) 29, Alanine Aminotransferase (ALT/SGPT) 9, Alkaline Phosphatase 67, Total Protein 7.9, Albumin 4.3 09/09/18 12:20: Blood Gas Puncture Site RR, Blood Gas Patient Temperature 98, Arterial Blood pH 7.41, Arterial Blood Partial Pressure CO2 49H, Arterial Blood Partial Pressure O2 73L, Arterial Blood HCO3 30H, Arterial Blood Total CO2 31.7H, Arterial Blood Oxygen Saturation 95, Arterial Blood Base Excess 5.6H, Stephan Test YES-POS, Blood Gas Ventilator Setting NO, Blood Gas Inspired Oxygen 15 09/09/18 13:45: Lactic Acid Level 0.99 09/09/18 13:55: Urine Color YELLOW, Urine Clarity VERY CLOUDYH, Urine pH 5, Urine Specific [place] 1.025H, Urine Protein 2+H, Urine Glucose (UA) NEGATIVE, Urine Ketones NEGATIVE, Urine Nitrite NEGATIVE, Urine Bilirubin NEGATIVE, Urine Urobilinogen NORMAL, Urine Leukocyte Esterase 1+H, Urine RBC (Auto) 2+H, Urine RBC 0-2, Urine WBC RARE, Urine Squamous Epithelial Cells 2-5, Urine Crystals NONE, Urine Amorphous Sediment FEW HILARY URATESH, Urine Bacteria NEGATIVE, Urine Casts PRESENT, Urine Hyaline Casts 2-5H, Urine Mucus NEGATIVE, Urine Culture Indicated CULTURE PENDING 09/09/18 18:53: Urine Color AMBERH, Urine Clarity SLIGHTLY CLOUDY, Urine pH 5, Urine Specific [place] 1.020, Urine Protein 2+H, Urine Glucose (UA) 2+H, Urine Ketones 1+H, Urine Nitrite NEGATIVE, Urine Bilirubin NEGATIVE, Urine Urobilinogen NORMAL, Urine Leukocyte Esterase 1+H, Urine RBC (Auto) 4+H, Urine RBC 2-5H, Urine WBC RARE, Urine Crystals PRESENTH, Urine Uric Acid Crystals LARGEH, Urine Bacteria NEGATIVE, Urine Casts NONE, Urine Mucus NEGATIVE, Urine Culture Indicated NO 09/10/18 03:45: White Blood Count 6.0, Red Blood Count 3.82L, Hemoglobin 11.8, Hematocrit 36, Mean Corpuscular Volume 94, Mean Corpuscular Hemoglobin 31, Mean Corpuscular Hemoglobin Concent 33, Red Cell Distribution Width 15.2H, Platelet Count 230, Mean Platelet Volume 8.9, Neutrophils (%) (Auto) 95H, Lymphocytes (%) (Auto) 4L , Monocytes (%) (Auto) 2, Eosinophils (%) (Auto) 0, Basophils (%) (Auto) 0, Neutrophils # (Auto) 5.7, Lymphocytes # (Auto) 0.2L, Monocytes # (Auto) 0.1, Eosinophils # (Auto) 0.0, Basophils # (Auto) 0.0, Sodium Level 132L, Potassium Level 4.0, Chloride Level 94L, Carbon Dioxide Level 23, Anion Gap 15H, Blood Urea Nitrogen 24H, Creatinine 1.27, Estimat Glomerular Filtration Rate 44, BUN/ Creatinine Ratio 19, Glucose Level 189H, Calcium Level 8.2L, Corrected Calcium 8.5, Phosphorus Level 2.5, Magnesium Level 1.4L, Total Bilirubin 0.6, Aspartate Amino Transf (AST/SGOT) 21, Alanine Aminotransferase (ALT/SGPT) 10, Alkaline Phosphatase 56, Total Protein 6.4, Albumin 3.6 Radiology NAME: FAN EATON [facility] REC#: [id number] PT STATUS: REG ER : 1960 PHYSICIAN: JIMENA CANTU MD ADMIT DATE: 09/09/18/ER Draft Date of Exam:09/09/18 PELVIS WITH RIGHT HIP 2-3VIEWS INDICATION: Fall and right hip pain. TIME OF EXAM: 01:06 p.m. An AP view of pelvis and two views of the right hip were obtained. Femoral acetabular alignment is normal. There appears to be foreshortening of the right femoral neck, suggestive of a fracture. Left femoral neck is intact. Rami are unremarkable. SI joints and symphysis are not widened. IMPRESSION: There appears to be some foreshortening of the right femoral neck suspicious for fracture. No dislocation is seen. CT of the right hip may be useful for further evaluation if clinically indicated. Dictated on workstation # [id number] Dict: 09/09/18 1255 Trans: 09/09/18 1301 [facility] [id number] Interpreted by: MERT PRESSLEY MD Electronically signed by: NAME: FAN EATON [facility] REC#: [id number] PT STATUS: REG ER : 1960 PHYSICIAN: JIMENA CANTU MD ADMIT DATE: 09/09/18/ER Draft Date of Exam:09/09/18 CT HEAD WO PROCEDURE: CT head without contrast. TECHNIQUE: Multiple contiguous axial images were obtained through the brain without the use of intravenous contrast. INDICATION: Fall. COMPARISON: Comparison is made with prior head CT from 05/26/2014. FINDINGS: The ventricles and sulci are within normal limits. No sulcal effacement is seen. There is no midline shift. No acute intra-axial or extra-axial hemorrhage is detected. Cisterns are patent. Visualized paranasal sinuses demonstrate some mucosal thickening of bilateral maxillary sinuses. IMPRESSION: No acute intracranial process is detected. Dictated on workstation # [id number] Dict: 09/09/18 1254 Trans: 09/09/18 1257 [id number] Interpreted by: MERT PRESSLEY MD Electronically signed by: NAME: GRANT EATONNDA [facility] [employer] REC#: [id number] PT STATUS: REG ER : 1960 PHYSICIAN: JIMENA CANTU MD ADMIT DATE: 09/09/18/ER Draft Date of Exam:09/09/18 CHEST 1 VIEW, AP/PA ONLY INDICATION: Fall. TIME OF EXAM: 01:04 p.m. Comparison is made with prior chest from 04/14/2018. Heart is enlarged. The lungs appear to be clear. No infiltrate or effusion is seen. There is no pneumothorax. There is a stent overlying the medial aspect of the left lower neck. IMPRESSION: Cardiomegaly. No acute feature is detected. Dictated on workstation # [id number] Dict: 09/09/18 1253 Trans: 09/09/18 1257 [facility] [id number] Interpreted by: MERT PRESSLEY MD Electronically signed by: NAME: GRANT EATONNDA [employer] [facility] REC#: [id number] PT STATUS: REG ER : 1960 PHYSICIAN: JIMENA CANTU MD ADMIT DATE: 09/09/18/ER Draft Date of Exam:09/09/18 CT EXTREMITY LOWER RIGHT WO PROCEDURE: CT right lower extremity without contrast. TECHNIQUE: Axially acquired CT was obtained through the right lower extremity without intravenous contrast. Coronal and sagittal reformations were also performed. INDICATION: Right hip pain and followup right hip x-ray. COMPARISON: Correlation is made with right hip radiograph from earlier same day. FINDINGS: Femoroacetabular alignment is normal. There appear to be some dysplastic changes to the right hip, likely accounting for the radiographic abnormality. There appears to be poor coverage of the femoral head by the acetabulum, consistent with some acetabular dysplasia. There is some slight foreshortening of the femoral neck. There are some degenerative changes identified at the femoral head neck junction. Femoral head and neck are intact. Intertrochanteric region is intact. No acute fracture lines are seen. The right-sided superior and inferior pubic rami appear to be intact. IMPRESSION: Right hip dysplasia. No acute hip fracture is detected. Dictated on workstation # [id number] Dict: 09/09/18 1513 Trans: 09/09/18 1521 [id number] Interpreted by: MERT PRESSLEY MD Electronically signed by: A/P-Cardiology Assessment/Admission Diagnosis S/P fall resulting in right hip pain - possible fx/displacement Hypoxia multi-factorial - acute exacerbation of COPD, obesity-hypoventilation syndrome, non-compliance with supplemental oxygen UTI with possible sepsis- management per medical services Acute renal insufficiency Acute on chronic exacerbation of COPD Syncopal episodes likely d/t orthostatic hypotension per ortho v/s of 09-08-17 ILR transmissions reviewed from Sep 07 and 2018 do not show any pauses, bradycardia Orthostatic hypotension likely d/t medications - antihypertensives discontinued at time of office visit on 09-08-18 Exertional dyspnea - chronic and unchanged This study is indicative of inferior wall myocardial infarction with minimal kenny-infarct ischemia. Inferior hypokinesis to akinesis. Left ventricular ejection fraction is calculated to be 40%. Per MPI of 09-07-18, which is consistent with known coronary disease COPD Obesity with prob obesity-hypovent syndrome; has nocturnal hypoxemia, but has not had sleep studies done. This is followed by Dr Rosen Carotid arterial disease. CTA of the neck on 01-29-16 showed roughly 85%, severe stenosis of the distal left CCA with irregular atherosclerotic plaques and also concern for dissection in the region. Complete occlusion of the cervical right ICA beginning at the right ICA bulb region. and severe stenosis of R vertebral artery. Since then, on 05/16/16, she has had left common carotid artery stenting by Romeo Wall and . Last carotid u/s of 08/22/16 at [facility] [place] showed patent L CCA stent, and 60-79% stenosis past the stent (maikel past stent was 289 cm/sec); mild plaque in L ICA; occluded FRANDY CAD- 70-80% in-stent restenosis in the mid RCA to which successful balloon angioplasty was carried out with Emerge 3.5 x 12 mm balloon to reduce the stenosis to less than 10% residual. The rest of the coronary vessels have diffuse mod disease. LVEF 35-40%. Posterobasal, diaphragmatic, and apical akinesis of the LV. Elevated LVEDP. No significant MR per cardiac cath of 05-19 Echocardiogram from September 16, 2016 showed LVEF 45-50%, mod MR, mild TR. Aortic valve slcerosis with a peak pressure gradient across the aortic valve of approx 24mmHg and a valve area of approx 1.4cm sq, indicating mild aortic stenosis Intolerant to beta anita d/t reported symptomatic hypotension HLP - statin therapy Chronic joint pain Chronic tobacco use - cessation advised Anxiety disorder, being followed by Lo [facility] DM II Generalized malaise REEMA ESPINAL Sep 09, 2018 15:32
--- NOTE | 2018-09-09 15:51 | NUR ---
[employer] CONTACTED FOR BED.
--- NOTE | 2018-09-09 15:51 | NUR ---
PT NOTIFIED THAT WE WERE WORKING ON GETTING HER A ROOM. DENIES NEEDS AT THIS TIME.
--- NOTE | 2018-09-09 16:09 | NUR ---
ATTEMPT TO CALL REPORT ET NURSE TO CALL ME BACK WHEN AVAILABLE.
--- OUTSIDE RECORDS SUMMARY | 2018-09-09 16:18 | XMS REPORT | Continuity of Care Document ---
Author Author [facility] Address Unknown Phone Unavailable Allergies [...] N/A 05/05/2014 Yes No Known Drug Allergies [id number] Drug Allergy Unknown N/A 04/07/2018 Medications There [...] CORONARY ATHEROSCLEROSIS OF UNSPECIFIED TYPE OF VESSEL LOWER BRULE OR GRAFT 12/27/2012 477.9 RHINITIS 12/27/2012 714.0 [...] CORONARY ATHEROSCLEROSIS OF UNSPECIFIED TYPE OF VESSEL LOWER BRULE OR GRAFT 12/27/2012 ARNIE YOO MD 477.9 RHINITIS 12/27/2012 ARNIE YOO MD 714.0 RHEUMATOID ARTHRITIS 12/27/2012 ARNIE YOO MD 729.1 MYALGIA AND MYOSITIS UNSPECIFIED 12/27/2012 RANIE YOO MD 780.52 INSOMNIA UNSPECIFIED 12/27/2012 ARNIE [...] CORONARY ATHEROSCLEROSIS OF UNSPECIFIED TYPE OF VESSEL LOWER BRULE OR GRAFT 12/27/2012 KATIE BELTRAN DO 477.9 [...] CORONARY ATHEROSCLEROSIS OF UNSPECIFIED TYPE OF VESSEL LOWER BRULE OR GRAFT 12/27/2012 BELTRAN DO KATIE K [...] CORONARY ATHEROSCLEROSIS OF UNSPECIFIED TYPE OF VESSEL LOWER BRULE OR GRAFT 12/27/2012 BELTRAN DO KATIE K [...] FACP CCDS Ot 414.01 CORONARY ATHEROSCLEROSIS OF LOWER BRULE CORON 02/10/2014 MIRIAM WILSON FACC, RUDI FACP [...] KATIE K Ot 414.01 CORONARY ATHEROSCLEROSIS OF LOWER BRULE CORON 04/21/2014 RUBY BRENNAN KATIE K Ot [...] TYPE II OR UNSPEC TY 05/25/2014 MIRIAM WLISON FACC, ALI FACP CCDS Ot 272.4 HYPERLIPIDEMIA NEC/NOS 05/25/2014 MIRIAM WILSON FACC, ALI FACP CCDS Ot 300.00 ANXIETY STATE NOS 05/25/2014 MIRIAM WILSON FACC, ALI FACP CCDS Ot 305.1 TOBACCO USE DISORDER 05/25/2014 MIRIAM WILSON FACC, ALI FACP CCDS Ot 305.20 CANNABIS ABUSE-UNSPEC 05/25/2014 MIRIAM WILSON FACC, ALI FACP CCDS Ot 414.01 CORONARY ATHEROSCLEROSIS OF LOWER BRULE CORON 05/25/2014 MIRIAM WILSON FACC, RUDI FACP [...] LIDIA Cohen Ot 414.01 CORONARY ATHEROSCLEROSIS OF LOWER BRULE CORON 06/02/2014 KILLIAN WILSON, LIDIA Cohen Ot [...] OLIVERA DO Ot 785.6 09/12/2014 KAREN LEON PERSONAL BANKER Ot 275.2 09/12/2014 KAREN LEON PERSONAL BANKER Ot 276.8 09/12/2014 KILLIAN WILSON, LIDIA Cohen [...] NOS 11/02/2014 Ot 414.01 CORONARY ATHEROSCLEROSIS OF LOWER BRULE CORON 11/02/2014 Ot 433.10 CAROTID ARTERY OCCLUSION W O CEREBRAL IN 11/02/2014 Ot 496 CHR AIRWAY OBSTRUCT NEC 11/02/2014 Ot V45.82 PERCUTANEOUS TRANSLUM CORON ANGIOPLASTY 11/16/2014 Ot 433.10 11/16/2014 Ot V72.63 11/16/2014 Ot V74.8 04/02/2015 KAREN LEON PERSONAL BANKER Ot 275.2 04/02/2015 KAREN LEON PERSONAL BANKER Ot 276.8 04/02/2015 KILLIAN WILSON, LIDIA S Ot 433.10 04/02/2015 KILLIAN WILSON, LIDIA S Ot V72.63 04/02/2015 KILLIAN WILSON, LIDIA S Ot V74.8 04/02/2015 KILLIAN WILSON, LIDIA S Ot 433.10 04/02/2015 KILLIAN WILSON, LIDIA S Ot 780.4 04/02/2015 MIRIAM WILSON FAC, RUDI [facility] CCDS Ot 414.9 04/02/2015 JOSELIN BRENNANKANE Ot [...] 724.8 OTHER BACK SYMPTOMS 12/10/2015 KAREN LEON PERSONAL BANKER Ot 275.2 DIS MAGNESIUM METABOLISM 12/10/2015 KAREN LEON PERSONAL BANKER Ot 276.8 HYPOPOTASSEMIA 12/10/2015 KILLIAN WILSON, LIDIA [...] CCDS Ot I25.10 ATHSCL HEART DISEASE OF LOWER BRULE CORONARY 12/11/2015 MIRIAM WILSON FACC, ALI FACP CCDS Ot I65.23 OCCLUSION AND STENOSIS OF BILATERAL CHUN 12/11/2015 MIRIAM WILSON FACC, ALI FACP CCDS Ot Z72.0 TOBACCO USE 12/26/2015 MIRIAM WILSON FACC, ALI FACP CCDS Ot E78.4 OTHER HYPERLIPIDEMIA 12/26/2015 MIRIAM WILSON FACC, ALI FACP CCDS Ot I10 ESSENTIAL (PRIMARY) HYPERTENSION 12/26/2015 MIRIAM IWLSON FACC, ALI FACP CCDS Ot I25.10 ATHSCL HEART DISEASE OF LOWER BRULE CORONARY 12/26/2015 MIRIAM WILSON FACC, ALI FACP CCDS Ot I65.23 OCCLUSION AND STENOSIS OF BILATERAL CHUN 12/26/2015 MIRIAM WILSON FACC, RUDI FACP CCDS Ot Z72.0 TOBACCO USE 01/28/2016 KAREN LEON PERSONAL BANKER Ot 275.2 DIS MAGNESIUM METABOLISM 01/28/2016 KAREN LEON PERSONAL BANKER Ot 276.8 HYPOPOTASSEMIA 01/28/2016 LIDIA DAILY MD [...] CCDS Ot I25.10 ATHSCL HEART DISEASE OF LOWER BRULE CORONARY 01/28/2016 MIRIAM WILSON FACC, ALI FACP CCDS Ot I65.23 OCCLUSION AND STENOSIS OF BILATERAL CHUN 01/28/2016 MIRIAM WILSON FACC, ALI FACP CCDS Ot Z72.0 TOBACCO USE 01/31/2016 MIRIAM WILSON FACC, ALI FACP CCDS Ot E78.4 OTHER HYPERLIPIDEMIA 01/31/2016 MIRIAM WILSON FACC, ALI FACP CCDS Ot I10 ESSENTIAL (PRIMARY) HYPERTENSION 01/31/2016 MIRIAM WILSON FACC, ALI FACP CCDS Ot I25.10 ATHSCL HEART DISEASE OF LOWER BRULE CORONARY 01/31/2016 MIRIAM GATES, ALI FACP CCDS [...] CCDS Ot I25.10 ATHSCL HEART DISEASE OF LOWER BRULE CORONARY 02/15/2016 MIRIAM WILSON FACC, ALI FACP CCDS Ot I65.23 OCCLUSION AND STENOSIS OF BILATERAL CHUN 02/15/2016 MIRIAM WILSON FACC, ALI FACP CCDS Ot J43.8 OTHER EMPHYSEMA 02/15/2016 MIRIAM WILSON FACC, ALI FACP CCDS Ot Z72.0 TOBACCO USE 04/25/2016 KAREN LEON PERSONAL BANKER Ot 275.2 DIS MAGNESIUM METABOLISM 04/25/2016 KAREN LEON PERSONAL BANKER Ot 276.8 HYPOPOTASSEMIA 04/25/2016 LIDIA DAILY MD [...] CCDS Ot I25.10 ATHSCL HEART DISEASE OF LOWER BRULE CORONARY 04/25/2016 MIRIAM WILSON FACC, RUDI FACP CCDS Ot I65.23 OCCLUSION AND STENOSIS OF BILATERAL CHUN 04/25/2016 MIRIAM WILSON FACC, RUDI FACP CCDS Ot Z72.0 TOBACCO USE 04/25/2016 MIRIAM WILSON FACC, RUDI FACP CCDS Ot E78.4 OTHER HYPERLIPIDEMIA 04/25/2016 MIRIAM WILSON FACC, RUDI FACP CCDS Ot I10 ESSENTIAL (PRIMARY) HYPERTENSION 04/25/2016 MIRIAM WILSON [facility], RUDI [facility] CCDS Ot I25.10 ATHSCL HEART DISEASE OF LOWER BRULE CORONARY 04/25/2016 MIRIAM WILSON FACC, [facility] CCDS Ot I65.23 OCCLUSION AND STENOSIS OF BILATERAL CHUN 04/25/2016 MIRIAM WILSON FACC, [facility] CCDS Ot J43.8 OTHER EMPHYSEMA 04/25/2016 MIRIAM WILSON [facility], [facility] CCDS Ot Z72.0 TOBACCO USE 05/01/2016 VIVEKISABELA ANN ROTARY PLANER SET UP OPERATOR Ot J30.9 ALLERGIC RHINITIS, UNSPECIFIED 05/01/2016 VIVEKISABELA ROTARY PLANER SET UP OPERATOR Ot J44.9 CHRONIC OBSTRUCTIVE PULMONARY DISEASE, U 05/01/2016 VIVEKISABELA ANN ROTARY PLANER SET UP OPERATOR Ot Z72.0 TOBACCO USE 05/08/2016 VIVEKISABELA ROTARY PLANER SET UP OPERATOR Ot J30.9 ALLERGIC RHINITIS, UNSPECIFIED 05/08/2016 VIVEKISABELA ANN ROTARY PLANER SET UP OPERATOR Ot J44.9 CHRONIC OBSTRUCTIVE PULMONARY DISEASE, U 05/08/2016 VIVEKISABELA ANN ROTARY PLANER SET UP OPERATOR Ot Z72.0 TOBACCO USE 09/11/2016 KAREN LEON PERSONAL BANKER Ot 275.2 DIS MAGNESIUM METABOLISM 09/11/2016 KAREN LEON PERSONAL BANKER Ot 276.8 HYPOPOTASSEMIA 09/11/2016 LIDIA DAILY MD Ot 433.10 CAROTID ARTERY OCCLUSION W O CEREBRAL IN 09/11/2016 LIDIA DAILY MD Ot V72.63 PRE-PROCEDURAL LABORATORY EXAMINATION 09/11/2016 LIDIA DAILY MD Ot V74.8 SCREEN-BACTERIAL DIS NEC 09/11/2016 LIDIA DAILY MD Ot 433.10 CAROTID ARTERY OCCLUSION W O CEREBRAL IN 09/11/2016 LIDIA DAILY MD Ot 780.4 DIZZINESS AND GIDDINESS 09/11/2016 MIRIAM WILSON [facility], [facility] FAC CCDS Ot 414.9 CHR ISCHEMIC [...] CCDS Ot I25.10 ATHSCL HEART DISEASE OF LOWER BRULE CORONARY 09/11/2016 MIRIAM WILSON FACC, RUDI FACP CCDS Ot I65.23 OCCLUSION AND STENOSIS OF BILATERAL CHUN 09/11/2016 MIRIAM WILSON FACC, RUDI FACP CCDS Ot Z72.0 TOBACCO USE 09/11/2016 MIRIAM WILSON FACC, RUDI FACP CCDS Ot E78.4 OTHER HYPERLIPIDEMIA 09/11/2016 MIRIAM WILSON FACC, RUDI FACP CCDS Ot I10 ESSENTIAL (PRIMARY) HYPERTENSION 09/11/2016 MIRIAM WILSON FACC, RUDI FACP CCDS Ot I25.10 ATHSCL HEART DISEASE OF LOWER BRULE CORONARY 09/11/2016 MIRIAM WILSON FACC, RUDI [facility] CCDS Ot I65.23 OCCLUSION AND STENOSIS OF BILATERAL CHUN 09/11/2016 MIRIAM WILSON [facility], RUDI [facility] CCDS Ot J43.8 OTHER EMPHYSEMA 09/11/2016 MIRIAM WILSON [facility], [facility] CCDS Ot Z72.0 TOBACCO USE 09/16/2016 LEONKAREN PERSONAL BANKER Ot 275.2 DIS MAGNESIUM METABOLISM 09/16/2016 KAREN LEON PERSONAL BANKER Ot 276.8 HYPOPOTASSEMIA 09/16/2016 KILLIAN WILSON, LIDIA Cohen Ot 433.10 CAROTID ARTERY OCCLUSION W O CEREBRAL IN 09/16/2016 LIDIA DAILY MD Ot V72.63 PRE-PROCEDURAL LABORATORY EXAMINATION 09/16/2016 LIDIA DAILY MD Ot V74.8 SCREEN-BACTERIAL DIS NEC 09/16/2016 LIDIA DAILY MD Ot 433.10 CAROTID ARTERY OCCLUSION W O CEREBRAL IN 09/16/2016 LIDIA DAILY MD Ot 780.4 DIZZINESS AND GIDDINESS 09/16/2016 MIRIAM WILSON [facility], RUDI [facility] CCDS Ot 414.9 CHR ISCHEMIC HRT DIS [...] DO Ot 785.6 ENLARGEMENT LYMPH NODES 09/16/2016 KNAE OLIVERA DO Ot 278.00 OBESITY, NOS 09/16/2016 KANE LOIVERA DO Ot 300.01 PANIC DISORDER WITHOUT AGORAPHOBIA [...] CCDS Ot I25.10 ATHSCL HEART DISEASE OF LOWER BRULE CORONARY 09/16/2016 MIRIAM WILSON FACC, ALI FACP CCDS Ot I65.23 OCCLUSION AND STENOSIS OF BILATERAL CHUN 09/16/2016 MIRIAM GATESC, ALI FACP CCDS Ot Z72.0 TOBACCO USE 09/16/2016 MIRIAM GATESC, ALI FACP CCDS Ot E78.4 OTHER HYPERLIPIDEMIA 09/16/2016 MIRIAM WILSON FACC, ALI FACP CCDS Ot I10 ESSENTIAL (PRIMARY) HYPERTENSION 09/16/2016 MIRIAM WILSON FACC, ALI FACP CCDS Ot I25.10 ATHSCL HEART DISEASE OF LOWER BRU[place] CORONARY 09/16/2016 MIRIAM WILSON FACC, ALI FACP [...] 785.6 ENLARGEMENT LYMPH NODES 09/17/2016 REEMA ESPINAL PERSONAL BANKER Ot E78.4 OTHER HYPERLIPIDEMIA 09/17/2016 BAIMA, REEMA L PERSONAL BANKER Ot I25.10 ATHSCL HEART DISEASE OF LOWER BRULE CORONARY 09/17/2016 BAIMA, REEMA L PERSONAL BANKER Ot I65.23 OCCLUSION AND STENOSIS OF BILATERAL CHUN 09/17/2016 BAIMA, REEMA L PERSONAL BANKER Ot R06.09 OTHER FORMS OF DYSPNEA 09/17/2016 BAIMA, REEMA L PERSONAL BANKER Ot Z86.79 PERSONAL HISTORY OF OTHER DISEASES OF 09/17/2016 BAIMA, REEMA L PERSONAL BANKER Ot E78.4 OTHER HYPERLIPIDEMIA 09/17/2016 BAIMA, REEMA L PERSONAL BANKER Ot I25.10 ATHSCL HEART DISEASE OF LOWER [place] CORONARY 09/17/2016 BAIMA, REEMA L PERSONAL BANKER Ot I65.23 OCCLUSION AND STENOSIS OF BILATERAL CHUN 09/17/2016 BAIMA, REEMA L PERSONAL BANKER Ot R06.09 OTHER FORMS OF DYSPNEA 09/17/2016 BAIMA, REEMA L PERSONAL BANKER Ot Z86.79 PERSONAL HISTORY OF OTHER DISEASES OF 09/17/2016 BAIMA, REEMA L PERSONAL BANKER Ot E78.4 OTHER HYPERLIPIDEMIA 09/17/2016 BAIMA, REEMA L PERSONAL BANKER Ot I25.10 ATHSCL HEART DISEASE OF LOWER BRU[place] CORONARY 09/17/2016 BAIMA, REEMA L PERSONAL BANKER Ot I65.23 OCCLUSION AND STENOSIS OF BILATERAL CHUN 09/17/2016 BAIMA, REEMA L PERSONAL BANKER Ot R06.09 OTHER FORMS OF DYSPNEA 09/17/2016 BAIMA REEMA L PERSONAL BANKER Ot Z86.79 PERSONAL HISTORY OF OTHER DISEASES OF 09/17/2016 BAIMA, REEMA L PERSONAL BANKER Ot E78.4 OTHER HYPERLIPIDEMIA 09/17/2016 BAIMA, REEMA L PERSONAL BANKER Ot I25.10 ATHSCL HEART DISEASE OF LOWER BRU[place] CORONARY 09/17/2016 BAIMA, REEMA L PERSONAL BANKER Ot I65.23 OCCLUSION AND STENOSIS OF BILATERAL CHUN 09/17/2016 BAIMA, REEMA L PERSONAL BANKER Ot R06.09 OTHER FORMS OF DYSPNEA 09/17/2016 BAIMA, REEMA L PERSONAL BANKER Ot Z86.79 PERSONAL HISTORY OF OTHER DISEASES OF 09/24/2016 BAIMA, REEMA L PERSONAL BANKER Ot E78.4 OTHER HYPERLIPIDEMIA 09/24/2016 BAIMA, REEMA L PERSONAL BANKER Ot I25.10 ATHSCL HEART DISEASE OF LOWER [place] CORONARY 09/24/2016 BAIMA, REEMA L PERSONAL BANKER Ot I65.23 OCCLUSION AND STENOSIS OF BILATERAL CHUN 09/24/2016 TEDDY REEMA Vora PERSONAL BANKER Ot R06.09 OTHER FORMS OF DYSPNEA 09/24/2016 TEDDY REEMA Diony PERSONAL BANKER Ot Z86.79 PERSONAL HISTORY OF OTHER DISEASES OF 09/29/2016 KANE OLIVERA DO Ot 305.1 TOBACCO USE DISORDER 09/29/2016 KANE OLIVERA DO Ot 496 CHR AIRWAY OBSTRUCT NEC 09/29/2016 KANE OLIVERA DO Ot 553.3 DIAPHRAGMATIC HERNIA 09/29/2016 KANE OLIVERA DO Ot 785.6 ENLARGEMENT LYMPH NODES 09/29/2016 TEDDY REEMA Diony PERSONAL BANKER Ot E78.4 OTHER HYPERLIPIDEMIA 09/29/2016 REEMA ESPINAL PERSONAL BANKER Ot I25.10 ATHSCL HEART DISEASE OF LOWER [place] CORONARY 09/29/2016 REEMA ESPINAL PERSONAL BANKER Ot I65.23 OCCLUSION AND STENOSIS OF BILATERAL CHUN 09/29/2016 REEMA ESPINAL PERSONAL BANKER Ot R06.09 OTHER FORMS OF DYSPNEA 09/29/2016 REEMA ESPINAL PERSONAL BANKER Ot Z86.79 PERSONAL HISTORY OF OTHER DISEASES [...] LE Ot I25.10 ATHSCL HEART DISEASE OF LOWER [place] CORONARY 02/03/2017 KENNEDI LE Ot J44.1 CHRONIC OBSTRUCTIVE PULMONARY DISEASE W 02/03/2017 KENNEDI LE Ot R06.02 SHORTNESS OF BREATH 02/03/2017 KENNEDI LE Ot Z79.82 FITTING ROOM INSPECTOR (CURRENT) USE OF ASPIRIN 02/03/2017 KENNEDI LE Ot Z95.5 PRESENCE OF CORONARY ANGIOPLASTY IMPLANT 02/05/2017 KENNEDI LE Ot E11.9 TYPE 2 DIABETES MELLITUS WITHOUT COMPLIC 02/05/2017 KENNEDI LE Ot E78.00 PURE HYPERCHOLESTEROLEMIA, UNSPECIFIED 02/05/2017 KENNEDI LE Ot F17.210 NICOTINE DEPENDENCE, CIGARETTES, UNCOMPL 02/05/2017 KENNEDI LE Ot I10 ESSENTIAL (PRIMARY) HYPERTENSION 02/05/2017 KENNEDI LE Ot I25.10 ATHSCL HEART DISEASE OF LOWER [place] CORONARY 02/05/2017 KENNEDI LE Ot J44.1 CHRONIC OBSTRUCTIVE PULMONARY DISEASE W 02/05/2017 KENNEDI LE Ot R06.02 SHORTNESS OF BREATH 02/05/2017 KENNEDI LE Ot Z79.82 CORRECTION (CURRENT) USE OF ASPIRIN 02/05/2017 KENNEDI LE Ot Z95.5 PRESENCE OF CORONARY ANGIOPLASTY IMPLANT 03/04/2017 REEMA ESPINAL L PERSONAL BANKER Ot E78.4 OTHER HYPERLIPIDEMIA 03/04/2017 BAIVERÓNICA REEMA L PERSONAL BANKER Ot I25.10 ATHSCL HEART DISEASE OF LOWER [place] CORONARY 03/04/2017 BAIVERÓNICA REEMA L PERSONAL BANKER Ot I65.23 OCCLUSION AND STENOSIS OF BILATERAL CHUN 03/04/2017 BAIMA REEMA L PERSONAL BANKER Ot R06.09 OTHER FORMS OF DYSPNEA 03/04/2017 REEMA ESPINAL PERSONAL BANKER Ot Z86.79 PERSONAL HISTORY OF OTHER DISEASES OF TH 05/06/2017 MIRIAM WILSON FACC, ALI FACP CCDS Ot E78.4 OTHER HYPERLIPIDEMIA 05/06/2017 MIRIAM WILSON FACC, ALI FACP CCDS Ot I10 ESSENTIAL (PRIMARY) HYPERTENSION 05/06/2017 MIRIAM WILSON FACC, ALI FACP CCDS Ot I25.10 ATHSCL HEART DISEASE OF LOWER [place] CORONARY 05/06/2017 MIRIAM WILSON FACC, ALI FACP [...] CCDS Ot I25.10 ATHSCL HEART DISEASE OF LOWER [place] CORONARY 05/20/2017 MIRIAM WILSON FACC, ALI FACP [...] FACC, ALI FACP CCDS Ot Z79.899 OTHER FITTING ROOM INSPECTOR (CURRENT) DRUG THERAPY 05/26/2017 MIRIAM WILSON FACC, ALI FACP CCDS Ot E78.4 OTHER HYPERLIPIDEMIA 05/26/2017 MIRIAM WILSNO FACC, ALI FACP CCDS Ot I10 ESSENTIAL (PRIMARY) HYPERTENSION 05/26/2017 MIRIAM WILSON FACC, ALI FACP CCDS Ot I25.10 ATHSCL HEART DISEASE OF LOWER [place] CORONARY 05/26/2017 MIRIAM WILSON FACC, ALI FACP [...] CCDS Ot I25.10 ATHSCL HEART DISEASE OF LOWER [place] CORONARY 05/27/2017 MIRIAM WILSON FACC, ALI FACP [...] FACC, ALI FACP CCDS Ot Z79.899 OTHER CORRECTION (CURRENT) DRUG THERAPY 06/03/2017 MIRIAM WILSON FACC, ALI FACP CCDS Ot E78.4 OTHER HYPERLIPIDEMIA 06/03/2017 MIRIAM WILSON FACC, ALI FACP CCDS Ot I10 ESSENTIAL (PRIMARY) HYPERTENSION 06/03/2017 MIRIAM WILSON FACC, ALI FACP CCDS Ot I25.10 ATHSCL HEART DISEASE OF LOWER [place] CORONARY 06/03/2017 MIRIAM WILSON FACC, ALI FACP [...] CCDS Ot I25.10 ATHSCL HEART DISEASE OF LOWER [place] CORONARY 06/03/2017 MIRIAM WILSON FACC, ALI FACP [...] FACC, RUDI FACP CCDS Ot Z79.899 OTHER CORRECTION (CURRENT) DRUG THERAPY 07/15/2017 TEDDY REEMA L PERSONAL BANKER Ot E78.4 OTHER HYPERLIPIDEMIA 07/15/2017 JULIMA, REEMA L PERSONAL BANKER Ot I25.10 ATHSCL HEART DISEASE OF LOWER [place] CORONARY 07/15/2017 BAIMA REEMA L PERSONAL BANKER Ot I65.23 OCCLUSION AND STENOSIS OF BILATERAL CHUN 07/15/2017 BAIMA, REEMA L PERSONAL BANKER Ot R06.09 OTHER FORMS OF DYSPNEA 07/15/2017 JULIMA REEMA L PERSONAL BANKER Ot Z86.79 PERSONAL HISTORY OF OTHER DISEASES OF TH 07/23/2017 JULIMA REEMA L PERSONAL BANKER Ot E78.4 OTHER HYPERLIPIDEMIA 07/23/2017 BAIMA, REEMA L PERSONAL BANKER Ot I25.10 ATHSCL HEART DISEASE OF LOWER [place] CORONARY 07/23/2017 BAIMA REEMA L PERSONAL BANKER Ot I65.23 OCCLUSION AND STENOSIS OF BILATERAL CHUN 07/23/2017 BAIMA REEMA L PERSONAL BANKER Ot R06.09 OTHER FORMS OF DYSPNEA 07/23/2017 JULIMA REEMA L PERSONAL BANKER Ot Z86.79 PERSONAL HISTORY OF OTHER DISEASES OF 11/03/2017 ISABELA DOYLE ROTARY PLANER SET UP OPERATOR Ot J44.9 CHRONIC OBSTRUCTIVE PULMONARY DISEASE, U 11/03/2017 ISABELA DOYLE APRN Ot R06.02 SHORTNESS OF BREATH 11/03/2017 ISABELA DOYLE APRN Ot R09.02 HYPOXEMIA 11/03/2017 ISABELA DOYLE ROTARY PLANER SET UP OPERATOR Ot R91.8 OTHER NONSPECIFIC ABNORMAL FINDING OF BETTY 11/03/2017 ISABELA DOYLE ROTARY PLANER SET UP OPERATOR Ot Z72.0 TOBACCO USE 11/03/2017 ISABELA DOYLE ROTARY PLANER SET UP OPERATOR Ot J44.9 CHRONIC OBSTRUCTIVE PULMONARY DISEASE, U 11/03/2017 VIVEK, ISABELA E ROTARY PLANER SET UP OPERATOR Ot R06.02 SHORTNESS OF BREATH 11/03/2017 VIVEKAPRILISABELA Meseret ROTARY PLANER SET UP OPERATOR Ot R09.02 HYPOXEMIA 11/03/2017 VIVEKAPRILISABELA Meseret ROTARY PLANER SET UP OPERATOR Ot R91.8 OTHER NONSPECIFIC ABNORMAL FINDING OF BETTY 11/03/2017 VIVEKAPRIL ANNINE Meseret ROTARY PLANER SET UP OPERATOR Ot Z72.0 TOBACCO USE 11/11/2017 ISABELA DOYLE ROTARY PLANER SET UP OPERATOR Ot R60.9 EDEMA, UNSPECIFIED 11/24/2017 APRIL DOYLEINE Meseret ROTARY PLANER SET UP OPERATOR Ot J44.9 CHRONIC OBSTRUCTIVE PULMONARY DISEASE, U 11/24/2017 ISABELA DOYLE ROTARY PLANER SET UP OPERATOR Ot R06.02 SHORTNESS OF BREATH 11/24/2017 ISABELA DOYLE ROTARY PLANER SET UP OPERATOR Ot R09.02 HYPOXEMIA 11/24/2017 ISABELA DOYLE ROTARY PLANER SET UP OPERATOR Ot R91.8 OTHER NONSPECIFIC ABNORMAL FINDING OF BETTY 11/24/2017 ISABELA DOYLE ROTARY PLANER SET UP OPERATOR Ot Z72.0 TOBACCO USE 12/03/2017 REEMA ESPINAL PERSONAL BANKER Ot E78.4 OTHER HYPERLIPIDEMIA 12/03/2017 REEMA ESPINAL L PERSONAL BANKER Ot I25.10 ATHSCL HEART DISEASE OF LOWER [place] CORONARY 12/03/2017 REEMA ESPINAL L PERSONAL BANKER Ot I65.23 OCCLUSION AND STENOSIS OF BILATERAL CHUN 12/03/2017 REEMA ESPINAL PERSONAL BANKER Ot R06.09 OTHER FORMS OF DYSPNEA 12/03/2017 REEMA ESPINAL L PERSONAL BANKER Ot Z86.79 PERSONAL HISTORY OF OTHER DISEASES OF TH 12/03/2017 MIRIAM WILSON FACC, ALI FACP CCDS Ot E78.4 OTHER HYPERLIPIDEMIA 12/03/2017 MIRIAM WILSON FACC, ALI FACP CCDS Ot I10 ESSENTIAL (PRIMARY) HYPERTENSION 12/03/2017 MIRIAM WILSON FACC, ALI FACP CCDS Ot I25.10 ATHSCL HEART DISEASE OF LOWER [place] CORONARY 12/03/2017 MIRIAM WILSON FACC, ALI FACP [...] APRN Ot R09.02 HYPOXEMIA 12/03/2017 ISABELA DOYLE ROTARY PLANER SET UP OPERATOR Ot R91.8 OTHER NONSPECIFIC ABNORMAL FINDING OF BETTY 12/03/2017 ISABELA DOYLE APRN Ot Z72.0 TOBACCO USE 12/03/2017 ISABELA DOYLE ROTARY PLANER SET UP OPERATOR Ot R60.9 EDEMA, UNSPECIFIED 12/04/2017 ISABELA DOYLE ROTARY PLANER SET UP OPERATOR Ot J90 PLEURAL EFFUSION, NOT ELSEWHERE CLASSIFI 12/04/2017 ISABELA DOYLE ROTARY PLANER SET UP OPERATOR Ot R60.9 EDEMA, UNSPECIFIED 12/04/2017 VIVEKISABELA ANN ROTARY PLANER SET UP OPERATOR Ot J90 PLEURAL EFFUSION, NOT ELSEWHERE CLASSIFI 12/04/2017 ISABELA DOYLE ROTARY PLANER SET UP OPERATOR Ot R60.9 EDEMA, UNSPECIFIED 12/23/2017 ISABELA DOYLE ROTARY PLANER SET UP OPERATOR Ot J90 PLEURAL EFFUSION, NOT ELSEWHERE CLASSIFI 12/23/2017 ISABELA DOYLE ROTARY PLANER SET UP OPERATOR Ot R60.9 EDEMA, UNSPECIFIED 04/07/2018 Ot Z01.818 [...] DO Ot I25.10 ATHSCL HEART DISEASE OF LOWER [place] CORONARY 04/14/2018 KANE OLIVERA DO Ot J30.9 ALLERGIC RHINITIS, UNSPECIFIED 04/14/2018 KANE OLIVERA DO, Ot J44.9 CHRONIC OBSTRUCTIVE PULMONARY DISEASE, U 04/14/2018 KANE OLIVERA DO Ot R09.02 HYPOXEMIA 04/14/2018 KANE OLIVERA DO Ot R59.0 LOCALIZED ENLARGED LYMPH NODES 04/14/2018 KANE OLIVERA DO Ot R91.8 OTHER NONSPECIFIC ABNORMAL FINDING OF BETTY 04/14/2018 KANE OLIVERA DO Ot Z79.82 FITTING ROOM INSPECTOR (CURRENT) USE OF ASPIRIN 04/14/2018 KANE OLIVERA DO Ot Z79.899 OTHER FITTING ROOM INSPECTOR (CURRENT) DRUG THERAPY 04/14/2018 KANE OLIVERA DO [...] DO Ot I25.10 ATHSCL HEART DISEASE OF L[place] CORONARY 04/16/2018 KANE OLIVERA DO, Ot J30.9 ALLERGIC RHINITIS, UNSPECIFIED 04/16/2018 KANE OLIVERA DO, Ot J44.9 CHRONIC OBSTRUCTIVE PULMONARY DISEASE, U 04/16/2018 KANE OLIVERA DO Ot R09.02 HYPOXEMIA 04/16/2018 KANE OLIVERA DO Ot R59.0 LOCALIZED ENLARGED LYMPH NODES 04/16/2018 KANE OLIVERA DO Ot R91.8 OTHER NONSPECIFIC ABNORMAL FINDING OF BETTY 04/16/2018 KANE OLIVERA DO Ot Z79.82 CORRECTION (CURRENT) USE OF ASPIRIN 04/16/2018 KANE OLIVERA DO Ot Z79.899 OTHER CORRECTION (CURRENT) DRUG THERAPY 04/16/2018 KANE OLIVERA DO [...] DO Ot I25.10 ATHSCL HEART DISEASE OF [place] CORONARY 04/20/2018 KANE OLIVERA DO Ot J30.9 ALLERGIC RHINITIS, UNSPECIFIED 04/20/2018 KANE OLIVERA DO Ot J44.9 CHRONIC OBSTRUCTIVE PULMONARY DISEASE, U 04/20/2018 KANE OLIVERA DO Ot R09.02 HYPOXEMIA 04/20/2018 KANE OLIVERA DO Ot R59.0 LOCALIZED ENLARGED LYMPH NODES 04/20/2018 KANE OLIVERA DO Ot R91.8 OTHER NONSPECIFIC ABNORMAL FINDING OF BETTY 04/20/2018 KANE OLIVERA DO Ot Z79.82 CORRECTION (CURRENT) USE OF ASPIRIN 04/20/2018 KANE OLIVERA DO Ot Z79.899 OTHER FITTING ROOM INSPECTOR (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0 LOCALIZED ENLARGED LYMPH NODES 05/13/2018 Ot R91.8 OTHER NONSPECIFIC ABNORMAL FINDING OF BETTY 06/10/2018 ISABELA DOYLE ROTARY PLANER SET UP OPERATOR Ot J90 PLEURAL EFFUSION, NOT ELSEWHERE CLASSIFI 06/10/2018 ISABELA DOYLE ROTARY PLANER SET UP OPERATOR Ot R60.9 EDEMA, UNSPECIFIED 06/10/2018 TEDDY REEMA L PERSONAL BANKER Ot E78.4 OTHER HYPERLIPIDEMIA 06/10/2018 BAIMA, REEMA L PERSONAL BANKER Ot I25.10 ATHSCL HEART DISEASE OF [place] CORONARY 06/10/2018 BAIMA REEMA L PERSONAL BANKER Ot I65.23 OCCLUSION AND STENOSIS OF BILATERAL [place] 06/10/2018 BAIMA REEMA L PERSONAL BANKER Ot R06.09 OTHER FORMS OF DYSPNEA 06/10/2018 BAIMA REEMA L PERSONAL BANKER Ot Z86.79 PERSONAL HISTORY OF OTHER DISEASES OF TH 06/10/2018 MIRIAM WILSON FACC, ALI FACP CCDS Ot E78.4 OTHER HYPERLIPIDEMIA 06/10/2018 MIRIAM WILSON FACC, ALI FACP CCDS Ot I10 ESSENTIAL (PRIMARY) HYPERTENSION 06/10/2018 MIRIAM WILSON FACC, ALI FACP CCDS Ot I25.10 ATHSCL HEART DISEASE OF [place] CORONARY 06/10/2018 MIRIAM WILSON FACC, ALI FACP CCDS Ot I65.23 OCCLUSION AND STENOSIS OF BILATERAL [place] 06/10/2018 MIRIAM WILSON FACC, ALI FACP CCDS Ot J43.8 OTHER EMPHYSEMA 06/10/2018 MIRIAM WILSON FACC, ALI FACP CCDS Ot R06.02 SHORTNESS OF BREATH 06/10/2018 MIRIAM WILSON FACC, ALI FACP CCDS Ot Z72.0 TOBACCO USE 06/10/2018 ISABELA DOYLE ROTARY PLANER SET UP OPERATOR Ot J44.9 CHRONIC OBSTRUCTIVE PULMONARY DISEASE, U 06/10/2018 ISABELA DOYLE ROTARY PLANER SET UP OPERATOR Ot R06.02 SHORTNESS OF BREATH 06/10/2018 ISABELA DOYLE ROTARY PLANER SET UP OPERATOR Ot R09.02 HYPOXEMIA 06/10/2018 ISABELA DOYLE ROTARY PLANER SET UP OPERATOR Ot R91.8 OTHER NONSPECIFIC ABNORMAL FINDING OF BETTY 06/10/2018 ISABELA DOYLE ROTARY PLANER SET UP OPERATOR Ot Z72.0 TOBACCO USE 06/10/2018 ISABELA DOYLE ROTARY PLANER SET UP OPERATOR Ot R60.9 EDEMA, UNSPECIFIED 06/10/2018 APRIL DOYLEINE Meseret ROTARY PLANER SET UP OPERATOR Ot J90 PLEURAL EFFUSION, NOT ELSEWHERE CLASSIFI 06/10/2018 APRIL DOYLEINE Meseret ROTARY PLANER SET UP OPERATOR Ot R60.9 EDEMA, UNSPECIFIED 06/10/2018 APRIL DOYLEINE E ROTARY PLANER SET UP OPERATOR Ot F17.200 NICOTINE DEPENDENCE, UNSPECIFIED, UNCOMP 06/10/2018 ISABELA DOYLE ROTARY PLANER SET UP OPERATOR Ot J30.9 ALLERGIC RHINITIS, UNSPECIFIED 06/10/2018 APRIL DOYLEINE Meseret ROTARY PLANER SET UP OPERATOR Ot J43.8 OTHER EMPHYSEMA 06/10/2018 APRIL DOYLEINE Meseret ROTARY PLANER SET UP OPERATOR Ot R59.0 LOCALIZED ENLARGED LYMPH NODES 06/10/2018 ISABELA DOYLE ROTARY PLANER SET UP OPERATOR Ot R91.8 OTHER NONSPECIFIC ABNORMAL FINDING OF BETTY 06/10/2018 Ot J44.9 CHRONIC OBSTRUCTIVE PULMONARY DISEASE, U 06/10/2018 Ot R59.0 LOCALIZED ENLARGED LYMPH NODES 06/10/2018 Ot R91.8 OTHER NONSPECIFIC ABNORMAL FINDING OF BETTY 07/06/2018 ISABELA DOYLE ROTARY PLANER SET UP OPERATOR Ot J44.9 CHRONIC OBSTRUCTIVE PULMONARY DISEASE, U 07/06/2018 ISABELA DOYLE ROTARY PLANER SET UP OPERATOR Ot R06.02 SHORTNESS OF BREATH 07/06/2018 ISABELA DOYLE ROTARY PLANER SET UP OPERATOR Ot R09.02 HYPOXEMIA 07/06/2018 APRIL DOYLEINE Meseret ROTARY PLANER SET UP OPERATOR Ot R91.8 OTHER NONSPECIFIC ABNORMAL FINDING OF BETTY 07/06/2018 ISABELA DOYLE ROTARY PLANER SET UP OPERATOR Ot Z72.0 TOBACCO USE 07/07/2018 ISABELA DOYLE ROTARY PLANER SET UP OPERATOR Ot J44.9 CHRONIC OBSTRUCTIVE PULMONARY DISEASE, U 07/07/2018 ISABELA DOYLE ROTARY PLANER SET UP OPERATOR Ot R06.02 SHORTNESS OF BREATH 07/07/2018 APRIL DOYLEINE E ROTARY PLANER SET UP OPERATOR Ot R09.02 HYPOXEMIA 07/07/2018 APRIL DOYLEINE Meseret ROTARY PLANER SET UP OPERATOR Ot R91.8 OTHER NONSPECIFIC ABNORMAL FINDING OF BETTY 07/07/2018 APRIL DOYLEINE Meseret ROTARY PLANER SET UP OPERATOR Ot Z72.0 TOBACCO USE 07/08/2018 APRIL DOYLEINE Meseret ROTARY PLANER SET UP OPERATOR Ot F17.200 NICOTINE DEPENDENCE, UNSPECIFIED, UNCOMP 07/08/2018 APRIL DOYLEINE Meseret ROTARY PLANER SET UP OPERATOR Ot J30.9 ALLERGIC RHINITIS, UNSPECIFIED 07/08/2018 APRIL DOYLEINE Meseret ROTARY PLANER SET UP OPERATOR Ot J43.8 OTHER EMPHYSEMA 07/08/2018 VIVEKAPRIL ANNINE Meseret ROTARY PLANER SET UP OPERATOR Ot R59.0 LOCALIZED ENLARGED LYMPH NODES 07/08/2018 VIVEKAPRIL ANNINE Meseret ROTARY PLANER SET UP OPERATOR Ot R91.8 OTHER NONSPECIFIC ABNORMAL FINDING OF BETTY 07/08/2018 Ot J44.9 CHRONIC OBSTRUCTIVE PULMONARY DISEASE, U 07/08/2018 Ot R59.0 LOCALIZED ENLARGED LYMPH NODES 07/08/2018 Ot R91.8 OTHER NONSPECIFIC ABNORMAL FINDING OF BETTY 07/28/2018 VIVEKAPRIL ANNINE Meseret ROTARY PLANER SET UP OPERATOR Ot J44.9 CHRONIC OBSTRUCTIVE PULMONARY DISEASE, U 07/28/2018 VIVEKAPRIL ANNINE Meseret ROTARY PLANER SET UP OPERATOR Ot R59.0 LOCALIZED ENLARGED LYMPH NODES 07/28/2018 VIVEKAPRIL ANNINE Meseret ROTARY PLANER SET UP OPERATOR Ot R91.8 OTHER NONSPECIFIC ABNORMAL FINDING OF BETTY 07/28/2018 VIVEKAPRIL ANNINE Meseret ROTARY PLANER SET UP OPERATOR Ot Z72.0 TOBACCO USE 08/21/2018 APRIL DOYLEINE Meseret ROTARY PLANER SET UP OPERATOR Ot J44.9 CHRONIC OBSTRUCTIVE PULMONARY DISEASE, U 08/21/2018 VIVEKAPRILISABELA Meseret ROTARY PLANER SET UP OPERATOR Ot R59.0 LOCALIZED ENLARGED LYMPH NODES 08/21/2018 VIVEK ISABELA Meseret ROTARY PLANER SET UP OPERATOR Ot R91.8 OTHER NONSPECIFIC ABNORMAL FINDING OF BETTY 08/21/2018 VIVEKAPRILISABELA Meseret ROTARY PLANER SET UP OPERATOR Ot Z72.0 TOBACCO USE 09/06/2018 MIRIAM WILSON FACC, ALI FACP CCDS Ot E11.9 TYPE 2 DIABETES MELLITUS WITHOUT COMPLIC 09/06/2018 MIRIAM WILSON FACC, ALI FACP CCDS Ot E66.9 OBESITY, UNSPECIFIED 09/06/2018 MIRIAM WILSON FACC, ALI FACP CCDS Ot E78.5 HYPERLIPIDEMIA, UNSPECIFIED 09/06/2018 MIRIAM WILSON FACC, ALI FACP CCDS Ot F17.210 NICOTINE DEPENDENCE, CIGARETTES, UNCOMPL 09/06/2018 MIRIAM WILSON FACC, ALI FACP CCDS Ot I08.3 COMB RHEUMATIC DISORD OF MITRAL, AORTIC 09/06/2018 MIRIAM WILSON FACC, ALI FACP CCDS Ot I10 ESSENTIAL (PRIMARY) HYPERTENSION 09/06/2018 MIRIAM WILSON FACC, ALI FACP CCDS Ot I25.10 ATHSCL HEART DISEASE OF [place] CORONARY 09/06/2018 MIRIAM WILSON FACC, ALI FACP CCDS Ot J44.9 CHRONIC OBSTRUCTIVE PULMONARY DISEASE, U 09/06/2018 MIRIAM WILSON FACC, ALI FACP CCDS Ot R06.09 OTHER FORMS OF DYSPNEA 09/06/2018 MIRIAM WILSON FACC, ALI FACP CCDS Ot R55 SYNCOPE AND COLLAPSE 09/06/2018 MIRIAM WILSON FACC, ALI FACP CCDS Ot Z68.32 BODY MASS INDEX (BMI) 32.0-32.9, ADULT 09/06/2018 MIRIAM WILSON FACC, ALI FACP CCDS Ot Z79.82 CORRECTION (CURRENT) USE OF ASPIRIN 09/06/2018 MIRIAM WILSON FACC, ALI FACP CCDS Ot Z79.899 OTHER FITTING ROOM INSPECTOR (CURRENT) DRUG THERAPY 09/06/2018 MIRIAM WILSON FACC, ALI FACP CCDS Ot Z95.5 PRESENCE OF CORONARY ANGIOPLASTY IMPLANT 09/08/2018 MIRIAM WILSON FACC, ALI FACP CCDS Ot E11.9 TYPE 2 DIABETES MELLITUS WITHOUT COMPLIC 09/08/2018 MIRIAM WILSON FACC, ALI FACP CCDS Ot E66.9 OBESITY, UNSPECIFIED 09/08/2018 MIRIAM WILSON FACC, ALI FACP CCDS Ot E78.5 HYPERLIPIDEMIA, UNSPECIFIED 09/08/2018 MIRIAM WILSON FACC, ALI FACP CCDS Ot F17.210 NICOTINE DEPENDENCE, CIGARETTES, UNCOMPL 09/08/2018 MIRIAM WILSON FACC, ALI FACP CCDS Ot I08.3 COMB RHEUMATIC DISORD OF MITRAL, AORTIC 09/08/2018 MIRIAM WILSON FACC, ALI FACP CCDS Ot I10 ESSENTIAL (PRIMARY) HYPERTENSION 09/08/2018 MIRIAM WILSON FACC, ALI FACP CCDS Ot I25.10 ATHSCL HEART DISEASE OF [place] CORONARY 09/08/2018 MIRIAM WILSON FACC, ALI FACP CCDS Ot J44.9 CHRONIC OBSTRUCTIVE PULMONARY DISEASE, U 09/08/2018 MIRIAM WILSON FACC, ALI FACP CCDS Ot R06.09 OTHER FORMS OF DYSPNEA 09/08/2018 MIRIAM WILSON FACC, ALI FACP CCDS Ot R55 SYNCOPE AND COLLAPSE 09/08/2018 MIRIAM WILSON FACC, ALI FACP CCDS Ot Z68.32 BODY MASS INDEX (BMI) 32.0-32.9, ADULT 09/08/2018 MIRIAM WILSON FACC, ALI FACP CCDS Ot Z79.82 FITTING ROOM INSPECTOR (CURRENT) USE OF ASPIRIN 09/08/2018 MIRIAM WILSON FACC, ALI FACP CCDS Ot Z79.899 OTHER CORRECTION (CURRENT) DRUG THERAPY 09/08/2018 MIRIAM WILSON FACC, RUDI FACP CCDS Ot Z95.5 PRESENCE OF CORONARY ANGIOPLASTY IMPLANT 09/08/2018 MIRIAM WILSON FACC, RUDI FACP CCDS Ot E78.5 HYPERLIPIDEMIA, UNSPECIFIED 09/08/2018 MIRIAM WILSON FACC, ALI FACP CCDS Ot I10 ESSENTIAL (PRIMARY) HYPERTENSION 09/08/2018 MIRIAM WILSON FACC, RUDI FACP CCDS Ot I25.10 ATHSCL HEART DISEASE OF [place] CORONARY 09/08/2018 MIRIAM WILSON FACC, ALI FACP CCDS Ot I65.29 OCCLUSION AND STENOSIS OF UNSPECIFIED CA 09/08/2018 MIRIAM WILSON FACC, RUDI FACP CCDS Ot J43.8 OTHER EMPHYSEMA 09/08/2018 MIRIAM WILSON FACC, RUDI FACP CCDS Ot R55 SYNCOPE AND COLLAPSE 09/08/2018 MIRIAM WILSON FACC, RUDI FACP CCDS Ot Z72.0 TOBACCO USE Procedures Code [place] [address] ROUTINE VENIPUNCTURE 12/27/2012 81605 CBC 12/27/2012 61530 CMP 12/27/2012 89791 LIPID PANEL 12/27/2012 4311430 GFR CALC (RESULT ONLY) 12/27/2012 35929 TSH 12/27/2012 00.40 PROCEDURE ON SINGLE VESSEL 05/31/2014 38.12 HEAD NECK ENDARTER NEC 05/31/2014 20278 A1C (IN-HOUSE) 10/05/2014 00.40 PROCEDURE ON SINGLE [...] Staphylococcus aureus (MRSA) screening culture NEG NRG Automated blood complete blood count (hemogram) panel [...] C FUNGUS SPUTUM FLUID TISSUE NG NRG Automated blood complete blood count (hemogram) panel - 08/31/18 08:45 Blood leukocytes automated count (number/volume) 5.4 10*3/uL 4.3-11.0 Blood erythrocytes automated count (number/volume) 3.91 10*6/uL 4.35-5.85 Venous blood hemoglobin measurement (mass/volume) 12.0 g/dL 11.5-16.0 Blood hematocrit (volume fraction) 38 % 35-52 Automated erythrocyte mean corpuscular volume 96 [foz_us] 80-99 Automated erythrocyte mean corpuscular hemoglobin (mass per erythrocyte) 31 pg 25-34 Automated erythrocyte mean corpuscular hemoglobin concentration measurement ( mass/volume) 32 g/dL 32-36 Automated erythrocyte distribution width ratio 15.7 % 10.0-14.5 Automated blood platelet count (count/volume) 222 10*3/uL 130-400 Automated blood platelet mean volume measurement 8.9 [foz_us] 7.4-10.4 Comprehensive metabolic panel - 08/31/18 08:45 Serum or plasma sodium measurement (moles/volume) 139 mmol/L 135-145 Serum or plasma potassium measurement (moles/volume) 4.1 mmol/L 3.6-5.0 Serum or plasma chloride measurement (moles/volume) 98 mmol/L 98-107 Carbon dioxide 28 mmol/L 21-32 Serum or plasma anion gap determination (moles/volume) 13 mmol/L 5-14 Serum or plasma urea nitrogen measurement (mass/volume) 13 mg/dL 7-18 Serum or plasma creatinine measurement (mass/volume) 1.36 mg/dL 0.60-1.30 Serum or plasma urea nitrogen/creatinine mass ratio 10 NRG Serum or plasma creatinine measurement with calculation of estimated glomerular filtration rate 40 NRG Serum or plasma glucose measurement (mass/volume) 124 mg/dL 70-105 Serum or plasma calcium measurement (mass/volume) 8.9 mg/dL 8.5-10.1 Serum or plasma total bilirubin measurement (mass/volume) 0.7 mg/dL 0.1-1.0 Serum or plasma alkaline phosphatase measurement (enzymatic activity/volume) 55 U/L 40-136 Serum or plasma aspartate aminotransferase measurement (enzymatic activity/ volume) 9 U/L 5-34 Serum or plasma alanine aminotransferase measurement (enzymatic activity/volume ) 8 U/L 0-55 Serum or plasma protein measurement (mass/volume) 6.7 g/dL 6.4-8.2 Serum or plasma albumin measurement (mass/volume) 4.0 g/dL 3.2-4.5 CALCIUM CORRECTED 8.9 mg/dL 8.5-10.1 Lipid 1996 panel - 08/31/18 08:45 Serum or plasma triglyceride measurement (mass/volume) 110 mg/dL <150 Serum or plasma cholesterol measurement (mass/volume) 149 mg/dL < 200 Serum or plasma cholesterol in HDL measurement (mass/volume) 24 mg/ dL 40-60 Cholesterol in LDL [mass/volume] in serum or plasma by direct assay 113 mg/dL 1-129 Serum or plasma cholesterol in VLDL measurement (mass/volume) 22 mg/ dL 5-40 Magnesium - 08/31/18 08:45 Magnesium 1.6 mg/dL 1.8-2.4 Serum or plasma lithium measurement (moles/volume) - 08/31/18 08:45 BNP level 809.2 pg/mL <100.0 THYROID STIMULATING HORMONE - 08/31/18 08:45 THYROID STIMULATING HORMONE 3.09 u[iU]/mL 0.35-4.94 Erythrocyte sedimentation rate by westergren method - 08/31/18 08:45 Erythrocyte sedimentation rate by westergren method 6 mm 0-30 Encounters ACCT No. Visit Date/Time Discharge Status Pt. Type Provider Facility Loc./Unit Complaint [id number] 10/05/2014 08:14:00 10/05/2014 23:59:59 CLS Outpatient KATIE BELTRAN DO [id number] 05/15/2014 12:58:00 05/15/2014 23:59:59 [facility] Outpatient KATIE BELTRAN DO [id number] 05/05/2014 14:47:00 05/05/2014 23:59:59 CLS Outpatient KATIE BELTRAN DO [id number] 03/13/2014 16:07:00 03/13/2014 23:59:59 CLS Outpatient ARNIE YOO MD [id number] 12/27/2012 11:00:00 Document Registration [id number] 04/22/2015 08:52:17 ACT Document Registration [id number] 09/08/2018 08:40:00 [id number] 06/29/2017 10:00:00 Document Registration [id number] 08/31/2018 08:00:00 08/31/2018 10:54:00 DIS Outpatient MIRIAM WILSON FACC, RUDI EVERETT CCDS [facility] CATH SYNCOPE,CAD, CAROTID ARTERIAL DISEASE,COPD,HTN [id number] 07/27/2018 16:52:00 07/27/2018 23:59:59 CLS Preadmit KANE OLIVERA DO [facility] RAD SOB,TOBACCO USE [id number] 07/27/2018 16:50:00 07/27/2018 23:59:59 CLS Preadmit APRIL DOYLEINE E ROTARY PLANER SET UP OPERATOR [facility] RAD SOB,TOBACCO USE [id number] 07/27/2018 08:53:00 07/27/2018 23:59:59 CLS Outpatient APRIL DOYLEINE E ROTARY PLANER SET UP OPERATOR [facility] RAD SOB,HYPOZEMIA REQUIRING SUPPLEMENTAL OXYGEN [id number] 04/14/2018 06:50:00 04/14/2018 23:59:59 CLS Outpatient KANE OLIVERA DO [facility] ENDO ABNORMAL CT SCAN/ MEDIASTINAL LYMPHADENOPATHY/COPD [id number] 02/16/2018 09:45:00 02/16/2018 23:59:59 CLS Outpatient APRIL DOYLEINE E ROTARY PLANER SET UP OPERATOR [facility] RAD ABNORMAL CT SCAN OF LUNG, COPD, HYPOXEMIA [id number] 12/03/2017 09:40:00 12/03/2017 23:59:59 CLS Outpatient APRIL DOYLEINE E ROTARY PLANER SET UP OPERATOR [facility] CARD J90 PLEURAL EFFUSION [id number] 11/10/2017 09:46:00 11/10/2017 23:59:59 CLS Outpatient APRIL DOYLEINE E ROTARY PLANER SET UP OPERATOR [facility] LAB R60.9 [id number] 11/02/2017 11:02:00 11/02/2017 23:59:59 CLS Outpatient APRIL DOYLEINE E ROTARY PLANER SET UP OPERATOR [facility] RT J43.8 COPD [id number] 10/09/2017 11:31:00 10/09/2017 23:59:59 CLS Preadmit APRIL DOYLEINE E ROTARY PLANER SET UP OPERATOR [facility] RAD R91.8 LUNG NODULES [id number] 05/19/2017 08:08:00 05/20/2017 10:30:00 DIS Outpatient RUDI PINEDA MD, FACC, FACP CCDS [facility] CATH CAD,ANGINA [id number] 05/05/2017 08:19:00 05/05/2017 23:59:59 CLS Outpatient MIRIAM WILSON FACC, RUDI EVERETT CCDS [facility] CARD SOB R06.02, CAD I25.10 [id number] 04/28/2017 13:45:00 04/28/2017 23:59:59 CLS Preadmit KANE OLIVERA DO [facility] RAD COPD [id number] 03/06/2017 13:00:00 03/06/2017 23:59:59 CLS Preadmit ISABELA DOYLE APRN [facility] RT COPD J43.8 [id number] 02/03/2017 18:17:00 02/03/2017 20:33:00 DIS Emergency KENNEDI LE [facility] ER SOB [id number] 11/25/2016 18:50:00 11/27/2016 11:10:00 DIS Inpatient SARAH GARCIA DO [facility] 4TH 2ND DEGREE LEE TO BILATERAL NARES AND FACE,SMOKE [id number] 09/16/2016 10:39:00 09/16/2016 23:59:59 CLS Outpatient REEMA ESPINAL [facility] CARD HX OF ISCHEMIC CARDIOMYOPATHY,DENNEY,CAD,HLD [id number] 04/25/2016 10:05:00 04/25/2016 23:59:59 CLS Outpatient ISABELA DOYLE APRN [facility] RAD COPD [id number] 01/29/2016 11:55:00 01/29/2016 23:59:59 CLS Outpatient RUDI PINEDA MD, FACC, FACP CCDS [facility] RAD COPD,CAD,HLD [id number] 12/10/2015 09:02:00 12/10/2015 23:59:59 CLS Outpatient RUDI PINEDA MD, FACC, FACP CCDS [facility] LAB CAD, HLD, TOBACCO USER,CAROTID ARTERIAL DISEASE [id number] 04/22/2015 08:51:00 04/22/2015 10:12:00 DIS Emergency JEROME WILSON, DHAVAL S [facility] ER LEG SPASMS,VOMITING [id number] 04/02/2015 12:10:00 04/02/2015 23:59:59 CLS Outpatient KANE OLIVERA DO [facility] RAD COPD [id number] 12/05/2014 20:00:00 12/05/2014 23:59:59 CLS Preadmit KANE OLIVERA DO [facility] SLEEP SNORING,CHOKING, GASPING [id number] 09/12/2014 08:27:00 09/12/2014 23:59:59 CLS Outpatient KANE OLIVERA DO [facility] RAD COPD, [id number] 07/26/2014 09:49:00 07/26/2014 23:59:59 CLS Outpatient KANE OLIVERA DO [facility] RT MEDIAL STINAL LYMPHADENOPATHY, COPD [id number] 05/31/2014 06:30:00 06/02/2014 13:00:00 DIS Inpatient LIDIA DAILY MD [facility] SURGICAL STENOSIS [id number] 05/29/2014 09:31:00 05/29/2014 23:59:59 CLS Outpatient LIDIA DAILY MD [facility] PREOP STENOSIS [id number] 05/26/2014 14:47:00 05/26/2014 23:59:59 CLS Outpatient RUDI PINEDA MD, FACC, FACP CCDS [facility] LAB CHR ISC HRT DIS NOS [id number] 05/26/2014 14:44:00 05/26/2014 23:59:59 CLS Outpatient LIDIA DAILY MD [facility] RAD CAROTID STENOSIS [id number] 05/25/2014 01:24:00 05/25/2014 09:43:00 DIS Inpatient RUDI PINEDA MD, FACC, FACP CCDS [facility] CSD EPISODIC LOW BLOOD PRESSURE [id number] 05/08/2014 09:10:00 05/08/2014 23:59:59 CLS Outpatient KAREN LEON [facility] LAB HYPOTASSEMIA,DIS MAGNESIUM METABOLISM [id number] 04/20/2014 19:05:00 04/21/2014 17:00:00 DIS Inpatient KATIE BELTRAN DO [facility] 4TH SYNCOPE,DEHYDRATION [id number] 02/08/2014 01:50:00 02/10/2014 09:21:00 DIS Outpatient IMRIAM WILSON FACC, ALI FACP CCDS [facility] CATH CP [id number] 09/22/2018 09:00:00 PEN Preadmit MIRIAM WILSON FACC, ALI FACP CCDS [facility] CARD SYNCOPE [id number] 09/13/2018 12:45:00 PEN Preadmit MIRIAM WILSON FACC, ALI FACP CCDS [facility] RAD CAROTID ARTERIAL DISEASE [id number] 09/09/2018 14:35:00 ACT Inpatient JOSE BRENNAN SARAH [facility] 4TH COPD ACUTE EXACERBATION,PALPATATIONS [id number] 09/07/2018 11:06:00 ACT Outpatient MIRIAM WILSON FACC, ALI FACP CCDS [facility] CARD SYNCOPE [id number] 06/10/2018 12:06:00 Document Registration [id number] 04/07/2018 06:27:00 Document Registration [id number] 04/06/2018 10:58:00 Document Registration [id number] 11/01/2014 06:00:00 Document Registration [id number] 10/31/2014 12:15:00 Document Registration
--- NOTE | 2018-09-09 16:19 | Pulmonary Consultation ---
History of Present Illness History of Present Illness Date of Consultation 09/09/18 16:13 Time Seen by Provider: 16:13 Date of Admission History of Present Illness 58yo with hx of severe COPD with current tobacco, CAD (on Plavix) use presented to ED after being s/p fall and found on the floor without her oxygen on. Pt does not remember falling. No fever, NS, chills. Allergies and Home Medications Allergies Coded Allergies: No Known Drug Allergies (Unverified , 04/07/18) Home Medications Albuterol Sulfate 1 Puff Puff, 2 PUFF IH QID PRN for SHORTNESS OF BREATH, ( Reported) 1 PUFF = 90 MCG Albuterol Sulfate 2.5 Mg/3 Ml Vial.neb, 2.5 MG IH Q4H PRN for SHORTNESS OF BREATH Prescribed by: KENNEDI CORREA on 02/03/172021 Aspirin 81 Mg Tablet.dr, 81 MG PO DAILY, (Reported) Benzonatate 100 Mg Capsule, 100 MG PO TID PRN for COUGH, (Reported) Budesonide/Formoterol Fumarate 10.2 Gm Hfa.aer.ad, 2 PUFF IH BID, (Reported) Cetirizine HCl 10 Mg Tablet, 10 MG PO DAILY, (Reported) Clonazepam 0.25 Mg Tab.rapdis, 0.25 MG PO BID PRN for ANXIETY, (Reported) Clopidogrel Bisulfate 75 Mg Tablet, 75 MG PO DAILY, (Reported) Cyclobenzaprine HCl 5 Mg Tablet, 5 MG PO TID PRN for MUSCLE SPASMS, (Reported) Diclofenac Potassium 50 Mg Tablet, 50 MG PO TID, (Reported) Fluticasone Propionate 16 Gm Spencer.susp, 1 SPRAY NSEACH DAILY, (Reported) Gabapentin 800 Mg Tablet, 800 MG PO QID, (Reported) Mirtazapine 45 Mg Tablet, 45 MG PO HS, (Reported) Montelukast Sodium 10 Mg Tablet, 10 MG PO HS, (Reported) Prazosin HCl 2 Mg Capsule, 2 MG PO HS, (Reported) Simvastatin 40 Mg Tablet, 40 MG PO HS, (Reported) Trazodone HCl 150 Mg Tablet, 150 MG PO HS PRN for INSOMNIA, (Reported) Past Tubzwlf-Xjqynf-Hlmvdz Hx Past Med/Social Hx: Reviewed Nursing Past Med/Soc Hx Patient Social History Alcohol Use: Denies Use Recreational Drug Use: Yes Drug of Choice: POT Smoking Status: Current Everyday Smoker Type Used: Cigarettes 2nd Hand Smoke Exposure: Yes Recent Foreign Travel: No Contact w/Someone Who Travel: No Recent Infectious Disease Expo: No Recent Hopitalizations: No Immunizations Up To Date Tetanus Booster (TDap): Unknown Date of Pneumonia Vaccine: Jan 22, 2013 Date of Influenza Vaccine: Jun 08, 2017 Seasonal Allergies Seasonal Allergies: Yes Past Medical History Surgeries: Yes (CAROTID, BILAT CARPAL TUNNEL, L RCR, CATARACT) Cardiac, Section, Coronary Stent, Orthopedic, Vascular Surgery Respiratory: Yes (O2 6L) COPD Currently Using CPAP: No Currently Using BIPAP: No Cardiac: Yes Coronary Artery Disease, Heart Attack, High Cholesterol Neurological: No Reproductive Disorders: No Female Reproductive Disorders: Denies 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 ) Arthritis Endocrine: No Diabetes, Non-Insulin dep Loss of Vision: Bilateral Hearing Impairment: Denies Cancer: No Psychosocial: Yes (PANIC ATTACKS) Anxiety, PTSD, Bipolar Integumentary: Yes Psoriasis Blood Disorders: No Adverse Reaction/Blood Tranf: No (N/A) Family Medical History Reviewed Nursing Family Hx Cancer 19 MOTHER Family history: Breast disease 19 MOTHER Family history: Cardiovascular disease 19 FATHER, G8 BROTHER, Family history: Hypertension G8 SISTER Headache 19 FATHER, 19 MOTHER G8 BROTHER, G8 SISTER G8 SISTER History of - respiratory disease 19 FATHER, G8 BROTHER, Hypercholesterolemia G8 BROTHER, Myocardial infarction G8 BROTHER, No Pertinent Family Hx Sepsis Event Evaluation Height, Weight, BMI Height: 5'0.00" Weight: 170lbs. 0.0oz. 77.542581sl; 32.2 BMI Method:Estimated Exam Exam Vital Signs Date Time Temp Pulse Resp B/P (MAP) Pulse Ox O2 Delivery O2 Flow Rate FiO2 09/09/18 13:13 Vapotherm 20.00 85 09/09/18 12:26 91 OxyMask 15.00 09/09/18 11:50 72 Nasal Cannula 4.00 09/09/18 11:50 98.0 114 22 95/65 (75) 72 Nasal Cannula 4.00 Height & Weight Height: 5'0.00" Weight: 170lbs. 0.0oz. 77.778350bj; 32.2 BMI Method:Estimated Capillary Refill: Less Than 3 Seconds Gastrointestinal: non tender, soft Results Lab Laboratory Tests 09/09/18 12:05 Assessment/Plan Assessment/Plan S/p fall -Pain control Acute on chronic respiratory failure -PT is currently on 100% vapotherm and Sp02 is 90%. She has increased WOB. -Will transfer pt to ICU. -vent to mask PRN and repeat ABG -PT is currently a full code. Severe COPD with AE -SVNS Q4 -Solumedrol 40 IV Q 6 -Oxygen with Vapotherm currently -cont. sp02 monitoring Acute renal failure -IVF and monitor Hyponatremia -Monitor Hypotension -IVF KANE OLIVERA DO Sep 09, 2018 16:19
--- NOTE | 2018-09-09 16:23 | NUR ---
called er back and got report from Mario
--- NOTE | 2018-09-09 16:35 | NUR ---
CALLED [facility]TH FLOOR WHO STATES ROOM IS NOT CLEAN. STATES THEY WILL CALL WHEN IT IS READY.
--- NOTE | 2018-09-09 16:55 | Consultation-Cardiology ---
HPI-Cardiology Cardiology Consultation: Date of Consultation 09/09/18 Time Seen by a Provider: 16:20 Date of Admission Attending Physician Cynthia Manning DO Admitting Physician No,Local Physician Consulting Physician RUDI PINEDA MD, MA, FACP, FACC, FSCAI, CCDS HPI: Chief Complaint: Reason for consultation: Syncope HPI: Ms. Rich is a 58 year old female who has been seen in the ED. Her son-in-law is with her. She is a poor historian. Family member states she has been having frequent diarrhea at home for the last several days, and not drinking much fluids. He reports she had an episode this morning of diarrhea while in bed. She ambulated to the bathroom with her oxygen on with assistance and then back to bed. He reports later in the morning they went to check on her and she was found on the floor without her oxygen on "passed out". He reports her oxygen sats were low. He states they put her oxygen back on and she came to. They then brought her to the ED. She is reporting c/o right hip pain. Her family member reports she did stop the metoprolol yesterday as instructed at her appointment time. He reports she has been falling frequently at home. He and his Lori (pts daughter) are her care givers. She is currently not reporting any CP or palpitations. She reports prod cough for the last several days. She reports worsening dyspnea over the last several days. Review of Systems-Cardiology Review of Systems Constitutional: No chills, No fever; malaise Eyes: No vision change Ears/Nose/Throat: No epistaxis, No recent hearing loss Respiratory: As described under HPI Cardiovascular: As described under HPI Gastrointestinal: diarrhea Genitourinary: No dysuria, No hematuria : No Musculoskeletal: joint pain (chronic) Skin: No rash, No skin related problems, No ulcerations Psychiatric/Neurological: syncope; No seizure Hematologic: No bleeding abnormalities All Other Systems Reviewed Negative Unless Noted: Yes LLX-Xieomg-Angxac Hx Patient Social History Alcohol Use: Denies Use Recreational Drug Use: Yes Drug of Choice: POT Smoking Status: Current Everyday Smoker Type Used: Cigarettes 2nd Hand Smoke Exposure: Yes Recent Foreign Travel: No Recent Infectious Disease Expo: No Immunizations Up To Date Tetanus Booster (TDap): Unknown Date of Pneumonia Vaccine: Jan 22, 2013 Date of Influenza Vaccine: Jun 08, 2017 Past Medical History PMH As described under Assessment. Family Medical History Family Medical History: She reports her father and a brother had CAD. Family History: Cancer 19 MOTHER Family history: Breast disease 19 MOTHER Family history: Cardiovascular disease 19 FATHER, G8 BROTHER, Family history: Hypertension G8 SISTER Headache 19 FATHER, 19 MOTHER G8 BROTHER, G8 SISTER G8 SISTER History of - respiratory disease 19 FATHER, G8 BROTHER, Hypercholesterolemia G8 BROTHER, Myocardial infarction G8 BROTHER, Allergies and Home Medications Allergies Coded Allergies: No Known Drug Allergies (Unverified , 04/07/18) Home Medications Albuterol Sulfate 1 Puff Puff, 2 PUFF IH QID PRN for SHORTNESS OF BREATH, ( Reported) 1 PUFF = 90 MCG Albuterol Sulfate 2.5 Mg/3 Ml Vial.neb, 2.5 MG IH Q4H PRN for SHORTNESS OF BREATH Prescribed by: KENNEDI CORREA on 02/03/172021 Aspirin 81 Mg Tablet.dr, 81 MG PO DAILY, (Reported) Benzonatate 100 Mg Capsule, 100 MG PO TID PRN for COUGH, (Reported) Budesonide/Formoterol Fumarate 10.2 Gm Hfa.aer.ad, 2 PUFF IH BID, (Reported) Cetirizine HCl 10 Mg Tablet, 10 MG PO DAILY, (Reported) Clonazepam 0.25 Mg Tab.rapdis, 0.25 MG PO BID PRN for ANXIETY, (Reported) Clopidogrel Bisulfate 75 Mg Tablet, 75 MG PO DAILY, (Reported) Cyclobenzaprine HCl 5 Mg Tablet, 5 MG PO TID PRN for MUSCLE SPASMS, (Reported) Diclofenac Potassium 50 Mg Tablet, 50 MG PO TID, (Reported) Fluticasone Propionate 16 Gm Robert.susp, 1 SPRAY NSEACH DAILY, (Reported) Gabapentin 800 Mg Tablet, 800 MG PO QID, (Reported) Mirtazapine 45 Mg Tablet, 45 MG PO HS, (Reported) Montelukast Sodium 10 Mg Tablet, 10 MG PO HS, (Reported) Prazosin HCl 2 Mg Capsule, 2 MG PO HS, (Reported) Simvastatin 40 Mg Tablet, 40 MG PO HS, (Reported) Trazodone HCl 150 Mg Tablet, 150 MG PO HS PRN for INSOMNIA, (Reported) Patient Home Medication List Home Medication List Reviewed: Yes Physical Exam-Cardiology Physical Exam Vital Signs/I&O 09/09/18 09/09/18 09/09/18 09/09/18 11:50 11:50 12:26 13:13 Temp 98.0 Pulse 114 Resp 22 B/P (MAP) 95/65 (75) Pulse Ox 72 72 91 O2 Delivery Nasal Cannula Nasal Cannula OxyMask Vapotherm O2 Flow Rate 4.00 4.00 15.00 20.00 FiO2 85 Capillary Refill : Less Than 3 Seconds Constitutional: AAO x 3, other (poor historian) HEENT: PERRL, hearing is well preserved Neck: carotid bruit Respiratory: rhonchi (scattered), other (coarse lower lobes bilat) Cardiovascular: regular rate-rhythm; No JVD; S1 and S2 Gastrointestinal: No soft; round, audible bowel sounds Rectal: deferred Extremities: no lower extremity edema bilateral Neurologic/Psychiatric: other (moves all extremities; did not manipulate right leg, visibly shorter than left leg) Skin: No rash, No ulcerations Data Review Labs Laboratory Tests 09/09/18 12:05: White Blood Count 8.2, Red Blood Count 4.56, Hemoglobin 13.8, Hematocrit 43, Mean Corpuscular Volume 93, Mean Corpuscular Hemoglobin 30, Mean Corpuscular Hemoglobin Concent 32, Red Cell Distribution Width 15.2H, Platelet Count 276, Mean Platelet Volume 9.2, Neutrophils (%) (Auto) 86H, Lymphocytes (%) (Auto) 5L , Monocytes (%) (Auto) 9, Eosinophils (%) (Auto) 0, Basophils (%) (Auto) 0, Neutrophils # (Auto) 7.0, Lymphocytes # (Auto) 0.4L, Monocytes # (Auto) 0.7, Eosinophils # (Auto) 0.0, Basophils # (Auto) 0.0, Neutrophils % (Manual) 84, Lymphocytes % (Manual) 4, Monocytes % (Manual) 7, Eosinophils % (Manual) 0, Basophils % (Manual) 0, Band Neutrophils 3, Reactive Lymphocytes 2, Blood Morphology Comment NORMAL, Prothrombin Time 16.2H, INR Comment 1.3, Activated Partial Thromboplast Time 34, Sodium Level 132L, Potassium Level 4.6, Chloride Level 88L, Carbon Dioxide Level 29, Anion Gap 15H, Blood Urea Nitrogen 30H, Creatinine 2.20H, Estimat Glomerular Filtration Rate 23, BUN/Creatinine Ratio 14 , Glucose Level 139H, Lactic Acid Level 2.12*H, Calcium Level 9.5, Corrected Calcium 9.3, Total Bilirubin 1.0, Aspartate Amino Transf (AST/SGOT) 29, Alanine Aminotransferase (ALT/SGPT) 9, Alkaline Phosphatase 67, Total Protein 7.9, Albumin 4.3 09/09/18 12:20: Blood Gas Puncture Site RR, Blood Gas Patient Temperature 98, Arterial Blood pH 7.41, Arterial Blood Partial Pressure CO2 49H, Arterial Blood Partial Pressure O2 73L, Arterial Blood HCO3 30H, Arterial Blood Total CO2 31.7H, Arterial Blood Oxygen Saturation 95, Arterial Blood Base Excess 5.6H, Stephan Test YES-POS, Blood Gas Ventilator Setting NO, Blood Gas Inspired Oxygen 15 09/09/18 13:45: Lactic Acid Level 0.99 09/09/18 13:55: Urine Color YELLOW, Urine Clarity VERY CLOUDYH, Urine pH 5, Urine Specific Almo 1.025H, Urine Protein 2+H, Urine Glucose (UA) NEGATIVE, Urine Ketones NEGATIVE, Urine Nitrite NEGATIVE, Urine Bilirubin NEGATIVE, Urine Urobilinogen NORMAL, Urine Leukocyte Esterase 1+H, Urine RBC (Auto) 2+H, Urine RBC 0-2, Urine WBC RARE, Urine Squamous Epithelial Cells 2-5, Urine Crystals NONE, Urine Amorphous Sediment FEW HILARY URATESH, Urine Bacteria NEGATIVE, Urine Casts PRESENT, Urine Hyaline Casts 2-5H, Urine Mucus NEGATIVE, Urine Culture Indicated CULTURE PENDING Laboratory Tests 09/09/18 12:05 A/P-Cardiology Assessment/Admission Diagnosis Syncope/near-syncope: likely due to hypoxia (see below) and intermittently low bp (documented orthostatic hypotension) Hypoxia, multi-factorial - COPD, obesity-hypoventilation syndrome, non- compliance with supplemental oxygen S/P fall resulting in right hip pain - possible fx/displacement UTI with possible sepsis- management per Medical Services Acute renal insufficiency, pre-renal due to volume depletion, renal due ATN due to transient hypotension and vol depletion S/p ILR. No significant arrhythmia seen during syncopal episodes Carotid arterial disease: Chronically occluded R ICA, h/o left common carotid artery stenting by Romeo Wall and in Apr 2016. Subsequent carotid u/s of 08/22/16 at [facility] showed patent L CCA stent, and 60-79% stenosis past the stent. Last carotid u/s of Aug 2018 is essentially unchanged CAD. Card cath of 05-19-17: 70-80% in-stent restenosis in the mid RCA to which successful balloon angioplasty was carried out with Emerge 3.5 x 12 mm balloon to reduce the stenosis to less than 10% residual. The rest of the coronary vessels have diffuse mod disease. LVEF 35-40%. Posterobasal, diaphragmatic, and apical akinesis of the LV. Elevated LVEDP. No significant MR MPI of 09-07-18 is consistent with known coronary disease. This study is indicative of inferior wall myocardial infarction with minimal kenny-infarct ischemia. Inferior hypokinesis to akinesis. Left ventricular ejection fraction is calculated to be 40% Echocardiogram from September 16, 2016 showed LVEF 45-50%, mod MR, mild TR. Aortic valve slcerosis with a peak pressure gradient across the aortic valve of approx 24mmHg and a valve area of approx 1.4cm sq, indicating mild aortic stenosis Intolerant to beta anita d/t reported symptomatic hypotension H/o hyperlipidemia Chronic joint pain Chronic tobacco use - cessation advised Anxiety disorder, being followed by Lo Castillo of [facility] DM II Discussion and Recomendations * Treat hypoxia as necessary * iv fluids * Hold off on any meds that might lower bp. Patient is not suitable for beta- anita or BC-inhibitor or ARB * Continue antiplatelet therapy * Advised to quit smoking * Monitor labs * Dr Pendleton covering Card Svce until 09/12/18 RUDI PINEDA MD FACP FAC CCDS Sep 09, 2018 16:55
--- NOTE | 2018-09-09 16:55 | NUR ---
Patient to from [facility] 416 per BED TO ICU BED 5 accompanied by 4TH FLOOR staff. Patient and family notified and understand transfer.(DAUGHTER WAs wth pt) Personal belongings with patient. Report given by this r to curriculum consultant. Assessment completed by SHIRA DUNCAN. NOTE THAT RT HELPED MOVE PT TO ICU BED 5
--- NOTE | 2018-09-09 17:00 | NUR ---
DR OLIVERA ON FLOOR AND REQUESTED THAT PT BE MOVED UP TO ICU -- WOMEN'S SWIM COACH WAS ON FLOOR AND TALKED W/ DR OLIVERA --
[2018-09-09] MEDS ORDERED: NS IV 1000 ML 1,000 ML IV SCH (17:15)
[2018-09-09] MEDS ORDERED: ONDANSETRON 4 MG/2 ML (SDV) Z0FRAN IV PRN (17:15)
[2018-09-09] MEDS ORDERED: RT-ALBUTEROL/IPRATROPIUM 3 ML (DUONEB) VIAL INH SCH (18:00)
[2018-09-09] MEDS: methylPREDNISolone 40 MG/ML (Solu-MEDROL) VIAL IV SCH (18:18)
[2018-09-09] MEDS: NS IV 1000 ML 1,000 ML IV SCH (18:19)
--- NOTE | 2018-09-09 18:22 | NUR ---
FAN EATON admitted to room CU5-1, with an admitting diagnosis of COPD ACUTE EXCERB, PALPATATIONS, on 09/09/18 from [place] via , accompanied by .FAN EATON introduced to surroundings, call light, bed controls, phone, TV, temperature control, lights, meal times, smoking policy, visitor policy, side rail policy, bathrooms and showers. Patient Rights given to patient in the handbook. FAN EATON verbalizes understanding that [facility] is not responsible for the loss or damage to any personal effects or valuables that are kept in the patients posession during their hospitalization. The following Patient Care Plans were discussed with the ER: Discharge Planning,IMP GAS EXCH, INEFF BREATHING PATTERN, INEFF AIRWAY CLEARANCE, RISK OF INFECTION, ACT INTOL, AND ANXIETY. FAN EATON verbalizes understanding of Interdisciplinary Patient Education. Patient and/or family were informed about the Rapid Response Team and its purpose. CAME TO FLOOR FROM ER W/ IVS IN
[2018-09-09 19:08] LABS: BILIRUBIN,URINE NEGATIVE (NEGATIVE); CLARITY,URINE SLIGHTLY CLOUDY; COLOR,URINE AMBER; GLUCOSE, URINE (UA) 2+ (NEGATIVE); KETONES,URINE 1+ (NEGATIVE); LEUKOCYTE ESTERASE ,URINE 1+ (NEGATIVE); NITRITE,URINE NEGATIVE (NEGATIVE); PH,URINE 5 (5-9); PROTEIN,URINE 2+ (NEGATIVE); UROBILINOGEN,URINE NORMAL (NORMAL)
[2018-09-09 19:17] LABS: BACTERIA,URINE NEGATIVE /HPF; URIC ACID CRYSTALS,URINE LARGE /LPF; WBC,URINE RARE /HPF
[2018-09-09] MEDS: RT-ALBUTEROL/IPRATROPIUM 3 ML (DUONEB) VIAL INH SCH ×2 (19:18→22:08)
--- NOTE | 2018-09-09 19:24 | History & Physical-Hospitalist ---
History of Present Illness HPI/Chief Complaint CC: Dyspnea HPI: This is a patient of [facility] who presented to the ER complaining of left hip pain after a fall. She was found to be in respiratory distress. Left hip x-ray revealed possible fracture but upon further assessment by Dr. Ontiveros it appeared to not be fractured and only a normal variant and CT scan confirmed that. Patient was placed in cardiac stepdown monitor closely by cardiology and pulmonology wall maintained on Vapotherm. IV steroids of been tolerated and pain medication has been helpful with the left hip pain. Source: patient, RN/MD, old records Exam Limitations: no limitations Date Seen 09/09/18 Time Seen by a Provider: 17:45 Attending Physician Cynthia Manning DO PCP No,Local Physician Referring Physician Date of Admission Sep 09, 2018 at 14:35 Home Medications & Allergies Home Medications Reviewed patient Home Medication Reconciliation performed by pharmacy medication reconciliations echocardiograph technician and/or nursing. Patients Allergies have been reviewed. Allergies Allergies Coded Allergies No Known Drug Allergies (Unverified04/07/18) Past Mrvtpcr-Yheato-Jkhopr Hx Past Med/Social Hx: Reviewed Nursing Past Med/Soc Hx, Reviewed and Corrections made Patient Social History Marrital Status: single Employed/Student: unemployed Alcohol Use: Denies Use Recreational Drug Use: No Drug of Choice: POT Smoking Status: Current Everyday Smoker Type Used: Cigarettes 2nd Hand Smoke Exposure: Yes Physical Abuse Screen: No Sexual Abuse: No Recent Foreign Travel: No Contact w/other who traveled: No Recent Hopitalizations: No Recent Infectious Disease Expo: No Immunizations Up To Date Tetanus Booster (TDap): Unknown Date of Pneumonia Vaccine: Jan 22, 2013 Date of Influenza Vaccine: May 24, 2018 Seasonal Allergies Seasonal Allergies: Yes Past Medical History Surgeries: Cardiac, Section, Coronary Stent, Orthopedic, Vascular Surgery Respiratory: COPD, Pneumonia Currently Using CPAP: No Currently Using BIPAP: No Cardiac: Coronary Artery Disease, Heart Attack, High Cholesterol Reproductive: No Sexually Transmitted Disease: No HIV/AIDS: No Female Reproductive Disorders: Denies Menopausal Musculoskeletal: Arthritis Endocrine: Diabetes, Non-Insulin dep Loss of Vision: Bilateral Hearing Impairment: Denies Psychosocial: Anxiety, PTSD, Bipolar Skin/Integumentary: Psoriasis History of Blood Disorders: No Adverse Reaction to Blood Howard: No (N/A) Family History Reviewed Nursing Family Hx Cancer 19 MOTHER Family history: Breast disease 19 MOTHER Family history: Cardiovascular disease 19 FATHER, G8 BROTHER, Family history: Hypertension G8 SISTER Headache 19 FATHER, 19 MOTHER G8 BROTHER, G8 SISTER G8 SISTER History of - respiratory disease 19 FATHER, G8 BROTHER, Hypercholesterolemia G8 BROTHER, Myocardial infarction G8 BROTHER, No Pertinent Family Hx Review of Systems Constitutional: no symptoms reported, weakness EENTM: no symptoms reported Respiratory: dyspnea on exertion, wheezing Gastrointestinal: no symptoms reported Genitourinary: no symptoms reported Musculoskeletal: no symptoms reported Skin: no symptoms reported Psychiatric/Neurological: No Symptoms Reported All Other Systems Reviewed Negative Unless Noted: Yes Physical Exam Physical Exam Vital Signs Vital Signs - First Documented 09/09/18 13:13 FiO2 85 Capillary Refill : Less Than 3 Seconds Height, Weight, BMI Height: 5'0.00" Weight: 170lbs. 0.0oz. 77.356054io; 33.2 BMI Method:Estimated General Appearance: WD/WN, Chronically ill, Mild Distress, Obese Eyes: Bilateral Eye Normal Inspection, Bilateral Eye PERRL HEENT: PERRL/EOMI, Normal ENT Inspection, Pharynx Normal Neck: Full Range of Motion, Normal Inspection, Non Tender, Supple, Carotid Bruit Respiratory: Chest Non Tender, Accessory Muscle Use, Crackles, Decreased Breath Sounds, Respiratory Distress, Wheezing Cardiovascular: Regular Rate, Rhythm, No Edema, No Gallop, No JVD, No Murmur, Normal Peripheral Pulses Gastrointestinal: Normal Bowel Sounds, No Organomegaly, No Pulsatile Mass, Non Tender, Soft Back: Normal Inspection, No CVA Tenderness, No Vertebral Tenderness Extremity: Normal Capillary Refill, Normal Inspection, Normal Range of Motion, Non Tender, No Calf Tenderness, No Pedal Edema Neurologic/Psychiatric: Alert, Oriented x3, No Motor/Sensory Deficits, Normal Mood/Affect Skin: Normal Color, Warm/Dry Lymphatic: No Adenopathy Results Results/Procedures Labs Laboratory Tests 09/09/18 12:05 09/10/18 03:45 Patient resulted labs reviewed. Assessment/Plan Admission Diagnosis Assessment: AECOPD Fall without left hip fracture CAD Smoker ARF Hyponatremia Plan: IV steroids Vapotherm Monitor creatinine Admission Status: Inpatient Order (span 2 midnights) Reason for Inpatient Admission: Severe AECOPD on vapotherm will take 3 days hospital Diagnosis/Problems Diagnosis/Problems (1) COPD with exacerbation Status: Acute (2) Smoker Status: Chronic (3) CAD (coronary artery disease) Status: Chronic Qualifiers: Coronary Disease-Associated Artery/Lesion type: [place] artery [place] vs. transplanted heart: [place] heart Associated angina: without angina Qualified Codes: I25.10 - Atherosclerotic heart disease of [place] coronary artery without angina pectoris (4) Left hip pain Status: Acute (5) Near syncope Status: Acute (6) Lactic acidemia Status: Acute (7) Renal failure Status: Acute Qualifiers: Renal failure chronicity: acute on chronic Acute renal failure type: unspecified Chronic kidney disease stage: stage 3 (moderate) Qualified Codes : N17.9 - Acute kidney failure, unspecified; N18.3 - Chronic kidney disease, stage 3 (moderate) (8) Hyponatremia Status: Acute (9) Obesity (BMI 30.0-34.9) Status: Chronic Clinical Quality Measures DVT/VTE Risk/Contraindication: Risk Factor Score Per Nursin RFS Level Per Nursing on Admit: 3=High CYNTHIA MANNING DO Sep 09, 2018 19:24
[2018-09-09] MEDS ORDERED: NICOTINE 21 MG (NICODERM) PATCH TD NR (19:30)
[2018-09-09] MEDS ORDERED: NICOTINE 21 MG (NICODERM) PATCH ONE (19:33)
[2018-09-09] MEDS: fentaNYL INJECTION 100 MCG/2 ML AMP IV PRN ×2 (21:08→22:58)
[2018-09-10] VITALS (11 sets, daily range): BP systolic 108–137; BP diastolic 60–94
[2018-09-10] MEDS: methylPREDNISolone 40 MG/ML (Solu-MEDROL) VIAL IV SCH ×5 (00:04→23:47)
[2018-09-10] MEDS: fentaNYL INJECTION 100 MCG/2 ML AMP IV PRN ×2 (00:58→03:06)
[2018-09-10] MEDS: RT-ALBUTEROL/IPRATROPIUM 3 ML (DUONEB) VIAL INH SCH ×6 (01:34→22:55)
[2018-09-10] MEDS: NS IV 1000 ML 1,000 ML IV SCH (03:25)
[2018-09-10 03:54] LABS: BASOPHILS % (AUTO) 0 % (0-10); EOSINOPHILS % (AUTO) 0 % (0-10); HEMATOCRIT 36 % (35-52); HEMOGLOBIN 11.8 G/DL (11.5-16.0); LYMPHOCYTES # (AUTO) 0.2 X 10^3 (1.0-4.0); LYMPHOCYTES % (AUTO) 4 % (12-44); MEAN CORPUSCULAR HEMOGLOBIN 31 PG (25-34); MEAN CORPUSCULAR HGB CONC 33 G/DL (32-36); MEAN CORPUSCULAR VOLUME 94 FL (80-99); MEAN PLATELET VOLUME 8.9 FL (7.4-10.4); MONOCYTES # (AUTO) 0.1 X 10^3 (0.0-1.0); MONOCYTES % (AUTO) 2 % (0-12); NEUTROPHILS # (AUTO) 5.7 X 10^3 (1.8-7.8); NEUTROPHILS % (AUTO) 95 % (42-75); PLATELET COUNT 230 10^3/uL (130-400); RED BLOOD COUNT 3.82 10^6/uL (4.35-5.85); RED CELL DISTRIBUTION WIDTH 15.2 % (10.0-14.5)
[2018-09-10 04:19] LABS: ALBUMIN 3.6 GM/DL (3.2-4.5); BILIRUBIN,TOTAL 0.6 MG/DL (0.1-1.0); CALCIUM 8.2 MG/DL (8.5-10.1); CREATININE SERUM 1.27 MG/DL (0.60-1.30); MAGNESIUM 1.4 MG/DL (1.8-2.4); TOTAL PROTEIN 6.4 GM/DL (6.4-8.2)
[2018-09-10 04:20] LABS: MAGNESIUM 1.4 MG/DL (1.8-2.4); PHOSPHORUS 2.5 MG/DL (2.3-4.7)
[2018-09-10 04:39] LABS: CREATININE SERUM 1.27 MG/DL (0.60-1.30)
[2018-09-10 04:40] LABS: CALCIUM 8.2 MG/DL (8.5-10.1)
[2018-09-10] MEDS ORDERED: KCL 20 MEQ TAB (K-DUR) PO SCH (06:00)
[2018-09-10] MEDS ORDERED: MAGNESIUM 1 GM/100 ML IVPB 100 ML IV SCH (06:00)
[2018-09-10] MEDS ORDERED: POTASSIUM CL 10MEQ/50ML IVPB 50 ML IV SCH (06:00)
--- NOTE | 2018-09-10 06:40 | Pulmonary Progress Note ---
Subjective Time Seen by a Provider: 06:55 Subjective/Events-last exam Pt is doing better. Sepsis Event Evaluation Height, Weight, BMI Height: 5'0.00" Weight: 170lbs. 0.0oz. 77.110800np; 33.2 BMI Method:Estimated Focused Exam Lactate Level 09/09/18 12:05: Lactic Acid Level 2.12*H 09/09/18 13:45: Lactic Acid Level 0.99 Exam Exam Vital Signs Date Time Temp Pulse Resp B/P (MAP) Pulse Ox O2 Delivery O2 Flow Rate FiO2 09/10/18 06:00 94 10 120/71 (87) 91 Vapotherm 70.00 16.00 09/10/18 05:55 93 Vapotherm 15.00 65 09/10/18 05:00 97 19 122/69 (86) 92 Vapotherm 70.00 16.00 09/10/18 04:00 93 Vapotherm 15.00 65 09/10/18 04:00 94 21 118/65 (82) 93 Vapotherm 70.00 16.00 09/10/18 04:00 98.9 09/10/18 03:00 98 8 129/94 (106) 96 Vapotherm 70.00 16.00 09/10/18 02:00 96 20 109/68 (82) 94 Vapotherm 70.00 16.00 09/10/18 01:34 93 Vapotherm 17.00 70 09/10/18 01:00 96 16 120/73 (89) 93 Vapotherm 70.00 16.00 09/10/18 01:00 96 09/10/18 00:30 93 21 108/60 (76) 90 Vapotherm 70.00 16.00 09/10/18 00:00 93 16 110/60 (77) 95 Vapotherm 80.00 20.00 09/10/18 00:00 98.0 09/10/18 00:00 93 Vapotherm 16.00 70 09/09/18 23:00 97 20 100/57 (71) 90 Vapotherm 80.00 20.00 09/09/18 22:08 93 Vapotherm 20.00 80 09/09/18 22:00 92 20 118/70 (86) 97 Vapotherm 80.00 20.00 09/09/18 21:00 103 10 110/65 (80) 93 Vapotherm 80.00 20.00 09/09/18 20:00 98.7 96 12 90/52 (65) 91 Vapotherm 80.00 20.00 09/09/18 20:00 93 Vapotherm 20.00 80 09/09/18 19:25 92 15 106/69 (81) 92 Vapotherm 80.00 20.00 09/09/18 19:18 97 Vapotherm 35.00 100 09/09/18 19:00 93 09/09/18 19:00 93 15 93/59 (70) 96 Vapotherm 100.00 35.00 09/09/18 18:02 89 09/09/18 18:00 92 94/74 (81) 98 Vapotherm 100.00 35.00 09/09/18 17:35 97.9 93 20 102/60 (74) 93 Vapotherm 100.00 35.00 09/09/18 17:30 91 Vapotherm 35.00 100 09/09/18 16:55 91 Vapotherm 100.00 09/09/18 16:50 92 16 101/65 (77) 97 Vapotherm 09/09/18 13:13 Vapotherm 20.00 85 09/09/18 12:26 91 OxyMask 15.00 09/09/18 11:50 72 Nasal Cannula 4.00 09/09/18 11:50 98.0 114 22 95/65 (75) 72 Nasal Cannula 4.00 I & O 09/10/18 07:00 Intake Total 1600 ml Output Total 525 ml Balance 1075 ml Height & Weight Height: 5'0.00" Weight: 170lbs. 0.0oz. 77.098789zg; 33.2 BMI Method:Estimated General Appearance: WD/WN, Chronically ill, Mild Distress, Obese HEENT: PERRL/EOMI, Normal ENT Inspection, Pharynx Normal Neck: Full Range of Motion, Normal Inspection, Non Tender, Supple, Carotid Bruit Respiratory: Chest Non Tender, Accessory Muscle Use, Crackles, Decreased Breath Sounds, Respiratory Distress, Wheezing Cardiovascular: Regular Rate, Rhythm, No Edema, No Gallop, No JVD, No Murmur, Normal Peripheral Pulses Capillary Refill: Less Than 3 Seconds Gastrointestinal: non tender, soft Extremity: Normal Capillary Refill, Normal Inspection, Normal Range of Motion, Non Tender, No Calf Tenderness, No Pedal Edema Neurologic/Psychiatric: Alert, Oriented x3, No Motor/Sensory Deficits, Normal Mood/Affect Skin: Normal Color, Warm/Dry Lymphatic: No Adenopathy Results Lab Laboratory Tests 09/09/18 12:05 09/10/18 03:45 Assessment/Plan Assessment/Plan S/p fall -PT/OT eval -Change fentanyl to morphine Acute on chronic respiratory failure -PT is currently on 50% vapotherm -vent to mask PRN and repeat ABG -PT will benefit from home vent to mask. SHe has hx of multiple hospitalizations. -PT is currently a full code. -Check BNP, give lasix 40mg IV Severe COPD with AE -SVNS Q4 -Solumedrol 40 IV Q 6 -Oxygen with Vapotherm currently -cont. sp02 monitoring Acute renal failure -IVF and monitor Hyponatremia -Monitor PT is doing better and requiring less oxygen. Will transfer her back to 4th floor. KANE OLIVERA DO Sep 10, 2018 06:40
[2018-09-10] MEDS: FUROSEMIDE 40 MG/4 ML INJ (LASIX) IVP SCH (07:18)
[2018-09-10] MEDS: KCL 10 MEQ TAB (MICRO K) PO SCH (07:18)
[2018-09-10] MEDS ORDERED: ALBU18HF2 INH (08:39)
[2018-09-10] MEDS ORDERED: MAGN400T29 PO (08:39)
[2018-09-10] MEDS ORDERED: AMOX1TAB12 PO (08:39)
--- NOTE | 2018-09-10 08:47 | Diagnostic Imaging Report ---
INDICATION: Exacerbation of COPD. TECHNIQUE: A portable upright AP view of the chest was obtained. COMPARISON: 09/09/2018. FINDINGS: The heart size and pulmonary vascularity are at the upper limits of normal without overt edema. There may be slight basilar atelectasis. No pneumothorax or consolidation is seen. A vascular stent projects over the lower left neck. There is advanced degenerative change in the right acromioclavicular joint with evidence of previous distal clavicle resection. IMPRESSION: The heart size and pulmonary vascularity are at the upper limits of normal without overt edema detected. Dictated by: Dictated on workstation # [id number]
[2018-09-10] MEDS: NICOTINE 21 MG (NICODERM) PATCH TD SCH (08:51)
[2018-09-10] MEDS: NICOTINE PATCH REMOVAL TP SCH (08:51)
--- NOTE | 2018-09-10 09:49 | Progress Note-Hospitalist ---
Subjective HPI/CC On Admission Date Seen by Provider: Sep 10, 2018 Time Seen by Provider: 09:15 CC: Dyspnea HPI: Subjective/Events-last exam patient feels much better Breathing better Vapotherm on board Left hip pain is controlled Will discontinue catheter Will transfer to fourth floor [facility] cardiology and pulmonology Home meds will be restarted Review of Systems Pulmonary: Dyspnea Musculoskeletal: leg pain Focused Exam Lactate Level 09/09/18 12:05: Lactic Acid Level 2.12*H 09/09/18 13:45: Lactic Acid Level 0.99 Objective Exam Vital Signs Vital Signs Date Time Temp Pulse Resp B/P (MAP) Pulse Ox O2 Delivery O2 Flow Rate FiO2 09/10/18 08:00 97.8 09/10/18 08:00 94 Vapotherm 15.00 65 09/10/18 07:00 97 09/10/18 06:00 10 120/71 (87) Capillary Refill : Less Than 3 Seconds General Appearance: No Apparent Distress, WD/WN, Chronically ill, Obese Respiratory: Chest Non Tender, Accessory Muscle Use, Crackles, Decreased Breath Sounds, Respiratory Distress (mild), Wheezing Cardiovascular: Regular Rate, Rhythm, No Edema, No Gallop, No JVD, No Murmur, Normal Peripheral Pulses Neurologic/Psychiatric: Alert, Oriented x3, No Motor/Sensory Deficits, Normal Mood/Affect Skin: Normal Color, Warm/Dry Results/Procedures Lab Laboratory Tests 09/09/18 12:05 09/10/18 03:45 Patient resulted labs reviewed. Assessment/Plan Assessment and Plan Assess & Plan/Chief Complaint Assessment: AECOPD Fall without left hip fracture CAD Smoker ARF Hyponatremia Plan: IV steroids Vapotherm Monitor creatinine Tx to 4th DC catheter Diagnosis/Problems Diagnosis/Problems (1) COPD with exacerbation Status: Acute (2) Smoker Status: Chronic (3) CAD (coronary artery disease) Status: Chronic Qualifiers: Coronary Disease-Associated Artery/Lesion type: [place] artery [place] vs. transplanted heart: [place] heart Associated angina: without angina Qualified Codes: I25.10 - Atherosclerotic heart disease of [place] coronary artery without angina pectoris (4) Left hip pain Status: Acute (5) Near syncope Status: Acute (6) Lactic acidemia Status: Acute (7) Renal failure Status: Acute Qualifiers: Renal failure chronicity: acute on chronic Acute renal failure type: unspecified Chronic kidney disease stage: stage 3 (moderate) Qualified Codes : N17.9 - Acute kidney failure, unspecified; N18.3 - Chronic kidney disease, stage 3 (moderate) (8) Hyponatremia Status: Acute (9) Obesity (BMI 30.0-34.9) Status: Chronic Clinical Quality Measures DVT/VTE Risk/Contraindication: Risk Factor Score Per Nursin RFS Level Per Nursing on Admit: 3=High SARAH GARCIA DO Sep 10, 2018 09:49
[2018-09-10] MEDS ORDERED: TIOT18CA2 INH (10:18)
[2018-09-10] MEDS ORDERED: DICL75TA2 PO (10:18)
[2018-09-10] MEDS ORDERED: PRAZ2CAP2 PO (10:35)
[2018-09-10] MEDS ORDERED: TRAZ150T72 PO (10:42)
[2018-09-10] MEDS ORDERED: MIRT45TA75 PO (10:42)
[2018-09-10] MEDS ORDERED: LORA10TA7 PO (10:47)
--- NOTE | 2018-09-10 10:49 | NUR ---
HAD A LIST FAXED OVER FROM DR. PINEDA'S OFFICE, I ALSO WENT OVER THE EXT MED HX WITH THE PATIENT AND CALLED AND SPOKE WITH HER DAUGHTER. WHEN I TALKED WITH THE PATIENT SHE TOLD ME SHE SAW DR. PINEDA AND DANIEL CONNOLLY ON 09-08-18. SHE STATES BOTH PRAZOSIN DOSES AND METOPROLOL WERE STOPPED. SHE ALSO STATES DR. OLIVERA STOPPED HER TRAZODONE AND MIRTAZAPINE, HER DAUGHTER STATES SHE WAS TAKING THE TRAZODONE AND MIRTAZAPINE AT HOME, SHE HAS BEEN TOLD TO STOP THEM SINCE SHE HAS BEEN ADMITTED. I LEFT THE TRAZODONE AND MIRTAZAPINE ON THE MED REC AT THIS TIME TO BE ADDRESSED AT DISCHARGE. I VERIFIED WITH DR. PINEDA'S OFFICE THEY DID DISCONTINUE THE METOPROLOL TARTRATE 25MG #180 FILLED 09-07-18. I SPOKE WITH MANJIT CONNOLLY OFFICE AND THEY VERIFIED THEY STOPPED THE PRAZOSIN 1MG DAILY HOWEVER SHE WAS TO CONTINUE THE 2MG HS. THE DAUGHTER STATES SHE TAKES THIS FOR NIGHTMARES NOT BP AND SHE DECIDED TO STOP THE NIGHT DOSE WELL SINCE THE PATIENTS BLOOD PRESSURE HAD BEEN LOW. SHE INTENDS TO SPEAK WITH THE DRMaile ABOUT AN ALTERNATIVE FOR A NIGHTMARE MEDICATION. PATIENT TAKES ASPIRIN 81MG DAILY AND LORATADINE 10MG DAILY OTC. [facility] FILLED A 7 DAY SUPPLY OF MAG OX 400MG DAILY AND AUGMENTIN 875 BID #20 09-08-18 HOWEVER NEITHER PRESCRIPTIONS HAVE BEEN PICKED UP. I DID NOT INCLUDE THEM ON THE MED REC AT THIS TIME. THE LIST FROM DR. PINEDA'S OFFICE LISTS GABAPENTIN AND SIMVASTATIN HOWEVER [facility] HAS NOT FILLED GABAPENTIN 800MG QID #120 SINCE 06-15-18 AND THEY HAVE NOT FILLED SIMVASTATIN 40MG DAILY #30 SINCE 02-13-18. SINCE THESE ARE SO PAST DUE I DID NOT INCLUDE THEM ON THE MED REC. [facility] DID FILL BENZONATATE 100MG #90 03-05-18 AND BOTH THE PATIENT AND HER DAUGHTER STATES SHE USES THIS NEEDED. THEY ALSO STATE SHE HAS A NEBULIZER SOLUTION ON HAND AT HOME NEEDED, [facility] DID NOT HAVE RECORD OF FILLING ONE. WE HAVE ALBUTEROL ON FILE FROM PREVIOUS VISITS, I LEFT IT ON THE MED REC. THE DAUGHTER DOES STATE THE PATIENT WILL NEED A NEW NEBULIZER BECAUSE SHE HAS BEEN LOOKING FOR IT FOR THE PAST WEEK AND CAN NOT FIND IT. SHE THINKS IT WAS LOANED TO SOMEONE AND NOT RETURNED.
[2018-09-10] MEDS: morphine INJ 4 MG/ML 1 ML (VIAL/SYRINGE) IVP PRN ×4 (11:13→23:47)
--- NOTE | 2018-09-10 13:10 | Cardiology Progress Note ---
Cardiology SOAP Progress Note Subjective: Shortness of breath. Objective: I&O/Vital Signs 09/11/18 09/11/18 09/11/18 09/11/18 04:34 07:07 07:09 08:00 Temp 97.1 Pulse 89 94 Resp 20 B/P (MAP) 122/88 (99) Pulse Ox 92 92 90 O2 Delivery Vapotherm Vapotherm Nasal Cannula O2 Flow Rate 65.00 15.00 15.00 15.00 FiO2 65 65 09/11/18 08:00 Temp 95.7 Pulse 88 Resp 20 B/P (MAP) 118/75 (89) Pulse Ox 93 O2 Delivery Vapotherm O2 Flow Rate 65.00 15.00 09/11/18 00:00 Intake Total 710 ml Output Total 350 ml Balance 360 ml Weight (Pounds): 170 Weight (Ounces): 0.0 Weight (Calculated Kilograms): 77.453937 Constitutional: AAO x 3, other (poor historian) Respiratory: rhonchi (scattered), other (coarse lower lobes bilat) Cardiovascular: regular rate-rhythm; No JVD; S1 and S2 Gastrointestional: No soft; round, audible bowel sounds Extremities: no lower extremity edema bilateral Neurologic/Psychiatric: other (moves all extremities; did not manipulate right leg, visibly shorter than left leg) Skin: No rash, No ulcerations Results/Procedures: Labs Laboratory Tests 09/11/18 06:16: White Blood Count 16.3H, Red Blood Count 4.21L, Hemoglobin 12.9, Hematocrit 40, Mean Corpuscular Volume 94, Mean Corpuscular Hemoglobin 31, Mean Corpuscular Hemoglobin Concent 33, Red Cell Distribution Width 15.0H, Platelet Count 234, Mean Platelet Volume 9.2, Neutrophils (%) (Auto) 93H, Lymphocytes (%) (Auto) 3L , Monocytes (%) (Auto) 5, Eosinophils (%) (Auto) 0, Basophils (%) (Auto) 0, Neutrophils # (Auto) 15.1H, Lymphocytes # (Auto) 0.5L, Monocytes # (Auto) 0.7, Eosinophils # (Auto) 0.0, Basophils # (Auto) 0.0, Neutrophils % (Manual) 91, Lymphocytes % (Manual) 1, Monocytes % (Manual) 4, Band Neutrophils 4, Stomatocytes SLIGHT, Sodium Level 132L, Potassium Level 4.8, Chloride Level 93L , Carbon Dioxide Level 27, Anion Gap 12, Blood Urea Nitrogen 23H, Creatinine 1.04, Estimat Glomerular Filtration Rate 55, BUN/Creatinine Ratio 22, Glucose Level 138H, Calcium Level 9.3, Phosphorus Level 3.3, Magnesium Level 1.6L, B- Type Natriuretic Peptide 664.9H Microbiology 09/09/18 Blood Culture - Preliminary, Resulted No growth 09/09/18 MRSA Screen - Final, Complete MRSA not isolated 09/09/18 Urine Culture - Final, Complete NO GROWTH A/P: Assessment/Dx: Assessment/Admission Diagnosis Syncope/near-syncope: likely due to hypoxia (see below) and intermittently low bp (documented orthostatic hypotension) Hypoxia, multi-factorial - COPD, obesity-hypoventilation syndrome, non- compliance with supplemental oxygen S/P fall resulting in right hip pain - possible fx/displacement UTI with possible sepsis- management per Medical Services Acute renal insufficiency, pre-renal due to volume depletion, renal due ATN due to transient hypotension and vol depletion S/p ILR. No significant arrhythmia seen during syncopal episodes Carotid arterial disease: Chronically occluded R ICA, h/o left common carotid artery stenting by Romeo Wall and in Apr 2016. Subsequent carotid u/s of 08/22/16 at [facility] showed patent L CCA stent, and 60-79% stenosis past the stent. Last carotid u/s of Aug 2018 is essentially unchanged CAD. Card cath of 05-19-17: 70-80% in-stent restenosis in the mid RCA to which successful balloon angioplasty was carried out with Emerge 3.5 x 12 mm balloon to reduce the stenosis to less than 10% residual. The rest of the coronary vessels have diffuse mod disease. LVEF 35-40%. Posterobasal, diaphragmatic, and apical akinesis of the LV. Elevated LVEDP. No significant MR MPI of 09-07-18 is consistent with known coronary disease. This study is indicative of inferior wall myocardial infarction with minimal kenny-infarct ischemia. Inferior hypokinesis to akinesis. Left ventricular ejection fraction is calculated to be 40% Echocardiogram from September 16, 2016 showed LVEF 45-50%, mod MR, mild TR. Aortic valve slcerosis with a peak pressure gradient across the aortic valve of approx 24mmHg and a valve area of approx 1.4cm sq, indicating mild aortic stenosis Intolerant to beta anita d/t reported symptomatic hypotension H/o hyperlipidemia Chronic joint pain Chronic tobacco use - cessation advised Anxiety disorder, being followed by Lo Castillo of [facility] DM II Plan: Discussion and Recomendations * Treat hypoxia as necessary * iv fluids * Hold off on any meds that might lower bp. Patient is not suitable for beta- anita or BC-inhibitor or ARB * Continue antiplatelet therapy * Advised to quit smoking * Monitor labs Thank you for your consultation. Please call me if you have any questions. Belinda Pendleton MD, FACP, FACC, FSCAI, FHRS, CCDS Interventional Cardiology Cardiac Electrophysiology Vascular Medicine and Endovascular Interventions Focused Exam Lactate Level 09/09/18 12:05: Lactic Acid Level 2.12*H 09/09/18 13:45: Lactic Acid Level 0.99 Jakob PENDLETON MD Sep 10, 2018 13:10
--- NOTE | 2018-09-10 15:20 | NUR ---
TRANSFERRED FROM ICU TO ROOM 416. ALERT AND COOPERATIVE. SKIN W/D. RESP. REGULAR. DEEP BREATHING ENCOURAGED. TEL. ON. SALINE LOCK IN RIGHT AC. SITE CLEAR. NICOTINE PATCH TO LEFT UPPER ARM IN PLACE. VAPOTHERM CONT. AT 15 L PER MIN. AT 65 % HUMIDITY. CHEERFUL AND TALKATIVE. TALKS ON PHONE FREQ.
[2018-09-10] MEDS: CATHETER FLUSH 10 ML SYR IV PRN ×2 (19:45→23:47)
[2018-09-11 00:40] VITALS: BP 157/92
[2018-09-11] MEDS: morphine INJ 4 MG/ML 1 ML (VIAL/SYRINGE) IVP PRN ×2 (03:22→11:53)
[2018-09-11 04:34] VITALS: BP 122/88
[2018-09-11] MEDS: methylPREDNISolone 40 MG/ML (Solu-MEDROL) VIAL IV SCH ×4 (06:08→23:22)
[2018-09-11] MEDS: KCL 10 MEQ TAB (MICRO K) PO SCH (06:08)
[2018-09-11] MEDS: CATHETER FLUSH 10 ML SYR IV PRN (06:08)
[2018-09-11 07:03] LABS: BASOPHILS % (AUTO) 0 % (0-10); EOSINOPHILS % (AUTO) 0 % (0-10); HEMATOCRIT 40 % (35-52); HEMOGLOBIN 12.9 G/DL (11.5-16.0); LYMPHOCYTES # (AUTO) 0.5 X 10^3 (1.0-4.0); LYMPHOCYTES % (AUTO) 3 % (12-44); MEAN CORPUSCULAR HEMOGLOBIN 31 PG (25-34); MEAN CORPUSCULAR HGB CONC 33 G/DL (32-36); MEAN CORPUSCULAR VOLUME 94 FL (80-99); MEAN PLATELET VOLUME 9.2 FL (7.4-10.4); MONOCYTES # (AUTO) 0.7 X 10^3 (0.0-1.0); MONOCYTES % (AUTO) 5 % (0-12); NEUTROPHILS # (AUTO) 15.1 X 10^3 (1.8-7.8); NEUTROPHILS % (AUTO) 93 % (42-75); PLATELET COUNT 234 10^3/uL (130-400); RED BLOOD COUNT 4.21 10^6/uL (4.35-5.85); WHITE BLOOD COUNT 16.3 10^3/uL (4.3-11.0)
[2018-09-11] MEDS: RT-ALBUTEROL/IPRATROPIUM 3 ML (DUONEB) VIAL INH SCH ×5 (07:09→22:05)
[2018-09-11 07:25] LABS: CALCIUM 9.3 MG/DL (8.5-10.1); CREATININE SERUM 1.04 MG/DL (0.60-1.30); MAGNESIUM 1.6 MG/DL (1.8-2.4); PHOSPHORUS 3.3 MG/DL (2.3-4.7); POTASSIUM 4.8 MMOL/L (3.6-5.0)
[2018-09-11 08:00] VITALS: BP 118/75
[2018-09-11 08:34] LABS: BAND NEUTROPHILS 4 %; LYMPHOCYTES % (MANUAL) 1 %; MONOCYTES % (MANUAL) 4 %; NEUTROPHILS % (MANUAL) 91 %; STOMATOCYTES SLIGHT
[2018-09-11] MEDS: FUROSEMIDE 40 MG/4 ML INJ (LASIX) IVP SCH (09:01)
[2018-09-11] MEDS: NICOTINE PATCH REMOVAL TP SCH (09:01)
[2018-09-11] MEDS: NICOTINE 21 MG (NICODERM) PATCH TD SCH (09:01)
--- NOTE | 2018-09-11 09:01 | Pulmonary Progress Note ---
Subjective Time Seen by a Provider: 09:01 Subjective/Events-last exam PT still requiring Vapotherm Sepsis Event Evaluation Height, Weight, BMI Height: 5'0.00" Weight: 170lbs. 0.0oz. 77.072216kb; 33.2 BMI Method:Estimated Focused Exam Lactate Level 09/09/18 12:05: Lactic Acid Level 2.12*H 09/09/18 13:45: Lactic Acid Level 0.99 Exam Exam Vital Signs Date Time Temp Pulse Resp B/P (MAP) Pulse Ox O2 Delivery O2 Flow Rate FiO2 09/11/18 07:09 92 Vapotherm 15.00 65 09/11/18 07:07 94 09/11/18 04:34 97.1 89 20 122/88 (99) 92 Vapotherm 65.00 15.00 09/11/18 01:00 106 09/11/18 00:40 96.9 85 22 157/92 (113) 93 Vapotherm 65.00 15.00 09/10/18 22:58 95 Vapotherm 15.00 65 09/10/18 19:53 87 24 137/87 (104) Vapotherm 65.00 15.00 09/10/18 19:41 Vapotherm 15.00 09/10/18 19:06 91 Vapotherm 15.00 65 09/10/18 19:00 99 09/10/18 16:00 99.0 88 22 132/82 (99) 90 Vapotherm 65.00 15.00 09/10/18 15:20 90 Nasal Cannula 15.00 65 09/10/18 13:38 94 Vapotherm 15.00 65 09/10/18 13:00 98 09/10/18 12:00 97.2 09/10/18 10:36 Vapotherm 15.00 65 I & O 09/11/18 07:00 Intake Total 2040 ml Output Total 2600 ml Balance -560 ml Height & Weight Height: 5'0.00" Weight: 170lbs. 0.0oz. 77.200211uw; 33.2 BMI Method:Estimated General Appearance: No Apparent Distress, WD/WN, Chronically ill, Obese HEENT: PERRL/EOMI, Normal ENT Inspection, Pharynx Normal Neck: Full Range of Motion, Normal Inspection, Non Tender, Supple, Carotid Bruit Respiratory: Chest Non Tender, Accessory Muscle Use, Crackles, Decreased Breath Sounds, Respiratory Distress (mild), Wheezing Cardiovascular: Regular Rate, Rhythm, No Edema, No Gallop, No JVD, No Murmur, Normal Peripheral Pulses Capillary Refill: Less Than 3 Seconds Gastrointestinal: non tender, soft Extremity: Normal Capillary Refill, Normal Inspection, Normal Range of Motion, Non Tender, No Calf Tenderness, No Pedal Edema Neurologic/Psychiatric: Alert, Oriented x3, No Motor/Sensory Deficits, Normal Mood/Affect Skin: Normal Color, Warm/Dry Lymphatic: No Adenopathy Results Lab Laboratory Tests 09/09/18 12:05 09/10/18 03:45 09/11/18 06:16 Assessment/Plan Assessment/Plan S/p fall -PT/OT eval -Change fentanyl to morphine Acute on chronic respiratory failure -PT is currently on 50% vapotherm -vent to mask PRN and repeat ABG -PT will benefit from home vent to mask. SHe has hx of multiple hospitalizations. -Check CTA of chest -PT is currently a full code. -Check BNP, give lasix 40mg IV Severe COPD with AE -SVNS Q4 -Solumedrol 40 IV Q 6 -Oxygen with Vapotherm currently -cont. sp02 monitoring Acute renal failure -IVF and monitor Hyponatremia -Monitor KANE OLIVERA DO Sep 11, 2018 09:01
[2018-09-11] MEDS ORDERED: RECEIVED CONTRAST (Hold Metformin) IV SCH (10:15)
[2018-09-11] MEDS ORDERED: CATHETER FLUSH 10 ML SYR IV PRN (10:15)
[2018-09-11] MEDS ORDERED: IOHEXOL 350 MG/ML 100 ML (OMNIPAQUE 350) VIAL IV ONE (10:15)
[2018-09-11] MEDS ORDERED: NS 100 ML (IVPB) BAG IV ONE (10:15)
--- NOTE | 2018-09-11 11:40 | NUR ---
DOWN FOR CT CHEST, PATIENT HAD ANXIETY ATTACK IN CT AND TEST NOT DONE, DR OLIVERA NOTIFIED AND ORDERS GIVEN
[2018-09-11 12:00] VITALS: BP 134/94
[2018-09-11] MEDS: clonazePAM 0.5 MG (KlonoPIN) TAB PO PRN ×2 (12:13→17:24)
--- NOTE | 2018-09-11 12:22 | Progress Note-Hospitalist ---
Subjective HPI/CC On Admission Date Seen by Provider: Sep 11, 2018 Time Seen by Provider: 11:00 CC: Dyspnea HPI: This is a patient of [facility] who presented to the ER complaining of left hip pain after a fall. She was found to be in respiratory distress. Left hip x-ray revealed possible fracture but upon further assessment by Dr. Ontiveros it appeared to not be fractured and only a normal variant and CT scan confirmed that. Patient was placed in cardiac stepdown monitor closely by cardiology and pulmonology wall maintained on Vapotherm. IV steroids of been tolerated and pain medication has been helpful with the left hip pain. Subjective/Events-last exam Patient doing a bit better but now requiring more oxygen Slow recovery Was to go home soon No bowel movement since she's not eating but will start MiraLAX I encouraged her to get out of bed today Maintain on telemetry Cannot discontinue telemetry due to variable oxygen saturation restarted home meds Review of Systems General: Fatigue Pulmonary: Dyspnea Gastrointestinal: Constipation Focused Exam Lactate Level 09/09/18 12:05: Lactic Acid Level 2.12*H 09/09/18 13:45: Lactic Acid Level 0.99 Objective Exam Vital Signs Vital Signs Date Time Temp Pulse Resp B/P (MAP) Pulse Ox O2 Delivery O2 Flow Rate FiO2 09/11/18 08:00 95.7 88 20 118/75 (89) 93 Vapotherm 65.00 15.00 09/11/18 08:00 65 Capillary Refill : Less Than 3 Seconds General Appearance: No Apparent Distress, WD/WN, Anxious, Chronically ill Respiratory: Chest Non Tender, No Accessory Muscle Use, No Respiratory Distress , Crackles, Wheezing (improved) Cardiovascular: Regular Rate, Rhythm, No Edema, No Gallop, No JVD, No Murmur, Normal Peripheral Pulses Neurologic/Psychiatric: Alert, Oriented x3, No Motor/Sensory Deficits, Normal Mood/Affect Results/Procedures Lab Laboratory Tests 09/11/18 06:16 Patient resulted labs reviewed. Assessment/Plan Assessment and Plan Assess & Plan/Chief Complaint Assessment: AECOPD Fall without left hip fracture CAD Smoker ARF Hyponatremia Elevated BNP Plan: IV steroids Vapotherm Monitor creatinine Hold NSAID home meds but restarted everything else Diagnosis/Problems Diagnosis/Problems (1) COPD with exacerbation Status: Acute (2) Smoker Status: Chronic (3) CAD (coronary artery disease) Status: Chronic Qualifiers: Coronary Disease-Associated Artery/Lesion type: [place] artery [place] vs. transplanted heart: [place] heart Associated angina: without angina Qualified Codes: I25.10 - Atherosclerotic heart disease of [place] coronary artery without angina pectoris (4) Left hip pain Status: Acute (5) Near syncope Status: Acute (6) Lactic acidemia Status: Acute (7) Renal failure Status: Acute Qualifiers: Renal failure chronicity: acute on chronic Acute renal failure type: unspecified Chronic kidney disease stage: stage 3 (moderate) Qualified Codes : N17.9 - Acute kidney failure, unspecified; N18.3 - Chronic kidney disease, stage 3 (moderate) (8) Hyponatremia Status: Acute (9) Obesity (BMI 30.0-34.9) Status: Chronic (10) Elevated brain natriuretic peptide (BNP) level Status: Acute Clinical Quality Measures DVT/VTE Risk/Contraindication: Risk Factor Score Per Nursin RFS Level Per Nursing on Admit: 3=High SARAH GARCIA DO Sep 11, 2018 12:22
[2018-09-11] MEDS ORDERED: FLUTICASONE NASAL SPRAY (FLONASE) 16 GM BTL NS PRN (12:30)
[2018-09-11] MEDS ORDERED: BENZONATATE 100 MG (TESSALON) CAPSULE PO PRN (12:30)
[2018-09-11] MEDS ORDERED: CYCLOBENZAPRINE 10 MG (FLEXERIL) TAB PO PRN (12:30)
--- NOTE | 2018-09-11 13:29 | Cardiology Progress Note ---
Cardiology SOAP Progress Note Subjective: Improved shortness of breath. Objective: I&O/Vital Signs 09/11/18 09/11/18 09/11/18 09/11/18 04:34 07:07 07:09 08:00 Temp 97.1 Pulse 89 94 Resp 20 B/P (MAP) 122/88 (99) Pulse Ox 92 92 90 O2 Delivery Vapotherm Vapotherm Nasal Cannula O2 Flow Rate 65.00 15.00 15.00 15.00 FiO2 65 65 09/11/18 08:00 Temp 95.7 Pulse 88 Resp 20 B/P (MAP) 118/75 (89) Pulse Ox 93 O2 Delivery Vapotherm O2 Flow Rate 65.00 15.00 09/11/18 00:00 Intake Total 710 ml Output Total 350 ml Balance 360 ml Weight (Pounds): 170 Weight (Ounces): 0.0 Weight (Calculated Kilograms): 77.574223 Constitutional: AAO x 3, other (poor historian) Respiratory: No accessory muscle use, No respiratory distress, No chest tender , No chest expansion is symmetric; chest is bilaterally symmetric; No lungs clear to percussion, No lungs clear to auscultation, No crackles; rhonchi ( scattered); No rales, No stridor, No wheezing, No pleural rub; other (coarse lower lobes bilat) Cardiovascular: regular rate-rhythm; No irregularly irregular, No extra beats, No parasternal heave is noted, No JVD, No edema, No bradycardia, No tachycardia , No point of maximal impulse, No cardiac thrills are palpable; S1 and S2; No gallop/S3, No gallop/S4, No diastolic murmur, No systolic murmur, No friction rub, No click, No other Gastrointestional: No tender, No soft; round; No distended, No pulsatile mass, No organomegaly, No guarding, No rebound, No tenderness, No hernia, No mass; audible bowel sounds; No abnormal bowel sounds, No abdominal bruits, No spleenomegaly, No other Extremities: No normal range of motion, No non-tender, No normal inspection, No pedal edema, No calf tenderness, No normal capillary refill, No pelvis stable , No calf tenderness, No inflammation, No pedal edema, No slow capillary refill , No swelling, No other, No abrasion, No clubbing, No cyanosis, No ecchymosis, No laceration; no lower extremity edema bilateral; No significant edema, No tenderness, No wound Neurologic/Psychiatric: no motor/sensory deficits, alert, normal mood/affect, oriented x 3, other (moves all extremities; did not manipulate right leg, visibly shorter than left leg) Skin: No normal color, No warm/dry, No cyanosis, No cool, No diaphoresis, No damp, No ecchymosis, No jaundice, No mottled, No pallor, No rash, No tattoos/ piercings, No ulcerations, No rash on exposed areas, No ulcerations on exposed areas, No other Results/Procedures: Labs Laboratory Tests 09/11/18 06:16: White Blood Count 16.3H, Red Blood Count 4.21L, Hemoglobin 12.9, Hematocrit 40, Mean Corpuscular Volume 94, Mean Corpuscular Hemoglobin 31, Mean Corpuscular Hemoglobin Concent 33, Red Cell Distribution Width 15.0H, Platelet Count 234, Mean Platelet Volume 9.2, Neutrophils (%) (Auto) 93H, Lymphocytes (%) (Auto) 3L , Monocytes (%) (Auto) 5, Eosinophils (%) (Auto) 0, Basophils (%) (Auto) 0, Neutrophils # (Auto) 15.1H, Lymphocytes # (Auto) 0.5L, Monocytes # (Auto) 0.7, Eosinophils # (Auto) 0.0, Basophils # (Auto) 0.0, Neutrophils % (Manual) 91, Lymphocytes % (Manual) 1, Monocytes % (Manual) 4, Band Neutrophils 4, Stomatocytes SLIGHT, Sodium Level 132L, Potassium Level 4.8, Chloride Level 93L , Carbon Dioxide Level 27, Anion Gap 12, Blood Urea Nitrogen 23H, Creatinine 1.04, Estimat Glomerular Filtration Rate 55, BUN/Creatinine Ratio 22, Glucose Level 138H, Calcium Level 9.3, Phosphorus Level 3.3, Magnesium Level 1.6L, B- Type Natriuretic Peptide 664.9H Microbiology 09/09/18 Blood Culture - Preliminary, Resulted No growth 09/09/18 MRSA Screen - Final, Complete MRSA not isolated 09/09/18 Urine Culture - Final, Complete NO GROWTH A/P: Assessment/Dx: Assessment/Admission Diagnosis Syncope/near-syncope: likely due to hypoxia (see below) and intermittently low bp (documented orthostatic hypotension) Hypoxia, multi-factorial - COPD, obesity-hypoventilation syndrome, non- compliance with supplemental oxygen S/P fall resulting in right hip pain - possible fx/displacement UTI with possible sepsis- management per Medical Services Acute renal insufficiency, pre-renal due to volume depletion, renal due ATN due to transient hypotension and vol depletion S/p ILR. No significant arrhythmia seen during syncopal episodes Carotid arterial disease: Chronically occluded R ICA, h/o left common carotid artery stenting by Romeo Wall and in Apr 2016. Subsequent carotid u/s of 08/22/16 at [facility] showed patent L CCA stent, and 60-79% stenosis past the stent. Last carotid u/s of Aug 2018 is essentially unchanged CAD. Card cath of 05-19-17: 70-80% in-stent restenosis in the mid RCA to which successful balloon angioplasty was carried out with Emerge 3.5 x 12 mm balloon to reduce the stenosis to less than 10% residual. The rest of the coronary vessels have diffuse mod disease. LVEF 35-40%. Posterobasal, diaphragmatic, and apical akinesis of the LV. Elevated LVEDP. No significant MR MPI of 09-07-18 is consistent with known coronary disease. This study is indicative of inferior wall myocardial infarction with minimal kenny-infarct ischemia. Inferior hypokinesis to akinesis. Left ventricular ejection fraction is calculated to be 40% Echocardiogram from September 16, 2016 showed LVEF 45-50%, mod MR, mild TR. Aortic valve slcerosis with a peak pressure gradient across the aortic valve of approx 24mmHg and a valve area of approx 1.4cm sq, indicating mild aortic stenosis Intolerant to beta anita d/t reported symptomatic hypotension H/o hyperlipidemia Chronic joint pain Chronic tobacco use - cessation advised Anxiety disorder, being followed by Lo Castillo of [facility] Services DM II Plan: Discussion and Recomendations * Continue same treatment. * iv fluids * Hold off on any meds that might lower bp. Patient is not suitable for beta- anita or BC-inhibitor or ARB * Continue antiplatelet therapy * Advised to quit smoking * Monitor labs Thank you for your consultation. Please call me if you have any questions. Belinda Pendleton MD, FACP, FACC, FSCAI, FHRS, CCDS Interventional Cardiology Cardiac Electrophysiology Vascular Medicine and Endovascular Interventions Focused Exam Lactate Level 09/09/18 12:05: Lactic Acid Level 2.12*H 09/09/18 13:45: Lactic Acid Level 0.99 Jakob PENDLETON MD Sep 11, 2018 13:29
[2018-09-11] MEDS: POLYETHYLENE GLYCOL 17 GM (MIRALAX) PACK PO SCH ×2 (13:37→20:07)
[2018-09-11] MEDS: UMECLIDINIUM BROMIDE (INCRUSE ELLIPTA) 7'S IH SCH (15:30)
[2018-09-11 16:00] VITALS: BP 131/92
[2018-09-11] MEDS: RT-ADVAIR HFA 115/21 MCG PER PUFF IH SCH (18:43)
[2018-09-11 19:52] VITALS: BP 125/88
[2018-09-11] MEDS: MIRTAZAPINE 15 MG (REMERON) TAB PO SCH (20:07)
[2018-09-11] MEDS: traZODone 150 MG (DESYREL) TABLET PO SCH (20:07)
[2018-09-11] MEDS: MONTELUKAST 10 MG (SINGULAIR) TAB PO SCH (20:07)
[2018-09-11] MEDS ORDERED: ETODOLAC 300 MG (LODINE) CAP PO SCH (21:00)
[2018-09-12] VITALS (7 sets, daily range): BP systolic 112–155; BP diastolic 68–92
[2018-09-12] MEDS: RT-ALBUTEROL/IPRATROPIUM 3 ML (DUONEB) VIAL INH SCH ×6 (01:43→22:35)
[2018-09-12] MEDS: KCL 10 MEQ TAB (MICRO K) PO SCH (05:45)
[2018-09-12] MEDS: methylPREDNISolone 40 MG/ML (Solu-MEDROL) VIAL IV SCH ×2 (05:45→11:33)
[2018-09-12 06:43] LABS: BASOPHILS % (AUTO) 0 % (0-10); EOSINOPHILS % (AUTO) 0 % (0-10); HEMATOCRIT 41 % (35-52); HEMOGLOBIN 13.3 G/DL (11.5-16.0); LYMPHOCYTES # (AUTO) 0.7 X 10^3 (1.0-4.0); LYMPHOCYTES % (AUTO) 5 % (12-44); MEAN CORPUSCULAR HEMOGLOBIN 31 PG (25-34); MEAN CORPUSCULAR HGB CONC 33 G/DL (32-36); MEAN CORPUSCULAR VOLUME 95 FL (80-99); MEAN PLATELET VOLUME 9.4 FL (7.4-10.4); MONOCYTES # (AUTO) 0.8 X 10^3 (0.0-1.0); MONOCYTES % (AUTO) 6 % (0-12); NEUTROPHILS # (AUTO) 12.2 X 10^3 (1.8-7.8); NEUTROPHILS % (AUTO) 89 % (42-75); PLATELET COUNT 261 10^3/uL (130-400); RED BLOOD COUNT 4.32 10^6/uL (4.35-5.85); RED CELL DISTRIBUTION WIDTH 15.2 % (10.0-14.5); WHITE BLOOD COUNT 13.7 10^3/uL (4.3-11.0)
[2018-09-12] MEDS: RT-ADVAIR HFA 115/21 MCG PER PUFF IH SCH ×2 (07:03→22:35)
[2018-09-12] MEDS: UMECLIDINIUM BROMIDE (INCRUSE ELLIPTA) 7'S IH SCH (07:03)
[2018-09-12 07:11] LABS: CALCIUM 9.6 MG/DL (8.5-10.1); CREATININE SERUM 1.05 MG/DL (0.60-1.30); MAGNESIUM 1.7 MG/DL (1.8-2.4); PHOSPHORUS 3.5 MG/DL (2.3-4.7); POTASSIUM 4.7 MMOL/L (3.6-5.0)
[2018-09-12] MEDS: ASPIRIN E.C. 81 MG (ECOTRIN) TAB PO SCH (08:33)
[2018-09-12] MEDS: FUROSEMIDE 40 MG/4 ML INJ (LASIX) IVP SCH (08:34)
[2018-09-12] MEDS: LORATADINE (CLARITIN) 10 MG TAB PO SCH (08:34)
[2018-09-12] MEDS: NICOTINE 21 MG (NICODERM) PATCH TD SCH (08:34)
[2018-09-12] MEDS: POLYETHYLENE GLYCOL 17 GM (MIRALAX) PACK PO SCH ×2 (08:34→19:36)
[2018-09-12] MEDS: CLOPIDOGREL 75 MG (PLAVIX) TABLET PO SCH (08:34)
[2018-09-12] MEDS: NICOTINE PATCH REMOVAL TP SCH (08:34)
[2018-09-12] MEDS: clonazePAM 0.5 MG (KlonoPIN) TAB PO PRN ×2 (08:54→12:49)
--- NOTE | 2018-09-12 12:32 | Progress Note-Hospitalist ---
Subjective HPI/CC On Admission Date Seen by Provider: Sep 12, 2018 Time Seen by Provider: 11:30 CC: Dyspnea HPI: This is a patient of [facility] who presented to the ER complaining of left hip pain after a fall. She was found to be in respiratory distress. Left hip x-ray revealed possible fracture but upon further assessment by Dr. Ontiveros it appeared to not be fractured and only a normal variant and CT scan confirmed that. Patient was placed in cardiac stepdown monitor closely by cardiology and pulmonology wall maintained on Vapotherm. IV steroids of been tolerated and pain medication has been helpful with the left hip pain. Subjective/Events-last exam Patient doing much better Weaning off Vapotherm Ordered Tylenol for pain Patient wanted Flexeril so ordered that for nighttime Review of Systems Pulmonary: Dyspnea Musculoskeletal: leg pain Focused Exam Lactate Level 09/09/18 13:45: Lactic Acid Level 0.99 Objective Exam Vital Signs Vital Signs Date Time Temp Pulse Resp B/P (MAP) Pulse Ox O2 Delivery O2 Flow Rate FiO2 09/12/18 11:04 95 Vapotherm 20.00 60 09/12/18 08:00 97.9 99 18 120/77 (91) Capillary Refill : Less Than 3 Seconds General Appearance: No Apparent Distress, WD/WN, Chronically ill Respiratory: Chest Non Tender, Lungs Clear, Normal Breath Sounds, No Accessory Muscle Use, No Respiratory Distress Cardiovascular: Regular Rate, Rhythm, No Edema, No Gallop, No JVD, No Murmur, Normal Peripheral Pulses Neurologic/Psychiatric: Alert, Oriented x3, No Motor/Sensory Deficits, Normal Mood/Affect Results/Procedures Lab Laboratory Tests 09/12/18 06:19 Patient resulted labs reviewed. Assessment/Plan Assessment and Plan Assess & Plan/Chief Complaint Assessment: AECOPD Fall without left hip fracture CAD Smoker ARF Hyponatremia Elevated BNP Plan: IV steroids change to PO steroids Vapotherm weaning Monitor creatinine Hold NSAID home meds but restarted everything else Diagnosis/Problems Diagnosis/Problems (1) COPD with exacerbation Status: Acute (2) Smoker Status: Chronic (3) CAD (coronary artery disease) Status: Chronic Qualifiers: Coronary Disease-Associated Artery/Lesion type: beaver artery [place] vs. transplanted heart: beaver heart Associated angina: without angina Qualified Codes: I25.10 - Atherosclerotic heart disease of beaver coronary artery without angina pectoris (4) Left hip pain Status: Acute (5) Near syncope Status: Acute (6) Lactic acidemia Status: Acute (7) Renal failure Status: Acute Qualifiers: Renal failure chronicity: acute on chronic Acute renal failure type: unspecified Chronic kidney disease stage: stage 3 (moderate) Qualified Codes : N17.9 - Acute kidney failure, unspecified; N18.3 - Chronic kidney disease, stage 3 (moderate) (8) Hyponatremia Status: Acute (9) Obesity (BMI 30.0-34.9) Status: Chronic (10) Elevated brain natriuretic peptide (BNP) level Status: Acute Clinical Quality Measures DVT/VTE Risk/Contraindication: Risk Factor Score Per Nursin RFS Level Per Nursing on Admit: 3=High SARAH GARCIA DO Sep 12, 2018 12:32
[2018-09-12] MEDS ORDERED: diphenhydrAMINE 25 MG TAB (BENADRYL) PO PRN (12:45)
[2018-09-12] MEDS: predniSONE 20 MG TAB PO SCH (12:45)
[2018-09-12] MEDS ORDERED: ACETAMINOPHEN 500 MG TAB (TYLENOL) PO PRN (12:45)
[2018-09-12] MEDS ORDERED: CALCIUM CARBONATE 500 MG (TUMS) TAB.CHEW PO PRN (12:45)
[2018-09-12] MEDS ORDERED: CYCLOBENZAPRINE 10 MG (FLEXERIL) TAB PO PRN (12:45)
--- NOTE | 2018-09-12 13:41 | Cardiology Progress Note ---
Cardiology SOAP Progress Note Subjective: Improved shortness of breath. Objective: I&O/Vital Signs 09/12/18 09/12/18 09/12/18 09/12/18 01:44 03:58 07:00 07:04 Temp 97.7 Pulse 89 91 Resp 18 B/P (MAP) 125/80 (95) Pulse Ox 93 93 90 O2 Delivery Vapotherm Vapotherm Vapotherm O2 Flow Rate 20.00 75.00 20.00 20.00 FiO2 60 60 09/12/18 09/12/18 09/12/18 09/12/18 07:09 07:10 08:00 08:45 Temp 97.9 Pulse 99 Resp 18 B/P (MAP) 120/77 (91) Pulse Ox 91 91 O2 Delivery Vapotherm Vapotherm Vapotherm Vapotherm O2 Flow Rate 20.00 20.00 20.00 FiO2 60 60 09/12/18 09/12/18 11:04 12:00 Temp 97.7 Pulse 98 Resp 20 B/P (MAP) 138/73 (94) Pulse Ox 95 96 O2 Delivery Vapotherm Vapotherm O2 Flow Rate 20.00 55.00 15.00 FiO2 60 09/12/18 00:00 Intake Total 3000 ml Balance 3000 ml Weight (Pounds): 170 Weight (Ounces): 0.0 Weight (Calculated Kilograms): 77.570562 Constitutional: AAO x 3, other (poor historian) Respiratory: No accessory muscle use, No respiratory distress, No chest tender , No chest expansion is symmetric; chest is bilaterally symmetric; No lungs clear to percussion, No lungs clear to auscultation, No crackles; rhonchi ( scattered); No rales, No stridor, No wheezing, No pleural rub; other (coarse lower lobes bilat) Cardiovascular: regular rate-rhythm; No irregularly irregular, No extra beats, No parasternal heave is noted, No JVD, No edema, No bradycardia, No tachycardia , No point of maximal impulse, No cardiac thrills are palpable; S1 and S2; No gallop/S3, No gallop/S4, No diastolic murmur, No systolic murmur, No friction rub, No click, No other Gastrointestional: No tender, No soft; round; No distended, No pulsatile mass, No organomegaly, No guarding, No rebound, No tenderness, No hernia, No mass; audible bowel sounds; No abnormal bowel sounds, No abdominal bruits, No spleenomegaly, No other Extremities: No normal range of motion, No non-tender, No normal inspection, No pedal edema, No calf tenderness, No normal capillary refill, No pelvis stable , No calf tenderness, No inflammation, No pedal edema, No slow capillary refill , No swelling, No other, No abrasion, No clubbing, No cyanosis, No ecchymosis, No laceration; no lower extremity edema bilateral; No significant edema, No tenderness, No wound Neurologic/Psychiatric: no motor/sensory deficits, alert, normal mood/affect, oriented x 3, other (moves all extremities; did not manipulate right leg, visibly shorter than left leg) Skin: No normal color, No warm/dry, No cyanosis, No cool, No diaphoresis, No damp, No ecchymosis, No jaundice, No mottled, No pallor, No rash, No tattoos/ piercings, No ulcerations, No rash on exposed areas, No ulcerations on exposed areas, No other Results/Procedures: Labs Laboratory Tests 09/12/18 06:19: White Blood Count 13.7H, Red Blood Count 4.32L, Hemoglobin 13.3, Hematocrit 41, Mean Corpuscular Volume 95, Mean Corpuscular Hemoglobin 31, Mean Corpuscular Hemoglobin Concent 33, Red Cell Distribution Width 15.2H, Platelet Count 261, Mean Platelet Volume 9.4, Neutrophils (%) (Auto) 89H, Lymphocytes (%) (Auto) 5L , Monocytes (%) (Auto) 6, Eosinophils (%) (Auto) 0, Basophils (%) (Auto) 0, Neutrophils # (Auto) 12.2H, Lymphocytes # (Auto) 0.7L, Monocytes # (Auto) 0.8, Eosinophils # (Auto) 0.0, Basophils # (Auto) 0.0, Sodium Level 134L, Potassium Level 4.7, Chloride Level 92L, Carbon Dioxide Level 29, Anion Gap 13, Blood Urea Nitrogen 26H, Creatinine 1.05, Estimat Glomerular Filtration Rate 54, BUN/ Creatinine Ratio 25, Glucose Level 154H, Calcium Level 9.6, Phosphorus Level 3.5 , Magnesium Level 1.7L Microbiology 09/09/18 Blood Culture - Preliminary, Resulted No growth 09/09/18 MRSA Screen - Final, Complete MRSA not isolated 09/09/18 Urine Culture - Final, Complete NO GROWTH A/P: Assessment/Dx: Assessment/Admission Diagnosis Syncope/near-syncope: likely due to hypoxia (see below) and intermittently low bp (documented orthostatic hypotension) Hypoxia, multi-factorial - COPD, obesity-hypoventilation syndrome, non- compliance with supplemental oxygen S/P fall resulting in right hip pain - possible fx/displacement UTI with possible sepsis- management per Medical Services Acute renal insufficiency, pre-renal due to volume depletion, renal due ATN due to transient hypotension and vol depletion S/p ILR. No significant arrhythmia seen during syncopal episodes Carotid arterial disease: Chronically occluded R ICA, h/o left common carotid artery stenting by Romeo Wall and in Apr 2016. Subsequent carotid u/s of 08/22/16 at [facility] showed patent L CCA stent, and 60-79% stenosis past the stent. Last carotid u/s of Aug 2018 is essentially unchanged CAD. Card cath of 05-19-17: 70-80% in-stent restenosis in the mid RCA to which successful balloon angioplasty was carried out with Emerge 3.5 x 12 mm balloon to reduce the stenosis to less than 10% residual. The rest of the coronary vessels have diffuse mod disease. LVEF 35-40%. Posterobasal, diaphragmatic, and apical akinesis of the LV. Elevated LVEDP. No significant MR MPI of 09-07-18 is consistent with known coronary disease. This study is indicative of inferior wall myocardial infarction with minimal kenny-infarct ischemia. Inferior hypokinesis to akinesis. Left ventricular ejection fraction is calculated to be 40% Echocardiogram from September 16, 2016 showed LVEF 45-50%, mod MR, mild TR. Aortic valve slcerosis with a peak pressure gradient across the aortic valve of approx 24mmHg and a valve area of approx 1.4cm sq, indicating mild aortic stenosis Intolerant to beta anita d/t reported symptomatic hypotension H/o hyperlipidemia Chronic joint pain Chronic tobacco use - cessation advised Anxiety disorder, being followed by Lo Castillo of [facility] DM II Plan: Discussion and Recomendations * Continue same treatment. * iv fluids * Improved blood pressure. Will defer to Dr. Burnett tomorrow about need of beta anita or BC inhibitor. * Continue antiplatelet therapy * Advised to quit smoking * Monitor labs * Dr. Burnett to take over care tomorrow morning. Thank you for your consultation. Please call me if you have any questions. Belinda Pendleton MD, FACP, FACC, FSCAI, FHRS, CCDS Interventional Cardiology Cardiac Electrophysiology Vascular Medicine and Endovascular Interventions Focused Exam Lactate Level 09/09/18 13:45: Lactic Acid Level 0.99 Jakob PENDLETON MD Sep 12, 2018 13:40
[2018-09-12] MEDS: MIRTAZAPINE 15 MG (REMERON) TAB PO SCH (19:36)
[2018-09-12] MEDS: MONTELUKAST 10 MG (SINGULAIR) TAB PO SCH (19:36)
[2018-09-12] MEDS: traZODone 150 MG (DESYREL) TABLET PO SCH (19:36)
[2018-09-13] MEDS: RT-ALBUTEROL/IPRATROPIUM 3 ML (DUONEB) VIAL INH SCH ×5 (02:18→18:37)
[2018-09-13 03:43] VITALS: BP 123/77
[2018-09-13 04:44] LABS: BASOPHILS % (AUTO) 0 % (0-10); EOSINOPHILS % (AUTO) 0 % (0-10); HEMATOCRIT 43 % (35-52); HEMOGLOBIN 13.9 G/DL (11.5-16.0); LYMPHOCYTES # (AUTO) 1.2 X 10^3 (1.0-4.0); LYMPHOCYTES % (AUTO) 8 % (12-44); MEAN CORPUSCULAR HEMOGLOBIN 30 PG (25-34); MEAN CORPUSCULAR HGB CONC 33 G/DL (32-36); MEAN CORPUSCULAR VOLUME 93 FL (80-99); MEAN PLATELET VOLUME 9.2 FL (7.4-10.4); MONOCYTES # (AUTO) 1.4 X 10^3 (0.0-1.0); MONOCYTES % (AUTO) 9 % (0-12); NEUTROPHILS # (AUTO) 12.1 X 10^3 (1.8-7.8); NEUTROPHILS % (AUTO) 83 % (42-75); PLATELET COUNT 247 10^3/uL (130-400); RED BLOOD COUNT 4.58 10^6/uL (4.35-5.85); RED CELL DISTRIBUTION WIDTH 14.8 % (10.0-14.5); WHITE BLOOD COUNT 14.7 10^3/uL (4.3-11.0)
[2018-09-13 05:04] LABS: CALCIUM 9.7 MG/DL (8.5-10.1); CREATININE SERUM 1.01 MG/DL (0.60-1.30); MAGNESIUM 1.9 MG/DL (1.8-2.4); PHOSPHORUS 3.3 MG/DL (2.3-4.7); POTASSIUM 3.9 MMOL/L (3.6-5.0)
[2018-09-13] MEDS: KCL 10 MEQ TAB (MICRO K) PO SCH (06:02)
[2018-09-13] MEDS: predniSONE 20 MG TAB PO SCH (06:02)
[2018-09-13] MEDS: RT-ADVAIR HFA 115/21 MCG PER PUFF IH SCH ×2 (06:47→18:38)
[2018-09-13] MEDS: UMECLIDINIUM BROMIDE (INCRUSE ELLIPTA) 7'S IH SCH (06:49)
[2018-09-13 08:00] VITALS: BP 116/65
--- NOTE | 2018-09-13 08:08 | Pulmonary Progress Note ---
CASSIE SARAH Vaishali STUDENT 09/13/18 0808: Subjective Date Seen by a Provider: Sep 13, 2018 Time Seen by a Provider: 08:03 Sepsis Event Evaluation Height, Weight, BMI Height: 5'0.00" Weight: 170lbs. 0.0oz. 77.865629nn; 33.2 BMI Method:Estimated Exam Exam Vital Signs Date Time Temp Pulse Resp B/P (MAP) Pulse Ox O2 Delivery O2 Flow Rate FiO2 09/13/18 06:49 94 Vapotherm 17.00 60 09/13/18 06:47 94 Vapotherm 17.00 60 09/13/18 06:38 93 Vapotherm 17.00 60 09/13/18 03:43 97.0 90 20 123/77 (92) 91 Vapotherm 55.00 15.00 09/13/18 02:18 86 Vapotherm 15.00 60 09/13/18 01:00 93 09/12/18 23:53 97.7 91 20 120/80 (93) 90 Vapotherm 55.00 15.00 09/12/18 22:35 87 Vapotherm 15.00 55 09/12/18 22:35 Vapotherm 15.00 50 09/12/18 20:00 97.8 88 20 155/68 (97) 95 Vapotherm 55.00 15.00 09/12/18 19:51 Vapotherm 20.00 75 09/12/18 19:00 112 09/12/18 15:42 97.6 86 18 112/72 (85) 94 Vapotherm 55.00 15.00 09/12/18 14:59 90 Vapotherm 15.00 55 09/12/18 13:12 96 09/12/18 12:00 97.7 98 20 138/73 (94) 96 Vapotherm 55.00 15.00 09/12/18 11:04 95 Vapotherm 20.00 60 09/12/18 08:45 91 Vapotherm 20.00 I & O 09/13/18 07:00 Intake Total 2110 ml Balance 2110 ml Height & Weight Height: 5'0.00" Weight: 170lbs. 0.0oz. 77.649145eu; 33.2 BMI Method:Estimated General Appearance: No Apparent Distress, WD/WN, Chronically ill HEENT: PERRL/EOMI, Normal ENT Inspection, Pharynx Normal Neck: Full Range of Motion, Normal Inspection, Non Tender, Supple, Carotid Bruit Respiratory: Chest Non Tender, Lungs Clear, Normal Breath Sounds, No Accessory Muscle Use, No Respiratory Distress Cardiovascular: Regular Rate, Rhythm, No Edema, No Gallop, No JVD, No Murmur, Normal Peripheral Pulses Capillary Refill: Less Than 3 Seconds Gastrointestinal: non tender, soft Extremity: Normal Capillary Refill, Normal Inspection, Normal Range of Motion, Non Tender, No Calf Tenderness, No Pedal Edema Neurologic/Psychiatric: Alert, Oriented x3, No Motor/Sensory Deficits, Normal Mood/Affect Skin: Normal Color, Warm/Dry Lymphatic: No Adenopathy Results Lab Laboratory Tests 09/12/18 06:19 09/13/18 04:25 Assessment/Plan Assessment/Plan S/p fall -PT/OT -Continue morphine Acute on chronic respiratory failure -PT is currently on vapotherm with 94% sat -vent to mask PRN and repeat ABG -PT will benefit from home vent to mask. She has hx of multiple hospitalizations. -PT is currently a full code. -Continue lasix 40mg, consider giving 40mEq KCl daily Leukocytosis -Consider CXR, aggarwal cultures Severe COPD with AE -SVNS Q4 -Prednisone 40 -Oxygen with Vapotherm currently -cont. sp02 monitoring Acute renal failure -IVF and monitor Hyponatremia, hypochloremia -Consider IVF KANE OLIVERA DO 09/13/18 0940: Subjective Time Seen by a Provider: 09:35 Subjective/Events-last exam PT wants to go home however she is still on Vapotherm. Exam Exam General Appearance: No Apparent Distress, WD/WN, Anxious, Chronically ill HEENT: PERRL/EOMI, Normal ENT Inspection, Pharynx Normal Neck: Full Range of Motion, Normal Inspection, Non Tender, Supple Respiratory: Chest Non Tender, Lungs Clear, Normal Breath Sounds, No Accessory Muscle Use, No Respiratory Distress Cardiovascular: Regular Rate, Rhythm, No Edema, No Gallop, No JVD, No Murmur, Normal Peripheral Pulses Gastrointestinal: non tender, soft Extremity: Normal Capillary Refill, Normal Inspection, Normal Range of Motion, No Pedal Edema Neurologic/Psychiatric: Alert, Oriented x3, No Motor/Sensory Deficits, Normal Mood/Affect Skin: Normal Color, Warm/Dry Lymphatic: No Adenopathy Assessment/Plan Assessment/Plan S/p fall -PT/OT -Continue morphine Acute on chronic respiratory failure -PT is currently on vapotherm with 94% sat -trial pt on regular NC. Pt is wanting to go home. -vent to mask PRN and repeat ABG -PT will benefit from home vent to mask. She has hx of multiple hospitalizations. -ABG PC02 is only 49 - pt will not qualify for home vent to mask -PT is currently a full code. -Continue lasix 40mg, consider giving 40mEq KCl daily Leukocytosis -Consider CXR, aggarwal cultures Severe COPD with AE -SVNS Q4 -Prednisone 40 -Oxygen with Vapotherm currently -cont. sp02 monitoring Acute renal failure -IVF and monitor Hyponatremia, hypochloremia -Consider IVF SOUTH-CASSIE GHOSH Sep 13, 2018 08:08 KANE OLIVERA DO Sep 13, 2018 09:40
[2018-09-13] MEDS: NICOTINE PATCH REMOVAL TP SCH (08:38)
[2018-09-13] MEDS: FUROSEMIDE 40 MG/4 ML INJ (LASIX) IVP SCH (08:38)
[2018-09-13] MEDS: POLYETHYLENE GLYCOL 17 GM (MIRALAX) PACK PO SCH (08:39)
[2018-09-13] MEDS: NICOTINE 21 MG (NICODERM) PATCH TD SCH (08:39)
[2018-09-13] MEDS: ASPIRIN E.C. 81 MG (ECOTRIN) TAB PO SCH (08:39)
[2018-09-13] MEDS: CLOPIDOGREL 75 MG (PLAVIX) TABLET PO SCH (08:39)
[2018-09-13] MEDS: LORATADINE (CLARITIN) 10 MG TAB PO SCH (08:39)
[2018-09-13] MEDS: clonazePAM 0.5 MG (KlonoPIN) TAB PO PRN (08:39)
--- NOTE | 2018-09-13 09:29 | Progress Note-Cardiology ---
Cardiology SOAP Progress Note Subjective: Sitting up in bed. Vapo-therm on. Feels her breathing back to her usual baseline. No c/o CP, palpitations, syncope or near syncope. Wants to go home. Objective: I&O/Vital Signs 09/13/18 09/13/18 09/13/18 09/13/18 06:38 06:47 06:49 07:00 Pulse 85 Pulse Ox 93 94 94 O2 Delivery Vapotherm Vapotherm Vapotherm O2 Flow Rate 17.00 17.00 17.00 FiO2 60 60 60 09/13/18 09/13/18 09/13/18 09/13/18 08:00 08:10 10:55 12:00 Temp 98.0 98.4 Pulse 98 104 Resp 20 20 B/P (MAP) 116/65 (82) 120/76 (91) Pulse Ox 90 95 94 98 O2 Delivery Vapotherm Vapotherm Vapotherm Vapotherm O2 Flow Rate 55.00 17.00 17.00 55.00 15.00 15.00 FiO2 60 60 09/13/18 09/13/18 09/13/18 13:00 14:47 16:31 Temp 97.2 Pulse 100 90 Resp 20 B/P (MAP) 158/68 (98) Pulse Ox 94 93 O2 Delivery Nasal Cannula Nasal Cannula O2 Flow Rate 5.00 5.00 09/13/18 00:00 Intake Total 1510 ml Balance 1510 ml Weight (Pounds): 170 Weight (Ounces): 0.0 Weight (Calculated Kilograms): 77.005432 Constitutional: AAO x 3, other (poor historian) Respiratory: chest is bilaterally symmetric, rhonchi (scattered), other ( coarse lower lobes bilat) Cardiovascular: regular rate-rhythm, S1 and S2 Gastrointestional: round, audible bowel sounds (hyperactive) Extremities: no lower extremity edema bilateral Neurologic/Psychiatric: oriented x 3, grossly intact Skin: No ulcerations, No rash on exposed areas Results/Procedures: Labs Laboratory Tests 09/13/18 04:25: White Blood Count 14.7H, Red Blood Count 4.58, Hemoglobin 13.9, Hematocrit 43, Mean Corpuscular Volume 93, Mean Corpuscular Hemoglobin 30, Mean Corpuscular Hemoglobin Concent 33, Red Cell Distribution Width 14.8H, Platelet Count 247, Mean Platelet Volume 9.2, Neutrophils (%) (Auto) 83H, Lymphocytes (%) (Auto) 8L , Monocytes (%) (Auto) 9, Eosinophils (%) (Auto) 0, Basophils (%) (Auto) 0, Neutrophils # (Auto) 12.1H, Lymphocytes # (Auto) 1.2, Monocytes # (Auto) 1.4H, Eosinophils # (Auto) 0.0, Basophils # (Auto) 0.0, Sodium Level 133L, Potassium Level 3.9, Chloride Level 90L, Carbon Dioxide Level 32, Anion Gap 11, Blood Urea Nitrogen 25H, Creatinine 1.01, Estimat Glomerular Filtration Rate 57, BUN/ Creatinine Ratio 25, Glucose Level 117H, Calcium Level 9.7, Phosphorus Level 3.3 , Magnesium Level 1.9, B-Type Natriuretic Peptide 1398.4H Microbiology 09/09/18 Blood Culture - Preliminary, Resulted No growth 09/09/18 MRSA Screen - Final, Complete MRSA not isolated 09/09/18 Urine Culture - Final, Complete NO GROWTH A/P: Assessment: Syncope/near-syncope: likely due to hypoxia (see below) and intermittently low bp (documented orthostatic hypotension) - no further episodes Hypoxia, multi-factorial - COPD, obesity-hypoventilation syndrome, non- compliance with supplemental oxygen - improved S/P fall resulting in right hip pain - no fracture per ortho services Acute renal insufficiency, pre-renal due to volume depletion, renal due ATN due to transient hypotension and vol depletion - resolved S/p ILR. No significant arrhythmia seen during syncopal episodes Carotid arterial disease: Chronically occluded R ICA, h/o left common carotid artery stenting by Romeo Wall and in Apr 2016. Subsequent carotid u/s of 08/22/16 at [facility] showed patent L CCA stent, and 60-79% stenosis past the stent. Last carotid u/s of Aug 2018 is essentially unchanged CAD. Card cath of 05-19-17: 70-80% in-stent restenosis in the mid RCA to which successful balloon angioplasty was carried out with Emerge 3.5 x 12 mm balloon to reduce the stenosis to less than 10% residual. The rest of the coronary vessels have diffuse mod disease. LVEF 35-40%. Posterobasal, diaphragmatic, and apical akinesis of the LV. Elevated LVEDP. No significant MR MPI of 09-07-18 is consistent with known coronary disease. This study is indicative of inferior wall myocardial infarction with minimal kenny-infarct ischemia. Inferior hypokinesis to akinesis. Left ventricular ejection fraction is calculated to be 40% Echocardiogram from September 16, 2016 showed LVEF 45-50%, mod MR, mild TR. Aortic valve slcerosis with a peak pressure gradient across the aortic valve of approx 24mmHg and a valve area of approx 1.4cm sq, indicating mild aortic stenosis Intolerant to beta anita d/t reported symptomatic hypotension H/o hyperlipidemia Chronic joint pain Chronic tobacco use - cessation advised Anxiety disorder, being followed by Lo Castillo of [facility] DM II Plan: * Patient is not suitable for beta-anita or BC-inhibitor or ARB d/t orthostatic hypotension as documented * Continue antiplatelet therapy * Advised to quit smoking * Ac on chronic exacerbation of COPD - management per pulmonary services * Monitor labs Physician Assessment Physician Assessment Gen malaise and weakness. No cp. Mild to mod shortness of breath Lungs: fair air entry, prolonged exp Cor: reg Ext: no c/c/e A&R * As documented in our note above that I updated (italics) and as noted below * I discussed her CV issues with her * Monitor labs REEMA ESPINAL Sep 13, 2018 09:29 RUDI PINEDA MD FACP [facility] Sep 13, 2018 16:57
--- NOTE | 2018-09-13 10:47 | Progress Note (SOAP) ---
DEA DUFF MED STUDENT 09/13/18 1047: Subjective Subjective/Events-last exam Patients reports feeling okay this morning. Has moved to the chair and bathroom without much difficulty. Is having increased sputum production compared to baseline which is clear in nature. Denies fevers or SOB. Patient requires 6 L of oxygen at home. She titrates her oxygen up with increased activity and is able to wean to 4 L if resting for extended periods of time. No other concerns or questions today. Review of Systems Date Seen by Provider: Sep 13, 2018 Time Seen by Provider: 10:25 General: No Chills, No Night Sweats, No Fatigue, No Malaise, No Appetite, No Other HEENT: Other (Patient reports ulcers in her mouth with occasional pain) Pulmonary: No Dyspnea; Cough; No Pleuritic Chest Pain, No Other Cardiovascular: No: Chest Pain, Palpitations, Orthopnea, Paroxysmal Noc. Dyspnea, Edema, Lt Headedness, Other Gastrointestinal: No: Nausea, Vomiting, Abdominal Pain, Diarrhea, Constipation , Melena, Hematochezia, Other Genitourinary: No Dysuria, No Frequency, No Incontinence, No Hematuria, No Retention, No Other Musculoskeletal: No: other, neck pain, shoulder pain, arm pain, back pain, hand pain, leg pain, foot pain Neurological: No: Weakness, Numbness, Incoordination, Change in speech, Confusion, Seizures, Other Focused Exam Time of Focused Exam: 10:30 Respiratory: Chest Non Tender, Lungs Clear, Normal Breath Sounds, No Accessory Muscle Use, No Respiratory Distress Cardiovascular: Regular Rate, Rhythm, No Edema, No Murmur Skin: normal color Objective Exam Last Set of Vital Signs Vital Signs Date Time Temp Pulse Resp B/P (MAP) Pulse Ox O2 Delivery O2 Flow Rate FiO2 09/13/18 08:00 98.0 98 20 116/65 (82) 90 Vapotherm 55.00 15.00 09/13/18 06:49 60 Capillary Refill : Less Than 3 Seconds I&O Intake and Output 09/13/18 00:00 Intake Total 1810 ml Balance 1810 ml Intake Oral 1810 ml # Voids 9 # Bowel Movements 5 General: Alert HEENT: Atraumatic Lungs: Clear to Auscultation, Normal Air Movement Heart: Regular Rate, Normal S1, Normal S2, No Murmurs Abdomen: Normal Bowel Sounds, Soft, No Tenderness, No Hepatosplenomegaly, No Masses Extremities: No Edema Neuro: Normal Speech Results/Procedures Lab Laboratory Tests 09/13/18 04:25: White Blood Count 14.7H, Red Blood Count 4.58, Hemoglobin 13.9, Hematocrit 43, Mean Corpuscular Volume 93, Mean Corpuscular Hemoglobin 30, Mean Corpuscular Hemoglobin Concent 33, Red Cell Distribution Width 14.8H, Platelet Count 247, Mean Platelet Volume 9.2, Neutrophils (%) (Auto) 83H, Lymphocytes (%) (Auto) 8L , Monocytes (%) (Auto) 9, Eosinophils (%) (Auto) 0, Basophils (%) (Auto) 0, Neutrophils # (Auto) 12.1H, Lymphocytes # (Auto) 1.2, Monocytes # (Auto) 1.4H, Eosinophils # (Auto) 0.0, Basophils # (Auto) 0.0, Sodium Level 133L, Potassium Level 3.9, Chloride Level 90L, Carbon Dioxide Level 32, Anion Gap 11, Blood Urea Nitrogen 25H, Creatinine 1.01, Estimat Glomerular Filtration Rate 57, BUN/ Creatinine Ratio 25, Glucose Level 117H, Calcium Level 9.7, Phosphorus Level 3.3 , Magnesium Level 1.9, B-Type Natriuretic Peptide 1398.4H Microbiology 09/09/18 Blood Culture - Preliminary, Resulted No growth 09/09/18 MRSA Screen - Final, Complete MRSA not isolated 09/09/18 Urine Culture - Final, Complete NO GROWTH Radiology NAME: FAN EATON [facility] REC#: [id number] PT STATUS: REG ER : 1960 PHYSICIAN: JIMENA CANTU MD ADMIT DATE: 09/09/18/ER Draft Date of Exam:09/09/18 PELVIS WITH RIGHT HIP 2-3VIEWS INDICATION: Fall and right hip pain. TIME OF EXAM: 01:06 p.m. An AP view of pelvis and two views of the right hip were obtained. Femoral acetabular alignment is normal. There appears to be foreshortening of the right femoral neck, suggestive of a fracture. Left femoral neck is intact. Rami are unremarkable. SI joints and symphysis are not widened. IMPRESSION: There appears to be some foreshortening of the right femoral neck suspicious for fracture. No dislocation is seen. CT of the right hip may be useful for further evaluation if clinically indicated. Dictated on workstation # [id number] Dict: 09/09/18 1255 Trans: 09/09/18 1301 [facility] [id number] Interpreted by: MERT PRESSLEY MD Electronically signed by: NAME: FAN EATON [facility] REC#: [id number] PT STATUS: REG ER : 1960 PHYSICIAN: JIMENA CANTU MD ADMIT DATE: 09/09/18/ER Draft Date of Exam:09/09/18 CT HEAD WO PROCEDURE: CT head without contrast. TECHNIQUE: Multiple contiguous axial images were obtained through the brain without the use of intravenous contrast. INDICATION: Fall. COMPARISON: Comparison is made with prior head CT from 05/26/2014. FINDINGS: The ventricles and sulci are within normal limits. No sulcal effacement is seen. There is no midline shift. No acute intra-axial or extra-axial hemorrhage is detected. Cisterns are patent. Visualized paranasal sinuses demonstrate some mucosal thickening of bilateral maxillary sinuses. IMPRESSION: No acute intracranial process is detected. Dictated on workstation # [id number] Dict: 09/09/18 1254 Trans: 09/09/[address] [place] [address] [id number] Interpreted by: MERT PRESSLEY MD Electronically signed by: NAME: FAN EATON [facility] REC#: [id number] PT STATUS: REG ER : 1960 PHYSICIAN: JIMENA CANTU MD ADMIT DATE: 09/09/18/ER Draft Date of Exam:09/09/18 CHEST 1 VIEW, AP/PA ONLY INDICATION: Fall. TIME OF EXAM: 01:04 p.m. Comparison is made with prior chest from 04/14/2018. Heart is enlarged. The lungs appear to be clear. No infiltrate or effusion is seen. There is no pneumothorax. There is a stent overlying the medial aspect of the left lower neck. IMPRESSION: Cardiomegaly. No acute feature is detected. Dictated on workstation # [id number] Dict: 09/09/18 1253 Trans: 09/09/18 1257 [facility] [id number] Interpreted by: MERT PRESSLEY MD Electronically signed by: NAME: FAN EATON [facility] REC#: [id number] PT STATUS: REG ER : 1960 PHYSICIAN: JIMENA CANTU MD ADMIT DATE: 09/09/18/ER Draft Date of Exam:09/09/18 CT EXTREMITY LOWER RIGHT WO PROCEDURE: CT right lower extremity without contrast. TECHNIQUE: Axially acquired CT was obtained through the right lower extremity without intravenous contrast. Coronal and sagittal reformations were also performed. INDICATION: Right hip pain and followup right hip x-ray. COMPARISON: Correlation is made with right hip radiograph from earlier same day. FINDINGS: Femoroacetabular alignment is normal. There appear to be some dysplastic changes to the right hip, likely accounting for the radiographic abnormality. There appears to be poor coverage of the femoral head by the acetabulum, consistent with some acetabular dysplasia. There is some slight foreshortening of the femoral neck. There are some degenerative changes identified at the femoral head neck junction. Femoral head and neck are intact. Intertrochanteric region is intact. No acute fracture lines are seen. The right-sided superior and inferior pubic rami appear to be intact. IMPRESSION: Right hip dysplasia. No acute hip fracture is detected. Dictated on workstation # [id number] Dict: 09/09/18 1513 Trans: 09/09/18 1521 [id number] Interpreted by: MERT PRESSLEY MD Electronically signed by: Assessment/Plan Assessment/Plan Admission Dx Acute COPD Exacerbation Admission Status: Inpatient Order (span 2 midnights) Reason for Inpatient Admission: Dyspnea with increased oxygen requirements compared to baseline Assessment & Plan Ms. Eaton is a 58 year old female with PMH of COPD, CAD, and obesity on day 5 of admission for acute COPD exacerbation requiring increased oxygen requirements. # Acute COPD Exacerbation -Patient continues to require increased oxygen assistance. Currently on 17 L O2 at 60% FIO2. Plan: -Continue to wean vapotherm as tolerated. -Encourage incentive spirometry use and ambulation. -Day 2/5 Prednisone 40 mg PO -Continue Advair BID -Continue Tessalon Perles PRN #Oral Pain Plan: -Oral Nystatin swish and swallow Continue all [employer] medications. Continue holding NSAIDs Clinical Quality Measures Admission Status Admission Status: Inpatient Order (span 2 midnights) Reason for Inpatient Admission: Increased oxygen requirements DVT/VTE Risk/Contraindication: Risk Factor Score Per Nursin RFS Level Per Nursing on Admit: 3=High DVT/VTE Prophylaxis Comfirm.Dx Mechanical not ordered: Pharmacological PPX (Plavix) [facility] 09/13/18 1120: Subjective Subjective/Events-last exam Reviewed above HPI with patient Objective Exam General: Alert, Other (increased work of breathing with minimal activity, conversational dyspnea) HEENT: Atraumatic Lungs: Clear to Auscultation, Other (Increased work of breathing) Heart: Regular Rate, No Murmurs Abdomen: Normal Bowel Sounds, Soft, No Tenderness, No Hepatosplenomegaly, No Masses Extremities: No Cyanosis, No Edema Skin: No Rashes Neuro: Normal Speech, Cranial Nerves 3-12 NL Psych/Mental Status: Mental Status NL, Mood NL Assessment/Plan Assessment/Plan (1) Acute and chronic respiratory failure with hypoxia Status: Acute Assessment & Plan: 09/13: Dr Rosen managing, MAT protocol, Steroids, expect slow titration (2) COPD with exacerbation Status: Acute Assessment & Plan: 09/13: See Above (3) Mouth pain Status: Acute Assessment & Plan: 09/13: Nystatin Mouth wash (4) Fall Status: Resolved Assessment & Plan: 09/13: Continue to work with PT Qualifiers: Qualified Codes: W19.XXXD - Unspecified fall, subsequent encounter (5) CAD (coronary artery disease) Status: Chronic Assessment & Plan: 09/13: Cardiology consulted Qualifiers: Qualified Codes: I25.10 - Atherosclerotic heart disease of [place] coronary artery without angina pectoris (6) Tobacco abuse Status: Chronic Assessment & Plan: - Discussed the importance of cessation (7) DVT prophylaxis Status: Acute Assessment & Plan: - DEA Jennings MED STUDENT Sep 13, 2018 10:47 TERESA JEWELL MD Sep 13, 2018 11:20
[2018-09-13] MEDS ORDERED: ENOXAPARIN 40 MG/0.4 ML (LOVENOX) SYR SQ SCH (11:30)
[2018-09-13 12:00] VITALS: BP 120/76
[2018-09-13] MEDS: NYSTATIN ORAL SUSP 5 ML UDC PO SCH ×2 (12:11→18:05)
--- NOTE | 2018-09-13 14:05 | Diagnostic Imaging Report ---
Indication: Hypoxia. Time of exam: 1:10 PM Correlation is made with prior chest radiograph from 09/10/2018. The heart is enlarged but stable. Lungs are clear. No infiltrate or failure is detected. No effusion or pneumothorax is seen. There is a stent overlying the lower left neck. Impression: No acute cardiopulmonary process is detected. Dictated by: Dictated on workstation # [id number]
--- NOTE | 2018-09-13 16:19 | NUR ---
Pastoral Care Visit.
[2018-09-13 16:31] VITALS: BP 158/68
--- NOTE | 2018-09-13 17:26 | Discharge Summary ---
Diagnosis/Chief Complaint Date of Admission Sep 09, 2018 at 14:35 Date of Discharge 09/13/18 Admission Diagnosis Admission Diagnosis See Below Discharge Diagnosis See Below Problems/Diagnosis: (1) Acute and chronic respiratory failure with hypoxia Assessment & Plan: 09/13: Dr Rosen managing, MAT protocol, Steroids, expect slow titration, improving will titrate as tolerated Status: Acute (2) COPD with exacerbation Assessment & Plan: 09/13: See Above Status: Acute (3) Mouth pain Assessment & Plan: 09/13: Nystatin Mouth wash Status: Acute (4) Fall Assessment & Plan: 09/13: Continue to work with PT Qualifiers: Qualified Codes: W19.XXXD - Unspecified fall, subsequent encounter Status: Resolved (5) CAD (coronary artery disease) Assessment & Plan: 09/13: Cardiology consulted Qualifiers: Qualified Codes: I25.10 - Atherosclerotic heart disease of [place] coronary artery without angina pectoris Status: Chronic (6) Tobacco abuse Assessment & Plan: - Discussed the importance of cessation Status: Chronic (7) DVT prophylaxis Assessment & Plan: - Lovenox Status: Acute Discharge Summary-Simple/Stand Consultations Dr Rosen: Pulmonary, Critical Care Dr Burnett: Cardiology Discharge Physical Examination Allergies: Coded Allergies: No Known Drug Allergies (Unverified , 04/07/18) Vitals & I&Os Vital Sign - Last 12Hours Date Time Temp Pulse Resp B/P (MAP) Pulse Ox O2 Delivery O2 Flow Rate FiO2 09/13/18 16:31 97.2 90 20 158/68 (98) 93 Nasal Cannula 5.00 09/13/18 10:55 60 Intake and Output 09/13/18 00:00 Intake Total 1510 ml Balance 1510 ml General Appearance: Alert, Oriented X3, Mild Distress (with activity which is at baseline) HEENT: Mucous Memb Moist/[place] Respiratory: Clear to Auscultation Cardiovascular: Regular Rate, No Murmurs Abdominal: Normal Bowel Sounds, Soft, No Tenderness, No Masses Extremities: No Tenderness/Swelling, Other (1+ pitting edema bilaterally) Skin: No Rashes Neuro: Normal Speech, Strength at 5/5 X4 Ext, Sensation Intact, Cranial Nerves 3-12 NL Psych/Mental Status: Mental Status NL, Mood NL Hospital Course See final discharge diagnosis. Radiology Reviewed NAME: FAN EATON [facility] REC#: [id number] PT STATUS: REG ER : 1960 PHYSICIAN: JIMENA CANTU MD ADMIT DATE: 09/09/18/ER Draft Date of Exam:09/09/18 PELVIS WITH RIGHT HIP 2-3VIEWS INDICATION: Fall and right hip pain. TIME OF EXAM: 01:06 p.m. An AP view of pelvis and two views of the right hip were obtained. Femoral acetabular alignment is normal. There appears to be foreshortening of the right femoral neck, suggestive of a fracture. Left femoral neck is intact. Rami are unremarkable. SI joints and symphysis are not widened. IMPRESSION: There appears to be some foreshortening of the right femoral neck suspicious for fracture. No dislocation is seen. CT of the right hip may be useful for further evaluation if clinically indicated. Dictated on workstation # [id number] Dict: 09/09/18 1255 Trans: 09/09/18 130[facility] [id number] Interpreted by: MERT PRESSLEY MD Electronically signed by: NAME: GRANT EATONFLORINA Vora [facility] REC#: [id number] PT STATUS: REG ER : 1960 PHYSICIAN: JIMENA CANTU MD ADMIT DATE: 09/09/18/ER Draft Date of Exam:09/09/18 CT HEAD WO PROCEDURE: CT head without contrast. TECHNIQUE: Multiple contiguous axial images were obtained through the brain without the use of intravenous contrast. INDICATION: Fall. COMPARISON: Comparison is made with prior head CT from 05/26/2014. FINDINGS: The ventricles and sulci are within normal limits. No sulcal effacement is seen. There is no midline shift. No acute intra-axial or extra-axial hemorrhage is detected. Cisterns are patent. Visualized paranasal sinuses demonstrate some mucosal thickening of bilateral maxillary sinuses. IMPRESSION: No acute intracranial process is detected. Dictated on workstation # [id number] Dict: 09/09/18 1254 Trans: 09/09/18 1257 [id number] Interpreted by: MERT PRESSLEY MD Electronically signed by: NAME: ANGELITOFAN Vora [facility] REC#: [id number] PT STATUS: REG ER : 1960 PHYSICIAN: JIMENA CANTU MD ADMIT DATE: 09/09/18/ER Draft Date of Exam:09/09/18 CHEST 1 VIEW, AP/PA ONLY INDICATION: Fall. TIME OF EXAM: 01:04 p.m. Comparison is made with prior chest from 04/14/2018. Heart is enlarged. The lungs appear to be clear. No infiltrate or effusion is seen. There is no pneumothorax. There is a stent overlying the medial aspect of the left lower neck. IMPRESSION: Cardiomegaly. No acute feature is detected. Dictated on workstation # [id number] Dict: 09/09/18 1253 Trans: 09/09/18 1257 [facility] [id number] Interpreted by: MERT PRESSLEY MD Electronically signed by: NAME: FAN EATON [facility] REC#: [id number] PT STATUS: REG ER : 1960 PHYSICIAN: JIMENA CANTU MD ADMIT DATE: 09/09/18/ER Draft Date of Exam:09/09/18 CT EXTREMITY LOWER RIGHT WO PROCEDURE: CT right lower extremity without contrast. TECHNIQUE: Axially acquired CT was obtained through the right lower extremity without intravenous contrast. Coronal and sagittal reformations were also performed. INDICATION: Right hip pain and followup right hip x-ray. COMPARISON: Correlation is made with right hip radiograph from earlier same day. FINDINGS: Femoroacetabular alignment is normal. There appear to be some dysplastic changes to the right hip, likely accounting for the radiographic abnormality. There appears to be poor coverage of the femoral head by the acetabulum, consistent with some acetabular dysplasia. There is some slight foreshortening of the femoral neck. There are some degenerative changes identified at the femoral head neck junction. Femoral head and neck are intact. Intertrochanteric region is intact. No acute fracture lines are seen. The right-sided superior and inferior pubic rami appear to be intact. IMPRESSION: Right hip dysplasia. No acute hip fracture is detected. Dictated on workstation # [id number] Dict: 09/09/18 1513 Trans: 09/09/18 1521 [facility] [id number] Interpreted by: MERT PRESSLEY MD Electronically signed by: Discussion & Recommendations 58 yo F with baseline oxygen dependence that was admitted for AECOPD. Patient was placed on vapotherm and was able to be titrated down to home level on day of discharge. Will continue PO antibiotics and steroids to complete at home. Discharge Condition at discharge Stable Instructions to patient/family Please see electronic discharge instructions given to patient. Discharge Medications Reviewed and agree with Discharge Medication list on patient's Discharge Instruction sheet Clinical Quality Measures DVT/VTE Risk/Contraindication: Risk Factor Score Per Nursin RFS Level Per Nursing on Admit: 3=High DVT/VTE Prophylaxis Comfirm.Dx Mechanical not ordered: Pharmacological PPX (Plavix) [facility] HOLLY R MD Sep 13, 2018 17:26
[2018-09-13] MEDS ORDERED: PRD20T PO (17:29)
--- NOTE | 2018-09-13 17:32 | Discharge Instructions ---
Discharge [facility] Discharge Medications New, Converted or Re-Newed RX: Transmitted to Pharmacy New Medications: Prednisone (Prednisone) 20 Mg Tab 40 MG PO DAILY@0700, #10 TAB 2 tab daily x 2 days then 1 tab daily x 4 days then 1/2 tab x 4 days then stop Continued Medications: Albuterol Sulfate (Albuterol Sulfate) 2.5 Mg/3 Ml Vial.neb 2.5 MG IH Q4H PRN for SHORTNESS OF BREATH, #28 EA 0 Refills Albuterol Sulfate (Ventolin Hfa) 18 Gm Hfa.aer.ad 2 PUFF INH QID PRN for SHORTNESS OF BREATH, INHALER Aspirin (Aspirin EC) 81 Mg Tablet.dr 81 MG PO DAILY, TAB Benzonatate (Benzonatate) 100 Mg Capsule 100 MG PO TID PRN for COUGH, CAP Budesonide/Formoterol Fumarate (Symbicort 160-4.5 Mcg Inhaler) 10.2 Gm Hfa.aer.ad 2 PUFF IH BID, INHALER Clonazepam (Clonazepam) 0.25 Mg Tab.rapdis 0.25 MG PO TID PRN for ANXIETY, TAB Clopidogrel Bisulfate (Clopidogrel) 75 Mg Tablet 75 MG PO DAILY, TAB Cyclobenzaprine HCl (Cyclobenzaprine HCl) 5 Mg Tablet 5 MG PO TID PRN for MUSCLE SPASMS, TAB Fluticasone Propionate (Fluticasone Propionate) 16 Gm Forbes.susp 1 SPRAY NSEACH DAILY PRN for ALLERGIES, SPRAY Loratadine (Loratadine) 10 Mg Tablet 10 MG PO DAILY, TAB Mirtazapine (Mirtazapine) 45 Mg Tablet 45 MG PO HS, TAB Montelukast Sodium (Montelukast Sodium) 10 Mg Tablet 10 MG PO HS, TAB Tiotropium [place] (Spiriva) 1 Inh Aerp 1 CAP INH DAILY PRN for SHORTNESS OF BREATH, EA Trazodone HCl (Trazodone HCl) 150 Mg Tablet 150 MG PO HS, TAB Discontinued Medications: Diclofenac Sodium (Diclofenac Sodium) 75 Mg Tablet.dr 75 MG PO BID, TAB Patient Instructions Goal/Follow Up Appt: You will be called with appt to see Anastacio Thomas in the next week for hospital f/u appt Patient Instructions: - Make sure you complete you steroid taper - Stay active and work on your deep breathing exercises Return to [facility] For: Shortness of breath after breathing treatments Chest pain Unable to tolerate medications Activity & Diet Discharge Diet: Cardiac Diet Orders-Post D/C & Referrals Pneu Vac Indicated: Yes Copy Copies To 1: [facility] Anastacio Robert HOLLY R MD Sep 13, 2018 17:32
--- NOTE | 2018-09-14 23:06 | Physician Query Clarification ---
PQ-Uncertain Diagnosis Admission/Discharge Admission Date: Sep 09, 2018 at 14:35 Discharge Date: Sep 13, 2018 at 18:45 The medical record reflects the following clinical scenario: History/Risk Factors: ABNORMAL UA Clinical Findings: ABNORMAL UA Treatment: Question: Is UTI a clinically valid diagnosis? UTI was documented in the Dr Pendleton's progress notes with no further documentation in the medical record. Please document a response below. PHYSICIAN RESPONSE Diagnosis clinically valid: No, conditon ruled out Explanation of clincal finding - Patient was not on antibiotics and Urine culture was normal In responding to this query, please exercise your independent professional judgment. The purpose of this communication is to more accurately reflect the complexity of your patients condition. The fact that a question is asked does not imply that any particular answer is desired or expected. Thank you for your timely response to this clarification. Requestors name: [ ] Phone # [ ] THIS PHYSICIAN QUERY FORM IS A PERMANENT PART OF THE MEDICAL RECORD STACEY CARTWRIGHT Sep 14, 2018 23:06 TERESA JEWELL MD Sep 15, 2018 10:59
== END 2018-09-13 18:45 | disposition home or self-care (01) | DRG 189 ==
LOC: EDUNIT# 11:34 → ER 11:35 → 4TH 14:35 → ICU 17:44 → 4TH 09-10 15:17
PROVIDERS: ADMIT Family Medicine; ATTEND Family Medicine
DX: J96.21 Acute and chronic respiratory failure with hypoxia (principal); J44.1 Chronic obstructive pulmonary disease with (acute) exacerbation; N17.0 Acute kidney failure with tubular necrosis; E87.2 Acidosis; E87.1 Hypo-osmolality and hyponatremia; E66.2 Morbid (severe) obesity with alveolar hypoventilation; M25.551 Pain in right hip; I25.10 Atherosclerotic heart disease of native coronary artery without angina pectoris; I25.2 Old myocardial infarction; I12.9 Hypertensive chronic kidney disease with stage 1 through stage 4 chronic kidney disease, or unspecified chronic kidney disease; N18.3 Chronic kidney disease, stage 3 (moderate); I95.1 Orthostatic hypotension; F17.210 Nicotine dependence, cigarettes, uncomplicated; E86.9 Volume depletion, unspecified; I08.1 Rheumatic disorders of both mitral and tricuspid valves; E11.9 Type 2 diabetes mellitus without complications; E78.00 Pure hypercholesterolemia, unspecified; J30.2 Other seasonal allergic rhinitis; F41.0 Panic disorder [episodic paroxysmal anxiety]; F43.10 Post-traumatic stress disorder, unspecified; F31.9 Bipolar disorder, unspecified; L40.9 Psoriasis, unspecified; I65.21 Occlusion and stenosis of right carotid artery; Z91.81 History of falling; Z91.19 Patient's noncompliance with other medical treatment and regimen; Z95.5 Presence of coronary angioplasty implant and graft; Z99.81 Dependence on supplemental oxygen; Z68.33 Body mass index [BMI] 33.0-33.9, adult; Z79.02 Long term (current) use of antithrombotics/antiplatelets; W19.XXXA Unspecified fall, initial encounter
CPT/HCPCS: 36415; 51702; 70450; 71045; 71046; 73700; 78452; 80048; 80053; 81000; 82805; 83605; 83735; 83880; 84100; 84443; 85007; 85025; 85027; 85610; 85652; 85730; 87040; 87081; 87088; 93005; 93017; 94640; 94664; 94760; 96361; 96374; 96375

== ENCOUNTER → 2018-09-29 | Outpatient (CLI) | payer MEDICARE, MEDICAID ==
[~2018-09-29] MED LIST changes: +ALBU18HF2 INH; +AMOX1TAB12 PO; +DICL75TA2 PO; +MAGN400T29 PO; +TIOT18CA2 INH
== END ==
LOC: LAB 10:10
PROVIDERS: ATTEND Internal Medicine Cardiovascular Disease
DX: I95.1 Orthostatic hypotension (principal); R06.02 Shortness of breath; E78.5 Hyperlipidemia, unspecified
CPT/HCPCS: 36415; 83735

== ENCOUNTER 2018-11-06 23:35 | Emergency (ER) | payer MEDICARE, MEDICAID ==
[~2018-11-06] VITALS: Ht 152.4 cm; Wt 72.6 kg
[~2018-11-06 23:35] MED LIST changes: -HYDR-3454 PO; +HYDR-3455 PO
--- OUTSIDE RECORDS SUMMARY | 2018-11-06 23:47 | XMS REPORT | Continuity of Care Document ---
Author Author [facility] Address Unknown Phone Unavailable Allergies [...] N/A 05/05/2014 Yes No Known Drug Allergies [id number] Drug Allergy Unknown N/A 04/07/2018 Medications There [...] CORONARY ATHEROSCLEROSIS OF UNSPECIFIED TYPE OF VESSEL YOMBA SHOSHONE OR GRAFT 12/27/2012 477.9 RHINITIS 12/27/2012 714.0 [...] YOO MD 401.1 HYPERTENSION, BENIGN ESSENTIAL 12/27/2012 ARNEI YOO MD 414.00 CORONARY ATHEROSCLEROSIS OF UNSPECIFIED TYPE OF VESSEL YOMBA SHOSHONE OR GRAFT 12/27/2012 ARNIE YOO MD 477.9 [...] CORONARY ATHEROSCLEROSIS OF UNSPECIFIED TYPE OF VESSEL YOMBA SHOSHONE OR GRAFT 12/27/2012 KATIE BELTRAN DO 477.9 [...] CORONARY ATHEROSCLEROSIS OF UNSPECIFIED TYPE OF VESSEL YOMBA SHOSHONE OR GRAFT 12/27/2012 BELTRAN DO KATIE K [...] A HEALTH CARE FACILITY 12/27/2012 BELTRAN DO KAITE K 250.00 DIABETES MELLITUS WITHOUT MENTION OF COMPLICATION TYPE II OR UNSPECIFIED TYPE NOT STATED UNCONTROLLED 12/27/2012 BELTRAN DO KATIE K 305.20 NONDEPENDENT CANNABIS ABUSE UNSPECIFIED USE 12/27/2012 RUBY DO KATIE K 401.1 HYPERTENSION, BENIGN ESSENTIAL 12/27/2012 BELTRAN DO, KATIE K 414.00 CORONARY ATHEROSCLEROSIS OF UNSPECIFIED TYPE OF VESSEL YOMBA SHOSHONE OR GRAFT 12/27/2012 BELTRAN DO KATIE K [...] FACP CCDS Ot 414.01 CORONARY ATHEROSCLEROSIS OF YOMBA SHOSHONE CORON 02/10/2014 MIRIAM WILSON FACC, RUDI FACP [...] KATIE K Ot 414.01 CORONARY ATHEROSCLEROSIS OF YOMBA SHOSHONE CORON 04/21/2014 RUBY BRENNAN KATIE K Ot [...] FACP CCDS Ot 414.01 CORONARY ATHEROSCLEROSIS OF YOMBA SHOSHONE CORON 05/25/2014 MIRIAM WLISON FACC, RUDI FACP CCDS Ot 433.10 CAROTID [...] LIDIA Cohen Ot 414.01 CORONARY ATHEROSCLEROSIS OF YOMBA SHOSHONE CORON 06/02/2014 KILLIAN WILSON, LIDIA Cohen Ot [...] OLIVERA DO Ot 785.6 09/12/2014 KAREN LEON PRODUCTION PLANNING SUPERVISOR Ot 275.2 09/12/2014 KAREN LEON PRODUCTION PLANNING SUPERVISOR Ot 276.8 09/12/2014 KILLIAN WILSON, LIDIA Cohen [...] NOS 11/02/2014 Ot 414.01 CORONARY ATHEROSCLEROSIS OF YOMBA SHOSHONE CORON 11/02/2014 Ot 433.10 CAROTID ARTERY OCCLUSION W O CEREBRAL IN 11/02/2014 Ot 496 CHR AIRWAY OBSTRUCT NEC 11/02/2014 Ot V45.82 PERCUTANEOUS TRANSLUM CORON ANGIOPLASTY 11/16/2014 Ot 433.10 11/16/2014 Ot V72.63 11/16/2014 Ot V74.8 04/02/2015 KAREN LEON PRODUCTION PLANNING SUPERVISOR Ot 275.2 04/02/2015 KAREN LEON PRODUCTION PLANNING SUPERVISOR Ot 276.8 04/02/2015 KILLIAN WILSON, LIDIA S Ot 433.10 04/02/2015 KILLIAN WILSON, ILDIA S Ot V72.63 04/02/2015 KILLIAN WILSON, LIDIA S Ot V74.8 04/02/2015 KILLIAN WILSON, LIDIA S Ot 433.10 04/02/2015 KILLIAN WILSON, LIDIA S Ot 780.4 04/02/2015 MIRIAM WILSON FAC, RUDI [facility] CCDS Ot 414.9 04/02/2015 JOSELIN BRENNANKANE Ot [...] 724.8 OTHER BACK SYMPTOMS 12/10/2015 KAREN LEON PRODUCTION PLANNING SUPERVISOR Ot 275.2 DIS MAGNESIUM METABOLISM 12/10/2015 KAREN LEON PRODUCTION PLANNING SUPERVISOR Ot 276.8 HYPOPOTASSEMIA 12/10/2015 KILLIAN WILSON, LIDIA [...] CCDS Ot I25.10 ATHSCL HEART DISEASE OF YOMBA SHOSHONE CORONARY 12/11/2015 MIRIAM WILSON FACC, ALI FACP CCDS Ot I65.23 OCCLUSION AND STENOSIS OF BILATERAL CHUN 12/11/2015 MIRIAM WILSON FACC, ALI FACP CCDS Ot Z72.0 TOBACCO USE 12/26/2015 MIRIAM WILSON FACC, ALI FACP CCDS Ot E78.4 OTHER HYPERLIPIDEMIA 12/26/2015 MIRIAM WILSON FACC, ALI FACP CCDS Ot I10 ESSENTIAL (PRIMARY) HYPERTENSION 12/26/2015 MIRIAM WILSON FACC, ALI FACP CCDS Ot I25.10 ATHSCL HEART DISEASE OF YOMBA SHOSHONE CORONARY 12/26/2015 MIRIAM WILSON FACC, ALI FACP CCDS Ot I65.23 OCCLUSION AND STENOSIS OF BILATERAL CHUN 12/26/2015 MIRIAM WILSON FACC, RUDI FACP CCDS Ot Z72.0 TOBACCO USE 01/28/2016 KAREN LEON PRODUCTION PLANNING SUPERVISOR Ot 275.2 DIS MAGNESIUM METABOLISM 01/28/2016 KAREN LEON PRODUCTION PLANNING SUPERVISOR Ot 276.8 HYPOPOTASSEMIA 01/28/2016 LIDIA DAILY MD [...] CHR ISCHEMIC HRT DIS NOS 01/28/2016 KANE OLIEVRA DO Ot 305.1 TOBACCO USE DISORDER 01/28/2016 [...] CCDS Ot I25.10 ATHSCL HEART DISEASE OF YOMBA SHOSHONE CORONARY 01/28/2016 MIRIAM WILSON FACC, ALI FACP CCDS Ot I65.23 OCCLUSION AND STENOSIS OF BILATERAL CHUN 01/28/2016 MIRIAM WILSON FACC, ALI FACP CCDS Ot Z72.0 TOBACCO USE 01/31/2016 MIRIAM WILSON FACC, ALI FACP CCDS Ot E78.4 OTHER HYPERLIPIDEMIA 01/31/2016 MIRIAM WILSON FACC, ALI FACP CCDS Ot I10 ESSENTIAL (PRIMARY) HYPERTENSION 01/31/2016 MIRIAM WILSON FACC, ALI FACP CCDS Ot I25.10 ATHSCL HEART DISEASE OF YOMBA SHOSHONE CORONARY 01/31/2016 MIRIAM GATES, ALI FACP CCDS [...] CCDS Ot I25.10 ATHSCL HEART DISEASE OF YOMBA SHOSHONE CORONARY 02/15/2016 MIRIAM WILSON FACC, ALI FACP CCDS Ot I65.23 OCCLUSION AND STENOSIS OF BILATERAL CHUN 02/15/2016 MIRIAM WILSON FACC, ALI FACP CCDS Ot J43.8 OTHER EMPHYSEMA 02/15/2016 MIRIAM WILSON FACC, ALI FACP CCDS Ot Z72.0 TOBACCO USE 04/25/2016 KAREN LEON PRODUCTION PLANNING SUPERVISOR Ot 275.2 DIS MAGNESIUM METABOLISM 04/25/2016 KAREN LEON PRODUCTION PLANNING SUPERVISOR Ot 276.8 HYPOPOTASSEMIA 04/25/2016 LIDIA DAILY MD [...] CCDS Ot I25.10 ATHSCL HEART DISEASE OF YOMBA SHOSHONE CORONARY 04/25/2016 MIRIAM WILSON FACC, RUDI FACP CCDS Ot I65.23 OCCLUSION AND STENOSIS OF BILATERAL CHUN 04/25/2016 MIRIAM WILSON FACC, RUDI FACP CCDS Ot Z72.0 TOBACCO USE 04/25/2016 MIRIAM WILSON FACC, RUDI FACP CCDS Ot E78.4 OTHER HYPERLIPIDEMIA 04/25/2016 MIRIAM WILSON FACC, RUDI FACP CCDS Ot I10 ESSENTIAL (PRIMARY) HYPERTENSION 04/25/2016 MIRIAM WILSON [facility], RUDI [facility] CCDS Ot I25.10 ATHSCL HEART DISEASE OF YOMBA SHOSHONE CORONARY 04/25/2016 MIRIAM WILSON FACC, [facility] CCDS Ot I65.23 OCCLUSION AND STENOSIS OF BILATERAL CHUN 04/25/2016 MIRIAM WILSON FACC, [facility] CCDS Ot J43.8 OTHER EMPHYSEMA 04/25/2016 MIRIAM WILSON [facility], [facility] CCDS Ot Z72.0 TOBACCO USE 05/01/2016 VIVEKISABELA ANN CUSTOMER SERVICES COORDINATOR Ot J30.9 ALLERGIC RHINITIS, UNSPECIFIED 05/01/2016 VIVEKISABELA CUSTOMER SERVICES COORDINATOR Ot J44.9 CHRONIC OBSTRUCTIVE PULMONARY DISEASE, U 05/01/2016 VIVEKISABELA ANN CUSTOMER SERVICES COORDINATOR Ot Z72.0 TOBACCO USE 05/08/2016 VIVEKISABELA CUSTOMER SERVICES COORDINATOR Ot J30.9 ALLERGIC RHINITIS, UNSPECIFIED 05/08/2016 VIVEKISABELA ANN CUSTOMER SERVICES COORDINATOR Ot J44.9 CHRONIC OBSTRUCTIVE PULMONARY DISEASE, U 05/08/2016 VIVEKISABELA ANN CUSTOMER SERVICES COORDINATOR Ot Z72.0 TOBACCO USE 09/11/2016 KAREN LEON PRODUCTION PLANNING SUPERVISOR Ot 275.2 DIS MAGNESIUM METABOLISM 09/11/2016 KAREN LEON PRODUCTION PLANNING SUPERVISOR Ot 276.8 HYPOPOTASSEMIA 09/11/2016 LIDIA DAILY MD Ot 433.10 CAROTID ARTERY OCCLUSION W O CEREBRAL IN 09/11/2016 LIDIA DAILY MD Ot V72.63 PRE-PROCEDURAL LABORATORY EXAMINATION 09/11/2016 LIDIA DAILY MD Ot V74.8 SCREEN-BACTERIAL DIS NEC 09/11/2016 LIDIA DAILY MD Ot 433.10 CAROTID ARTERY OCCLUSION W O CEREBRAL IN 09/11/2016 LIDIA DAILY MD Ot 780.4 DIZZINESS AND GIDDINESS 09/11/2016 MIRIAM WILSON [facility], [facility] FAC CCDS Ot 414.9 CHR ISCHEMIC [...] CCDS Ot I25.10 ATHSCL HEART DISEASE OF YOMBA SHOSHONE CORONARY 09/11/2016 MIRIAM WILSON FACC, RUDI FACP CCDS Ot I65.23 OCCLUSION AND STENOSIS OF BILATERAL CHUN 09/11/2016 MIRIAM WILSON FACC, RUDI FACP CCDS Ot Z72.0 TOBACCO USE 09/11/2016 MIRIAM WILSON FACC, RUDI FACP CCDS Ot E78.4 OTHER HYPERLIPIDEMIA 09/11/2016 MIRIAM WILSON FACC, RUDI FACP CCDS Ot I10 ESSENTIAL (PRIMARY) HYPERTENSION 09/11/2016 MIRIAM WILSON FACC, RUDI FACP CCDS Ot I25.10 ATHSCL HEART DISEASE OF YOMBA SHOSHONE CORONARY 09/11/2016 MIRIAM WILSON FACC, RUDI [facility] CCDS Ot I65.23 OCCLUSION AND STENOSIS OF BILATERAL CHUN 09/11/2016 MIRIAM WILSON [facility], RUDI [facility] CCDS Ot J43.8 OTHER EMPHYSEMA 09/11/2016 MIRIAM WILSON [facility], [facility] CCDS Ot Z72.0 TOBACCO USE 09/16/2016 LEONKAREN PRODUCTION PLANNING SUPERVISOR Ot 275.2 DIS MAGNESIUM METABOLISM 09/16/2016 KAREN LEON PRODUCTION PLANNING SUPERVISOR Ot 276.8 HYPOPOTASSEMIA 09/16/2016 KILLIAN WILSON, LIDIA Cohen Ot 433.10 CAROTID ARTERY OCCLUSION W O CEREBRAL IN 09/16/2016 LIDIA DAILY MD Ot V72.63 PRE-PROCEDURAL LABORATORY EXAMINATION 09/16/2016 LIDIA DAILY MD Ot V74.8 SCREEN-BACTERIAL DIS NEC 09/16/2016 LIDIA DAILY MD Ot 433.10 CAROTID ARTERY OCCLUSION W O CEREBRAL IN 09/16/2016 LIDIA DAILY MD Ot 780.4 DIZZINESS AND GIDDINESS 09/16/2016 MIRIAM WILSON [facility], R[place]I [facility] CCDS Ot 414.9 CHR ISCHEMIC HRT DIS [...] DOYLE APRN Ot Z72.0 TOBACCO USE 09/16/2016 MRIIAM WILSON FACC, ALI FACP CCDS Ot E78.4 OTHER HYPERLIPIDEMIA 09/16/2016 MIRIAM WILSON FACC, ALI FACP CCDS Ot I10 ESSENTIAL (PRIMARY) HYPERTENSION 09/16/2016 MIRIAM WILSON FACC, ALI FACP CCDS Ot I25.10 ATHSCL HEART DISEASE OF YOMBA SHOSHONE CORONARY 09/16/2016 MIRIAM WILSON FACC, ALI FACP CCDS Ot I65.23 OCCLUSION AND STENOSIS OF BILATERAL CHUN 09/16/2016 MIRIAM GATESC, ALI FACP CCDS Ot Z72.0 TOBACCO USE 09/16/2016 MIRIAM GATESC, ALI FACP CCDS Ot E78.4 OTHER HYPERLIPIDEMIA 09/16/2016 MIRIAM WILSON FACC, ALI FACP CCDS Ot I10 ESSENTIAL (PRIMARY) HYPERTENSION 09/16/2016 MIRIAM WILSON FACC, ALI FACP CCDS Ot I25.10 ATHSCL HEART DISEASE OF YOMBA SHOSHONE CORONARY 09/16/2016 MIRIAM WILSON FACC, ALI FACP [...] 785.6 ENLARGEMENT LYMPH NODES 09/17/2016 REEMA ESPINAL PRODUCTION PLANNING SUPERVISOR Ot E78.4 OTHER HYPERLIPIDEMIA 09/17/2016 BAIMA, REEMA L PRODUCTION PLANNING SUPERVISOR Ot I25.10 ATHSCL HEART DISEASE OF YOMBA SHOSHONE CORONARY 09/17/2016 BAIMA, REEMA L PRODUCTION PLANNING SUPERVISOR Ot I65.23 OCCLUSION AND STENOSIS OF BILATERAL CHUN 09/17/2016 BAIMA, REEMA L PRODUCTION PLANNING SUPERVISOR Ot R06.09 OTHER FORMS OF DYSPNEA 09/17/2016 BAIMA, REEMA L PRODUCTION PLANNING SUPERVISOR Ot Z86.79 PERSONAL HISTORY OF OTHER DISEASES OF 09/17/2016 BAIMA, REEMA L PRODUCTION PLANNING SUPERVISOR Ot E78.4 OTHER HYPERLIPIDEMIA 09/17/2016 BAIMA, REEMA L PRODUCTION PLANNING SUPERVISOR Ot I25.10 ATHSCL HEART DISEASE OF YOMBA SHOSHONE CORONARY 09/17/2016 BAIMA, REEMA L PRODUCTION PLANNING SUPERVISOR Ot I65.23 OCCLUSION AND STENOSIS OF BILATERAL CHUN 09/17/2016 BAIMA, REEMA L PRODUCTION PLANNING SUPERVISOR Ot R06.09 OTHER FORMS OF DYSPNEA 09/17/2016 BAIMA, REEMA L PRODUCTION PLANNING SUPERVISOR Ot Z86.79 PERSONAL HISTORY OF OTHER DISEASES OF 09/17/2016 BAIMA, REEMA L PRODUCTION PLANNING SUPERVISOR Ot E78.4 OTHER HYPERLIPIDEMIA 09/17/2016 BAIMA, REEMA L PRODUCTION PLANNING SUPERVISOR Ot I25.10 ATHSCL HEART DISEASE OF YOMBA SHOSHONE CORONARY 09/17/2016 BAIMA, REEMA L PRODUCTION PLANNING SUPERVISOR Ot I65.23 OCCLUSION AND STENOSIS OF BILATERAL CHUN 09/17/2016 BAIMA, REEMA L PRODUCTION PLANNING SUPERVISOR Ot R06.09 OTHER FORMS OF DYSPNEA 09/17/2016 BAIMA REEMA L PRODUCTION PLANNING SUPERVISOR Ot Z86.79 PERSONAL HISTORY OF OTHER DISEASES OF 09/17/2016 BAIMA, REEMA L PRODUCTION PLANNING SUPERVISOR Ot E78.4 OTHER HYPERLIPIDEMIA 09/17/2016 BAIMA, REEMA L PRODUCTION PLANNING SUPERVISOR Ot I25.10 ATHSCL HEART DISEASE OF YOM[place] SHOSHONE CORONARY 09/17/2016 BAIMA, REEMA L PRODUCTION PLANNING SUPERVISOR Ot I65.23 OCCLUSION AND STENOSIS OF BILATERAL CHUN 09/17/2016 BAIMA, REEMA L PRODUCTION PLANNING SUPERVISOR Ot R06.09 OTHER FORMS OF DYSPNEA 09/17/2016 BAIMA, REEMA L PRODUCTION PLANNING SUPERVISOR Ot Z86.79 PERSONAL HISTORY OF OTHER DISEASES OF 09/24/2016 BAIMA, REEMA L PRODUCTION PLANNING SUPERVISOR Ot E78.4 OTHER HYPERLIPIDEMIA 09/24/2016 BAIMA, REEMA L PRODUCTION PLANNING SUPERVISOR Ot I25.10 ATHSCL HEART DISEASE OF YOM[place] SHOSHONE CORONARY 09/24/2016 BAIMA, REEMA L PRODUCTION PLANNING SUPERVISOR Ot I65.23 OCCLUSION AND STENOSIS OF BILATERAL CHUN 09/24/2016 TEDDY REEMA Vora PRODUCTION PLANNING SUPERVISOR Ot R06.09 OTHER FORMS OF DYSPNEA 09/24/2016 TEDDY REEMA Diony PRODUCTION PLANNING SUPERVISOR Ot Z86.79 PERSONAL HISTORY OF OTHER DISEASES OF 09/29/2016 KANE OLIVERA DO Ot 305.1 TOBACCO USE DISORDER 09/29/2016 KANE OLIVERA DO Ot 496 CHR AIRWAY OBSTRUCT NEC 09/29/2016 KANE OLIVERA DO Ot 553.3 DIAPHRAGMATIC HERNIA 09/29/2016 KANE OLIVERA DO Ot 785.6 ENLARGEMENT LYMPH NODES 09/29/2016 TEDDY REEMA Diony PRODUCTION PLANNING SUPERVISOR Ot E78.4 OTHER HYPERLIPIDEMIA 09/29/2016 REEMA ESPINAL PRODUCTION PLANNING SUPERVISOR Ot I25.10 ATHSCL HEART DISEASE OF YOM[place] SHOSHONE CORONARY 09/29/2016 REEMA ESPINAL PRODUCTION PLANNING SUPERVISOR Ot I65.23 OCCLUSION AND STENOSIS OF BILATERAL CHUN 09/29/2016 REEMA ESPINAL PRODUCTION PLANNING SUPERVISOR Ot R06.09 OTHER FORMS OF DYSPNEA 09/29/2016 REEMA ESPINAL PRODUCTION PLANNING SUPERVISOR Ot Z86.79 PERSONAL HISTORY OF OTHER DISEASES [...] LE Ot I25.10 ATHSCL HEART DISEASE OF YOM[place] SHOSHONE CORONARY 02/03/2017 KENNEDI LE Ot J44.1 CHRONIC OBSTRUCTIVE PULMONARY DISEASE W 02/03/2017 KENNEDI LE Ot R06.02 SHORTNESS OF BREATH 02/03/2017 KENNEDI LE Ot Z79.82 SPORTS COORDINATOR (CURRENT) USE OF ASPIRIN 02/03/2017 KENNEDI LE Ot Z95.5 PRESENCE OF CORONARY ANGIOPLASTY IMPLANT 02/05/2017 KENNEDI LE Ot E11.9 TYPE 2 DIABETES MELLITUS WITHOUT COMPLIC 02/05/2017 KENNEDI LE Ot E78.00 PURE HYPERCHOLESTEROLEMIA, UNSPECIFIED 02/05/2017 KENNEDI LE Ot F17.210 NICOTINE DEPENDENCE, CIGARETTES, UNCOMPL 02/05/2017 KENNEDI LE Ot I10 ESSENTIAL (PRIMARY) HYPERTENSION 02/05/2017 KENNEDI LE Ot I25.10 ATHSCL HEART DISEASE OF YOM[place] SHOSHONE CORONARY 02/05/2017 KENNEDI LE Ot J44.1 CHRONIC OBSTRUCTIVE PULMONARY DISEASE W 02/05/2017 KENNEDI LE Ot R06.02 SHORTNESS OF BREATH 02/05/2017 KENNEDI LE Ot Z79.82 SKILLED NURSING (CURRENT) USE OF ASPIRIN 02/05/2017 KENNEDI LE Ot Z95.5 PRESENCE OF CORONARY ANGIOPLASTY IMPLANT 03/04/2017 REEMA ESPINAL L PRODUCTION PLANNING SUPERVISOR Ot E78.4 OTHER HYPERLIPIDEMIA 03/04/2017 BAIVERÓNICA REEMA L PRODUCTION PLANNING SUPERVISOR Ot I25.10 ATHSCL HEART DISEASE OF YOM[place] SHOSHONE CORONARY 03/04/2017 BAIVERÓNICA REEMA L PRODUCTION PLANNING SUPERVISOR Ot I65.23 OCCLUSION AND STENOSIS OF BILATERAL CHUN 03/04/2017 BAIMA REEMA L PRODUCTION PLANNING SUPERVISOR Ot R06.09 OTHER FORMS OF DYSPNEA 03/04/2017 REEMA EPSINAL PRODUCTION PLANNING SUPERVISOR Ot Z86.79 PERSONAL HISTORY OF OTHER DISEASES OF TH 05/06/2017 MIRIAM WILSON FACC, ALI FACP CCDS Ot E78.4 OTHER HYPERLIPIDEMIA 05/06/2017 MIRIAM WILSON FACC, ALI FACP CCDS Ot I10 ESSENTIAL (PRIMARY) HYPERTENSION 05/06/2017 MIRIAM WILSON FACC, ALI FACP CCDS Ot I25.10 ATHSCL HEART DISEASE OF YOM[place] SHOSHONE CORONARY 05/06/2017 MIRIAM WILSON FACC, ALI FACP [...] CCDS Ot I25.10 ATHSCL HEART DISEASE OF YOM[place] SHOSHONE CORONARY 05/20/2017 MIRIAM WILSON FACC, ALI FACP [...] FACC, ALI FACP CCDS Ot Z79.899 OTHER SPORTS COORDINATOR (CURRENT) DRUG THERAPY 05/26/2017 MIRIAM WILSON FACC, ALI FACP CCDS Ot E78.4 OTHER HYPERLIPIDEMIA 05/26/2017 MIRIAM WILSON FACC, ALI FACP CCDS Ot I10 ESSENTIAL (PRIMARY) HYPERTENSION 05/26/2017 MIRIAM WILSON FACC, ALI FACP CCDS Ot I25.10 ATHSCL HEART DISEASE OF Y[place] SHOSHONE CORONARY 05/26/2017 MIRIAM WILSON FACC, ALI FACP [...] CCDS Ot I25.10 ATHSCL HEART DISEASE OF YOM[place] SHOSHONE CORONARY 05/27/2017 MIRIAM WILSON FACC, ALI FACP CCDS Ot I25.84 CORONARY ATHEROSCLEROSIS DUE TO CALCIFIE 05/27/2017 MIRIAM WILSON FACC, ALI FACP CCDS Ot I65.23 OCCLUSION AND STENOSIS OF BILATERAL CHUN 05/27/2017 MIRIAM IWLSON FACC, ALI FACP CCDS Ot J44.9 CHRONIC OBSTRUCTIVE PULMONARY DISEASE, U 05/27/2017 MIRIAM WILSON FACC, ALI FACP CCDS Ot R07.89 OTHER CHEST PAIN 05/27/2017 MIRIAM WILSON FACC, ALI FACP CCDS Ot T82.855A STENOSIS OF CORONARY ARTERY STENT, INITI 05/27/2017 MIRIAM WLISON FACC, ALI FACP CCDS Ot Z68.34 BODY MASS INDEX (BMI) 34.0-34.9, ADULT 05/27/2017 MIRIAM WILSON FACC, ALI FACP CCDS Ot Z72.0 TOBACCO USE 05/27/2017 MIRIAM WILSON FACC, ALI FACP CCDS Ot Z79.899 OTHER SKILLED NURSING (CURRENT) DRUG THERAPY 06/03/2017 MIRIAM WILSON FACC, ALI FACP CCDS Ot E78.4 OTHER HYPERLIPIDEMIA 06/03/2017 MIRIAM WILSON FACC, ALI FACP CCDS Ot I10 ESSENTIAL (PRIMARY) HYPERTENSION 06/03/2017 MIRIAM WILSON FACC, ALI FACP CCDS Ot I25.10 ATHSCL HEART DISEASE OF Y[place] SHOSHONE CORONARY 06/03/2017 MIRIAM WILSON FACC, ALI FACP [...] CCDS Ot I25.10 ATHSCL HEART DISEASE OF Y[place] SHOSHONE CORONARY 06/03/2017 MIRIAM WILSON FACC, ALI FACP [...] FACC, RUDI FACP CCDS Ot Z79.899 OTHER SPORTS COORDINATOR (CURRENT) DRUG THERAPY 07/15/2017 TEDDY REEMA L PRODUCTION PLANNING SUPERVISOR Ot E78.4 OTHER HYPERLIPIDEMIA 07/15/2017 JULIMA, REEMA L PRODUCTION PLANNING SUPERVISOR Ot I25.10 ATHSCL HEART DISEASE OF [place] SHOSHONE CORONARY 07/15/2017 BAIMA REEMA L PRODUCTION PLANNING SUPERVISOR Ot I65.23 OCCLUSION AND STENOSIS OF BILATERAL CHUN 07/15/2017 BAIMA, REEMA L PRODUCTION PLANNING SUPERVISOR Ot R06.09 OTHER FORMS OF DYSPNEA 07/15/2017 JULIMA REEMA L PRODUCTION PLANNING SUPERVISOR Ot Z86.79 PERSONAL HISTORY OF OTHER DISEASES OF TH 07/23/2017 JULIMA REEMA L PRODUCTION PLANNING SUPERVISOR Ot E78.4 OTHER HYPERLIPIDEMIA 07/23/2017 BAIMA, REEMA L PRODUCTION PLANNING SUPERVISOR Ot I25.10 ATHSCL HEART DISEASE OF [place] SHOSHONE CORONARY 07/23/2017 BAIMA REEMA L PRODUCTION PLANNING SUPERVISOR Ot I65.23 OCCLUSION AND STENOSIS OF BILATERAL CHUN 07/23/2017 BAIMA REEMA L PRODUCTION PLANNING SUPERVISOR Ot R06.09 OTHER FORMS OF DYSPNEA 07/23/2017 JULIMA REEMA L PRODUCTION PLANNING SUPERVISOR Ot Z86.79 PERSONAL HISTORY OF OTHER DISEASES OF 11/03/2017 ISABELA DOYLE CUSTOMER SERVICES COORDINATOR Ot J44.9 CHRONIC OBSTRUCTIVE PULMONARY DISEASE, U 11/03/2017 ISABELA DOYLE APRN Ot R06.02 SHORTNESS OF BREATH 11/03/2017 ISABELA DOYLE APRN Ot R09.02 HYPOXEMIA 11/03/2017 ISABELA DOYLE CUSTOMER SERVICES COORDINATOR Ot R91.8 OTHER NONSPECIFIC ABNORMAL FINDING OF BETTY 11/03/2017 ISABELA DOYLE CUSTOMER SERVICES COORDINATOR Ot Z72.0 TOBACCO USE 11/03/2017 ISBAELA DOYLE CUSTOMER SERVICES COORDINATOR Ot J44.9 CHRONIC OBSTRUCTIVE PULMONARY DISEASE, U 11/03/2017 VIVEK, ISABELA E CUSTOMER SERVICES COORDINATOR Ot R06.02 SHORTNESS OF BREATH 11/03/2017 VIVEKAPRILISABELA Meseret CUSTOMER SERVICES COORDINATOR Ot R09.02 HYPOXEMIA 11/03/2017 VIVEKAPRILISABELA Meseret CUSTOMER SERVICES COORDINATOR Ot R91.8 OTHER NONSPECIFIC ABNORMAL FINDING OF BETTY 11/03/2017 VIVEKAPRIL ANNINE Meseret CUSTOMER SERVICES COORDINATOR Ot Z72.0 TOBACCO USE 11/11/2017 ISABELA DOYLE CUSTOMER SERVICES COORDINATOR Ot R60.9 EDEMA, UNSPECIFIED 11/24/2017 APRIL DOYLEINE Meseret CUSTOMER SERVICES COORDINATOR Ot J44.9 CHRONIC OBSTRUCTIVE PULMONARY DISEASE, U 11/24/2017 ISABELA DOYLE CUSTOMER SERVICES COORDINATOR Ot R06.02 SHORTNESS OF BREATH 11/24/2017 ISABELA DOYLE CUSTOMER SERVICES COORDINATOR Ot R09.02 HYPOXEMIA 11/24/2017 ISABELA DOYLE CUSTOMER SERVICES COORDINATOR Ot R91.8 OTHER NONSPECIFIC ABNORMAL FINDING OF BETTY 11/24/2017 ISABELA DOYLE CUSTOMER SERVICES COORDINATOR Ot Z72.0 TOBACCO USE 12/03/2017 REEMA ESPINAL PRODUCTION PLANNING SUPERVISOR Ot E78.4 OTHER HYPERLIPIDEMIA 12/03/2017 REEMA ESPINAL L PRODUCTION PLANNING SUPERVISOR Ot I25.10 ATHSCL HEART DISEASE OF YOM[place] SHOSHONE CORONARY 12/03/2017 REEMA ESPINAL L PRODUCTION PLANNING SUPERVISOR Ot I65.23 OCCLUSION AND STENOSIS OF BILATERAL CHUN 12/03/2017 REEMA ESPINAL PRODUCTION PLANNING SUPERVISOR Ot R06.09 OTHER FORMS OF DYSPNEA 12/03/2017 REEMA ESPINAL L PRODUCTION PLANNING SUPERVISOR Ot Z86.79 PERSONAL HISTORY OF OTHER DISEASES OF TH 12/03/2017 MIRIAM WILSON FACC, ALI FACP CCDS Ot E78.4 OTHER HYPERLIPIDEMIA 12/03/2017 MIRIAM WILSON FACC, ALI FACP CCDS Ot I10 ESSENTIAL (PRIMARY) HYPERTENSION 12/03/2017 MIRIAM WILSON FACC, ALI FACP CCDS Ot I25.10 ATHSCL HEART DISEASE OF [place] SHOSHONE CORONARY 12/03/2017 MIRIAM WILSON FACC, ALI FACP [...] APRN Ot R09.02 HYPOXEMIA 12/03/2017 ISABELA DOYLE CUSTOMER SERVICES COORDINATOR Ot R91.8 OTHER NONSPECIFIC ABNORMAL FINDING OF BETTY 12/03/2017 ISABELA DOYLE APRN Ot Z72.0 TOBACCO USE 12/03/2017 ISABELA DOYLE CUSTOMER SERVICES COORDINATOR Ot R60.9 EDEMA, UNSPECIFIED 12/04/2017 ISABELA DOYLE CUSTOMER SERVICES COORDINATOR Ot J90 PLEURAL EFFUSION, NOT ELSEWHERE CLASSIFI 12/04/2017 ISABELA DOYLE CUSTOMER SERVICES COORDINATOR Ot R60.9 EDEMA, UNSPECIFIED 12/04/2017 VIVEKISABELA ANN CUSTOMER SERVICES COORDINATOR Ot J90 PLEURAL EFFUSION, NOT ELSEWHERE CLASSIFI 12/04/2017 ISABELA DOYLE CUSTOMER SERVICES COORDINATOR Ot R60.9 EDEMA, UNSPECIFIED 12/23/2017 ISABELA DOYLE CUSTOMER SERVICES COORDINATOR Ot J90 PLEURAL EFFUSION, NOT ELSEWHERE CLASSIFI 12/23/2017 ISABELA DOYLE CUSTOMER SERVICES COORDINATOR Ot R60.9 EDEMA, UNSPECIFIED 04/07/2018 Ot Z01.818 [...] DO Ot I25.10 ATHSCL HEART DISEASE OF [place] CORONARY 04/14/2018 KANE OLIVERA DO Ot J30.9 ALLERGIC RHINITIS, UNSPECIFIED 04/14/2018 KANE OLIVERA DO, Ot J44.9 CHRONIC OBSTRUCTIVE PULMONARY DISEASE, U 04/14/2018 KANE OLIVERA DO Ot R09.02 HYPOXEMIA 04/14/2018 KANE OLIVERA DO Ot R59.0 LOCALIZED ENLARGED LYMPH NODES 04/14/2018 KANE OLIVERA DO Ot R91.8 OTHER NONSPECIFIC ABNORMAL FINDING OF BETTY 04/14/2018 KANE OLIVERA DO Ot Z79.82 SKILLED NURSING (CURRENT) USE OF ASPIRIN 04/14/2018 KANE OLIVERA DO Ot Z79.899 OTHER SPORTS COORDINATOR (CURRENT) DRUG THERAPY 04/14/2018 KANE OLIVERA DO Ot Z99.81 DEPENDENCE ON SUPPLEMENTAL OXYGEN 04/16/2018 KANE OLIVERA DO Ot E78.5 HYPERLIPIDEMIA, UNSPECIFIED 04/16/2018 KANE OLIVERA DO Ot F17.200 NICOTINE DEPENDENCE, UNSPECIFIED, UNCOMP 04/16/2018 KANE OLIVERA DO Ot F31.9 BIPOLAR DISORDER, UNSPECIFIED 04/16/2018 KANE OILVERA DO Ot F41.9 ANXIETY DISORDER, UNSPECIFIED 04/16/2018 KANE OLIVERA DO Ot F43.10 POST-TRAUMATIC STRESS DISORDER, UNSPECIF 04/16/2018 KANE OLIVERA DO Ot G47.10 HYPERSOMNIA, UNSPECIFIED 04/16/2018 KANE OLIVERA DO Ot I10 ESSENTIAL (PRIMARY) HYPERTENSION 04/16/2018 KANE OLIVERA DO Ot I25.10 ATHSCL HEART DISEASE OF [place] CORONARY 04/16/2018 KANE OLIVERA DO, Ot J30.9 ALLERGIC RHINITIS, UNSPECIFIED 04/16/2018 KANE OLIVERA DO, Ot J44.9 CHRONIC OBSTRUCTIVE PULMONARY DISEASE, U 04/16/2018 KANE OLIVERA DO Ot R09.02 HYPOXEMIA 04/16/2018 KANE OLIVERA DO Ot R59.0 LOCALIZED ENLARGED LYMPH NODES 04/16/2018 KANE OLIVERA DO Ot R91.8 OTHER NONSPECIFIC ABNORMAL FINDING OF BETTY 04/16/2018 KANE OLIVERA DO Ot Z79.82 SPORTS COORDINATOR (CURRENT) USE OF ASPIRIN 04/16/2018 KANE OLIVERA DO Ot Z79.899 OTHER SPORTS COORDINATOR (CURRENT) DRUG THERAPY 04/16/2018 KANE OLIVERA DO [...] DO Ot I25.10 ATHSCL HEART DISEASE OF [place] CORONARY 04/20/2018 KANE OLIVERA DO Ot J30.9 ALLERGIC RHINITIS, UNSPECIFIED 04/20/2018 KANE OLIVERA DO Ot J44.9 CHRONIC OBSTRUCTIVE PULMONARY DISEASE, U 04/20/2018 KANE OLIVERA DO Ot R09.02 HYPOXEMIA 04/20/2018 KANE OLIVERA DO Ot R59.0 LOCALIZED ENLARGED LYMPH NODES 04/20/2018 KANE OLIVERA DO Ot R91.8 OTHER NONSPECIFIC ABNORMAL FINDING OF BETTY 04/20/2018 KANE OLIVERA DO Ot Z79.82 SPORTS COORDINATOR (CURRENT) USE OF ASPIRIN 04/20/2018 KANE OLIVERA DO Ot Z79.899 OTHER SPORTS COORDINATOR (CURRENT) DRUG THERAPY 04/20/2018 KANE OLIVERA DO Ot Z99.81 DEPENDENCE ON SUPPLEMENTAL OXYGEN 04/20/2018 ISABELA DOYLE APRN Ot F17.200 NICOTINE DEPENDENCE, UNSPECIFIED, UNCOMP 04/20/2018 ISABELA DOYLE APRN Ot J30.9 ALLERGIC RHINITIS, UNSPECIFIED 04/20/2018 ISABELA DOYLE CUSTOMER SERVICES COORDINATOR Ot J43.8 OTHER EMPHYSEMA 04/20/2018 ISABELA DOYLE CUSTOMER SERVICES COORDINATOR Ot R59.0 LOCALIZED ENLARGED LYMPH NODES 04/20/2018 ISABELA DOYLE CUSTOMER SERVICES COORDINATOR Ot R91.8 OTHER NONSPECIFIC ABNORMAL FINDING OF BETTY 05/13/2018 Ot J44.9 CHRONIC OBSTRUCTIVE PULMONARY DISEASE, U 05/13/2018 Ot R59.0 LOCALIZED ENLARGED LYMPH NODES 05/13/2018 Ot R91.8 OTHER NONSPECIFIC ABNORMAL FINDING OF BETTY 06/10/2018 ISABELA DOYLE CUSTOMER SERVICES COORDINATOR Ot J90 PLEURAL EFFUSION, NOT ELSEWHERE CLASSIFI 06/10/2018 ISABELA DOYLE CUSTOMER SERVICES COORDINATOR Ot R60.9 EDEMA, UNSPECIFIED 06/10/2018 TEDDY REEMA L PRODUCTION PLANNING SUPERVISOR Ot E78.4 OTHER HYPERLIPIDEMIA 06/10/2018 BAIMA, REEMA L PRODUCTION PLANNING SUPERVISOR Ot I25.10 ATHSCL HEART DISEASE OF [place] CORONARY 06/10/2018 BAIMA REEMA L PRODUCTION PLANNING SUPERVISOR Ot I65.23 OCCLUSION AND STENOSIS OF BILATERAL [place] 06/10/2018 BAIMA REEMA L PRODUCTION PLANNING SUPERVISOR Ot R06.09 OTHER FORMS OF DYSPNEA 06/10/2018 BAIMA [employer] PLANNING SUPERVISOR Ot Z86.79 PERSONAL HISTORY OF OTHER DISEASES OF TH 06/10/2018 MIRIAM WILSON FACC, ALI FACP CCDS Ot E78.4 OTHER HYPERLIPIDEMIA 06/10/2018 MIRIAM WILSON FACC, ALI FACP CCDS Ot I10 ESSENTIAL (PRIMARY) HYPERTENSION 06/10/2018 MIRIAM WILSON FACC, ALI FACP CCDS Ot I25.10 ATHSCL HEART DISEASE OF [place] CORONARY 06/10/2018 MIRIAM WILSON FACC, ALI FACP CCDS Ot I65.23 OCCLUSION AND STENOSIS OF BILATERAL CHUN 06/10/2018 MIRIAM WILSON FACC, ALI FACP CCDS Ot J43.8 OTHER EMPHYSEMA 06/10/2018 MIRIAM WILSON FACC, ALI FACP CCDS Ot R06.02 SHORTNESS OF BREATH 06/10/2018 MIRIAM WILSON FACC, ALI FACP CCDS Ot Z72.0 TOBACCO USE 06/10/2018 ISABELA DOYLE CUSTOMER SERVICES COORDINATOR Ot J44.9 CHRONIC OBSTRUCTIVE PULMONARY DISEASE, U 06/10/2018 ISABELA DOYLE CUSTOMER SERVICES COORDINATOR Ot R06.02 SHORTNESS OF BREATH 06/10/2018 ISABELA DOYLE CUSTOMER SERVICES COORDINATOR Ot R09.02 HYPOXEMIA 06/10/2018 ISABELA DOYLE CUSTOMER SERVICES COORDINATOR Ot R91.8 OTHER NONSPECIFIC ABNORMAL FINDING OF BETTY 06/10/2018 ISABELA DOYEL CUSTOMER SERVICES COORDINATOR Ot Z72.0 TOBACCO USE 06/10/2018 ISABELA DOYLE CUSTOMER SERVICES COORDINATOR Ot R60.9 EDEMA, UNSPECIFIED 06/10/2018 APRIL DOYLEINE Meseret CUSTOMER SERVICES COORDINATOR Ot J90 PLEURAL EFFUSION, NOT ELSEWHERE CLASSIFI 06/10/2018 APRIL DOYLEINE Meseret CUSTOMER SERVICES COORDINATOR Ot R60.9 EDEMA, UNSPECIFIED 06/10/2018 APRIL DOYLEINE E CUSTOMER SERVICES COORDINATOR Ot F17.200 NICOTINE DEPENDENCE, UNSPECIFIED, UNCOMP 06/10/2018 ISABELA DOYLE CUSTOMER SERVICES COORDINATOR Ot J30.9 ALLERGIC RHINITIS, UNSPECIFIED 06/10/2018 APRIL DOYLEINE Meseret CUSTOMER SERVICES COORDINATOR Ot J43.8 OTHER EMPHYSEMA 06/10/2018 APRIL DOYLEINE Meseret CUSTOMER SERVICES COORDINATOR Ot R59.0 LOCALIZED ENLARGED LYMPH NODES 06/10/2018 ISABELA DOYLE CUSTOMER SERVICES COORDINATOR Ot R91.8 OTHER NONSPECIFIC ABNORMAL FINDING OF BETTY 06/10/2018 Ot J44.9 CHRONIC OBSTRUCTIVE PULMONARY DISEASE, U 06/10/2018 Ot R59.0 LOCALIZED ENLARGED LYMPH NODES 06/10/2018 Ot R91.8 OTHER NONSPECIFIC ABNORMAL FINDING OF BETTY 07/06/2018 ISABELA DOYLE CUSTOMER SERVICES COORDINATOR Ot J44.9 CHRONIC OBSTRUCTIVE PULMONARY DISEASE, U 07/06/2018 ISABELA DOYLE CUSTOMER SERVICES COORDINATOR Ot R06.02 SHORTNESS OF BREATH 07/06/2018 ISABELA DOYLE CUSTOMER SERVICES COORDINATOR Ot R09.02 HYPOXEMIA 07/06/2018 APRIL DOYLEINE Meseret CUSTOMER SERVICES COORDINATOR Ot R91.8 OTHER NONSPECIFIC ABNORMAL FINDING OF BETTY 07/06/2018 ISABELA DOYLE CUSTOMER SERVICES COORDINATOR Ot Z72.0 TOBACCO USE 07/07/2018 ISABELA DOYLE CUSTOMER SERVICES COORDINATOR Ot J44.9 CHRONIC OBSTRUCTIVE PULMONARY DISEASE, U 07/07/2018 ISABELA DOYLE CUSTOMER SERVICES COORDINATOR Ot R06.02 SHORTNESS OF BREATH 07/07/2018 APRIL DOYLEINE E CUSTOMER SERVICES COORDINATOR Ot R09.02 HYPOXEMIA 07/07/2018 APRIL DOYLEINE Meseret CUSTOMER SERVICES COORDINATOR Ot R91.8 OTHER NONSPECIFIC ABNORMAL FINDING OF BETTY 07/07/2018 APRIL DOYLEINE Meseret CUSTOMER SERVICES COORDINATOR Ot Z72.0 TOBACCO USE 07/08/2018 APRIL DOYLEINE Meseret CUSTOMER SERVICES COORDINATOR Ot F17.200 NICOTINE DEPENDENCE, UNSPECIFIED, UNCOMP 07/08/2018 APRIL DOYLEINE Meseret CUSTOMER SERVICES COORDINATOR Ot J30.9 ALLERGIC RHINITIS, UNSPECIFIED 07/08/2018 APRIL DOYLEINE Meseret CUSTOMER SERVICES COORDINATOR Ot J43.8 OTHER EMPHYSEMA 07/08/2018 VIVEKAPRIL ANNINE Meseret CUSTOMER SERVICES COORDINATOR Ot R59.0 LOCALIZED ENLARGED LYMPH NODES 07/08/2018 VIVEKAPRIL ANNINE Meseret CUSTOMER SERVICES COORDINATOR Ot R91.8 OTHER NONSPECIFIC ABNORMAL FINDING OF BETTY 07/08/2018 Ot J44.9 CHRONIC OBSTRUCTIVE PULMONARY DISEASE, U 07/08/2018 Ot R59.0 LOCALIZED ENLARGED LYMPH NODES 07/08/2018 Ot R91.8 OTHER NONSPECIFIC ABNORMAL FINDING OF BETTY 07/28/2018 VIVEK, ISABELA Meseret CUSTOMER SERVICES COORDINATOR Ot J44.9 CHRONIC OBSTRUCTIVE PULMONARY DISEASE, U 07/28/2018 VIVEKAPRIL ANNINE Meseret CUSTOMER SERVICES COORDINATOR Ot R59.0 LOCALIZED ENLARGED LYMPH NODES 07/28/2018 VIVEKAPRIL ANNINE Meseret CUSTOMER SERVICES COORDINATOR Ot R91.8 OTHER NONSPECIFIC ABNORMAL FINDING OF BETTY 07/28/2018 VIVEKAPRIL ANNINE Meseret CUSTOMER SERVICES COORDINATOR Ot Z72.0 TOBACCO USE 08/21/2018 APRIL DOYLEINE Meseret CUSTOMER SERVICES COORDINATOR Ot J44.9 CHRONIC OBSTRUCTIVE PULMONARY DISEASE, U 08/21/2018 VIVEKAPRILISABELA Meseret CUSTOMER SERVICES COORDINATOR Ot R59.0 LOCALIZED ENLARGED LYMPH NODES 08/21/2018 VIVEK ISABELA Meseret CUSTOMER SERVICES COORDINATOR Ot R91.8 OTHER NONSPECIFIC ABNORMAL FINDING OF BETTY 08/21/2018 VIVEKAPRILISABELA Meseret CUSTOMER SERVICES COORDINATOR Ot Z72.0 TOBACCO USE 08/31/2018 MIRIAM WILSON FACC, ALI FACP CCDS Ot E11.9 TYPE 2 DIABETES MELLITUS WITHOUT COMPLIC 08/31/2018 MIRIAM WILSON FACC, ALI FACP CCDS Ot E66.9 OBESITY, UNSPECIFIED 08/31/2018 MIRIAM WILSON FACC, ALI FACP CCDS Ot E78.5 HYPERLIPIDEMIA, UNSPECIFIED 08/31/2018 MIRIAM WILSON FACC, ALI FACP CCDS Ot F17.210 NICOTINE DEPENDENCE, CIGARETTES, UNCOMPL 08/31/2018 MIRIAM WILSON FACC, ALI FACP CCDS Ot I08.3 COMB RHEUMATIC DISORD OF MITRAL, AORTIC 08/31/2018 MIRIAM WILSON FACC, ALI FACP CCDS Ot I10 ESSENTIAL (PRIMARY) HYPERTENSION 08/31/2018 MIRIAM WILSON FACC, ALI FACP CCDS Ot I25.10 ATHSCL HEART DISEASE OF [place] CORONARY 08/31/2018 MIRIAM WILSON FACC, ALI FACP CCDS Ot J44.9 CHRONIC OBSTRUCTIVE PULMONARY DISEASE, U 08/31/2018 MIRIAM WILSON FACC, ALI FACP CCDS Ot R06.09 OTHER FORMS OF DYSPNEA 08/31/2018 MIRIAM WILSON FACC, ALI FACP CCDS Ot R55 SYNCOPE AND COLLAPSE 08/31/2018 MIRIAM WILSON FACC, ALI FACP CCDS Ot Z68.32 BODY MASS INDEX (BMI) 32.0-32.9, ADULT 08/31/2018 MIRIAM WILSON FACC, ALI FACP CCDS Ot Z79.82 SPORTS COORDINATOR (CURRENT) USE OF ASPIRIN 08/31/2018 MIRIAM WILSON FACC, ALI FACP CCDS Ot Z79.899 OTHER SPORTS COORDINATOR (CURRENT) DRUG THERAPY 08/31/2018 MIRIAM WILSON FACC, ALI FACP CCDS Ot Z95.5 PRESENCE OF CORONARY ANGIOPLASTY IMPLANT 09/06/2018 MIRIAM WILSON FACC, ALI FACP CCDS [...] CCDS Ot I25.10 ATHSCL HEART DISEASE OF [place] CORONARY 09/06/2018 MIRIAM WILSON FACC, ALI FACP [...] WILSON FACC, ALI FACP CCDS Ot Z79.82 SPORTS COORDINATOR (CURRENT) USE OF ASPIRIN 09/06/2018 MIRIAM WILSON FACC, ALI FACP CCDS Ot Z79.899 OTHER SPORTS COORDINATOR (CURRENT) DRUG THERAPY 09/06/2018 MIRIAM WILSON FACC, RUDI FACP CCDS Ot [...] DEPENDENCE, CIGARETTES, UNCOMPL 09/08/2018 MIRIAM WILSON FACC, RUDI FACP CCDS Ot I08.3 COMB RHEUMATIC DISORD OF MITRAL, AORTIC 09/08/2018 MIRIAM WILSON FACC, ALI FACP CCDS Ot I10 ESSENTIAL (PRIMARY) HYPERTENSION 09/08/2018 MIRIAM IWLSON FACC, RUDI FACP CCDS Ot I25.10 ATHSCL HEART DISEASE OF [place] CORONARY 09/08/2018 MIRIAM WILSON FACC, RUDI FACP CCDS Ot J44.9 CHRONIC OBSTRUCTIVE PULMONARY DISEASE, U 09/08/2018 MIRIAM WILSON FACC, ALI FACP CCDS Ot R06.09 OTHER FORMS OF DYSPNEA 09/08/2018 MIRIAM WILSON FACC, RUDI FACP CCDS Ot R55 SYNCOPE AND COLLAPSE 09/08/2018 MIRIAM WILSON FACC, ALI FACP CCDS Ot Z68.32 BODY MASS INDEX (BMI) 32.0-32.9, ADULT 09/08/2018 MIRIAM WILSON FACC, ALI FACP CCDS Ot Z79.82 SPORTS COORDINATOR (CURRENT) USE OF ASPIRIN 09/08/2018 MIRIAM WILSON FACC, ALI FACP CCDS Ot Z79.899 OTHER SKILLED NURSING (CURRENT) DRUG THERAPY 09/08/2018 MIRIAM WILSON FACC, ALI FACP CCDS Ot Z95.5 PRESENCE OF CORONARY ANGIOPLASTY IMPLANT 09/08/2018 MIRIAM WILSON FACC, ALI FACP CCDS Ot E78.5 HYPERLIPIDEMIA, UNSPECIFIED 09/08/2018 MIRIAM WILSON FACC, ALI FACP CCDS Ot I10 ESSENTIAL (PRIMARY) HYPERTENSION 09/08/2018 MIRIAM WILSON FACC, ALI FACP CCDS Ot I25.10 ATHSCL HEART DISEASE OF [place] CORONARY 09/08/2018 MIRIAM WILSON [facility], ALI FACP CCDS Ot I65.29 OCCLUSION AND STENOSIS OF UNSPECIFIED CA 09/08/2018 MIRIAM WILSON [facility], ALI FACP CCDS Ot J43.8 OTHER EMPHYSEMA 09/08/2018 MIRIAM WILSON [facility], ALI FACP CCDS Ot R55 SYNCOPE AND COLLAPSE 09/08/2018 MIRIAM WILSON [facility], ALI FACP CCDS Ot Z72.0 TOBACCO USE 09/13/2018 TERESA JEWELL MD Ot E11.9 TYPE 2 DIABETES MELLITUS WITHOUT COMPLIC 09/13/2018 TERESA JEWELL MD Ot E66.2 MORBID (SEVERE) OBESITY WITH ALVEOLAR HY 09/13/2018 TERESA JEWELL MD, Ot E78.00 PURE HYPERCHOLESTEROLEMIA, UNSPECIFIED 09/13/2018 TERESA JEWELL MD Ot E86.9 VOLUME DEPLETION, UNSPECIFIED 09/13/2018 TERESA JEWELL MD Ot E87.1 HYPO-OSMOLALITY AND HYPONATREMIA 09/13/2018 TERESA JEWELL MD Ot E87.2 ACIDOSIS 09/13/2018 TERESA JEWELL MD Ot F17.210 NICOTINE DEPENDENCE, CIGARETTES, UNCOMPL 09/13/2018 TERESA JEWELL MD Ot F31.9 BIPOLAR DISORDER, UNSPECIFIED 09/13/2018 TERESA JEWELL MD, Ot F41.0 PANIC DISORDER [EPISODIC PAROXYSMAL ANXI 09/13/2018 TERESA JEWELL MD Ot F43.10 POST-TRAUMATIC STRESS DISORDER, UNSPECIF 09/13/2018 TERESA JEWELL MD Ot I08.1 RHEUMATIC DISORDERS OF BOTH MITRAL AND T 09/13/2018 TERESA JEWELL MD Ot I12.9 HYPERTENSIVE CHRONIC KIDNEY DISEASE W ST 09/13/2018 TERESA JEWELL MD Ot I25.10 ATHSCL HEART DISEASE OF [place] CORONARY 09/13/2018 TERESA JEWELL MD Ot I25.2 OLD MYOCARDIAL INFARCTION 09/13/2018 TERESA JEWELL MD Ot I65.21 OCCLUSION AND STENOSIS OF RIGHT CAROTID 09/13/2018 TERESA JEWELL MD Ot I95.1 ORTHOSTATIC HYPOTENSION 09/13/2018 TERESA JEWELL MD Ot J30.2 OTHER SEASONAL ALLERGIC RHINITIS 09/13/2018 TERESA JEWELL MD, Ot J44.1 CHRONIC OBSTRUCTIVE PULMONARY DISEASE W 09/13/2018 BEST WILSON, TERESA Cazares Ot J96.21 ACUTE AND CHRONIC RESPIRATORY FAILURE [place] 09/13/2018 BEST WILSON, TERESA Cazares Ot L40.9 PSORIASIS, UNSPECIFIED 09/13/2018 TERESA JEWELL MD Ot M25.551 PAIN IN RIGHT HIP 09/13/2018 TERESA JEWELL MD Ot N17.0 ACUTE KIDNEY FAILURE WITH TUBULAR NECROS 09/13/2018 TERESA JEWELL MD, Ot N18.3 CHRONIC KIDNEY DISEASE, STAGE 3 (MODERAT 09/13/2018 TERESA JEWELL MD Ot W19.XXXA UNSPECIFIED FALL, INITIAL ENCOUNTER 09/13/2018 TERESA JEWELL MD, Ot Z68.33 BODY MASS INDEX (BMI) 33.0-33.9, ADULT 09/13/2018 TERESA JEWELL MD, Ot Z79.02 SPORTS COORDINATOR (CURRENT) USE OF ANTITHROMBOTI 09/13/2018 TERESA JEWELL MD, Ot Z91.19 PATIENT'S NONCOMPLIANCE W [facility] MEDICAL TR 09/13/2018 TERESA JEWELL MD, Ot Z91.81 HISTORY OF FALLING 09/13/2018 TERESA JEWELL MD Ot Z95.5 PRESENCE OF CORONARY ANGIOPLASTY IMPLANT 09/13/2018 TERESA JEWELL MD Ot Z99.81 DEPENDENCE ON SUPPLEMENTAL OXYGEN 09/30/2018 MIRIAM WILSON FACC, RUDI FACP CCDS Ot E78.5 HYPERLIPIDEMIA, UNSPECIFIED 09/30/2018 MIRIAM WILSON FACC, RUDI FACP CCDS Ot I95.1 ORTHOSTATIC HYPOTENSION 09/30/2018 MIRIAM WILSON FACC, RUDI FACP CCDS Ot R06.02 SHORTNESS OF BREATH 10/20/2018 RUDI PINEDA MD, FACCP CCDS Ot E78.5 HYPERLIPIDEMIA, UNSPECIFIED 10/20/2018 MIRIAM WILSON FACC, RUDI FACP CCDS Ot I95.1 ORTHOSTATIC HYPOTENSION 10/20/2018 MIRIAM WILSON FACC, RUDI FACP CCDS Ot R06.02 SHORTNESS OF BREATH 10/28/2018 RUDI PINEDA MD, FACCP CCDS Ot E78.5 HYPERLIPIDEMIA, UNSPECIFIED 10/28/2018 MIRIAM WILSON FACC, ALI FACP CCDS Ot I95.1 ORTHOSTATIC HYPOTENSION 10/28/2018 MIRIAM WILSON FACC, RUDI [place] CCDS Ot R06.02 SHORTNESS OF BREATH Procedures Code Description [place] [address] ROUTINE VENIPUNCTURE 12/27/2012 60007 CBC 12/27/2012 88571 CMP 12/27/2012 34187 LIPID PANEL 12/27/2012 [id number] GFR CALC (RESULT ONLY) 12/27/2012 33454 TSH 12/27/2012 00.40 PROCEDURE ON SINGLE VESSEL 05/31/2014 38.12 HEAD NECK ENDARTER NEC 05/31/2014 87321 A1C (IN-HOUSE) 10/05/2014 00.40 PROCEDURE ON SINGLE [...] rate by westergren method 6 mm 0-30 Complete blood count (CBC) with automated white blood cell (WBC) differential - 09/09/18 12:05 Blood leukocytes automated count (number/volume) 8.2 10*3/uL 4.3-11.0 Blood erythrocytes automated count (number/volume) 4.56 10*6/uL 4.35-5.85 Venous blood hemoglobin measurement (mass/volume) 13.8 g/dL 11.5-16.0 Blood hematocrit (volume fraction) 43 % 35-52 Automated erythrocyte mean corpuscular volume 93 [foz_us] 80-99 Automated erythrocyte mean corpuscular hemoglobin (mass per erythrocyte) 30 pg 25-34 Automated erythrocyte mean corpuscular hemoglobin concentration measurement ( mass/volume) 32 g/dL 32-36 Automated erythrocyte distribution width ratio 15.2 % 10.0-14.5 Automated blood platelet count (count/volume) 276 10*3/uL 130-400 Automated blood platelet mean volume measurement 9.2 [foz_us] 7.4-10.4 Automated blood neutrophils/100 leukocytes 86 % 42-75 Automated blood lymphocytes/100 leukocytes 5 % 12-44 Blood monocytes/100 leukocytes 9 % 0-12 Automated blood eosinophils/100 leukocytes 0 % 0-10 Automated blood basophils/100 leukocytes 0 % 0-10 Blood neutrophils automated count (number/volume) 7.0 10*3 1.8-7.8 Blood lymphocytes automated count (number/volume) 0.4 10*3 1.0-4.0 Blood monocytes automated count (number/volume) 0.7 10*3 0.0-1.0 Automated eosinophil count 0.0 10*3/uL 0.0-0.3 Automated blood basophil count (count/volume) 0.0 10*3/uL 0.0-0.1 PT panel in platelet poor plasma by coagulation assay - 09/09/18 12:05 Prothrombin time (PT) in platelet poor plasma by coagulation assay 16.2 s 12.2-14.7 INR in platelet poor plasma or blood by coagulation assay 1.3 0.8-1.4 Activated partial thromboplastin time (aPTT) in platelet poor plasma bycoagulation assay - 09/09/18 12:05 Activated partial thromboplastin time (aPTT) in platelet poor plasma bycoagulation assay 34 s 24-35 Blood lactic acid measurement (moles/volume) - 09/09/18 12:05 Blood lactic acid measurement (moles/volume) 2.12 mmol/L 0.50-2.00 Comprehensive metabolic panel - 09/09/18 12:05 Serum or plasma sodium measurement (moles/volume) 132 mmol/L 135-145 Serum or plasma potassium measurement (moles/volume) 4.6 mmol/L 3.6-5.0 Serum or plasma chloride measurement (moles/volume) 88 mmol/L 98-107 Carbon dioxide 29 mmol/L 21-32 Serum or plasma anion gap determination (moles/volume) 15 mmol/L 5-14 Serum or plasma urea nitrogen measurement (mass/volume) 30 mg/dL 7-18 Serum or plasma creatinine measurement (mass/volume) 2.20 mg/dL 0.60-1.30 Serum or plasma urea nitrogen/creatinine mass ratio 14 NRG Serum or plasma creatinine measurement with calculation of estimated glomerular filtration rate 23 NRG Serum or plasma glucose measurement (mass/volume) 139 mg/dL 70-105 Serum or plasma calcium measurement (mass/volume) 9.5 mg/dL 8.5-10.1 Serum or plasma total bilirubin measurement (mass/volume) 1.0 mg/dL 0.1-1.0 Serum or plasma alkaline phosphatase measurement (enzymatic activity/volume) 67 U/L 40-136 Serum or plasma aspartate aminotransferase measurement (enzymatic activity/ volume) 29 U/L 5-34 Serum or plasma alanine aminotransferase measurement (enzymatic activity/volume ) 9 U/L 0-55 Serum or plasma protein measurement (mass/volume) 7.9 g/dL 6.4-8.2 Serum or plasma albumin measurement (mass/volume) 4.3 g/dL 3.2-4.5 CALCIUM CORRECTED 9.3 mg/dL 8.5-10.1 Blood manual differential performed detection - 09/09/18 12:05 Blood monocytes/100 leukocytes 7 % NRG Manual blood segmented neutrophils/100 leukocytes 84 % NRG Blood band neutrophils/100 leukocytes 3 % NRG Manual blood lymphocytes/100 leukocytes 4 % NRG Manual eosinophils/100 leukocytes in nose 0 % NRG Manual blood basophils/100 leukocytes 0 % NRG Blood lymphocytes variant/100 leukocytes 2 % NRG Blood erythrocyte morphology finding identification NORMAL NRG Bacterial blood culture - 09/09/18 12:05 Bacterial blood culture NG NRG Arterial blood gas measurement - 09/09/18 12:20 Blood pCO2 49 mm[Hg] 35-45 Blood pO2 73 mm[Hg] 79-93 Arterial blood bicarbonate measurement (moles/volume) 30 mmol/L 23-27 Arterial blood base excess by calculation 5.6 mmol/L -2.5 -2.5 Arterial blood oxygen saturation measurement 95 % 94-100 * Inhaled oxygen flow rate 15 NRG Arterial blood pH measurement with patient temperature correction 7.41 7.37-7.43 Arterial blood carbon dioxide, total measurement (moles/volume) 31.7 mmol/L 21.0-31.0 Body site RR NRG Assessment of wrist artery patency prior to arterial puncture YES- POS NRG Setting of ventilation mode NO NRG Measurement of body temperature 98 NRG Serum or plasma lactate measurement (moles/volume) - 09/09/18 13:45 Serum or plasma lactate measurement (moles/volume) 0.99 mmol/L 0.50-2.00 Bacterial blood culture - 09/09/18 13:45 Bacterial blood culture NG NRG Complete urinalysis with reflex to culture - 09/09/18 13:55 Urine color determination YELLOW NRG Urine clarity determination VERY CLOUDY NRG Urine pH measurement by test strip 5 5-9 Specific gravity of urine by test strip 1.025 1.016- 1.022 Urine protein assay by test strip, semi-quantitative 2+ NEGATIVE Urine glucose detection by automated test strip NEGATIVE NEGATIVE Erythrocytes detection in urine sediment by light microscopy 2+ NEGATIVE Urine ketones detection by automated test strip NEGATIVE NEGATIVE Urine nitrite detection by test strip NEGATIVE NEGATIVE Urine total bilirubin detection by test strip NEGATIVE NEGATIVE Urine urobilinogen measurement by automated test strip (mass/volume) NORMAL NORMAL Urine leukocyte esterase detection by dipstick 1+ NEGATIVE Automated urine sediment erythrocyte count by microscopy (number/high power field) [HPF] NRG Automated urine sediment leukocyte count by microscopy (number/high power field ) RARE NRG Bacteria detection in urine sediment by light microscopy NEGATIVE NRG Squamous epithelial cells detection in urine sediment by light microscopy 2-5 NRG Crystals detection in urine sediment by light microscopy NONE NRG Casts detection in urine sediment by light microscopy PRESENT NRG Mucus detection in urine sediment by light microscopy NEGATIVE NRG Complete urinalysis with reflex to culture CULTURE PENDING NRG Amorphous sediment detection in urine sediment by light microscopy FEW HILARY URATES NRG Hyaline casts detection in urine sediment by light microscopy 2-5 NRG Bacterial urine culture - 09/09/18 13:55 Bacterial urine culture NG NRG Methicillin resistant Staphylococcus aureus (MRSA) screening culture - 18:04 Methicillin resistant Staphylococcus aureus (MRSA) screening culture NEG NRG Bacterial blood culture - 09/09/18 18:23 Bacterial blood culture NG NRG Bacterial blood culture - 09/09/18 18:30 Bacterial blood culture NG NRG Complete urinalysis with reflex to culture - 09/09/18 18:53 Urine color determination LORI NRG Urine clarity determination SLIGHTLY CLOUDY NRG Urine pH measurement by test strip 5 5-9 Specific gravity of urine by test strip 1.020 1.016- 1.022 Urine protein assay by test strip, semi-quantitative 2+ NEGATIVE Urine glucose detection by automated test strip 2+ NEGATIVE Erythrocytes detection in urine sediment by light microscopy 4+ NEGATIVE Urine ketones detection by automated test strip 1+ NEGATIVE Urine nitrite detection by test strip NEGATIVE NEGATIVE Urine total bilirubin detection by test strip NEGATIVE NEGATIVE Urine urobilinogen measurement by automated test strip (mass/volume) NORMAL NORMAL Urine leukocyte esterase detection by dipstick 1+ NEGATIVE Automated urine sediment erythrocyte count by microscopy (number/high power field) [HPF] NRG Automated urine sediment leukocyte count by microscopy (number/high power field ) RARE NRG Bacteria detection in urine sediment by light microscopy NEGATIVE NRG Crystals detection in urine sediment by light microscopy PRESENT NRG Casts detection in urine sediment by light microscopy NONE NRG Mucus detection in urine sediment by light microscopy NEGATIVE NRG Complete urinalysis with reflex to culture NO NRG Uric acid crystals detection in urine sediment by light microscopy LARGE NRG Complete blood count (CBC) with automated white blood cell (WBC) differential - 09/10/18 03:45 Blood leukocytes automated count (number/volume) 6.0 10*3/uL 4.3-11.0 Blood erythrocytes automated count (number/volume) 3.82 10*6/uL 4.35-5.85 Venous blood hemoglobin measurement (mass/volume) 11.8 g/dL 11.5-16.0 Blood hematocrit (volume fraction) 36 % 35-52 Automated erythrocyte mean corpuscular volume 94 [foz_us] 80-99 Automated erythrocyte mean corpuscular hemoglobin (mass per erythrocyte) 31 pg 25-34 Automated erythrocyte mean corpuscular hemoglobin concentration measurement ( mass/volume) 33 g/dL 32-36 Automated erythrocyte distribution width ratio 15.2 % 10.0-14.5 Automated blood platelet count (count/volume) 230 10*3/uL 130-400 Automated blood platelet mean volume measurement 8.9 [foz_us] 7.4-10.4 Automated blood neutrophils/100 leukocytes 95 % 42-75 Automated blood lymphocytes/100 leukocytes 4 % 12-44 Blood monocytes/100 leukocytes 2 % 0-12 Automated blood eosinophils/100 leukocytes 0 % 0-10 Automated blood basophils/100 leukocytes 0 % 0-10 Blood neutrophils automated count (number/volume) 5.7 10*3 1.8-7.8 Blood lymphocytes automated count (number/volume) 0.2 10*3 1.0-4.0 Blood monocytes automated count (number/volume) 0.1 10*3 0.0-1.0 Automated eosinophil count 0.0 10*3/uL 0.0-0.3 Automated blood basophil count (count/volume) 0.0 10*3/uL 0.0-0.1 Comprehensive metabolic panel - 09/10/18 03:45 Serum or plasma sodium measurement (moles/volume) 132 mmol/L 135-145 Serum or plasma potassium measurement (moles/volume) 4.0 mmol/L 3.6-5.0 Serum or plasma chloride measurement (moles/volume) 94 mmol/L 98-107 Carbon dioxide 23 mmol/L 21-32 Serum or plasma anion gap determination (moles/volume) 15 mmol/L 5-14 Serum or plasma urea nitrogen measurement (mass/volume) 24 mg/dL 7-18 Serum or plasma creatinine measurement (mass/volume) 1.27 mg/dL 0.60-1.30 Serum or plasma urea nitrogen/creatinine mass ratio 19 NRG Serum or plasma creatinine measurement with calculation of estimated glomerular filtration rate 44 NRG Serum or plasma glucose measurement (mass/volume) 189 mg/dL 70-105 Serum or plasma calcium measurement (mass/volume) 8.2 mg/dL 8.5-10.1 Serum or plasma total bilirubin measurement (mass/volume) 0.6 mg/dL 0.1-1.0 Serum or plasma alkaline phosphatase measurement (enzymatic activity/volume) 56 U/L 40-136 Serum or plasma aspartate aminotransferase measurement (enzymatic activity/ volume) 21 U/L 5-34 Serum or plasma alanine aminotransferase measurement (enzymatic activity/volume ) 10 U/L 0-55 Serum or plasma protein measurement (mass/volume) 6.4 g/dL 6.4-8.2 Serum or plasma albumin measurement (mass/volume) 3.6 g/dL 3.2-4.5 CALCIUM CORRECTED 8.5 mg/dL 8.5-10.1 Magnesium - 09/10/18 03:45 Magnesium 1.4 mg/dL 1.8-2.4 Whole blood basic metabolic panel - 09/10/18 03:45 Serum or plasma sodium measurement (moles/volume) 132 mmol/L 135-145 Serum or plasma potassium measurement (moles/volume) 4.0 mmol/L 3.6-5.0 Serum or plasma chloride measurement (moles/volume) 94 mmol/L 98-107 Carbon dioxide 23 mmol/L 21-32 Serum or plasma anion gap determination (moles/volume) 15 mmol/L 5-14 Serum or plasma urea nitrogen measurement (mass/volume) 24 mg/dL 7-18 Serum or plasma creatinine measurement (mass/volume) 1.27 mg/dL 0.60-1.30 Serum or plasma urea nitrogen/creatinine mass ratio 19 NRG Serum or plasma creatinine measurement with calculation of estimated glomerular filtration rate 44 NRG Serum or plasma glucose measurement (mass/volume) 189 mg/dL 70-105 Serum or plasma calcium measurement (mass/volume) 8.2 mg/dL 8.5-10.1 Serum or plasma phosphate measurement (mass/volume) - 09/10/18 03:45 Serum or plasma phosphate measurement (mass/volume) 2.5 mg/dL 2.3-4.7 Magnesium - 09/10/18 03:45 Magnesium 1.4 mg/dL 1.8-2.4 Complete blood count (CBC) with automated white blood cell (WBC) differential - 09/11/18 06:16 Blood leukocytes automated count (number/volume) 16.3 10*3/uL 4.3-11.0 Blood erythrocytes automated count (number/volume) 4.21 10*6/uL 4.35-5.85 Venous blood hemoglobin measurement (mass/volume) 12.9 g/dL 11.5-16.0 Blood hematocrit (volume fraction) 40 % 35-52 Automated erythrocyte mean corpuscular volume 94 [foz_us] 80-99 Automated erythrocyte mean corpuscular hemoglobin (mass per erythrocyte) 31 pg 25-34 Automated erythrocyte mean corpuscular hemoglobin concentration measurement ( mass/volume) 33 g/dL 32-36 Automated erythrocyte distribution width ratio 15.0 % 10.0-14.5 Automated blood platelet count (count/volume) 234 10*3/uL 130-400 Automated blood platelet mean volume measurement 9.2 [foz_us] 7.4-10.4 Automated blood neutrophils/100 leukocytes 93 % 42-75 Automated blood lymphocytes/100 leukocytes 3 % 12-44 Blood monocytes/100 leukocytes 5 % 0-12 Automated blood eosinophils/100 leukocytes 0 % 0-10 Automated blood basophils/100 leukocytes 0 % 0-10 Blood neutrophils automated count (number/volume) 15.1 10*3 1.8-7.8 Blood lymphocytes automated count (number/volume) 0.5 10*3 1.0-4.0 Blood monocytes automated count (number/volume) 0.7 10*3 0.0-1.0 Automated eosinophil count 0.0 10*3/uL 0.0-0.3 Automated blood basophil count (count/volume) 0.0 10*3/uL 0.0-0.1 Whole blood basic metabolic panel - 09/11/18 06:16 Serum or plasma sodium measurement (moles/volume) 132 mmol/L 135-145 Serum or plasma potassium measurement (moles/volume) 4.8 mmol/L 3.6-5.0 Serum or plasma chloride measurement (moles/volume) 93 mmol/L 98-107 Carbon dioxide 27 mmol/L 21-32 Serum or plasma anion gap determination (moles/volume) 12 mmol/L 5-14 Serum or plasma urea nitrogen measurement (mass/volume) 23 mg/dL 7-18 Serum or plasma creatinine measurement (mass/volume) 1.04 mg/dL 0.60-1.30 Serum or plasma urea nitrogen/creatinine mass ratio 22 NRG Serum or plasma creatinine measurement with calculation of estimated glomerular filtration rate 55 NRG Serum or plasma glucose measurement (mass/volume) 138 mg/dL 70-105 Serum or plasma calcium measurement (mass/volume) 9.3 mg/dL 8.5-10.1 Serum or plasma phosphate measurement (mass/volume) - 09/11/18 06:16 Serum or plasma phosphate measurement (mass/volume) 3.3 mg/dL 2.3-4.7 Magnesium - 09/11/18 06:16 Magnesium 1.6 mg/dL 1.8-2.4 Blood manual differential performed detection - 09/11/18 06:16 Blood monocytes/100 leukocytes 4 % NRG Manual blood segmented neutrophils/100 leukocytes 91 % NRG Blood band neutrophils/100 leukocytes 4 % NRG Manual blood lymphocytes/100 leukocytes 1 % NRG Blood stomatocytes detection by light microscopy SLIGHT NRG Serum or plasma lithium measurement (moles/volume) - 09/11/18 06:16 BNP level 664.9 pg/mL <100.0 Complete blood count (CBC) with automated white blood cell (WBC) differential - 09/12/18 06:19 Blood leukocytes automated count (number/volume) 13.7 10*3/uL 4.3-11.0 Blood erythrocytes automated count (number/volume) 4.32 10*6/uL 4.35-5.85 Venous blood hemoglobin measurement (mass/volume) 13.3 g/dL 11.5-16.0 Blood hematocrit (volume fraction) 41 % 35-52 Automated erythrocyte mean corpuscular volume 95 [foz_us] 80-99 Automated erythrocyte mean corpuscular hemoglobin (mass per erythrocyte) 31 pg 25-34 Automated erythrocyte mean corpuscular hemoglobin concentration measurement ( mass/volume) 33 g/dL 32-36 Automated erythrocyte distribution width ratio 15.2 % 10.0-14.5 Automated blood platelet count (count/volume) 261 10*3/uL 130-400 Automated blood platelet mean volume measurement 9.4 [foz_us] 7.4-10.4 Automated blood neutrophils/100 leukocytes 89 % 42-75 Automated blood lymphocytes/100 leukocytes 5 % 12-44 Blood monocytes/100 leukocytes 6 % 0-12 Automated blood eosinophils/100 leukocytes 0 % 0-10 Automated blood basophils/100 leukocytes 0 % 0-10 Blood neutrophils automated count (number/volume) 12.2 10*3 1.8-7.8 Blood lymphocytes automated count (number/volume) 0.7 10*3 1.0-4.0 Blood monocytes automated count (number/volume) 0.8 10*3 0.0-1.0 Automated eosinophil count 0.0 10*3/uL 0.0-0.3 Automated blood basophil count (count/volume) 0.0 10*3/uL 0.0-0.1 Whole blood basic metabolic panel - 09/12/18 06:19 Serum or plasma sodium measurement (moles/volume) 134 mmol/L 135-145 Serum or plasma potassium measurement (moles/volume) 4.7 mmol/L 3.6-5.0 Serum or plasma chloride measurement (moles/volume) 92 mmol/L 98-107 Carbon dioxide 29 mmol/L 21-32 Serum or plasma anion gap determination (moles/volume) 13 mmol/L 5-14 Serum or plasma urea nitrogen measurement (mass/volume) 26 mg/dL 7-18 Serum or plasma creatinine measurement (mass/volume) 1.05 mg/dL 0.60-1.30 Serum or plasma urea nitrogen/creatinine mass ratio 25 NRG Serum or plasma creatinine measurement with calculation of estimated glomerular filtration rate 54 NRG Serum or plasma glucose measurement (mass/volume) 154 mg/dL 70-105 Serum or plasma calcium measurement (mass/volume) 9.6 mg/dL 8.5-10.1 Serum or plasma phosphate measurement (mass/volume) - 09/12/18 06:19 Serum or plasma phosphate measurement (mass/volume) 3.5 mg/dL 2.3-4.7 Magnesium - 09/12/18 06:19 Magnesium 1.7 mg/dL 1.8-2.4 Complete blood count (CBC) with automated white blood cell (WBC) differential - 09/13/18 04:25 Blood leukocytes automated count (number/volume) 14.7 10*3/uL 4.3-11.0 Blood erythrocytes automated count (number/volume) 4.58 10*6/uL 4.35-5.85 Venous blood hemoglobin measurement (mass/volume) 13.9 g/dL 11.5-16.0 Blood hematocrit (volume fraction) 43 % 35-52 Automated erythrocyte mean corpuscular volume 93 [foz_us] 80-99 Automated erythrocyte mean corpuscular hemoglobin (mass per erythrocyte) 30 pg 25-34 Automated erythrocyte mean corpuscular hemoglobin concentration measurement ( mass/volume) 33 g/dL 32-36 Automated erythrocyte distribution width ratio 14.8 % 10.0-14.5 Automated blood platelet count (count/volume) 247 10*3/uL 130-400 Automated blood platelet mean volume measurement 9.2 [foz_us] 7.4-10.4 Automated blood neutrophils/100 leukocytes 83 % 42-75 Automated blood lymphocytes/100 leukocytes 8 % 12-44 Blood monocytes/100 leukocytes 9 % 0-12 Automated blood eosinophils/100 leukocytes 0 % 0-10 Automated blood basophils/100 leukocytes 0 % 0-10 Blood neutrophils automated count (number/volume) 12.1 10*3 1.8-7.8 Blood lymphocytes automated count (number/volume) 1.2 10*3 1.0-4.0 Blood monocytes automated count (number/volume) 1.4 10*3 0.0-1.0 Automated eosinophil count 0.0 10*3/uL 0.0-0.3 Automated blood basophil count (count/volume) 0.0 10*3/uL 0.0-0.1 Whole blood basic metabolic panel - 09/13/18 04:25 Serum or plasma sodium measurement (moles/volume) 133 mmol/L 135-145 Serum or plasma potassium measurement (moles/volume) 3.9 mmol/L 3.6-5.0 Serum or plasma chloride measurement (moles/volume) 90 mmol/L 98-107 Carbon dioxide 32 mmol/L 21-32 Serum or plasma anion gap determination (moles/volume) 11 mmol/L 5-14 Serum or plasma urea nitrogen measurement (mass/volume) 25 mg/dL 7-18 Serum or plasma creatinine measurement (mass/volume) 1.01 mg/dL 0.60-1.30 Serum or plasma urea nitrogen/creatinine mass ratio 25 NRG Serum or plasma creatinine measurement with calculation of estimated glomerular filtration rate 57 NRG Serum or plasma glucose measurement (mass/volume) 117 mg/dL 70-105 Serum or plasma calcium measurement (mass/volume) 9.7 mg/dL 8.5-10.1 Serum or plasma phosphate measurement (mass/volume) - 09/13/18 04:25 Serum or plasma phosphate measurement (mass/volume) 3.3 mg/dL 2.3-4.7 Magnesium - 09/13/18 04:25 Magnesium 1.9 mg/dL 1.8-2.4 Serum or plasma lithium measurement (moles/volume) - 09/13/18 04:25 BNP level 1398.4 pg/mL <100.0 Encounters ACCT No. Visit Date/Time Discharge Status Pt. Type Provider Facility Loc./Unit Complaint [id number] 10/05/2014 08:14:00 10/05/2014 23:59:59 CLS Outpatient KATIE BELTRAN DO [id number] 05/15/2014 12:58:00 05/15/2014 23:59:59 CLS Outpatient KATIE BELTRAN DO [id number] 05/05/2014 14:47:00 05/05/2014 23:59:59 CLS Outpatient KATIE BELTRAN DO [id number] 03/13/2014 16:07:00 03/13/2014 23:59:59 CLS Outpatient ARNIE YOO MD [id number] 12/27/2012 11:00:00 Document Registration [id number] 04/22/2015 08:52:17 ACT Document Registration [id number] 10/20/2018 11:00:00 10/20/2018 23:59:59 CLS Outpatient DANIEL CONNOLLY APRN [facility] [id number] 06/29/2017 10:00:00 Document Registration [id number] 09/29/2018 10:10:00 09/29/2018 23:59:59 CLS Outpatient RUDI PINEDA MD, FACC, FACP [facility]S [facility] LAB ORTHOSTATIC HYPOTENSION [id number] 09/22/2018 09:00:00 09/22/2018 23:59:59 CLS Preadmit RUDI PINEDA MD, FACC, FACP CCDS [facility] CARD SYNCOPE [id number] 09/13/2018 12:45:00 09/13/2018 23:59:59 CLS Preadmit RUDI PINEDA MD, FACC, FACP CCDS [facility] RAD CAROTID ARTERIAL DISEASE [id number] 09/09/2018 14:35:00 09/13/2018 18:45:00 DIS Inpatient TERESA JEWELL MD [facility] 4TH COPD ACUTE EXACERBATION, PALPATATIONS [id number] 09/07/2018 11:06:00 09/07/2018 23:59:59 CLS Outpatient RUDI PINEDA MD, FACCP CCDS [facility] CARD SYNCOPE [id number] 08/31/2018 08:00:00 08/31/2018 10:54:00 DIS Outpatient MIRIAM WILSON FACAshley, RUDI EVERETT CCDS [facility] CATH SYNCOPE,CAD, CAROTID ARTERIAL DISEASE,COPD,HTN [id number] 07/27/2018 16:52:00 07/27/2018 23:59:59 CLS Preadmit KANE OLIVERA DO [facility] RAD SOB,TOBACCO USE [id number] 07/27/2018 16:50:00 07/27/2018 23:59:59 CLS Preadmit APRIL DOYLEINE E CUSTOMER SERVICES COORDINATOR [facility] RAD SOB,TOBACCO USE [id number] 07/27/2018 08:53:00 07/27/2018 23:59:59 CLS Outpatient APRIL DOYLEINE E CUSTOMER SERVICES COORDINATOR [facility] RAD SOB,HYPOZEMIA REQUIRING SUPPLEMENTAL OXYGEN [id number] 04/14/2018 06:50:00 04/14/2018 23:59:59 CLS Outpatient KANE OLIVERA DO [facility] ENDO ABNORMAL CT SCAN/ MEDIASTINAL LYMPHADENOPATHY/COPD [id number] 02/16/2018 09:45:00 02/16/2018 23:59:59 CLS Outpatient VIVEK ISABELA E CUSTOMER SERVICES COORDINATOR [facility] RAD ABNORMAL CT SCAN OF LUNG, COPD, HYPOXEMIA [id number] 12/03/2017 09:40:00 12/03/2017 23:59:59 CLS Outpatient APRIL DOYLEINE E CUSTOMER SERVICES COORDINATOR [facility] CARD J90 PLEURAL EFFUSION [id number] 11/10/2017 09:46:00 11/10/2017 23:59:59 CLS Outpatient VIVEK ISABELA E CUSTOMER SERVICES COORDINATOR [facility] LAB R60.9 [id number] 11/02/2017 11:02:00 11/02/2017 23:59:59 CLS Outpatient APRIL DOYLEINE E CUSTOMER SERVICES COORDINATOR [facility] RT J43.8 COPD [id number] 10/09/2017 11:31:00 10/09/2017 23:59:59 CLS Preadmit ISABELA DOYLE APRN [facility] RAD R91.8 LUNG NODULES [id number] 05/19/2017 08:08:00 05/20/2017 10:30:00 DIS Outpatient MIRIAM WILSON FACC, RUDI EVERETT CCDS [facility] CATH CAD,ANGINA [id number] 05/05/2017 08:19:00 05/05/2017 23:59:59 CLS Outpatient MIRIAM WILSON FACC, RUDI EVERETT CCDS [facility] CARD SOB R06.02, CAD I25.10 [id number] 04/28/2017 13:45:00 04/28/2017 23:59:59 CLS Preadmit KANE OLIVERA DO [facility] RAD COPD [id number] 03/06/2017 13:00:00 03/06/2017 23:59:59 CLS Preadmit ISABELA DOYLE APRN [facility] RT COPD J43.8 [id number] 02/03/2017 18:17:00 02/03/2017 20:33:00 DIS Emergency KENNEDI LE [facility] ER SOB [id number] 11/25/2016 18:50:00 11/27/2016 11:10:00 DIS Inpatient SARAH GARCIA DO [facility] 4TH 2ND DEGREE LEE TO BILATERAL NARES AND FACE,SMOKE [id number] 09/16/2016 10:39:00 09/16/2016 23:59:59 CLS Outpatient REEMA ESPINAL [facility] CARD HX OF ISCHEMIC CARDIOMYOPATHY,DENNEY,CAD,HLD [id number] 04/25/2016 10:05:00 04/25/2016 23:59:59 CLS Outpatient ISABELA DOYLE APRN [facility] RAD COPD [id number] 01/29/2016 11:55:00 01/29/2016 23:59:59 CLS Outpatient RUDI PINEDA MD, FACC, FACP CCDS [facility] RAD COPD,CAD,HLD [id number] 12/10/2015 09:02:00 12/10/2015 23:59:59 CLS Outpatient RUDI PINEDA MD, FACC, FACP CCDS [facility] LAB CAD, HLD, TOBACCO USER,CAROTID ARTERIAL DISEASE [id number] 04/22/2015 08:51:00 04/22/2015 10:12:00 DIS Emergency DHAVAL CANO MD [facility] ER LEG SPASMS,VOMITING [id number] 04/02/2015 12:10:00 04/02/2015 23:59:59 CLS Outpatient KANE OLIVERA DO [facility] RAD COPD [id number] 12/05/2014 20:00:00 12/05/2014 23:59:59 CLS Preadmit KANE OLIVERA DO [facility] SLEEP SNORING,CHOKING, GASPING [id number] 09/12/2014 08:27:00 09/12/2014 23:59:59 CLS Outpatient KANE OLIVERA DO [facility] RAD COPD, [id number] 07/26/2014 09:49:00 07/26/2014 23:59:59 CLS Outpatient KANE OLIVERA DO [facility] RT MEDIAL STINAL LYMPHADENOPATHY, COPD [id number] 05/31/2014 06:30:00 06/02/2014 13:00:00 DIS Inpatient LIDIA DAILY MD [facility] SURGICAL STENOSIS [id number] 05/29/2014 09:31:00 05/29/2014 23:59:59 CLS Outpatient LIDIA DAILY MD [facility] PREOP STENOSIS [id number] 05/26/2014 14:47:00 05/26/2014 23:59:59 CLS Outpatient RUDI PINEDA MD, FACC, FACP CCDS [facility] LAB CHR ISC HRT DIS NOS [id number] 05/26/2014 14:44:00 05/26/2014 23:59:59 CLS Outpatient LIDIA DAILY MD [facility] RAD CAROTID STENOSIS [id number] 05/25/2014 01:24:00 05/25/2014 09:43:00 DIS Inpatient RUDI PINEDA MD, FACC, FACP CCDS [facility] CSD EPISODIC LOW BLOOD PRESSURE [id number] 05/08/2014 09:10:00 05/08/2014 23:59:59 CLS Outpatient KAREN LEON [facility] LAB HYPOTASSEMIA,DIS MAGNESIUM METABOLISM [id number] 04/20/2014 19:05:00 04/21/2014 17:00:00 DIS Inpatient KATIE BELTRAN DO [facility] 4TH SYNCOPE,DEHYDRATION [id number] 02/08/2014 01:50:00 02/10/2014 09:21:00 DIS Outpatient MIRIAM WILSON FACCRUDI FACP CCDS [facility] CATH CP [id number] 06/10/2018 12:06:00 Document Registration [id number] 04/07/2018 06:27:00 Document Registration [id number] 04/06/2018 10:58:00 Document Registration [id number] 11/01/2014 06:00:00 Document Registration [id number] 10/31/2014 12:15:00 Document Registration
--- NOTE | 2018-11-07 00:04 | ED Respiratory ---
General Chief Complaint: Respiratory Problems Stated Complaint: SOB Nursing Triage Note: PT BROUGHT IN BY EMS FROM HOME WITH COMPLAINT OF SOA. PT STATES SHE HAS COPD AND IS ALWAYS SOA. STATES IT DID NOT WORSEN TODAY, BUT HER DAUGHTER CALLED EMS. STATES SHE WEARS 6LNC AT HOME. PT SATS WERE IN THE 80S WHEN EMS ARRIVED. PUT ON 10L NRB BY EMS. Source: patient, EMS Exam Limitations: no limitations History of Present Illness Date Seen by Provider: Nov 06, 2018 Time Seen by Provider: 23:53 Initial Comments The patient presents to ER by EMS with chief complaint of shortness of breath. She was getting up to walk into the kitchen she cannot get her live-in helper to come help her so she actually rolled forward striking the right side of her jainism and right arm against the table of the kitchen. She says she did not lose consciousness but she is on Plavix. She has been feeling short of breath all day. She has a history of COPD on not dependent on 6 L of oxygen by nasal cannula. She does not check her blood pressure oxygen sats at home. She says she 's felt chills all day but is not on the thermometer. Denies any dysuria. Had an occasional cough occasionally productive but nothing outside the norm. She does not smoke cigarettes but she does smoke marijuana. She has been using her inhalers as she was told. She took 2 puffs of her albuterol before coming in by EMS. She does not feel wheezy right now. No significant pain anywhere. The daughter reports that the patient had her concerned because for the past days she's been doing some convulsion movement which she does sometimes when she gets low on her oxygen and starts flipping her arms around and pulling her oxygen off getting confused. When I get her oxygen back on her she usually recovers from this. They said that she usually runs around 80-82% oxygen sats at home. She has had a bunch of coughing lately and some nasal congestion. EMS reports the patient was being walked to the car when she's got wobbly in her knees started to fall and smacked herself in the head with her forearm and that's why there is a Band-Aid and scratch on her right forearm that matches up with her right jainism. They said she did not actually fall and strike anything with her head. They caught her and she never hit the ground. Allergies and Home Medications Allergies Coded Allergies: No Known Drug Allergies (Unverified , 04/07/18) Home Medications Albuterol Sulfate 2.5 Mg/3 Ml Vial.neb, 2.5 MG IH Q4H PRN for SHORTNESS OF BREATH Prescribed by: KENNEDI CORREA on 02/03/172021 Albuterol Sulfate 18 Gm Hfa.aer.ad, 2 PUFF INH QID PRN for SHORTNESS OF BREATH, (Reported) Aspirin 81 Mg Tablet.dr, 81 MG PO DAILY, (Reported) Benzonatate 100 Mg Capsule, 100 MG PO TID PRN for COUGH, (Reported) Budesonide/Formoterol Fumarate 10.2 Gm Hfa.aer.ad, 2 PUFF IH BID, (Reported) Clonazepam 0.25 Mg Tab.rapdis, 0.25 MG PO TID PRN for ANXIETY, (Reported) Clopidogrel Bisulfate 75 Mg Tablet, 75 MG PO DAILY, (Reported) Cyclobenzaprine HCl 5 Mg Tablet, 5 MG PO TID PRN for MUSCLE SPASMS, (Reported) Fluticasone Propionate 16 Gm Ballinger.susp, 1 SPRAY NSEACH DAILY PRN for ALLERGIES, (Reported) Loratadine 10 Mg Tablet, 10 MG PO DAILY, (Reported) Mirtazapine 45 Mg Tablet, 45 MG PO HS, (Reported) Montelukast Sodium 10 Mg Tablet, 10 MG PO HS, (Reported) Prednisone 20 Mg Tab, 40 MG PO DAILY@0700 2 tab daily x 2 days then 1 tab daily x 4 days then 1/2 tab x 4 days then stop Prescribed by: TERESA JEWELL on 09/13/181728 Tiotropium [place] 1 Inh Aerp, 1 CAP INH DAILY PRN for SHORTNESS OF BREATH, ( Reported) Trazodone HCl 150 Mg Tablet, 150 MG PO HS, (Reported) Patient Home Medication List Home Medication List Reviewed: Yes Review of Systems Review of Systems Constitutional: No chills, No fever; malaise, weakness EENTM: No ear discharge, No ear pain, No eye pain Respiratory: cough; No phlegm; short of breath; No wheezing Cardiovascular: No chest pain, No palpitations Gastrointestinal: No abdominal pain, No diarrhea, No nausea, No vomiting Genitourinary: No discharge, No dysuria Musculoskeletal: No back pain, No joint pain Past Ncgkbdo-Gzpwcd-Tjfkuf Hx Patient Social History Alcohol Use: Denies Use Recreational Drug Use: Yes Drug of Choice: POT Smoking Status: Former Smoker Type Used: Cigarettes 2nd Hand Smoke Exposure: Yes Recent Foreign Travel: No Contact w/Someone Who Travel: No Recent Infectious Disease Expo: No Recent Hopitalizations: No Immunizations Up To Date Tetanus Booster (TDap): Unknown Date of Pneumonia Vaccine: Jan 22, 2013 Date of Influenza Vaccine: May 24, 2018 Seasonal Allergies Seasonal Allergies: Yes Past Medical History Surgeries: Yes (CAROTID, BILAT CARPAL TUNNEL, L RCR, CATARACT) Cardiac, Section, Coronary Stent, Orthopedic, Vascular Surgery Respiratory: Yes (O2 6L) COPD Currently Using CPAP: No Currently Using BIPAP: No Cardiac: Yes Coronary Artery Disease, Heart Attack, High Cholesterol Neurological: No Reproductive Disorders: No Female Reproductive Disorders: Denies 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 ) Arthritis Endocrine: No Diabetes, Non-Insulin dep Loss of Vision: Bilateral Hearing Impairment: Denies Cancer: No Psychosocial: Yes (PANIC ATTACKS) Anxiety, PTSD, Bipolar Integumentary: Yes Psoriasis Blood Disorders: No Adverse Reaction/Blood Tranf: No (N/A) Family Medical History Cancer 19 MOTHER Family history: Breast disease 19 MOTHER Family history: Cardiovascular disease 19 FATHER, G8 BROTHER, Family history: Hypertension G8 SISTER Headache 19 FATHER, 19 MOTHER G8 BROTHER, G8 SISTER G8 SISTER History of - respiratory disease 19 FATHER, G8 BROTHER, Hypercholesterolemia G8 BROTHER, Myocardial infarction G8 BROTHER, No Pertinent Family Hx Physical Exam Vital Signs - First Documented 11/06/18 23:35 Temp 98.3 Pulse 102 Resp 21 B/P (MAP) 123/78 (93) Pulse Ox 88 O2 Delivery OxyMask O2 Flow Rate 6.00 Capillary Refill : Less Than 3 Seconds Height: 5'0" Weight: 160lbs. 0.0oz. 72.460505gd; 33.2 BMI Method:Stated General Appearance: WD/WN, no apparent distress Eyes: Bilateral Eye Normal Inspection, Bilateral Eye PERRL, Bilateral Eye EOMI HEENT: PERRL/EOMI, normal ENT inspection, TMs normal, pharynx normal Neck: non-tender, full range of motion, supple Respiratory: chest non-tender, lungs clear, normal breath sounds, respiratory distress (to moderate), decreased breath sounds (mild), accessory muscle use ( mild to moderate); No crackles Cardiovascular: normal peripheral pulses, regular rate, rhythm, no edema Gastrointestinal: non tender, soft Extremities: normal range of motion, non-tender, normal inspection, no pedal edema, normal capillary refill Neurologic/Psychiatric: alert, normal mood/affect, oriented x 3 Skin: normal color, warm/dry Focused Exam Lactate Level 11/07/18 00:15: Lactic Acid Level 6.03*H 11/07/18 03:23: Lactic Acid Level 1.76 Lactic Acid Level Laboratory Tests Test 11/07/18 00:15 11/07/18 03:23 Lactic Acid Level 6.03 MMOL/L (0.50-2.00) *H 1.76 MMOL/L (0.50-2.00) Procedures/Interventions Lumen: triple Central Line Procedure: betadine prep (chlorhexidine prep), sterile drapes applied, sterile dressing applied Position: internal jugular (R) Anesthesia: Lidocaine Volume Anesthetic (ccs): 3 Complications: none Post Position: sutured, good blood return, position confirmed w/ CXR Risks, benefits and alternatives explained. Reviewing this for access. Placed a central line under usual sterile fashion after draping the patient out cleaning the skin with chlorhexidine prep and infiltrated with lidocaine 1% non- epinephrine. The introducer needle was put into the right IJ under ultrasound guidance and a guidewire was easily passed on first attempt. We then removed the needle after making a small jarad in the skin with 11 blade scalpel. We put the dilator across the guidewire and removed it. We fed the central lumen of the triple lumen catheter on the guidewire and then removed the guidewire and flushed and withdrew easily central lumen. The triple lumen catheter was then stitched in place and a Biopatch and sterile dressing were placed. Patient tolerated procedure well. Progress/Results/Core Measures Suspected Sepsis Recent Fever Within 48 Hours: No Infection Criteria Present: None New/Unexplained Altered Menta: No Sepsis Screen: No Definite Risk SIRS Temperature:98.3 Pulse: 102 Respiratory Rate: 21 Laboratory Tests 11/07/18 00:15: White Blood Count 12.5H Blood Pressure 123 /78 Mean: 93 11/07/18 00:15: Lactic Acid Level 6.03*H 11/07/18 03:23: Lactic Acid Level 1.76 Laboratory Tests 11/07/18 00:15: Creatinine 1.26, Platelet Count 337, Total Bilirubin 1.4H Results/Orders Lab Results Laboratory Tests Test 11/07/18 00:00 11/07/18 00:15 11/07/18 03:23 11/07/18 04:35 Range/Units Blood Gas Puncture Site LEFT RADIAL RIGHT RADIAL Blood Gas Patient Temperature 98.4 97.6 Arterial Blood pH 7.52 H 7.49 H 7.37-7.43 Arterial Blood Partial Pressure CO2 51 H 54 H 35-45 MMHG Arterial Blood Partial Pressure O2 40 L 43 L 79-93 MMHG Arterial Blood HCO3 41 *H 41 *H 23-27 MMOL/L Arterial Blood Total CO2 42.7 H 42.8 H 21.0-31.0 MMOL/L Arterial Blood Oxygen Saturation 69 L 76 L 94-100 % Arterial Blood Base Excess 16.6 H 16.4 H -2.5-2.5 MMOL/L Stephan Test POSITIVE POSTIVIE Blood Gas Ventilator Setting YES YES Blood Gas Inspired Oxygen 6L OXYMASK 50%BIPAP White Blood Count 12.5 H 4.3-11.0 10^3/uL Red Blood Count 4.04 L 4.35-5.85 10^6/uL Hemoglobin 12.0 11.5-16.0 G/DL Hematocrit 37 35-52 % Mean Corpuscular Volume 92 80-99 FL Mean Corpuscular Hemoglobin 30 25-34 PG Mean Corpuscular Hemoglobin Concent 32 32-36 G/DL Red Cell Distribution Width 13.9 10.0-14.5 % Platelet Count 337 130-400 10^3/uL Mean Platelet Volume 9.4 7.4-10.4 FL Neutrophils (%) (Auto) 89 H 42-75 % Lymphocytes (%) (Auto) 5 L 12-44 % Monocytes (%) (Auto) 6 0-12 % Eosinophils (%) (Auto) 0 0-10 % Basophils (%) (Auto) 0 0-10 % Neutrophils # (Auto) 11.1 H 1.8-7.8 X 10^3 Lymphocytes # (Auto) 0.6 L 1.0-4.0 X 10^3 Monocytes # (Auto) 0.7 0.0-1.0 X 10^3 Eosinophils # (Auto) 0.0 0.0-0.3 10^3/uL Basophils # (Auto) 0.0 0.0-0.1 10^3/uL Neutrophils % (Manual) 89 % Lymphocytes % (Manual) 3 % Monocytes % (Manual) 8 % D-Dimer 0.69 H 0.00-0.49 UG/ML Sodium Level 128 L 135-145 MMOL/L Potassium Level 2.3 *L 3.6-5.0 MMOL/L Chloride Level 72 L 98-107 MMOL/L Carbon Dioxide Level 33 H 21-32 MMOL/L Anion Gap 23 H 5-14 MMOL/L Blood Urea Nitrogen 11 7-18 MG/DL Creatinine 1.26 0.60-1.30 MG/DL Estimat Glomerular Filtration Rate 44 BUN/Creatinine Ratio 9 Glucose Level 175 H 70-105 MG/DL Lactic Acid Level 6.03 *H 1.76 0.50-2.00 MMOL/L Calcium Level 9.0 8.5-10.1 MG/DL Corrected Calcium 9.0 8.5-10.1 MG/DL Magnesium Level 1.3 L 1.8-2.4 MG/DL Total Bilirubin 1.4 H 0.1-1.0 MG/DL Aspartate Amino Transf (AST/SGOT) 15 5-34 U/L Alanine Aminotransferase (ALT/SGPT) 7 0-55 U/L Alkaline Phosphatase 73 40-136 U/L B-Type Natriuretic Peptide 1181.3 H <100.0 PG/ML Total Protein 7.1 6.4-8.2 GM/DL Albumin 4.0 3.2-4.5 GM/DL Micro Results Microbiology 11/07/18 Influenza Types A,B Antigen (BALWINDER) - Final, Complete My Orders Orders - SYLVAIN BOATENG Influenza A And B Antigens (11/07/18 00:00) Ct Head/Cervical Spine Wo (11/07/18 00:04) Arterial Blood Gas (11/07/18 00:04) Arterial Blood Draw (11/07/18 00:00) Ct Angio Chest W (11/07/18 01:08) Saline Lock/Iv-Start (11/07/18 01:08) Ns Iv 1000 Ml (Sodium Chloride 0.9%) (11/07/18 01:08) Saline Lock/Iv-Start (11/07/18 01:09) Ns Iv 1000 Ml (Sodium Chloride 0.9%) (11/07/18 01:09) Ondansetron Injection (Zofran Injectio (11/07/18 01:45) Potassium Cl 10meq/50ml Ivpb (Kcl 10 Meq (11/07/18 01:45) Magnesium (11/07/18 01:36) Ondansetron Injection (Zofran Injectio (11/07/18 01:34) Magnesium 1 Gm/100 Ml Ivpb (Magnesium Matson (11/07/18 02:00) Cefepime Injection (Maxipime Injection) (11/07/18 02:00) Chest 1 View, Ap/Pa Only (11/07/18 02:54) Ekg Tracing (11/07/18 03:08) Potassium Cl 10meq/50ml Ivpb (Kcl 10 Meq (11/07/18 03:30) Iohexol Injection (Omnipaque 350 Mg/Ml 1 (11/07/18 04:00) Received Contrast (Contrast Received) (11/07/18 04:00) Ns (Ivpb) (Sodium Chloride 0.9% Ivpb Bag (11/07/18 04:00) Arterial Blood Gas (11/07/18 04:35) Arterial Blood Draw (11/07/18 ) Ns Iv 1000 Ml (Sodium Chloride 0.9%) (11/07/18 04:39) Lidocaine 2% Viscous 15 Ml (Xylocaine Vi (11/07/18 05:30) Famotidine Tablet (Pepcid Tablet) (11/07/18 05:26) Antacid Suspension (Mylanta Suspension (11/07/18 05:30) Medications Given in ED Current Medications Medications Dose Ordered Sig/Lesli Route Start Time Stop Time Status Last Admin Dose Admin Cefepime HCl 1000 mg/Sterile Water 10 ml @ 200 mls/hr ONCE ONCE IV 11/07/18 02:00 11/07/18 02:02 DC 11/07/18 03:59 200 MLS/HR Iohexol 150 ml ONCE ONCE IV 11/07/18 04:00 11/07/18 04:01 DC 11/07/18 04:04 125 ML Magnesium Sulfate/ Dextrose 100 ml @ 100 mls/hr ONCE ONCE IV 11/07/18 02:00 11/07/18 02:59 DC 11/07/18 04:02 100 MLS/HR Ondansetron HCl 4 mg ONCE ONCE IVP 11/07/18 01:45 11/07/18 01:47 DC 11/07/18 01:38 4 MG Potassium Chloride 50 ml @ 50 mls/hr ONCE ONCE IV 11/07/18 01:45 11/07/18 02:44 DC 11/07/18 03:59 50 MLS/HR Potassium Chloride 50 ml @ 50 mls/hr ONCE ONCE IV 11/07/18 03:30 11/07/18 04:29 DC 11/07/18 04:19 50 MLS/HR Sodium Chloride 100 ml ONCE ONCE IV 11/07/18 04:00 11/07/18 04:01 DC 11/07/18 04:04 80 ML Vital Signs/I&O 11/06/18 11/06/18 11/07/18 11/07/18 23:35 23:35 03:10 04:10 Temp 98.3 Pulse 102 94 Resp 21 19 B/P (MAP) 123/78 (93) Pulse Ox 88 83 93 O2 Delivery OxyMask Non Rebreather O2 Flow Rate 6.00 10.00 40.00 50.00 11/07/18 05:09 Temp 98.2 Pulse 81 Resp 18 B/P (MAP) 116/84 Pulse Ox 90 O2 Delivery NIV/CPAP Capillary Refill : Less Than 3 Seconds Blood Pressure Mean: 93 Progress Note #1: Time: 00:24 Progress Note ABG looks chronic her oxygen pressure is definitely poor at 40. It seems like she is at her baseline for oxygen sats according to the family. We will put her on an with an upper oxygen mast 8 L/m. Progress Note #2: Time: 03:03 Progress Note On high flow oxygen and the patient's oxygen saturations are in the mid 90s. They were unable to get a good IV access to keep to do the CT angiogram. She had a convulsive episode and passed out but after we get her back on oxygen from transferring her across the CT table to her bed she came back to answer questions appropriately. We decided to put a central line because she had terrible access. Patient's comfortable for the moment so we will attempt again to get a CT angiogram. We'll put her on BiPAP 12 over 4 and titrate FiO2 to keep her oxygen saturation 90-93%. Diagnostic Imaging Diagonstic Imaging: Xray Plain Films/CT/US/NM/MRI: chest (1v) Comments No acute infiltrate or other cardiopulmonary process. Reviewed: Reviewed by Me Diagonstic Imaging: CT (noncontrast) Plain Films/CT/US/NM/MRI: c-spine, head Comments Negative for hemorrhage, mass effect, midline shift, calvarial fracture or tumor. C-spine without fracture, subluxation or other acute findings. Reviewed: Reviewed by Me Diagonstic Imaging: Xray Plain Films/CT/US/NM/MRI: chest (1v) Comments No interval changes except for there is a central line placed on the right side IJ that does not cross the midline and terminates in the superior vena cava above the heart. No pneumothorax. Reviewed: Reviewed by Me Diagonstic Imaging: CT (angiogram) Plain Films/CT/US/NM/MRI: chest Comments No acute pulmonary embolism. Background centrilobular emphysematous changes with mild superimposed interstitial edema. Unchanged mediastinal and bilateral hilar adenopathy. Reviewed: Reviewed by Me Departure Impression Primary Impression: Pneumonia Qualified Codes: J18.9 - Pneumonia, unspecified organism Additional Impressions: COPD (chronic obstructive pulmonary disease) Qualified Codes: J44.0 - Chronic obstructive pulmonary disease with acute lower respiratory infection Acute respiratory failure with hypoxia Electrolyte and fluid disorder Disposition: XF [facility] Condition: Stable Transfer Time Spoke to Accepting Phy: 04:35 Transfer Progress Notes LUIS Huggins 0425 they are at capacity and decline. Vinod Stephenson [place] 0430: Discussed with Dr. Kulkarni he agrees to accept the patient. 0515: 70 from [facility] informs me that there is a patient moving out of the floor they are want to put this patient on and the room will need to be cleaned and will probably be about an hour before they can call with a room number for us. If the patient deteriorates then we should call them back and they will accept the patient ER to ER if necessary. Transfer Time: 07:20 [facility] [place] [place] Method of Transfer: EMS Departure-Patient Inst. Referrals: [facility] (PCP) Primary Care Physician DANIEL CONNOLLY (Family) Primary Care Physician SYLVAIN BOATENG Nov 07, 2018 00:04
[2018-11-07 00:09] LABS: ABG BASE EXCESS 16.6 MMOL/L (-2.5-2.5); ABG OXYGEN SATURATION 69 % (94-100); ABG PCO2 51 MMHG (35-45); ABG PH 7.52 (7.37-7.43); ABG PO2 40 MMHG (79-93); ABG TCO2 42.7 MMOL/L (21.0-31.0)
[2018-11-07 00:12] LABS: ALLENS TEST POSITIVE; INSPIRED O2 6L OXYMASK
[2018-11-07 00:13] LABS: PATIENT TEMP 98.4; VENTILATOR YES
[2018-11-07 00:30] LABS: BASOPHILS % (AUTO) 0 % (0-10); EOSINOPHILS % (AUTO) 0 % (0-10); HEMATOCRIT 37 % (35-52); LYMPHOCYTES # (AUTO) 0.6 X 10^3 (1.0-4.0); LYMPHOCYTES % (AUTO) 5 % (12-44); MEAN CORPUSCULAR HEMOGLOBIN 30 PG (25-34); MEAN CORPUSCULAR HGB CONC 32 G/DL (32-36); MEAN CORPUSCULAR VOLUME 92 FL (80-99); MEAN PLATELET VOLUME 9.4 FL (7.4-10.4); MONOCYTES # (AUTO) 0.7 X 10^3 (0.0-1.0); MONOCYTES % (AUTO) 6 % (0-12); NEUTROPHILS # (AUTO) 11.1 X 10^3 (1.8-7.8); NEUTROPHILS % (AUTO) 89 % (42-75); PLATELET COUNT 337 10^3/uL (130-400); RED CELL DISTRIBUTION WIDTH 13.9 % (10.0-14.5); WHITE BLOOD COUNT 12.5 10^3/uL (4.3-11.0)
[2018-11-07 00:49] LABS: BILIRUBIN,TOTAL 1.4 MG/DL (0.1-1.0); CREATININE SERUM 1.26 MG/DL (0.60-1.30); TOTAL PROTEIN 7.1 GM/DL (6.4-8.2)
[2018-11-07 00:52] LABS: POTASSIUM 2.3 MMOL/L (3.6-5.0)
[2018-11-07] MEDS ORDERED: NS IV 1000 ML 1,000 ML IV SCH ×2 (01:08→01:09)
[2018-11-07] MEDS ORDERED: ONDANSETRON 4 MG/2 ML (SDV) Z0FRAN ONE (01:34)
[2018-11-07] MEDS ORDERED: POTASSIUM CL 10MEQ/50ML IVPB 50 ML IV ONE ×2 (01:45→03:30)
[2018-11-07] MEDS ORDERED: ONDANSETRON 4 MG/2 ML (SDV) Z0FRAN IVP ONE (01:45)
[2018-11-07] MEDS ORDERED: CEFEPIME INJECTION 1,000 MG in WATER (STERILE) FOR INJECTION 10 ML IV ONE (02:00)
[2018-11-07] MEDS ORDERED: MAGNESIUM 1 GM/100 ML IVPB 100 ML IV ONE (02:00)
[2018-11-07 02:46] LABS: LYMPHOCYTES % (MANUAL) 3 %; MONOCYTES % (MANUAL) 8 %; NEUTROPHILS % (MANUAL) 89 %
[2018-11-07 03:10] VITALS: BP 111/67
[2018-11-07] MEDS ORDERED: HOLD METFORMIN - RECEIVED CONTRAST 20 ML VIAL IV SCH (04:00)
[2018-11-07] MEDS ORDERED: NS 100 ML (IVPB) BAG IV ONE (04:00)
[2018-11-07] MEDS ORDERED: IOHEXOL 350 MG/ML 150 ML (OMNIPAQUE 350) VIAL IV ONE (04:00)
[2018-11-07] MEDS ORDERED: NS IV 1000 ML 1,000 ML ONE (04:39)
[2018-11-07 04:42] LABS: ABG BASE EXCESS 16.4 MMOL/L (-2.5-2.5); ABG OXYGEN SATURATION 76 % (94-100); ABG PCO2 54 MMHG (35-45); ABG PH 7.49 (7.37-7.43); ABG PO2 43 MMHG (79-93); ABG TCO2 42.8 MMOL/L (21.0-31.0)
[2018-11-07 04:45] LABS: ALLENS TEST POSTIVIE; INSPIRED O2 50%BIPAP; PATIENT TEMP 97.6; VENTILATOR YES
[2018-11-07] MEDS ORDERED: FAMOTIDINE 20 MG (PEPCID) TABLET PO STA (05:26)
[2018-11-07] MEDS ORDERED: LIDOCAINE 2% VISCOUS 15 ML UDC PO ONE (05:30)
[2018-11-07] MEDS ORDERED: ANTACID SUSP 30 ML UDC (MYLANTA) PO ONE (05:30)
--- NOTE | 2018-11-07 06:49 | Diagnostic Imaging Report ---
INDICATION: Line placement. TECHNIQUE: Single view chest 2:55 AM. CORRELATION STUDY: 11/07/2018 FINDINGS: Right IJ central line is present, tip projects over the high right paramediastinal region. No pneumothorax. Heart size enlarged with component of vascular congestion and interstitial edema suggested. No definitive consolidating infiltrate. Loop recorder device over the left anterior chest. Vascular stent over the left aspect of the neck. IMPRESSION: 1. Right IJ central line has been placed, tip projects over the high right paramediastinal region. 2. Cardiac enlargement with findings compatible with vascular congestion and mild interstitial edema. Dictated by: Dictated on workstation # [id number]
--- NOTE | 2018-11-07 06:59 | Diagnostic Imaging Report ---
PROCEDURE: CT head and CT cervical spine without contrast. TECHNIQUE: Multiple contiguous axial images were obtained through the brain and cervical spine without the use of intravenous contrast. Sagittal and coronal reformations through the cervical spine were then performed. INDICATION: Shortness of air, multiple recent falls. CORRELATION STUDY: CT head 09/09/2018 FINDINGS: CT HEAD: Ventricles and sulci are slightly prominent for the patient's age. No midline shift or mass effect. No abnormal extra-axial fluid collection or evidence for acute intracranial hemorrhage. Basilar cisterns are maintained. Bony calvarium intact. Paranasal sinus and mastoid air cells clear. CT CERVICAL SPINE: Cervical spine alignment anatomic. Vertebral body heights maintained. Posterior elements intact and normal in alignment. Mild hypertrophic facet arthropathy. Odontoid intact. Mild leftward curvature of the cervical spine. Mild degenerative changes small osteophyte anteriorly C5-C6 level. The left common carotid artery stent is present. There does appear to be mild prominence of the cervical lymph nodes, prominent in number. Additionally, there prominent mediastinal lymph nodes in the visualized superior mediastinum. Prominent interstitial markings superimposed on changes of COPD. IMPRESSION: CT HEAD: 1. Negative for acute intracranial abnormality. CT CERVICAL SPINE: 1. Negative for acute fracture or traumatic subluxation. 2. Note made of mildly prominent cervical and superior mediastinal lymph nodes. 3. Prominent interstitial markings suggesting a interstitial edema on emphysematous lung disease. A preliminary report was provided by [employer]. Dictated by: Dictated on workstation # [id number]
--- NOTE | 2018-11-07 07:04 | Diagnostic Imaging Report ---
PROCEDURE: CT angiography of the chest with contrast. TECHNIQUE: Multiple contiguous axial images were obtained through the chest after uneventful bolus administration of intravenous contrast. 2D reconstructed CTA MIP acquisitions were also performed. INDICATION: Shortness of air, elevated d-dimer. COMPARISON: 07/27/2018 FINDINGS: The pulmonary arteries symmetric demonstrate no filling defect that would suggest pulmonary embolism. Heart size is mildly enlarged. Small pericardial effusion stable to slightly decreased in size. There is moderate coronary artery calcification. There is again redemonstration of moderate mediastinal and bilateral hilar lymphadenopathy. This appears relatively similar to prior noncontrast study. A right-sided central line is present tip appears to be at the junction of the internal jugular vein and innominate vein. Vascular stent over the low left common carotid artery. Apparent loop recorder device over the left anterior chest. There does appear to be background centrilobular emphysematous change about the lung parenchyma. Some superimposed interstitial edema is suggested. No significant consolidating infiltrate. Heterogeneous low-attenuation of the liver parenchyma. Some reflux of contrast into the hepatic vein and inferior vena cava. Fairly significant atheromatous change about the visualized upper abdominal aorta. Advanced degenerative change about the thoracic spine. IMPRESSION: 1. No CTA evidence for pulmonary embolism. 2. Background centrilobular emphysematous changes are again demonstrated. 3. Superimposed interstitial edema may reflect underlying vascular congestion. 4. Redemonstration of prominent mediastinal and bilateral hilar lymphadenopathy. A preliminary report was provided by [employer]. Dictated by: Dictated on workstation # [id number]
--- NOTE | 2018-11-07 07:09 | Diagnostic Imaging Report ---
INDICATION: Shortness of breath Portable chest 12:26 AM Heart size and pulmonary vascularity are normal. Lungs are clear. There are no effusions or pneumothoraces. IMPRESSION: Negative chest Dictated by: Dictated on workstation # [id number]
[2018-11-07 07:36] VITALS: BP 105/86
== END 2018-11-07 07:20 | disposition short-term general hospital (02) ==
LOC: ER 23:35 → EDUNIT# 23:35 → ER 11-07 07:20
DX: J18.9 Pneumonia, unspecified organism (principal); J44.9 Chronic obstructive pulmonary disease, unspecified; J96.01 Acute respiratory failure with hypoxia; E87.8 Other disorders of electrolyte and fluid balance, not elsewhere classified; I25.10 Atherosclerotic heart disease of native coronary artery without angina pectoris; I25.2 Old myocardial infarction; E78.00 Pure hypercholesterolemia, unspecified; E11.9 Type 2 diabetes mellitus without complications; F41.0 Panic disorder [episodic paroxysmal anxiety]; F43.10 Post-traumatic stress disorder, unspecified; F31.9 Bipolar disorder, unspecified; F17.210 Nicotine dependence, cigarettes, uncomplicated; Z87.891 Personal history of nicotine dependence; Z82.49 Family history of ischemic heart disease and other diseases of the circulatory system; Z99.81 Dependence on supplemental oxygen; Z98.890 Other specified postprocedural states; Z95.5 Presence of coronary angioplasty implant and graft; Z79.51 Long term (current) use of inhaled steroids; Z79.82 Long term (current) use of aspirin; Z79.02 Long term (current) use of antithrombotics/antiplatelets; Z79.52 Long term (current) use of systemic steroids
CPT/HCPCS: 36415; 36600; 70450; 71045; 71275; 72125; 80053; 82805; 83605; 83735; 83880; 85007; 85027; 85379; 87040; 87804; 93005; 93041; 99291